=== PATIENT | male | born 1960 | race Caucasian/White ===

== ENCOUNTER 2022-05-22 14:21 | Emergency (ER) | payer MEDICAID, SELFPAY ==
[2022-05-22 14:43] VITALS: BP 164/91; PULSE 70; RESP 20; TEMP 36.6; O2SAT 94; BMI 26.7
[2022-05-22 15:00] VITALS: BP 125/80; PULSE 65; RESP 14; O2SAT 93
--- NOTE | 2022-05-22 15:25 | CRLHL7_ITS ---
For Patients: As a result of the Century Cures Act, medical imaging exams and procedure reports are released immediately into your electronic medical record. You may view this report before your referring provider. If you have questions, please contact your health care provider. INDICATION: Cough, shortness of breath. TECHNIQUE: CT chest without contrast. Coronal and sagittal reformats were generated. COMPARISON: Multiple prior imaging studies, most recently CT of the chest from 04/24/2022. FINDINGS: Thyroid: Unremarkable. Thoracic lymph nodes: Scattered enlarged mediastinal nodes appear similar to prior. A pretracheal node measures approximately 1.8 x 1.7 cm (34). Mediastinum and esophagus: Unremarkable. Heart and vasculature: Unremarkable. Lungs: Diffuse centrilobular emphysematous changes, mostly involving the upper lobes. Areas of irregular right upper lobe opacity, as well as consolidation in the posterior aspect of the right upper lobe and superior segment of the right lower lobe appear similar to prior. Streaky opacities in the left upper lobe have resolved. Decreased density of the left lower lobe consolidation. Pleura: Trace left pleural effusion. Chest wall: Unremarkable. Upper abdomen: No significant findings. Bones: Unremarkable for age. IMPRESSION: 1. Findings suggest improving multifocal infection. 2. Persistent enlarged mediastinal nodes are likely reactive. 3. Stable emphysematous changes. Please note that all CT scans at this facility use dose modulation, iterative reconstruction, and/or weight-based dosing when appropriate to reduce radiation dose to as low as reasonably achievable. Dictated by Hai Rosenberg MD @ 05/22/2022 4:39:47 PM (Electronically Signed)
--- NOTE | 2022-05-22 15:47 | ED.SOB ---
HPI - SOB/Dyspnea General Time Seen by Provider: 15:20 Date Seen: 05/22/22 Chief Complaint: Shortness of Breath/Dyspnea Stated Complaint: Short of breath, coughing Time Seen by Provider: 05/22/22 15:16 Source: patient Mode of arrival: ambulatory History of Present Illness MD elicited complaint: shortness of breath and cough Pertinent past history: asthma and pneumonia Onset (ago): week(s) (One) Context: recent illness Severity: moderate Known history of: asthma and recurrent pneumonia Associated symptoms: denies other symptoms Related Data Home Medications Medication Instructions Recorded Confirmed albuterol sulfate 90 mcg/actuation INHALATION 05/22/22 aerosol inhaler (ProAir HFA) budesonide-formoterol HFA 160 INHALATION 05/22/22 mcg-4.5 mcg/actuation aerosol inhaler (Symbicort) montelukast 10 mg tablet mg 05/22/22 omeprazole 20 mg capsule,delayed mg 05/22/22 release tiotropium bromide 18 mcg capsule INHALATION 05/22/22 with inhalation device (Spiriva with HandiHaler) Previous Rx's Medication Instructions Recorded acetaminophen 300 mg-codeine 30 mg 1 tab PO Q4-6H PRN #20 tab 05/22/22 tablet methylprednisolone 4 mg tablets in 4 mg PO DAILY #21 ea 05/22/22 a dose pack (Medrol (Gibran)) Allergies Allergy/AdvReac Type Severity Reaction Status Date / Time shellfish derived AdvReac Intermediate Vomiting Verified 05/22/22 14:43 Review of Systems Status of ROS: Reports: 10 or more systems reviewed and unremarkable except as noted in History and below Const: Denies: fever or chills Eyes: Denies: change in vision ENMT: Denies: throat pain Cardio: Reports: shortness of breath with exertion; Denies: chest pain Resp: Reports: shortness of breath and cough GI: Denies: abdominal pain : Denies: painful urination Musculo: Denies: back pain Integ/Breast: Denies: rash Neuro: Denies: headache, numbness in extremities or weakness in extremities Psych: Denies: anxiety Endo: Denies: excessive urination Santy/Lymph: Denies: easy bruising or easy bleeding Allergy/Immuno: Denies: hives PFSH PFS Medical History Anemia Pneumonia Surgical History (Updated 05/22/22 @ 15:14 by June Samuels RN) No significant past surgical history Social History Smoking Status: Former smoker What tobacco products do you use: cigarettes Smoking quit date/years: <= 15 years ago Do you use any of these nicotine containing products: None Second hand tobacco smoke exposure: Yes How often do you have a drink containing alcohol: 4 or more times a week How many standard drinks containing alcohol do you have on a typical day: 3 or 4 How often do you have six or more drinks on one occasion: Never AUDIT-C Alcohol total score: 5 Non-prescribed substance use: denies use service: No Exam Const: Vital Signs, click to edit/add: Vital Signs - 24 hr 05/22/22 14:43 05/22/22 15:00 Temperature 97.9 F Pulse Rate [Right Pulse Oximeter] 70 65 Respiratory Rate 20 14 Blood Pressure [Ri ght Upper Arm] 164/91 H 125/80 Pulse Oximetry 94 93 Common normals: no apparent distress, oriented x3 and alert General appearance: cooperative and comfortable Orientation/consciousness: Yes awake HENMT: Common normals: normocephalic Head and scalp: normocephalic Eye: Common normals: PERRL Pupil: PERRL Neck & C-Spine: Common normals: full ROM Chest: Common normals: inspection of chest normal Resp: Common normals: normal respiratory effort, no use of accessory muscles and clear to auscultation bilaterally Auscultation: clear to auscultation bilaterally Cardio: Common normals: regular rate and regular rhythm Rate: regular rate Rhythm: regular rhythm GI: Common normals: Normal to inspection, nondistended, normoactive bowel sounds present Auscultation: normoactive bowel sounds : Other: Deferred. Back & Pelvis: Thoracic spine/upper back: normal to inspection Lumbar spine/lower back: normal to inspection Extremity: Common normals: normal to inspection and no pedal edema Neuro: Common normals: oriented x3 Sensorium/orientation: awake and alert Gait (neuro): normal gait Psych: Common normals: mental status grossly normal Skin: Common normals: no rashes or lesions noted General skin exam: no rashes or lesions noted Course Vital Signs Vital signs: Initial Vital Signs Temperature 97.9 F 05/22/22 14:43 Temperature Source Temporal Artery Scan 05/22/22 14:43 Pulse Rate 70 05/22/22 14:43 Respiratory Rate 20 05/22/22 14:43 Blood Pressure 164/91 H 05/22/22 14:43 Blood Pressure Mean 115 05/22/22 14:43 Blood Pressure Position Sitting 05/22/22 14:43 Pulse Oximetry 94 05/22/22 14:43 Oxygen Delivery Method 05/22/22 14:43 Vital Signs Temperature 97.9 F 05/22/22 14:43 Pulse Rate 70 05/22/22 14:43 Respiratory Rate 20 05/22/22 14:43 Blood Pressure 164/91 H 05/22/22 14:43 Pulse Oximetry 94 05/22/22 14:43 Temperature 97.9 F 05/22/22 14:43 Pulse Rate 65 05/22/22 15:00 Respiratory Rate 14 05/22/22 15:00 Blood Pressure 125/80 05/22/22 15:00 Pulse Oximetry 93 05/22/22 15:00 MDM - SOB/Dyspnea MDM Narrative Medical decision making narrative: This patient comes in with worsening cough and some shortness of breath as described above. He is concerned that his pneumonia that was treated for a more lengthy amount a time with antibiotics a few months ago may be recurrent or worsening. He has seen a credit department manager and has had a bronchoscopy. He finished an antibiotic a month ago or so. Today his vital signs are reassuring. His temperature is normal. His white count is in normal range as is his hemoglobin. A CT scan of the chest was done without contrast which shows some improvement of previous pneumonia. There is a small effusion also. Meanwhile the patient has reassuring vital signs and is okay to return home. He did receive a prescription for Tylenol 3 to help with some coughing fits that he describes. He also received a Medrol Dosepak. Lab Data Labs: Lab Results 05/22/22 05/22/22 Range/Units 15:48 15:48 WBC 6.32 (4.50-11.00) K/uL RBC 4.33 (4.30-5.90) m/uL Hgb 12.0 L (13.5-17.5) gm/dL Hct 39.2 (37.0-53.0) % MCV 91 (80-100) fL MCH 28 (26-34) pg MCHC 31 L (32-36) gm/dL RDW Coeff of Mandeep 16.0 H (11.5-15.5) % Plt Count 479 H (140-440) K/uL Neut % (Auto) 48.4 (42.0-72.0) % Lymph % (Auto) 24.5 (20-44) % [place] % (Auto) 14.4 H (0.0-11.0) % Eos % (Auto) 11.7 H (0.0-7.0) % Baso % (Auto) 0.8 (0.0-3.0) % Neut # (Auto) 3.06 (1.7-7.0) K/uL Lymph # (Auto) 1.55 (0.90-2.90) K/uL [place] # (Auto) 0.90 (0.00-0.90) K/UL Eos # (Auto) 0.70 H (0.00-0.50) K/uL Baso # (Auto) 0.05 (0.00-0.30) K/uL Abs Immat Gran (auto) 0.01 (0.00-0.30) K/uL Sodium 139 (135-149) mmol/L Potassium 4.5 (3.6-5.1) mmol/L Chloride 102 (96-114) mmol/L Carbon Dioxide 30 (20-32) mmol/L BUN 10 (7-30) mg/dL Creatinine 1.0 (0.5-1.5) mg/dL Estimated Creat Clear 78.07 Glucose 95 (60-115) mg/dL Calcium 8.9 (8.4-10.6) mg/dL NT-Pro-B Natriuret Pep 334 H (0-125) PG/mL Imaging Data CT scan - chest: Radiologist's impression: 1. Findings suggest improving multifocal infection. 2. Persistent enlarged mediastinal nodes are likely reactive. 3. Stable emphysematous changes. Discharge Plan Discharge Clinical Impression: Asthma with acute exacerbation Patient Disposition: Home, Self-Care Condition: Unchanged Activity Level: Activity as Tolerated Prescriptions: New acetaminophen-codeine 300-30 mg tablet 1 tab PO Q4-6H PRN (Reason: cough) Qty: 20 0RF methylprednisolone [Medrol (Gibran)] 4 mg tablets,dose pack 4 mg PO DAILY Qty: 21 0RF Rx Instructions: Use as directed No Action omeprazole 20 mg capsule,delayed release(DR/EC) 0RF Label Comments: TAKE 1 CAPSULE BY MOUTH DAILY montelukast 10 mg tablet 0RF Label Comments: TAKE 1 TAB BY MOUTH AT BEDTIME albuterol sulfate [ProAir HFA] 90 mcg/actuation HFA aerosol inhaler INHALATION 0RF Label Comments: SHAKE WELL AND INHALE 1 TO 2 PUFFS EVERY 4 HOURS NEEDED Spiriva with HandiHaler 18 mcg capsule, w/inhalation device INHALATION 0RF Label Comments: INHALE 1 EACH DAILY budesonide-formoterol [Symbicort] 160-4.5 mcg/actuation HFA aerosol inhaler INHALATION 0RF Stand Alone Forms: MyHealth Info Instructions
[2022-05-22 16:07] LABS: Basophils Absolute Auto 0.05 K/uL (0.00-0.30); Basophils Percent Auto 0.8 % (0.0-3.0); Eosinophils Percent Auto 11.7 % (0.0-7.0); Hematocrit 39.2 % (37.0-53.0); Immature Granulocytes Abs Auto 0.01 K/uL (0.00-0.30); Lymphocytes Absolute Auto 1.55 K/uL (0.90-2.90); Lymphocytes Percent Auto 24.5 % (20-44); Mean Corpuscular HGB Conc 31 gm/dL (32-36); Mean Corpuscular Hemoglobin 28 pg (26-34); Mean Corpuscular Volume 91 fL (80-100); Monocytes Percent Auto 14.4 % (0.0-11.0); Neutrophils Absolute Auto 3.06 K/uL (1.7-7.0); Neutrophils Percent Auto 48.4 % (42.0-72.0); Platelet Count* 479 K/uL (140-440); Red Blood Count 4.33 m/uL (4.30-5.90); White Blood Count* 6.32 K/uL (4.50-11.00)
[2022-05-22 16:12] LABS: Chloride* 102 mmol/L (96-114); Potassium* 4.5 mmol/L (3.6-5.1); Sodium* 139 mmol/L (135-149)
[2022-05-22 16:15] LABS: Blood Urea Nitrogen* 10 mg/dL (7-30); Carbon Dioxide* 30 mmol/L (20-32); Est. Creatinine Clearance* 78.07; Estimated Glomerular Filt Rate 84.57; Slide Review Reflex No
[2022-05-22 16:16] LABS: Calcium* 8.9 mg/dL (8.4-10.6); Glucose* 95 mg/dL (60-115)
[2022-05-22 16:25] LABS: NT Pro B Type NatriureticPept* 334 PG/mL (0-125)
[2022-05-22 17:30] VITALS: BP 165/83; PULSE 72; RESP 18; O2SAT 92
--- NOTE | 2022-05-22 18:32 | ED.NURSE ---
[facility] did not receive patient's escribed medications. Prescriptions for tylenol 3 and medrol dosepak verbalized to pharmacy staff.
== END 2022-05-22 17:57 | disposition home or self-care (01) ==
LOC: ED 17:51
PROVIDERS: Emergency Provider Emergency Medicine Emergency Medical Services; PCP Family Medicine
DX: J45.901 Unspecified asthma with (acute) exacerbation (principal)
CPT/HCPCS: 36415; 71250; 80048; 83880; 85025; 99284; 99285

== ENCOUNTER 2022-06-03 19:24 | Emergency (ER) | payer MEDICAID, SELFPAY ==
[2022-06-03 19:44] VITALS: BP 174/96; PULSE 86; RESP 18; TEMP 36.4; O2SAT 93; BMI 26.7
--- NOTE | 2022-06-03 20:10 | CRLHL7_ITS ---
For Patients: As a result of the Century Cures Act, medical imaging exams and procedure reports are released immediately into your electronic medical record. You may view this report before your referring provider. If you have questions, please contact your health care provider. INDICATION: Dyspnea TECHNIQUE: CT chest without contrast. COMPARISON: 05/22/[address] chest FINDINGS: Lungs and pleura: Stable areas of consolidation in the right posterior apical area, posteriorly/pleural based right upper lobe, with stable areas of linear opacity in the lingula and left lower lobe to a lesser extent than the right lung. No new suspicious nodules or infiltrates. No pleural effusions, pleural thickening, or pneumothorax. Heart and vasculature: Heart size is normal. Thoracic aorta and pulmonary artery are normal in caliber. Three vessel coronary artery calcification. Lymph nodes/mediastinum: Stable mild mediastinal and right hilar adenopathy. No axillary adenopathy. Thyroid gland is normal. Chest wall: No masses. Upper abdomen: Stable hiatal hernia Bones: Unremarkable for age. IMPRESSION: 1. No significant change since 05/22/2022 CT exam, including areas of pleural-based consolidation right lung, and lesser scattered areas of opacity left lung. 2. Stable, mildly enlarged mediastinal and right hilar lymph nodes, likely reactive. 3. Stable emphysematous/chronic change. Please note that all CT scans at this facility use dose modulation, iterative reconstruction, and/or weight-based dosing when appropriate to reduce radiation dose to as low as reasonably achievable. Dictated by Mario Alberto Hernandez MD @ 06/03/2022 9:28:49 PM (Electronically Signed)
--- NOTE | 2022-06-03 20:11 | ED_ITS ---
HPI - General Adult General Time Seen by Provider: 20:05 Date Seen: 06/03/22 Chief complaint: Shortness of Breath/Dyspnea Stated complaint: chest tightness Time Seen by Provider: 06/03/22 20:10 Source: patient Mode of arrival: ambulatory Limitations: no limitations History of Present Illness HPI narrative: 61-year-old who comes in today with chest tightness. Patient has a history of COPD and recently was treated for a lung abscess. Was feeling quite well after finishing antibiotics about 6. Did develop some runny nose and congestion about that time which is not been overly bothersome. In the last couple of days he has noticed some chest tightness and difficulty with taking a big breath in. It is worse today. He denies fever, chills, body aches vomiting, diarrhea, leg swelling. He has been using his inhalers and nebulizer treatments with minimal improvement. He has had a cough which is productive of clear sputum. He also notes that his breathing is worse with activity and with laying down. Related Data Home Medications Medication Instructions Recorded Confirmed albuterol sulfate 90 mcg/actuation INHALATION 05/22/22 aerosol inhaler (ProAir HFA) budesonide-formoterol HFA 160 INHALATION 05/22/22 mcg-4.5 mcg/actuation aerosol inhaler (Symbicort) montelukast 10 mg tablet mg 05/22/22 tiotropium bromide 18 mcg capsule INHALATION 05/22/22 with inhalation device (Spiriva with HandiHaler) albuterol sulfate 2.5 mg/3 mL mg 06/03/22 (0.083 %) solution for nebulization Previous Rx's Medication Instructions Recorded acetaminophen 300 mg-codeine 30 mg 1 tab PO Q4-6H PRN #20 tab 05/22/22 tablet methylprednisolone 4 mg tablets in 4 mg PO DAILY #21 ea 05/22/22 a dose pack (Medrol (Gibran)) omeprazole 20 mg capsule,delayed 20 mg .ROUTE QDAY #90 cap 05/29/22 release budesonide 0.5 mg/2 mL suspension 0.5 mg (2 mL) INHALATION BID #10 ml 06/03/22 for nebulization (Pulmicort) Allergies Allergy/AdvReac Type Severity Reaction Status Date / Time shellfish derived AdvReac Intermediate Vomiting Verified 06/03/22 22:37 Review of Systems Status of ROS: Reports: 10 or more systems reviewed and unremarkable except as noted in History and below [facility] Medical History Anemia Pneumonia Surgical History (Updated 05/22/22 @ 15:14 by June Samuels RN) No significant past surgical history Social History (Updated 05/22/22 @ 17:36 by Kwasi Bales MD) Smoking Status: Former smoker What tobacco products do you use: cigarettes Smoking quit date/years: <= 15 years ago Do you use any of these nicotine containing products: None Second hand tobacco smoke exposure: Yes How often do you have a drink containing alcohol: 4 or more times a week How many standard drinks containing alcohol do you have on a typical day: 3 or 4 How often do you have six or more drinks on one occasion: Never AUDIT-C Alcohol total score: 5 Non-prescribed substance use: denies use service: No Exam Const: Vital Signs, click to edit/add: Vital Signs - 24 hr 06/03/22 19:44 06/03/22 22:04 06/03/22 22:54 Temperature 97.6 F Pulse Rate 73 Pulse Rate [Apical ] 86 70 Respiratory Rate 18 70 H 20 Blood Pressure 147/83 H Blood Pressure [Ri ght Upper Arm] 174/96 H 159/80 H Pulse Oximetry 93 93 Documenting provider has reviewed patient's vital signs: yes Common normals: no apparent distress, oriented x3, alert and well nourished HENMT: Common normals: normocephalic, head/scalp atraumatic, external ears normal and external nose normal Head and scalp: normocephalic and atraumatic Nose: external nose normal External ear: external ears normal Eye: Common normals: PERRL and conjunctivae normal Conjunctiva: conjunctiva(e) normal Pupil: PERRL Neck & C-Spine: Common normals: full ROM, no lymphadenopathy and supple Chest: Common normals: palpation of chest normal Resp: Common normals: normal respiratory effort Other: Poor air movement bilaterally with expiratory wheezes on the right, some crackles in the left Cardio: Common normals: regular rate, regular rhythm and no murmurs Rate: regular rate Rhythm: regular rhythm GI: Common normals: Normal to inspection, nondistended, normoactive bowel sounds present, soft to palpation and non-tender Palpation: soft : Common normals: no CVA tenderness Bladder/kidney exam: no CVA tenderness Back & Pelvis: Common normals: no CVA tenderness and thoracic and lumbar spine normal to inspection Extremity: Common normals: normal to inspection, full ROM and no pedal edema Neuro: Common normals: oriented x3, CN's II-XII intact bilaterally and no focal motor deficits Sensorium/orientation: alert Psych: Common normals: mental status grossly normal Skin: Common normals: no rashes or lesions noted General skin exam: no rashes or lesions noted Course Reevaluation(s) Reevaluation #1: Labs are reassuring including normal troponin, normal BNP. COVID negative. CT scan stable from 2 weeks ago. Likely COPD exacerbation although with stable continued consolidations in the lungs, cannot exclude infectious etiology. Patient will be restarted on Augmentin for 10 days along with prednisone burst and taper, follow-up with primary care and pulmonology. Time: 21:37 Vital Signs Vital signs: Initial Vital Signs Temperature 97.6 F 06/03/22 19:44 Temperature Source Temporal Artery Scan 06/03/22 19:44 Pulse Rate 86 06/03/22 19:44 Respiratory Rate 18 06/03/22 19:44 Blood Pressure 174/96 H 06/03/22 19:44 Blood Pressure Mean 122 06/03/22 19:44 Blood Pressure Position Supine 06/03/22 19:44 Pulse Oximetry 93 06/03/22 19:44 Oxygen Delivery Method 06/03/22 19:44 Vital Signs Temperature 97.6 F 06/03/22 19:44 Pulse Rate 86 06/03/22 19:44 Respiratory Rate 18 06/03/22 19:44 Blood Pressure 174/96 H 06/03/22 19:44 Pulse Oximetry 93 06/03/22 19:44 Temperature 97.6 F 06/03/22 19:44 Pulse Rate 73 06/03/22 22:54 Respiratory Rate 20 06/03/22 22:54 Blood Pressure 147/83 H 06/03/22 22:54 Pulse Oximetry 93 06/03/22 22:04 Medical Decision Making MDM Narrative Medical decision making narrative: Patient seen and examined, prior records are reviewed. Differential diagnosis includes but not limited to COPD exacerbation, congestive heart failure, acute coronary syndrome, pneumonia, bronchitis, influenza, COVID infection, pulmonary abscess. Patient with history of COPD, increased chest tightness and shortness of breath for the last couple of days. No tachypnea or increased work of breathing but oxygen saturation 93% on room air. Diminished breath sounds throughout both lung barrientos. Duoneb and CT scan ordered or lung abscess. Medical Records Medical records reviewed: Yes I reviewed the patient's medical records Lab Data Lab results reviewed: Yes I reviewed the patient's lab results Labs: Lab Results 06/03/22 06/03/22 06/03/22 Range/Units 20:23 20:23 20:23 WBC 8.72 (4.50-11.00) K/uL RBC 4.64 (4.30-5.90) m/uL Hgb 13.2 L (13.5-17.5) gm/dL Hct 41.0 (37.0-53.0) % MCV 88 (80-100) fL MCH 28 (26-34) pg MCHC 32 (32-36) gm/dL RDW Coeff of Mandeep 16.0 H (11.5-15.5) % Plt Count 398 (140-440) K/uL Neut % (Auto) 63.1 (42.0-72.0) % Lymph % (Auto) 13.9 L (20-44) % [facility] [place] [facility] % (Auto) 13.9 H (0.0-11.0) % Eos % (Auto) 8.3 H (0.0-7.0) % Baso % (Auto) 0.5 (0.0-3.0) % Neut # (Auto) 5.51 (1.7-7.0) K/uL Lymph # (Auto) 1.20 (0.90-2.90) K/uL [facility] [place] [facility] # (Auto) 1.20 H (0.00-0.90) K/UL Eos # (Auto) 0.70 H (0.00-0.50) K/uL Baso # (Auto) 0.04 (0.00-0.30) K/uL Abs Immat Gran (auto) 0.03 (0.00-0.30) K/uL Diff Slide Review Acceptable Review (Acceptable) Sodium 135 (135-149) mmol/L Potassium 3.8 (3.6-5.1) mmol/L Chloride 103 (96-114) mmol/L Carbon Dioxide 25 (20-32) mmol/L BUN 13 (7-30) mg/dL Creatinine 0.9 (0.5-1.5) mg/dL Estimated Creat Clear 78.07 Glucose 116 H (60-115) mg/dL Calcium 8.9 (8.4-10.6) mg/dL NT-Pro-B Natriuret Pep 121 (0-125) PG/mL SARS-CoV-2 (PCR) Negative SARS-CoV-2 (Negative) Influenza Type A (PCR) Negative PCR FLU A (Negative) Influenza Type B (PCR) Negative PCR FLU B (Negative) POC Troponin I (0.01-0.04) ng/ml 06/03/22 Range/Units 20:23 WBC (4.50-11.00) K/uL RBC (4.30-5.90) m/uL Hgb (13.5-17.5) gm/dL Hct (37.0-53.0) % MCV (80-100) fL MCH (26-34) pg MCHC (32-36) gm/dL RDW Coeff of Mandeep (11.5-15.5) % Plt Count (140-440) K/uL Neut % (Auto) (42.0-72.0) % Lymph % (Auto) (20-44) % [facility] [place] [facility] % (Auto) (0.0-11.0) % Eos % (Auto) (0.0-7.0) % Baso % (Auto) (0.0-3.0) % Neut # (Auto) (1.7-7.0) K/uL Lymph # (Auto) (0.90-2.90) K/uL [facility] # (Auto) (0.00-0.90) K/UL Eos # (Auto) (0.00-0.50) K/uL Baso # (Auto) (0.00-0.30) K/uL Abs Immat Gran (auto) (0.00-0.30) K/uL Diff Slide Review (Acceptable) Sodium (135-149) mmol/L Potassium (3.6-5.1) mmol/L Chloride (96-114) mmol/L Carbon Dioxide (20-32) mmol/L BUN (7-30) mg/dL Creatinine (0.5-1.5) mg/dL Estimated Creat Clear Glucose (60-115) mg/dL Calcium (8.4-10.6) mg/dL NT-Pro-B Natriuret Pep (0-125) PG/mL SARS-CoV-2 (PCR) (Negative) Influenza Type A (PCR) (Negative) Influenza Type B (PCR) (Negative) POC Troponin I 0.01 (0.01-0.04) ng/ml Imaging Data CT scan - chest: My impression: Consolidation in the right lung, no acute changes from prior of April 2022 Radiologist's impression: IMPRESSION: 1. No significant change since 05/22/2022 CT exam, including areas of pleural- based consolidation right lung, and lesser scattered areas of opacity left lung. 2. Stable, mildly enlarged mediastinal and right hilar lymph nodes, likely reactive. 3. Stable emphysematous/chronic change. ECG Data Attestation: I personally reviewed and interpreted this ECG as follows: Prior ECG tracings: available for review Interpretation: Performed at 7:44 p.m. demonstrates sinus rhythm rate 88, no acute ST elevations or depressions, normal intervals, normal axis, QTC 423, IN 152. Note from prior February 2021. Discharge Plan Discharge Clinical Impression: Acute infective exacerbation of chronic obstructive airway disease Patient Disposition: Home, Self-Care Condition: Stable Instructions: COPD (Chronic Obstructive Pulmonary Disease) (ED) Additional Instructions: Call your associate loan officer to discuss CT findings and further treatment Follow-up with your doctor in 2 days Activity Level: No Restrictions Discharge Diet: Regular Prescriptions: New budesonide [Pulmicort] 0.5 mg/2 mL suspension for nebulization 0.5 mg inhalation BID Qty: 10 0RF No Action montelukast 10 mg tablet 0RF Label Comments: TAKE 1 TAB BY MOUTH AT BEDTIME albuterol sulfate [ProAir HFA] 90 mcg/actuation HFA aerosol inhaler INHALATION 0RF Label Comments: SHAKE WELL AND INHALE 1 TO 2 PUFFS EVERY 4 HOURS NEEDED Spiriva with HandiHaler 18 mcg capsule, w/inhalation device INHALATION 0RF Label Comments: INHALE 1 EACH DAILY budesonide-formoterol [Symbicort] 160-4.5 mcg/actuation HFA aerosol inhaler INHALATION 0RF acetaminophen-codeine 300-30 mg tablet 1 tab PO Q4-6H PRN (Reason: cough) Qty: 20 0RF methylprednisolone [Medrol (Gibran)] 4 mg tablets,dose pack 4 mg PO DAILY Qty: 21 0RF Rx Instructions: Use as directed albuterol sulfate 2.5 mg /3 mL (0.083 %) solution for nebulization 0RF Label Comments: TAKE 1 VIAL BY NEBULIZATION EVERY 4 HOURS NEEDED. omeprazole 20 mg capsule,delayed release(DR/EC) 20 mg .ROUTE QDAY Qty: 90 0RF Rx Instructions: 20 mg every day; Follow Up/Referrals: Arabella Chiu MD [Primary Care Provider] - Stand Alone Forms: Protonetth Info Instructions
[2022-06-03 20:37] LABS: Basophils Absolute Auto 0.04 K/uL (0.00-0.30); Basophils Percent Auto 0.5 % (0.0-3.0); Eosinophils Percent Auto 8.3 % (0.0-7.0); Hemoglobin* 13.2 gm/dL (13.5-17.5); Immature Granulocytes Abs Auto 0.03 K/uL (0.00-0.30); Lymphocytes Percent Auto 13.9 % (20-44); Mean Corpuscular HGB Conc 32 gm/dL (32-36); Mean Corpuscular Hemoglobin 28 pg (26-34); Mean Corpuscular Volume 88 fL (80-100); Monocytes Percent Auto 13.9 % (0.0-11.0); Neutrophils Absolute Auto 5.51 K/uL (1.7-7.0); Neutrophils Percent Auto 63.1 % (42.0-72.0); Platelet Count* 398 K/uL (140-440); Red Blood Count 4.64 m/uL (4.30-5.90); White Blood Count* 8.72 K/uL (4.50-11.00)
[2022-06-03 20:43] LABS: Slide Review Reflex Yes
[2022-06-03 20:44] LABS: Slide Review Acceptable Review (Acceptable)
[2022-06-03 20:50] LABS: Chloride* 103 mmol/L (96-114); Potassium* 3.8 mmol/L (3.6-5.1); Sodium* 135 mmol/L (135-149)
[2022-06-03 20:53] LABS: Blood Urea Nitrogen* 13 mg/dL (7-30); Calcium* 8.9 mg/dL (8.4-10.6); Carbon Dioxide* 25 mmol/L (20-32); Creatinine* 0.9 mg/dL (0.5-1.5); Est. Creatinine Clearance* 78.07; Estimated Glomerular Filt Rate 95.97; Glucose* 116 mg/dL (60-115)
[2022-06-03 20:56] LABS: Troponin, Point-of-Care* 0.01 ng/ml (0.01-0.04)
[2022-06-03 21:02] LABS: NT Pro B Type NatriureticPept* 121 PG/mL (0-125)
[2022-06-03 21:20] LABS: PCR FLU A Negative PCR FLU A (Negative); PCR FLU B Negative PCR FLU B (Negative)
[2022-06-03 21:23] LABS: SARS PCR* Negative SARS-CoV-2 (Negative)
[2022-06-03 22:04] VITALS: BP 159/80; PULSE 70; RESP 70; O2SAT 93
[2022-06-03] MEDS: IPRAT-ALBUT 0.5-2.5 MG/3 ML NEB 1 NEB IH (22:04)
[2022-06-03] MEDS: predniSONE 20 MG TABLET 40 MG PO (22:13)
[2022-06-03] MEDS: AMOXICILLIN/CLAVULANATE 875 mg/125 mg TABLET PO (22:14)
[2022-06-03 22:54] VITALS: BP 147/83; PULSE 73; RESP 20
== END 2022-06-03 23:14 | disposition home or self-care (01) ==
LOC: ED 22:47
PROVIDERS: Emergency Provider Family Medicine; PCP Family Medicine
DX: J44.1 Chronic obstructive pulmonary disease with (acute) exacerbation (principal)
CPT/HCPCS: 36415; 71250; 80048; 83880; 84484; 85025; 87502; 87635; 93005; 94640; 99284; 99285; A9270; J7512

== ENCOUNTER 2022-07-21 12:23 | Emergency (ER) | payer MEDICAID, SELFPAY ==
[2022-07-21 12:56] VITALS: BP 166/80; PULSE 77; RESP 18; TEMP 36.8; O2SAT 94; BMI 26.3
--- NOTE | 2022-07-21 13:27 | ED_ITS ---
HPI - General Adult General Time Seen by Provider: 13:27 Date Seen: 07/21/22 Chief complaint: Ear/Nose/Throat Problem Stated complaint: Sore throat Time Seen by Provider: 07/21/22 13:26 Source: patient and RN notes reviewed Mode of arrival: ambulatory Limitations: no limitations History of Present Illness HPI narrative: Patient is a 61-year-old male coming in with sore throat for about a week now. There has been no fevers or chills. It is been variable in severity. He notes a few days before it started he had been to the dentist and had his teeth cleaned. Some around the time frame of it starting he remembers eating some chips and have ongoing down that went down hard, believes he did not maybe chew it up enough. He does have pain with swallowing. He has been using Mucinex and ibuprofen. I asked about the Mucinex and he denied any significant postnasal drainage contributing to this. However he notes when he leaned forward today he did get some nasal drippage. He had not noted significant postnasal drainage or sneezing or congestion with this. It has been variable as where he is feeling the pain but he feels it more posteriorly now. He has not noted any difficulty breathing, is on prednisone for COPD. Does not have any oral pharyngeal symptoms such as soreness of the tongue or soreness in the oral mucous membranes. He does note that he has a pulmonology appointment coming up at the end of the month and will have a CT at that time. He has a remote history of smoking. Related Data Home Medications Medication Instructions Recorded Confirmed budesonide-formoterol HFA 160 2 inhalation BID 06/11/22 06/11/22 mcg-4.5 mcg/actuation aerosol inhaler ferrous fumarate 325 mg (106 mg 325 mg PO QDAY 06/11/22 06/11/22 iron) tablet Previous Rx's Medication Instructions Recorded acetaminophen 300 mg-codeine 30 mg 1 tab PO Q4-6H PRN cough #20 tabs 05/22/22 tablet albuterol sulfate 2.5 mg/3 mL 2.5 mg (3 mL) continuous 06/11/22 (0.083 %) solution for nebulization nebulization Q4H PRN bronchospasm #180 mL albuterol sulfate 90 mcg/actuation 2 puff inhalation Q2H #8.5 grams 06/11/22 aerosol inhaler (ProAir HFA) budesonide-formoterol HFA 160 2 puff inhalation Q12H #30.6 grams 06/11/22 mcg-4.5 mcg/actuation aerosol inhaler (Symbicort) methylprednisolone 4 mg tablets in 4 mg PO DAILY #21 ea 06/11/22 a dose pack (Medrol (Gibran)) montelukast 10 mg tablet 10 mg PO QPM #90 tabs 06/11/22 omeprazole 20 mg capsule,delayed 20 mg .Route QDAY #90 caps 06/11/22 release tiotropium bromide 18 mcg capsule 1 cap inhalation QDAY COPD #90 07/08/22 with inhalation device (Spiriva inhalations with HandiHaler) amoxicillin 875 mg tablet 875 mg PO BID #20 tabs 07/21/22 Allergies Allergy/AdvReac Type Severity Reaction Status Date / Time shellfish derived AdvReac Intermediate Vomiting Verified 06/03/22 22:37 Review of Systems Status of ROS: Reports: 10 or more systems reviewed and unremarkable except as noted in History and below [facility] Medical History (Updated 07/21/22 @ 15:58 by Charlene He MD) Anemia Asthma (02/28/15) Pneumonia Surgical History (Updated 06/09/22 @ 08:32 by Adriana Real) No pertinent past surgical history No significant past surgical history Family History (Updated 06/09/22 @ 08:33 by Adriana Real) Father COPD (chronic obstructive pulmonary disease) Coronary artery disease Family/Other Stroke Social History (Updated 06/09/22 @ 08:34 by Adriana Real) Narrative: Alcohol use- 11/09 pt has been decreasing Former smoker- quit age 52; smoked 1.5 packs/day; approx 60 pack year history Smoking Status: Former smoker What tobacco products do you use: cigarettes Smoking quit date/years: <= 15 years ago Do you use any of these nicotine containing products: None Second hand tobacco smoke exposure: Yes How often do you have a drink containing alcohol: 4 or more times a week How many standard drinks containing alcohol do you have on a typical day: 3 or 4 How often do you have six or more drinks on one occasion: Never AUDIT-C Alcohol total score: 5 Non-prescribed substance use: denies use service: No Exam Const: Vital Signs, click to edit/add: Vital Signs - 24 hr 07/21/22 12:56 Temperature 98.3 F Pulse Rate [Right Pulse Oximeter] 77 Respiratory Rate 18 Blood Pressure [Ri ght Upper Arm] 166/80 H Pulse Oximetry 94 Oxygen Delivery Me thod Room Air Documenting provider has reviewed patient's vital signs: yes Common normals: no apparent distress, oriented x3, no limitations, healthy appearing, alert and well nourished General appearance: cooperative, comfortable and well clostert HENMT: Common normals: normocephalic, head/scalp atraumatic, hearing grossly normal bilaterally, external ears normal, EAC's normal, TM's normal bilaterally, external nose normal, nasal mucous membranes and turbinates normal, moist oral mucous membranes, oropharynx normal, dentition normal and gingiva normal Head and scalp: normocephalic and atraumatic Nose: external nose normal and nasal mucous membranes and turbinates normal External ear: external ears normal External auditory canal: EAC's normal Tympanic membrane: TM's normal bilaterally Eye: Common normals: PERRL, EOMs intact bilaterally, conjunctivae normal and no scleral icterus Conjunctiva: conjunctiva(e) normal Pupil: PERRL Neck & C-Spine: Common normals: full ROM, no lymphadenopathy, supple, no meningeal signs, no JVD and thyroid normal Thyroid: thyroid normal Lymph: Lymphatic: no lymphadenopathy noted Resp: Common normals: normal respiratory effort, no retractions, no use of accessory muscles and clear to auscultation bilaterally (Mildly distant breath sounds) Auscultation: clear to auscultation bilaterally (Mildly distant breath sounds) Cardio: Common normals: no JVD, regular rate, regular rhythm, S1 normal heart sound, S2 normal heart sound, no gallops, no clicks and no murmurs Rate: regular rate Rhythm: regular rhythm Heart sounds: S1 normal and S2 normal Neuro: Common normals: oriented x3 Sensorium/orientation: alert Meningeal signs: no meningeal signs Psych: Appearance: well ket Course Course Hospital Course: Will do CBC, C-reactive protein to help delineate any infectious etiology. On examination his throat looks normal but talking to him it may be a bit lower where he is feeling symptoms. I may not be able to see were he he is bothered. What I can offer today are some basic labs and do a soft tissue neck CT. If labs in the CT are normal, may need follow-up with the ENT. Reevaluation(s) Reevaluation #1: Reviewed with patient his normal soft tissue neck CT, normal CBC as well as negative strep and negative COVID testing. He reported that a friend gave him when penicillin and his sore throat improved after that. It did come back in he had 2 leftover Augmentin tablets at home and he felt better after taking the Augmentin, it has improved his symptoms. He is wondering if he could try an antibiotic. I reviewed with him that the antibiotic certainly may not be indicated but that since he has done it and has noted partial improvement that I will write for amoxicillin. He understands though that he still needs to follow up with ENT as I have requested. There certainly can be other things in this differential and he needs to continue on with further evaluation. He does understand. Time: 16:03 Vital Signs Vital signs: Initial Vital Signs Temperature 98.3 F 07/21/22 12:56 Temperature Source Temporal Artery Scan 07/21/22 12:56 Pulse Rate 77 07/21/22 12:56 Respiratory Rate 18 07/21/22 12:56 Blood Pressure 166/80 H 07/21/22 12:56 Blood Pressure Mean 108 07/21/22 12:56 Blood Pressure Position Sitting 07/21/22 12:56 Pulse Oximetry 94 07/21/22 12:56 Oxygen Delivery Method 07/21/22 12:56 Vital Signs Temperature 98.3 F 07/21/22 12:56 Pulse Rate 77 07/21/22 12:56 Respiratory Rate 18 07/21/22 12:56 Blood Pressure 166/80 H 07/21/22 12:56 Pulse Oximetry 94 07/21/22 12:56 Oxygen Delivery Method 07/21/22 12:56 Temperature 98.3 F 07/21/22 12:56 Pulse Rate 77 07/21/22 12:56 Respiratory Rate 18 07/21/22 12:56 Blood Pressure 166/80 H 07/21/22 12:56 Pulse Oximetry 94 07/21/22 12:56 Oxygen Delivery Method 07/21/22 12:56 Medical Decision Making Lab Data Lab results reviewed: Yes I reviewed the patient's lab results Labs: Lab Results 07/21/22 07/21/22 07/21/22 Range/Units 13:00 13:00 13:45 WBC 8.08 (4.50-11.00) K/uL RBC 4.58 (4.30-5.90) m/uL Hgb 13.0 L (13.5-17.5) gm/dL Hct 40.9 (37.0-53.0) % MCV 89 (80-100) fL MCH 28 (26-34) pg MCHC 32 (32-36) gm/dL RDW Coeff of Mandeep 16.2 H (11.5-15.5) % Plt Count 413 (140-440) K/uL Neut % (Auto) 89.5 H (42.0-72.0) % Lymph % (Auto) 5.1 L (20-44) % [place] % (Auto) 4.6 (0.0-11.0) % Eos % (Auto) 0.2 (0.0-7.0) % Baso % (Auto) 0.1 (0.0-3.0) % Neut # (Auto) 7.20 H (1.7-7.0) K/uL Lymph # (Auto) 0.40 L (0.90-2.90) K/uL [place] # (Auto) 0.40 (0.00-0.90) K/UL Eos # (Auto) 0.02 (0.00-0.50) K/uL Baso # (Auto) 0.01 (0.00-0.30) K/uL Abs Immat Gran (auto) 0.04 (0.00-0.30) K/uL C-Reactive Protein (0.5-1.0) mg/dL SARS-CoV-2 (PCR) Negative SARS-CoV-2 (Negative) Influenza Type A (PCR) Negative PCR FLU A (Negative) Influenza Type B (PCR) Negative PCR FLU B (Negative) RSV (PCR) Negative PCR RSV (Negative) Group A Strep DNA NOT DETECTED (No Detected) POC Creatinine (0.6-1.3) mg/dl 07/21/22 07/21/22 Range/Units 13:45 14:05 WBC (4.50-11.00) K/uL RBC (4.30-5.90) m/uL Hgb (13.5-17.5) gm/dL Hct (37.0-53.0) % MCV (80-100) fL MCH (26-34) pg MCHC (32-36) gm/dL RDW Coeff of Mandeep (11.5-15.5) % Plt Count (140-440) K/uL Neut % (Auto) (42.0-72.0) % Lymph % (Auto) (20-44) % [place] % (Auto) (0.0-11.0) % Eos % (Auto) (0.0-7.0) % Baso % (Auto) (0.0-3.0) % Neut # (Auto) (1.7-7.0) K/uL Lymph # (Auto) (0.90-2.90) K/uL [place] # (Auto) (0.00-0.90) K/UL Eos # (Auto) (0.00-0.50) K/uL Baso # (Auto) (0.00-0.30) K/uL Abs Immat Gran (auto) (0.00-0.30) K/uL C-Reactive Protein < 0.5 L (0.5-1.0) mg/dL SARS-CoV-2 (PCR) (Negative) Influenza Type A (PCR) (Negative) Influenza Type B (PCR) (Negative) RSV (PCR) (Negative) Group A Strep DNA (No Detected) POC Creatinine 1.0 (0.6-1.3) mg/dl Imaging Data CT- Other: Attestation: I have reviewed the pertinent imaging results. Radiologist's impression: Patient: ELENI KOTHARI Facility:?[facility] Patient ID:?[id number] Site Patient ID:?[id number]. Site :?[id number] Study:?CT ST Neck W/IV CONTRAST ONLY-07/21/2022 2:50:28 PM Ordering Physician:?Neri Chang Final Report: INDICATION: Throat pain and swelling. Sore throat. TECHNIQUE: CT soft tissue of the neck was acquired with 91 cc Isovue 370 IV contrast. COMPARISON: None. FINDINGS: Skull base: Unremarkable. Pharynx/Larynx/Trachea: Epiglottis is normal. Airway is patent. Adjacent soft tissues are normal. Salivary glands: Unremarkable. Thyroid gland: Unremarkable. No significant nodules. Lymph nodes: No lymphadenopathy. Vessels: Unremarkable for age. Bones: Unremarkable for age. Misc: No inflammation, mass or fluid collection. Lung apices: Pleural scarring is present in the upper right lung. IMPRESSION: Unremarkable soft tissue CT of the neck. No finding to explain throat pain or swelling. Please note that all CT scans at this facility use dose modulation, iterative reconstruction, and/or weight-based dosing when appropriate to reduce radiation dose to as low as reasonably achievable. Dictated by Rinku Gibbs MD @ 07/21/2022 3:46:13 PM (Electronic Signature) Critical Care Time Critical Care Time Critical Care Time: No Discharge Plan Discharge Clinical Impression: Acute sore throat Patient Disposition: Home, Self-Care Condition: Stable Instructions: Pharyngitis (ED) Additional Instructions: Try a the amoxicillin as prescribed. Do recommend that you see ENT, can contact your primary care provider for referral. Can continue with [id number] medicines as needed for symptom control. If your sore throat is worsening, have increased difficulty swallowing or any difficulty breathing, do recommend re- evaluation. Activity Level: Activity as Tolerated Prescriptions: New amoxicillin 875 mg tablet 875 mg PO BID Qty: 20 0RF No Action budesonide-formoterol 160-4.5 mcg/actuation HFA aerosol inhaler 2 inhalation BID ferrous fumarate 325 mg (106 mg iron) tablet 325 mg PO QDAY montelukast 10 mg tablet 10 mg PO QPM Qty: 90 4RF methylprednisolone [Medrol (Gibran)] 4 mg tablets,dose pack 4 mg PO DAILY Qty: 21 3RF Rx Instructions: for COPD flares albuterol sulfate [ProAir HFA] 90 mcg/actuation HFA aerosol inhaler 2 puff INHALATION Q2H Qty: 8.5 12RF budesonide-formoterol [Symbicort] 160-4.5 mcg/actuation HFA aerosol inhaler 2 puff inhalation Q12H Qty: 30.6 4RF albuterol sulfate 2.5 mg /3 mL (0.083 %) solution for nebulization 2.5 mg continuous nebulization Q4H PRN (Reason: bronchospasm) Qty: 180 12RF omeprazole 20 mg capsule,delayed release(DR/EC) 20 mg .ROUTE QDAY Qty: 90 4RF Rx Instructions: 20 mg every day; acetaminophen-codeine 300-30 mg tablet 1 tab PO Q4-6H PRN (Reason: cough) Qty: 20 0RF Spiriva with HandiHaler 18 mcg capsule, w/inhalation device 1 cap INHALATION QDAY Qty: 90 3RF Follow Up/Referrals: Arabella Chiu MD [Primary Care Provider] - Stand Alone Forms: [employer] Info Instructions
--- NOTE | 2022-07-21 13:35 | CRLHL7_ITS ---
For Patients: As a result of the Century Cures Act, medical imaging exams and procedure reports are released immediately into your electronic medical record. You may view this report before your referring provider. If you have questions, please contact your health care provider. INDICATION: Throat pain and swelling. Sore throat. TECHNIQUE: CT soft tissue of the neck was acquired with 91 cc Isovue 370 IV contrast. COMPARISON: None. FINDINGS: Skull base: Unremarkable. Pharynx/Larynx/Trachea: Epiglottis is normal. Airway is patent. Adjacent soft tissues are normal. Salivary glands: Unremarkable. Thyroid gland: Unremarkable. No significant nodules. Lymph nodes: No lymphadenopathy. Vessels: Unremarkable for age. Bones: Unremarkable for age. Misc: No inflammation, mass or fluid collection. Lung apices: Pleural scarring is present in the upper right lung. IMPRESSION: Unremarkable soft tissue CT of the neck. No finding to explain throat pain or swelling. Please note that all CT scans at this facility use dose modulation, iterative reconstruction, and/or weight-based dosing when appropriate to reduce radiation dose to as low as reasonably achievable. Dictated by Rinku Gibbs MD @ 07/21/2022 3:46:13 PM (Electronically Signed)
[2022-07-21 13:54] LABS: Strep A DNA Probe* NOT DETECTED (No Detected)
[2022-07-21 13:55] LABS: Basophils Absolute Auto 0.01 K/uL (0.00-0.30); Basophils Percent Auto 0.1 % (0.0-3.0); Eosinophils Absolute Auto 0.02 K/uL (0.00-0.50); Eosinophils Percent Auto 0.2 % (0.0-7.0); Hematocrit 40.9 % (37.0-53.0); Immature Granulocytes Abs Auto 0.04 K/uL (0.00-0.30); Lymphocytes Percent Auto 5.1 % (20-44); Mean Corpuscular HGB Conc 32 gm/dL (32-36); Mean Corpuscular Hemoglobin 28 pg (26-34); Mean Corpuscular Volume 89 fL (80-100); Monocytes Percent Auto 4.6 % (0.0-11.0); Neutrophils Percent Auto 89.5 % (42.0-72.0); Platelet Count* 413 K/uL (140-440); RDW Coefficient of Variation % 16.2 % (11.5-15.5); Red Blood Count 4.58 m/uL (4.30-5.90); White Blood Count* 8.08 K/uL (4.50-11.00)
[2022-07-21 14:07] LABS: PCR FLU A Negative PCR FLU A (Negative); PCR FLU B Negative PCR FLU B (Negative); PCR RSV Negative PCR RSV (Negative)
[2022-07-21 14:19] LABS: SARS PCR* Negative SARS-CoV-2 (Negative)
[2022-07-21 14:26] LABS: C Reactive Protein* < 0.5 mg/dL (0.5-1.0)
[2022-07-21 14:34] LABS: Slide Review Reflex No
== END 2022-07-21 16:15 | disposition home or self-care (01) ==
PROVIDERS: Emergency Provider Family Medicine; PCP Family Medicine
DX: J02.9 Acute pharyngitis, unspecified (principal); Z11.52 Encounter for screening for COVID-19
CPT/HCPCS: 36415; 70491; 82565; 85025; 86140; 87502; 87634; 87635; 87651; 99283; 99284; Q9967

== ENCOUNTER 2022-08-12 12:56 | Outpatient (CLI) | payer MEDICAID, SELFPAY ==
--- NOTE | 2022-08-12 13:00 | CRLHL7_ITS ---
For Patients: As a result of the Century Cures Act, medical imaging exams and procedure reports are released immediately into your electronic medical record. You may view this report before your referring provider. If you have questions, please contact your health care provider. 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 Comparison: 06/03/2022 Findings: New poorly defined density within the anterior segment right lower lobe measuring 1.6 cm, series 3, image 74. New ill-defined areas of hazy density throughout the right upper lobe, perhaps best visualized on the coronal reformatted images, particularly series 4, image 55. stable pleural-based density left lower lobe, series 4, image 59. Linear subsegmental scarring within the left upper lobe and left lower lobe. Scarring within the periphery of the right upper lobe anteriorly is similar. Chronic consolidative density extending from the right posterior hilum to the posterior segment of the right upper lobe and involving the superior segment of the right lower lobe is stable. Background centrilobular emphysema. Similar mildly prominent mediastinal lymph nodes measuring up to 1.9 cm. Stable hiatal hernia measuring 4.8 cm. Adrenal glands normal. No fracture. Impression: No significant interval change in the chronic consolidative densities within the posterior aspect of the right upper lobe extending to the superior segment of the right lower lobe. Also similar are areas of scarring within the right upper lobe, lingula and left lower lobe. New focal reticulonodular densities within the right lower lobe measuring up to 1.6 cm in total. Also new hazy diffuse parenchymal densities within the right upper lobe. Follow-up in 3-6 months recommended. Stable mild mediastinal adenopathy. No drainable lung abscess. Stable hiatal hernia. Please note that all CT scans at this facility use dose modulation, iterative reconstruction, and/or weight-based dosing when appropriate to reduce radiation dose to as low as reasonably achievable. Dictated by Carson Kerns MD @ 08/12/2022 2:46:50 PM (Electronically Signed)
== END 2022-08-12 12:57 | disposition home or self-care (01) ==
LOC: CT 12:57
PROVIDERS: PCP Family Medicine; Visit Provider Internal Medicine Pulmonary Disease
DX: J47.9 Bronchiectasis, uncomplicated (principal); J85.1 Abscess of lung with pneumonia; K44.9 Diaphragmatic hernia without obstruction or gangrene; R91.1 Solitary pulmonary nodule
CPT/HCPCS: 71250

== ENCOUNTER 2022-08-16 14:57 | Inpatient (IN) | payer MEDICAID, SELFPAY ==
[2022-08-16] VITALS (10 sets, daily range): BP systolic 109–136; BP diastolic 59–78; PULSE 75–97; RESP 12–24; TEMP 36.3–36.8; O2SAT 90–93; BMI 27.3; BMI 28.2
--- NOTE | 2022-08-16 15:25 | CRLHL7_ITS ---
For Patients: As a result of the Century Cures Act, medical imaging exams and procedure reports are released immediately into your electronic medical record. You may view this report before your referring provider. If you have questions, please contact your health care provider. INDICATION: Dyspnea on exertion TECHNIQUE: Two view chest. Chest CT 08/12/22 FINDINGS: Normal cardiac mediastinal silhouette. Bilateral perihilar reticular interstitial opacities not significantly changed from the prior chest CT. Apical pleural thickening. No effusion or pneumothorax. Dictated by Betina Mcclellan MD @ 08/16/2022 4:10:50 PM (Electronically Signed)
--- NOTE | 2022-08-16 15:34 | ED.SOB ---
HPI - SOB/Dyspnea General Chief Complaint: Shortness of Breath/Dyspnea Stated Complaint: Shortness of breath Time Seen by Provider: 08/16/22 14:58 Source: patient Mode of arrival: ambulatory Limitations: no limitations History of Present Illness HPI Narrative: Patient presents to the emergency department with a 1 week history of worsening dyspnea. He has a known history of COPD, has been worked up by pulmonology in the past for a lung nodule as well. He has standing orders for steroids with a Medrol Dosepak which he started taking about a week ago for increased dyspnea. Prior to last week, his most recent steroid burst was in May, about 2 months ago. Patient states that his cough is mildly productive of mucus. He has had no fevers. He is worried that he is getting pneumonia again. He notes a sensation of chest tightness associated with breathing but denies any cardiac symptoms, palpitations or specific chest pain. No recent antibiotic use. He is a former smoker, has known history of COPD. He has been using his albuterol nebulizers and his scheduled inhalers with no recent improvement in his symptoms. No known exposures to COVID, no recent pertinent travel. No swelling in his legs or hemoptysis. Outpatient note from May reviewed. Past medical history, surgical history, outpatient records, prior imaging reviewed and updated. 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 This does show some new increased density in the right lung, specifically the right upper lobe. Related Data Home Medications Medication Instructions Recorded Confirmed budesonide-formoterol HFA 160 2 inhalation BID 06/11/22 06/11/22 mcg-4.5 mcg/actuation aerosol inhaler ferrous fumarate 325 mg (106 mg 325 mg PO QDAY 06/11/22 06/11/22 iron) tablet Previous Rx's Medication Instructions Recorded acetaminophen 300 mg-codeine 30 mg 1 tab PO Q4-6H PRN cough #20 tabs 05/22/22 tablet albuterol sulfate 2.5 mg/3 mL 2.5 mg (3 mL) continuous 06/11/22 (0.083 %) solution for nebulization nebulization Q4H PRN bronchospasm #180 mL albuterol sulfate 90 mcg/actuation 2 puff inhalation Q2H #8.5 grams 06/11/22 aerosol inhaler (ProAir HFA) budesonide-formoterol HFA 160 2 puff inhalation Q12H #30.6 grams 06/11/22 mcg-4.5 mcg/actuation aerosol inhaler (Symbicort) methylprednisolone 4 mg tablets in 4 mg PO DAILY #21 ea 06/11/22 a dose pack (Medrol (Gibran)) montelukast 10 mg tablet 10 mg PO QPM #90 tabs 06/11/22 omeprazole 20 mg capsule,delayed 20 mg .Route QDAY #90 caps 06/11/22 release tiotropium bromide 18 mcg capsule 1 cap inhalation QDAY COPD #90 07/08/22 with inhalation device (Spiriva inhalations with HandiHaler) amoxicillin 875 mg tablet 875 mg PO BID #20 tabs 07/21/22 Allergies Allergy/AdvReac Type Severity Reaction Status Date / Time shellfish derived AdvReac Intermediate Vomiting Verified 06/03/22 22:37 Review of Systems Narrative: Notable for the respiratory and generalized symptoms as above. Otherwise denies other HEENT, other respiratory, cardiovascular, GI, urinary, skin, musculoskeletal or mental health changes. [facility] Medical History Anemia Asthma (02/28/15) Pneumonia Surgical History No pertinent past surgical history No significant past surgical history Family History Father COPD (chronic obstructive pulmonary disease) Coronary artery disease Family/Other Stroke Social History Narrative: Alcohol use- 11/09 pt has been decreasing Former smoker- quit age 52; smoked 1.5 packs/day; approx 60 pack year history Smoking Status: Former smoker What tobacco products do you use: cigarettes Smoking quit date/years: <= 15 years ago Do you use any of these nicotine containing products: None Second hand tobacco smoke exposure: Yes How often do you have a drink containing alcohol: 4 or more times a week How many standard drinks containing alcohol do you have on a typical day: 3 or 4 How often do you have six or more drinks on one occasion: Never AUDIT-C Alcohol total score: 5 Non-prescribed substance use: denies use service: No Exam Const: Vital Signs, click to edit/add: Vital Signs - 24 hr 08/16/22 15:09 08/16/22 16:30 08/16/22 17:00 Temperature 97.3 F L Pulse Rate [Pulse Oximeter] 94 75 79 Respiratory Rate 22 14 18 Blood Pressure [Ri ght Upper Arm] 109/66 119/60 132/59 L Pulse Oximetry 90 90 91 Oxygen Delivery Me thod Room Air Room Air Room Air Documenting provider has reviewed patient's vital signs: yes Common normals: no apparent distress and alert General appearance: cooperative Orientation/consciousness: Yes awake HENMT: Common normals: normocephalic Head and scalp: normocephalic Mouth: oral and palatal mucosa normal Throat: posterior oropharynx normal Eye: Common normals: conjunctivae normal and no scleral icterus Conjunctiva: conjunctiva(e) normal Neck & C-Spine: Common normals: full ROM and no lymphadenopathy Chest: Other: Barrel chest deformity with signs of chronic hyperinflation. Resp: Other: Moderately increased respiratory effort, use of accessory muscles noted. Very poor air movement throughout with prolongation of expiration. Good air movement is so poor, I am having a difficult time appreciating any crackles or wheeze. Cardio: Common normals: regular rate, regular rhythm, S1 normal heart sound, S2 normal heart sound, no murmurs and peripheral pulses 2+ throughout Rate: regular rate Rhythm: regular rhythm Heart sounds: S1 normal and S2 normal Peripheral pulses: pulses 2+ throughout GI: Other: Abdomen does seem a little distended today, cannot palpate the liver edge. No obvious tenderness. No masses Extremity: Other: No pitting edema. Mild venous stasis discoloration of the feet. 2+ dorsalis pedis pulses bilaterally. Neuro: Sensorium/orientation: awake and alert Speech: speech normal Motor exam: strength 5/5 throughout Psych: Common normals: speech normal Appearance: grossly normal Speech: normal speech Thought content: normal thought content Insight: insight good Judgement: judgment good Skin: Common normals: no rashes or lesions noted General skin exam: no rashes or lesions noted Course Vital Signs Vital signs: Initial Vital Signs Temperature 97.3 F L 08/16/22 15:09 Temperature Source Temporal Artery Scan 08/16/22 15:09 Pulse Rate 94 08/16/22 15:09 Pulse Rhythm 08/16/22 15:09 Respiratory Rate 22 08/16/22 15:09 Blood Pressure 109/66 08/16/22 15:09 Blood Pressure Mean 80 08/16/22 15:09 Blood Pressure Position Sitting 08/16/22 15:09 Pulse Oximetry 90 08/16/22 15:09 Oxygen Delivery Method 08/16/22 15:09 Vital Signs Temperature 97.3 F L 08/16/22 15:09 Pulse Rate 94 08/16/22 15:09 Respiratory Rate 22 08/16/22 15:09 Blood Pressure 109/66 08/16/22 15:09 Pulse Oximetry 90 08/16/22 15:09 Oxygen Delivery Method 08/16/22 15:09 Temperature 97.3 F L 08/16/22 15:09 Pulse Rate 79 08/16/22 17:00 Respiratory Rate 18 08/16/22 17:00 Blood Pressure 132/59 L 08/16/22 17:00 Pulse Oximetry 91 08/16/22 17:00 Oxygen Delivery Method 08/16/22 17:00 MDM - SOB/Dyspnea MDM Narrative Medical decision making narrative: Differential diagnosis includes acute pulmonary hypertension, heart failure, mi, pneumonia, COPD exacerbation, COVID-19, among others. EKG performed, IV will be placed. Solu-Medrol IV will be given, chest x-ray. Begin antibiotic therapy with Rocephin azithromycin, blood cultures and COVID swab. CT of the chest reviewed from 4 days ago, chest x-ray reviewed today. COVID swab reassuring. Electrolytes, troponins, additional blood work reassuring. Patient did have some mild improvement with the steroids and DuoNeb. O2 sats are still running 88-90%. Discussed plan of care with patient, he has failed outpatient management on oral steroids, even high dose. I recommended admission for IV antibiotics and IV steroids. Recent CT scan did show right upper lobe infiltrates. He was agreeable to this Medical Records Attestation: I reviewed the patient's medical records. Lab Data Attestation: I reviewed the patient's lab results. Labs: Lab Results 08/16/22 08/16/22 08/16/22 Range/Units 15:20 16:05 16:05 WBC 10.07 (4.50-11.00) K/uL RBC 4.34 (4.30-5.90) m/uL Hgb 12.7 L (13.5-17.5) gm/dL Hct 39.9 (37.0-53.0) % MCV 92 (80-100) fL MCH 29 (26-34) pg MCHC 32 (32-36) gm/dL RDW Coeff of Mandeep 15.7 H (11.5-15.5) % Plt Count 421 (140-440) K/uL Neut % (Auto) 60.1 (42.0-72.0) % Lymph % (Auto) 11.2 L (20-44) % [place] % (Auto) 15.8 H (0.0-11.0) % Eos % (Auto) 11.7 H (0.0-7.0) % Baso % (Auto) 0.5 (0.0-3.0) % Neut # (Auto) 6.05 (1.7-7.0) K/uL Lymph # (Auto) 1.10 (0.90-2.90) K/uL [place] # (Auto) 1.60 H (0.00-0.90) K/UL Eos # (Auto) 1.20 H (0.00-0.50) K/uL Baso # (Auto) 0.05 (0.00-0.30) K/uL Abs Immat Gran (auto) 0.07 (0.00-0.30) K/uL VBG pH (7.32-7.43) VBG pCO2 (40-50) mmHG VBG pO2 (25-47) mmHG VBG HCO3 (21-28) mmol/L Sodium 138 (135-149) mmol/L Potassium 3.7 (3.6-5.1) mmol/L Chloride 100 (96-114) mmol/L Carbon Dioxide 30 (20-32) mmol/L BUN 15 (7-30) mg/dL Creatinine 1.0 (0.5-1.5) mg/dL Estimated Creat Clear 78.07 Estimated GFR 85 ml/min Glucose 88 (60-115) mg/dL Lactate (0.5-1.9) mmol/L Calcium 9.1 (8.4-10.6) mg/dL Total Bilirubin 0.6 (0.1-1.5) mg/dL AST 22 (12-35) U/L ALT 17 (4-50) U/L Alkaline Phosphatase 76 (40-150) U/L Troponin I < 0.01 L (0.01-0.04) ng/mL NT-Pro-B Natriuret Pep 249 H (0-125) PG/mL Total Protein 8.3 (6.0-8.3) g/dL Albumin 4.3 (3.3-5.0) g/dL SARS-CoV-2 (PCR) Negative SARS-CoV-2 (Negative) POC Troponin I (0.01-0.04) ng/ml 08/16/22 08/16/22 Range/Units 16:05 16:05 WBC (4.50-11.00) K/uL RBC (4.30-5.90) m/uL Hgb (13.5-17.5) gm/dL Hct (37.0-53.0) % MCV (80-100) fL MCH (26-34) pg MCHC (32-36) gm/dL RDW Coeff of Mandeep (11.5-15.5) % Plt Count (140-440) K/uL Neut % (Auto) (42.0-72.0) % Lymph % (Auto) (20-44) % [place] % (Auto) (0.0-11.0) % Eos % (Auto) (0.0-7.0) % Baso % (Auto) (0.0-3.0) % Neut # (Auto) (1.7-7.0) K/uL Lymph # (Auto) (0.90-2.90) K/uL [place] # (Auto) (0.00-0.90) K/UL Eos # (Auto) (0.00-0.50) K/uL Baso # (Auto) (0.00-0.30) K/uL Abs Immat Gran (auto) (0.00-0.30) K/uL VBG pH 7.371 (7.32-7.43) VBG pCO2 56 H (40-50) mmHG VBG pO2 30.9 (25-47) mmHG VBG HCO3 32 H (21-28) mmol/L Sodium (135-149) mmol/L Potassium (3.6-5.1) mmol/L Chloride (96-114) mmol/L Carbon Dioxide (20-32) mmol/L BUN (7-30) mg/dL Creatinine (0.5-1.5) mg/dL Estimated Creat Clear Estimated GFR ml/min Glucose (60-115) mg/dL Lactate 1.1 (0.5-1.9) mmol/L Calcium (8.4-10.6) mg/dL Total Bilirubin (0.1-1.5) mg/dL AST (12-35) U/L ALT (4-50) U/L Alkaline Phosphatase (40-150) U/L Troponin I (0.01-0.04) ng/mL NT-Pro-B Natriuret Pep (0-125) PG/mL Total Protein (6.0-8.3) g/dL Albumin (3.3-5.0) g/dL SARS-CoV-2 (PCR) (Negative) POC Troponin I 0.00 L (0.01-0.04) ng/ml ECG Data Prior ECG tracings: available for review Interpretation: Normal sinus rhythm with no significant ST or T-wave abnormalities. Slight rightward axis. Discharge Plan Discharge Clinical Impression: Community acquired pneumonia, Chronic obstructive pulmonary disease Patient Disposition: Admitted As Inpatient
[2022-08-16] MEDS: IPRAT-ALBUT 0.5-2.5 MG/3 ML NEB 1 NEB IH (16:00)
--- NOTE | 2022-08-16 16:00 | ED.NURSE ---
Pulse oximetry in place. Per elias RAMOS to maintain at RA with Sats >86%. Sats 88-96%. #20G IV established in L AC, patent and flushing well. Bloodwork drawn and sent to lab. Meds per eMAR. Abx started after set of blood cx drawn.
[2022-08-16] MEDS: METHYLPREDNISOLONE SOD SUCC 62.5 MG/ML (125) 125 MG IVP ×2 (16:06→21:33)
[2022-08-16] MEDS: cefTRIAXone 1 GM in 0.9 % SODIUM CHLORIDE Mini-bag 100 ML IVPB (16:10)
[2022-08-16] MEDS: AZITHROMYCIN 500 MG in 0.9 % SODIUM CHLORIDE 250 ml 250 ML 255 MG IVPB (16:10)
[2022-08-16 16:13] LABS: SARS PCR* Negative SARS-CoV-2 (Negative)
[2022-08-16 16:21] LABS: HCO3 VBG 32 mmol/L (21-28); Lactate* 1.1 mmol/L (0.5-1.9); PCO2 VBG 56 mmHG (40-50); PO2 VBG 30.9 mmHG (25-47); pH VBG 7.371 (7.32-7.43)
[2022-08-16 16:26] LABS: Basophils Absolute Auto 0.05 K/uL (0.00-0.30); Basophils Percent Auto 0.5 % (0.0-3.0); Eosinophils Percent Auto 11.7 % (0.0-7.0); Hematocrit 39.9 % (37.0-53.0); Hemoglobin* 12.7 gm/dL (13.5-17.5); Immature Granulocytes Abs Auto 0.07 K/uL (0.00-0.30); Lymphocytes Percent Auto 11.2 % (20-44); Mean Corpuscular HGB Conc 32 gm/dL (32-36); Mean Corpuscular Hemoglobin 29 pg (26-34); Mean Corpuscular Volume 92 fL (80-100); Monocytes Percent Auto 15.8 % (0.0-11.0); Neutrophils Absolute Auto 6.05 K/uL (1.7-7.0); Neutrophils Percent Auto 60.1 % (42.0-72.0); Platelet Count* 421 K/uL (140-440); RDW Coefficient of Variation % 15.7 % (11.5-15.5); Red Blood Count 4.34 m/uL (4.30-5.90); White Blood Count* 10.07 K/uL (4.50-11.00)
[2022-08-16 16:29] LABS: Slide Review Reflex No
[2022-08-16 16:36] LABS: Albumin* 4.3 g/dL (3.3-5.0); Chloride* 100 mmol/L (96-114); Potassium* 3.7 mmol/L (3.6-5.1); Sodium* 138 mmol/L (135-149)
[2022-08-16 16:38] LABS: Bilirubin Total* 0.6 mg/dL (0.1-1.5); Est. Creatinine Clearance* 78.07; Estimated Glomerular Filt Rate 85 ml/min
[2022-08-16 16:39] LABS: Alanine Aminotransferase* 17 U/L (4-50); Alkaline Phosphatase* 76 U/L (40-150); Aspartate Amino Transferase* 22 U/L (12-35); Blood Urea Nitrogen* 15 mg/dL (7-30); Calcium* 9.1 mg/dL (8.4-10.6); Carbon Dioxide* 30 mmol/L (20-32); Glucose* 88 mg/dL (60-115); Total Protein* 8.3 g/dL (6.0-8.3)
--- NOTE | 2022-08-16 16:42 | ED.NURSE ---
1615-Pt c/o of dizziness/lightheadedness after IV start/blood draw. Noted to be more pale, diaphoretic. BP 77/41. HOB adjusted, sips of water provided with cool washcloth to forehead. MD informed, no further orders received. Pt reports improvement in symptoms. BP back to 108/59.
[2022-08-16 16:48] LABS: NT Pro B Type NatriureticPept* 249 PG/mL (0-125)
[2022-08-16 16:51] LABS: Troponin I* < 0.01 ng/mL (0.01-0.04)
--- NOTE | 2022-08-16 17:10 | P.IMHP_ITS ---
Hospitalist- H&P: HPI History of Present Illness Date Seen: 08/16/22 Chief complaint: Shortness of breath Narrative: Marco Cormier is a 61 year old male who presented to the ED for worsening dyspnea. Symptoms have been present for 2-3 weeks. He hasn't had any fevers or chest pain. He's been coughing intermittently with green sputum production, no hemoptysis. He took a course of Methylprednisolone 2 weeks ago without symptom relief. Today, he noted symptoms were significantly worsened (unable to perform ADLs without panicking 2/2 dyspnea), so drove himself to the ED. He was unable to ambulate into the ED from the parking lot. He has oxygen at home, uses intermittently for dyspnea. Tried it intermittently over the past couple of weeks (used between 0.5-2L), not noting significant improvement with symptoms. Doesn't have a home oximeter. No recent sick contacts or COVID exposures. Had a CT scan earlier this week for Pulmonology followup, exhibiting new focal reticulonodular densities in the right lower lobe in addition to diffuse parenchymal densities in right upper lobe; no drainable lung abscess noted. ER Course and Findings: - Reassuring labs, including troponin. No acute changes on EKG - Given Methylprednisolone, Rocephin, and Azithromycin - chest x-ray exhibited no acute changes from CT scan 4 days ago - oxygen saturation between 88-91% on room air When I see Marco, he is feeling less panicky and overall improved. Marco doesn't have many other significant medical problems besides his COPD. Estrella Sandoval is [employer] - next appt with her is Thursday, 08/19. He was hospitalized in February 2022 at [facility] for a L lung abscess, diagnosed by bronchoscopy. No concerning cardiac history. Stress echo in May 2021 (ordered by Cardiology; he was seeing them for dyspnea workup), negative for ischemia or other concerning findings. Had endoscopy and colonoscopy in January of 2021 for acute blood loss anemia secondary to upper GI bleed. Was diagnosed with H pylori gastritis at that time. Father after CVA, mother still alive (86) and fairly healthy. Former smoker, quit in 2011. Approximate 45-50 pack year history of smoking. History of ETOH use, 2-3 beers most nights of the week. Last beer approximately 3 weeks ago (not drinking since he's been sick). No history of alcohol withdrawal. Not currently working. Previously worked in [employer]. Not COVID vaccinated. Lives with daughter Qi in [place] - she works at [employer]. Qi and daughter Maryann would share medical decision making regarding Marco's care if needed. Marco requests Full Code status, would not want to be on a ventilator residential. Review of Systems Narrative: No headache, GI concerns. No chest pain. No acute skin concerns; has easy bruising and dry skin, both are chronic and stable. PFSH PFSH Medical History Anemia Asthma (02/28/15) Chronic obstructive pulmonary disease Pneumonia Surgical History No pertinent past surgical history No significant past surgical history Family History Father COPD (chronic obstructive pulmonary disease) Coronary artery disease Family/Other Stroke Social History Narrative: Alcohol use- 11/09 pt has been decreasing Former smoker- quit age 52; smoked 1.5 packs/day; approx 60 pack year history Smoking Status: Former smoker What tobacco products do you use: cigarettes Smoking quit date/years: <= 15 years ago Do you use any of these nicotine containing products: None Second hand tobacco smoke exposure: Yes How often do you have a drink containing alcohol: 4 or more times a week How many standard drinks containing alcohol do you have on a typical day: 3 or 4 How often do you have six or more drinks on one occasion: Never AUDIT-C Alcohol total score: 5 Non-prescribed substance use: denies use service: No Meds Home Medications and Allergies Home Medications Medication Instructions Recorded Confirmed Type budesonide-formoterol HFA 160 2 inhalation BID 06/11/22 06/11/22 History mcg-4.5 mcg/actuation aerosol inhaler ferrous fumarate 325 mg (106 mg 325 mg PO QDAY 06/11/22 06/11/22 History iron) tablet Home Medication Comments: Symbicort, Spiriva, Singulair daily. Uses nebs prn. Course of Methylprednisolone last week. Amoxicilllin a few weeks ago (5 day course) per dentist. Allergies Allergy/AdvReac Type Severity Reaction Status Date / Time shellfish derived AdvReac Intermediate Vomiting Verified 06/03/22 22:37 Exam Narrative: Exam Narrative: GEN: Alert and oriented, answering questions appropriately. Able to speak 4-5 words without dyspnea HEENT: Normal external ears, EOMIs bilaterally, no scleral icterus CV: RRR, No concerning murmurs, rubs, or gallops, heart sounds are distant R: Wheezing in bilateral apices, decreased air movement in bilateral bases Ext: wwp, no concerning edema Skin: Scattered bruising on extremities without other concerning features Neuro: Nonfocal, no resting tremor, gait not observed Psych: Appropriate Const: Vital Signs, click to edit/add: Vital Signs - 24 hr 08/16/22 15:09 08/16/22 16:30 08/16/22 17:00 Temperature 97.3 F L Pulse Rate [Pulse Oximeter] 94 75 79 Respiratory Rate 22 14 18 Blood Pressure [Ri ght Upper Arm] 109/66 119/60 132/59 L Pulse Oximetry 90 90 91 Oxygen Delivery Me thod Room Air Room Air Room Air Hospitalist - H&P: Result Labs Labs: Short CBC 08/16/22 Range/Units 16:05 WBC 10.07 (4.50-11.00) K/uL Hgb 12.7 L (13.5-17.5) gm/dL Hct 39.9 (37.0-53.0) % Plt Count 421 (140-440) K/uL BMP 08/16/22 16:05 Sodium 138 Potassium 3.7 Chloride 100 Carbon Dioxide 30 BUN 15 Creatinine 1.0 Glucose 88 Calcium 9.1 Cardiac Enzymes 08/16/22 Range/Units 16:05 Troponin I < 0.01 L (0.01-0.04) ng/mL Liver Function 08/16/22 Range/Units 16:05 Total Bilirubin 0.6 (0.1-1.5) mg/dL AST 22 (12-35) U/L ALT 17 (4-50) U/L Alkaline Phosphatase 76 (40-150) U/L Albumin 4.3 (3.3-5.0) g/dL Assessment and Plan Assessment and plan (1) Community acquired pneumonia: Problem comment: Azithromycin and Ceftriaxone initiated 08/16 Status: Acute Assessment and Plan: Continue antibiotics for right-sided community-acquired pneumonia. (2) Chronic obstructive pulmonary disease: Status: Acute Assessment and Plan: Continue IV steroids, transition to oral steroids as appropriate. Not requiring supplemental oxygen at this time, will monitor closely given patient's risk of hypercarbia. (3) Shortness of breath: Status: Acute Assessment and Plan: Likely secondary to COPD exacerbation and pneumonia. RT consult has been requested. (4) Anemia: Problem comment: Negative colonoscopy 01/2021, + H pylori gastritis 01/2021 Status: Acute Assessment and Plan: Hemoglobin is stable, known history of gastritis; hospitalized for GI bleed in early 2020. No concern for acute bleeding at this time. Continue PPI and follow hemoglobin. Plan Will admit to the hospital and continue medications as noted above. RT referral. Continue PPI. Lovenox for DVT prophylaxis.
[2022-08-16] MEDS: guaiFENesin 100 MG/ML CUP PO (19:50)
[2022-08-16] MEDS: ALBUTEROL SULFATE 2.5 MG/3 ML VIAL.NEB NEB (21:33)
[2022-08-17] VITALS (7 sets, daily range): BP systolic 130–156; BP diastolic 57–86; PULSE 74–94; RESP 18–24; TEMP 36.3–37; O2SAT 90–94
[2022-08-17] MEDS: guaiFENesin 100 MG/ML CUP PO ×3 (01:13→19:51)
[2022-08-17] MEDS: ALBUTEROL SULFATE 2.5 MG/3 ML VIAL.NEB NEB ×2 (01:24→09:47)
[2022-08-17] MEDS: METHYLPREDNISOLONE SOD SUCC 62.5 MG/ML (125) 125 MG IVP ×2 (04:36→09:48)
--- NOTE | 2022-08-17 05:39 | PC.NURSE ---
Pt pleasant and cooperative. SOB at rest and with activity. He remains on RA. Sats run 89-93 on RA. VSS LSCTA slightly diminished. Up independantly in RM. When up and about does run into some dry coughing spells . Given Robitussinn 3x during the night. Refused SCD's.
[2022-08-17 06:59] LABS: Hematocrit 38.3 % (37.0-53.0); Hemoglobin* 12.5 gm/dL (13.5-17.5); Immature Granulocytes Abs Auto 0.03 K/uL (0.00-0.30); Lymphocytes Percent Auto 9.9 % (20-44); Mean Corpuscular HGB Conc 33 gm/dL (32-36); Mean Corpuscular Hemoglobin 29 pg (26-34); Mean Corpuscular Volume 90 fL (80-100); Monocytes Percent Auto 1.6 % (0.0-11.0); Platelet Count* 432 K/uL (140-440); RDW Coefficient of Variation % 15.6 % (11.5-15.5); Red Blood Count 4.25 m/uL (4.30-5.90); White Blood Count* 6.24 K/uL (4.50-11.00)
[2022-08-17 07:10] LABS: Slide Review Reflex No
[2022-08-17 07:13] LABS: Chloride* 102 mmol/L (96-114); Sodium* 138 mmol/L (135-149)
[2022-08-17 07:14] LABS: Potassium* 4.1 mmol/L (3.6-5.1)
[2022-08-17 07:16] LABS: Carbon Dioxide* 26 mmol/L (20-32); Creatinine* 0.8 mg/dL (0.5-1.5); Est. Creatinine Clearance* 78.07; Estimated Glomerular Filt Rate 99 ml/min
[2022-08-17 07:17] LABS: Blood Urea Nitrogen* 18 mg/dL (7-30); Calcium* 9.2 mg/dL (8.4-10.6); Glucose* 146 mg/dL (60-115)
[2022-08-17] MEDS: ACETAMINOPHEN 325 MG TABLET 650 MG PO (10:14)
[2022-08-17] MEDS: OMEPRAZOLE 20 MG CAPSULE DR 40 MG PO (10:15)
--- NOTE | 2022-08-17 10:43 | PM.IMPN1 ---
Progress Note: A&P Assessment and plan (1) Community acquired pneumonia: Problem details: Azithromycin and Ceftriaxone initiated 08/16 Status: Acute (2) Acute exacerbation of chronic obstructive pulmonary disease: Status: Acute Plan 1. CAP 2. Acute COPD exacerbation secondary to #1 3. Hx of Normocytic anemia; hgb stable Plan -continue ceftriaxone/azithromycin -continue solumedrol/nebs -check influenza pcr -decrease solumedrol to 60 mg BID -continue PPI -start tessalon -check procal DVT ppx-lovenox Dispo-Hopefully home 1-2 days, has pulmonary appointment on 08/19 in [place] Subjective Date Seen: 08/17/22 Interval history: endorses cough SOB improving denies chest pain endorses weakness Has pulmonary appointment on Thursday Exam Narrative: Exam Narrative: Gen: no acute distress HEENT: NCAT EOMI MMM CV: RRR normal s1s2 Lungs: diminished; end expiratory wheezing Abd: soft, nt, nd Neuro: Alert,oriented nonfocal screening exam Const: Vital Signs, click to edit/add: Vital Signs - 24 hr 08/16/22 15:09 08/16/22 16:30 08/16/22 17:00 Temperature 97.3 F L Pulse Rate Pulse Rate [Pulse Oximeter] 94 75 79 Pulse Rate [Right Radial] Respiratory Rate 22 14 18 Blood Pressure [Ri ght Arm] Blood Pressure [Ri ght Upper Arm] 109/66 119/60 132/59 L Pulse Oximetry 90 90 91 Oxygen Delivery Me thod Room Air Room Air Room Air 08/16/22 18:01 08/16/22 18:38 08/16/22 18:54 Temperature 97.3 F L Pulse Rate Pulse Rate [Pulse Oximeter] 91 Pulse Rate [Right Radial] Respiratory Rate 12 Blood Pressure [Ri ght Arm] Blood Pressure [Ri ght Upper Arm] 133/64 Pulse Oximetry 91 90 Oxygen Delivery Me thod Room Air 08/16/22 18:38 08/16/22 18:47 08/16/22 20:32 Temperature 98.0 F Pulse Rate 97 Pulse Rate [Pulse Oximeter] Pulse Rate [Right Radial] 86 Respiratory Rate 20 24 Blood Pressure [Ri ght Arm] 136/78 Blood Pressure [Ri ght Upper Arm] Pulse Oximetry 91 92 Oxygen Delivery Me thod Room Air Room Air 08/16/22 20:19 08/16/22 21:46 08/17/22 03:00 Temperature 98.3 F 98.1 F Pulse Rate Pulse Rate [Pulse Oximeter] Pulse Rate [Right Radial] 78 85 Respiratory Rate 24 22 Blood Pressure [Ri ght Arm] 134/61 156/86 H Blood Pressure [Ri ght Upper Arm] Pulse Oximetry 93 93 93 Oxygen Delivery Me thod Room Air Room Air Labs Labs: Laboratory Results - last 24 hr 08/16/22 08/16/22 08/16/22 15:20 16:05 16:05 WBC 10.07 RBC 4.34 Hgb 12.7 L Hct 39.9 MCV 92 MCH 29 MCHC 32 RDW Coeff of Mandeep 15.7 H Plt Count 421 Neut % (Auto) 60.1 Lymph % (Auto) 11.2 L [place] % (Auto) 15.8 H Eos % (Auto) 11.7 H Baso % (Auto) 0.5 Neut # (Auto) 6.05 Lymph # (Auto) 1.10 [place] # (Auto) 1.60 H Eos # (Auto) 1.20 H Baso # (Auto) 0.05 Abs Immat Gran (auto) 0.07 VBG pH VBG pCO2 VBG pO2 VBG HCO3 Sodium 138 Potassium 3.7 Chloride 100 Carbon Dioxide 30 BUN 15 Creatinine 1.0 Estimated Creat Clear 78.07 Estimated GFR 85 Glucose 88 Lactate Calcium 9.1 Total Bilirubin 0.6 AST 22 ALT 17 Alkaline Phosphatase 76 Troponin I < 0.01 L NT-Pro-B Natriuret Pep 249 H Total Protein 8.3 Albumin 4.3 SARS-CoV-2 (PCR) Negative SARS-CoV-2 POC Troponin I 08/16/22 08/16/22 08/17/22 16:05 16:05 06:14 WBC 6.24 RBC 4.25 L Hgb 12.5 L Hct 38.3 MCV 90 MCH 29 MCHC 33 RDW Coeff of Mandeep 15.6 H Plt Count 432 Neut % (Auto) 88.0 H Lymph % (Auto) 9.9 L [place] % (Auto) 1.6 Eos % (Auto) 0.0 Baso % (Auto) 0.0 Neut # (Auto) 5.50 Lymph # (Auto) 0.60 L [place] # (Auto) 0.10 Eos # (Auto) 0.00 Baso # (Auto) 0.00 Abs Immat Gran (auto) 0.03 VBG pH 7.371 VBG pCO2 56 H VBG pO2 30.9 VBG HCO3 32 H Sodium Potassium Chloride Carbon Dioxide BUN Creatinine Estimated Creat Clear Estimated GFR Glucose Lactate 1.1 Calcium Total Bilirubin AST ALT Alkaline Phosphatase Troponin I NT-Pro-B Natriuret Pep Total Protein Albumin SARS-CoV-2 (PCR) POC Troponin I 0.00 L 08/17/22 06:14 WBC RBC Hgb Hct MCV MCH MCHC RDW Coeff of Mandeep Plt Count Neut % (Auto) Lymph % (Auto) [place] % (Auto) Eos % (Auto) Baso % (Auto) Neut # (Auto) Lymph # (Auto) [place] # (Auto) Eos # (Auto) Baso # (Auto) Abs Immat Gran (auto) VBG pH VBG pCO2 VBG pO2 VBG HCO3 Sodium 138 Potassium 4.1 Chloride 102 Carbon Dioxide 26 BUN 18 Creatinine 0.8 Estimated Creat Clear 78.07 Estimated GFR 99 Glucose 146 H Lactate Calcium 9.2 Total Bilirubin AST ALT Alkaline Phosphatase Troponin I NT-Pro-B Natriuret Pep Total Protein Albumin SARS-CoV-2 (PCR) POC Troponin I
[2022-08-17] MEDS: IPRAT-ALBUT 0.5-2.5 MG/3 ML NEB 1 NEB IH ×3 (13:11→20:46)
[2022-08-17] MEDS: CARBOXYMETHYLCELLULOSE (REFRESH PLUS) TEARS 1 DROP EYE-BOTH (14:58)
[2022-08-17] MEDS: cefTRIAXone 1 GM in 0.9 % SODIUM CHLORIDE Mini-bag 100 ML IVPB (14:59)
[2022-08-17] MEDS: AZITHROMYCIN 250 MG TABLET PO (15:00)
[2022-08-17 15:16] LABS: Influenza Type A Negative (Negative)
[2022-08-17 15:17] LABS: Influenza Type B Negative (Negative)
[2022-08-17] MEDS: METHYLPREDNISOLONE SOD SUCC 62.5 MG/ML (125) 60 MG IVP (16:46)
[2022-08-17] MEDS: MONTELUKAST 10 MG TABLET PO (19:47)
--- NOTE | 2022-08-17 20:07 | PC.NURSE ---
shift [phone] pt this shift calm and cooperative with cares. independent in his room. Ate 100% of all meals and drinking fluid sufficiently. Wheezing noted upper and middle L lobes. Pt c/o dryi and irritated eyes, treated with PRN refresh eye drops.
[2022-08-17] MEDS: ENOXAPARIN 40 MG/0.4 ML INJ SUBCUT (20:46)
[2022-08-18] VITALS (8 sets, daily range): BP systolic 126–150; BP diastolic 55–72; PULSE 67–97; RESP 16–20; TEMP 36.4–36.7; O2SAT 94–98
--- NOTE | 2022-08-18 06:39 | PC.NURSE ---
END OF SHIFT NOTE: PT PLEASANT AND COOPERATIVE. PT AMBULATES INDEPENDENTLY IN ROOM. PT REFUSED SCD PLACEMENT. VSS ON RA (O2 SATS 93-94%); AFEBRILE. DENIES PAIN. UNEVENTFUL NIGHT. TELE- NSR.?
[2022-08-18 06:42] LABS: Basophils Percent Auto 0.1 % (0.0-3.0); Hematocrit 38.7 % (37.0-53.0); Hemoglobin* 12.6 gm/dL (13.5-17.5); Immature Granulocytes Abs Auto 0.08 K/uL (0.00-0.30); Lymphocytes Percent Auto 6.2 % (20-44); Mean Corpuscular HGB Conc 33 gm/dL (32-36); Mean Corpuscular Hemoglobin 30 pg (26-34); Mean Corpuscular Volume 91 fL (80-100); Monocytes Percent Auto 8.6 % (0.0-11.0); Neutrophils Percent Auto 84.7 % (42.0-72.0); Platelet Count* 455 K/uL (140-440); RDW Coefficient of Variation % 15.8 % (11.5-15.5); Red Blood Count 4.27 m/uL (4.30-5.90); White Blood Count* 18.87 K/uL (4.50-11.00)
[2022-08-18 06:45] LABS: Slide Review Reflex No
[2022-08-18 06:53] LABS: Chloride* 102 mmol/L (96-114); Sodium* 137 mmol/L (135-149)
[2022-08-18 06:55] LABS: Potassium* 4.2 mmol/L (3.6-5.1)
[2022-08-18 06:56] LABS: Blood Urea Nitrogen* 24 mg/dL (7-30); Calcium* 9.6 mg/dL (8.4-10.6); Carbon Dioxide* 26 mmol/L (20-32); Creatinine* 0.9 mg/dL (0.5-1.5); Est. Creatinine Clearance* 78.07; Estimated Glomerular Filt Rate 96 ml/min; Glucose* 129 mg/dL (60-115)
[2022-08-18] MEDS: BENZOCAINE/MENTHOL 1 EACH LOZENGE MUCOUS MEM ×4 (07:00→20:54)
[2022-08-18 07:11] LABS: Procalcitonin* 0.08 ng/mL (<0.50)
[2022-08-18] MEDS: METHYLPREDNISOLONE SOD SUCC 62.5 MG/ML (125) 60 MG IVP ×2 (08:58→20:57)
[2022-08-18] MEDS: IPRAT-ALBUT 0.5-2.5 MG/3 ML NEB 1 NEB IH ×4 (08:58→20:53)
[2022-08-18] MEDS: Budesonide-Formoterol 160-4.5 mcg/actuation HFA aerosol inhaler IH ×2 (08:59→20:53)
--- NOTE | 2022-08-18 10:38 | NUTR.NU ---
RDN with MD nutrition consult for hx anemia and gastritis. RDN visited with patient whom agreed to diet education related to anemia. Recommended general, healthy diet and iron intake of at least 8 mg daily. Discussed general, healthy diet recommendations using my plate senior production planner; ? plate non-starchy vegetables, ? plate protein, and 3-4 servings of carbohydrates per meal (fruit, whole grains, legumes, milk, yogurt) and 1-2 snacks per day. Reviewed foods high in iron per serving. Verbal and written information as well as sample 1 day menu provided from [facility] on Iron Nutrition Therapy and High-Iron Foods List also my plate senior production planner. Patient had no questions or concerns at this time. RDN's contact information was provided and patient was encouraged to contact with questions.
[2022-08-18] MEDS: OMEPRAZOLE 20 MG CAPSULE DR 40 MG PO (11:56)
[2022-08-18] MEDS: BENZONATATE 100 MG CAPSULE PO (14:22)
[2022-08-18] MEDS: guaiFENesin 100 MG/ML CUP PO ×2 (14:22→19:30)
--- NOTE | 2022-08-18 15:23 | PC.NURSE ---
Pt UAL in room and hallway. Pt reports mild sore throat. Compliant with POC and no dysphagia with meds. Scheduled nebs per protocol. Pt had a good appetite at [email or web address]], he did not want to order lunch. Prn tessalon perle and prn robitussin given just prior to afternoon shift change. Report to Jhoana PICHARDO for evening shift.
[2022-08-18] MEDS: AZITHROMYCIN 250 MG TABLET PO (15:50)
[2022-08-18] MEDS: cefTRIAXone 1 GM in 0.9 % SODIUM CHLORIDE Mini-bag 100 ML IVPB (15:50)
--- NOTE | 2022-08-18 16:30 | P.IMPN_ITS ---
Progress Note: A&P Assessment and plan (1) Community acquired pneumonia: Problem details: Azithromycin and Ceftriaxone initiated 08/16 Status: Acute (2) Shortness of breath: Problem details: Acute on chronic Status: Acute (3) Acute exacerbation of chronic obstructive pulmonary disease: Status: Acute (4) Chronic obstructive pulmonary disease: Status: Acute (5) Acute respiratory failure with hypoxia: Status: Acute Plan 1. Reviewed impression with patient. 2. Answered his questions to satisfaction. 3. Continue with current intervention efforts. 4. Anticipate he may be able to be discharged from the hospital possibly as soon as tomorrow if his condition continues to be stable. 5. Patient agreeable to above stated plans and recommendations. 6. Patient to follow up with his die maker electronic as already planned. Will need a copy of his CT scan to bring with him to his die maker electronic appointment. Time Spent With Patient Total time spent: 40 minutes Subjective Date Seen: 08/18/22 Interval history: Marco Cormier is a 61 year old male who presented to the ED for worsening dyspnea. Symptoms were present for 2-3 weeks. Did not any fevers or chest pain. Was coughing intermittently with green sputum production, no hemoptysis. He took a course of Methylprednisolone 2 weeks prior to presentation without symptom relief. He has oxygen at home, uses intermittently for dyspnea. Tried it intermittently over the past couple of weeks (used between 0.5-2L), not noting significant improvement with symptoms. Doesn't have a home oximeter. No recent sick contacts or COVID exposures. Had a CT scan prior to presentation to the hospital for Pulmonology followup, exhibiting new focal reticulonodular densities in the right lower lobe in addition to diffuse parenchymal densities in right upper lobe; no drainable lung abscess noted. On presentation to the hospital, he noted symptoms were significantly worsened (unable to perform ADLs without panicking 2/2 dyspnea), so drove himself to the ED. He was unable to ambulate into the ED from the parking lot due to anxiety and sense of dyspnea. Room air oxygen saturations at rest on presentation were 88-91% and lower with any exertion. Chest x-ray on p resentation to the emergency department demonstrated no acute changes compared to the CT scan 4 days prior. Was started on steroids in the hospital. Also treated with ceftriaxone IV and azithromycin p.o. Generally feels improved. Still has dyspnea with exertion out of proportion to what he ordinarily has. He is pleased with the improvement that he has already made. With use of the Aerobika device and nebulizer therapies he is able to cough up more sputum. Appetite is slowly improving. Exam Narrative: Exam Narrative: Appears tired but in no acute distress. Alert and oriented to self, place, time, situation. Anxious, cooperative, talkative. Mood and affect are congruent. Lungs with scattered rhonchi and wheezing but generally improved from previously. Fair aeration throughout. No rales. Heart tones with regular rhythm, normal S1-S2. Abdomen with active bowel sounds, soft, nontender. Independent transfer, station, and gait. I walk with him while he is breathing room air [address] then [address], for a total of 50 ft. He becomes quite dyspneic after the 1st half of his walk and needs to rest for a minute or 2. Subsequently, we walked the 2nd half of his walk and he needs to rest about 5 minutes before he catches his breath. Saturations drop into the 89% range with this effort. No focal motor neurologic deficits. Skin is warm, dry, intact. Const: Vital Signs, click to edit/add: Vital Signs - 24 hr 08/17/22 21:00 08/17/22 21:00 08/17/22 22:40 Temperature 97.9 F Pulse Rate 88 Pulse Rate [Pulse Oximeter] 74 Pulse Rate [Right Radial] 92 Respiratory Rate 18 Blood Pressure [Ri ght Arm] 140/67 H Pulse Oximetry 94 94 Oxygen Delivery Ri thod Room Air 08/17/22 23:00 08/17/22 23:00 08/18/22 03:00 Temperature 97.4 F L 97.7 F Pulse Rate Pulse Rate [Pulse Oximeter] 74 93 68 Pulse Rate [Right Radial] Respiratory Rate 18 20 20 Blood Pressure [Ri ght Arm] 152/73 H 126/55 L Pulse Oximetry 93 94 Oxygen Delivery Ri thod Room Air Room Air 08/18/22 07:29 08/18/22 07:30 08/18/22 10:00 Temperature 97.8 F Pulse Rate 67 Pulse Rate [Pulse Oximeter] 72 Pulse Rate [Right Radial] Respiratory Rate 20 Blood Pressure [Ri ght Arm] 139/72 Pulse Oximetry 95 95 Oxygen Delivery Me thod Room Air 08/18/22 11:29 08/18/22 15:00 Temperature 97.7 F 97.5 F L Pulse Rate Pulse Rate [Pulse Oximeter] 81 97 Pulse Rate [Right Radial] Respiratory Rate 16 20 Blood Pressure [Ri ght Arm] 130/70 147/57 H Pulse Oximetry 95 94 Oxygen Delivery Ri thod Room Air Room Air Documenting provider has reviewed patient's vital signs: yes Labs Labs: Laboratory Results - last 24 hr 08/18/22 08/18/22 06:22 06:22 WBC 18.87 H RBC 4.27 L Hgb 12.6 L Hct 38.7 MCV 91 MCH 30 MCHC 33 RDW Coeff of Mandeep 15.8 H Plt Count 455 H Neut % (Auto) 84.7 H Lymph % (Auto) 6.2 L Louisa % (Auto) 8.6 Eos % (Auto) 0.0 Baso % (Auto) 0.1 Neut # (Auto) 16.00 H Lymph # (Auto) 1.20 Louisa # (Auto) 1.60 H Eos # (Auto) 0.00 Baso # (Auto) 0.00 Abs Immat Gran (auto) 0.08 Sodium 137 Potassium 4.2 Chloride 102 Carbon Dioxide 26 BUN 24 Creatinine 0.9 Estimated Creat Clear 78.07 Estimated GFR 96 Glucose 129 H Calcium 9.6 Procalcitonin 0.08
[2022-08-18] MEDS: MONTELUKAST 10 MG TABLET PO (17:29)
[2022-08-18] MEDS: ENOXAPARIN 40 MG/0.4 ML INJ SUBCUT (20:53)
--- NOTE | 2022-08-18 22:40 | PC.NURSE ---
End of Shift: Patient pleasant and cooperative. Afebrile. O2 sats 94% on room air. C/o sore throat pain up to 5-6/10 and PRN guaifenesin x1 and throat lozenge x2. Tolerating regular diet with no nausea. Up independently in room.
[2022-08-19 00:58] VITALS: PULSE 85
[2022-08-19] MEDS: ALBUTEROL SULFATE 2.5 MG/3 ML VIAL.NEB NEB (03:18)
[2022-08-19 03:47] VITALS: BP 139/73; PULSE 84; RESP 18; TEMP 36.4; O2SAT 94
[2022-08-19 06:48] LABS: HCO3 VBG 28 mmol/L (21-28); PCO2 VBG 39 mmHG (40-50); PO2 VBG 99.7 mmHG (25-47); pH VBG 7.473 (7.32-7.43)
[2022-08-19 06:51] LABS: Hematocrit 38.2 % (37.0-53.0); Hemoglobin* 12.4 gm/dL (13.5-17.5); Mean Corpuscular HGB Conc 33 gm/dL (32-36); Mean Corpuscular Hemoglobin 29 pg (26-34); Mean Corpuscular Volume 90 fL (80-100); Platelet Count* 437 K/uL (140-440); Red Blood Count 4.23 m/uL (4.30-5.90); White Blood Count* 14.12 K/uL (4.50-11.00)
[2022-08-19 07:00] VITALS: BP 174/84; PULSE 84; RESP 20; TEMP 36.8; O2SAT 95
[2022-08-19 07:08] VITALS: PULSE 61
[2022-08-19 07:30] LABS: Slide Review Reflex No
--- NOTE | 2022-08-19 07:32 | PC.NURSE ---
PT DENIES PAIN. VSS ON RA; AFEBRILE. PRN NEB TX GIVEN PER PT REQUEST. PT UP AT 3AM REQUESTING A POT OF COFFEE BE MADE. PT BECAME UPSET WHEN OFFERED A CUP OF COFFEE STATING ?WHAT IS THIS NAZI BEATRICE?.?AFTER EDUCATING PT THAT COFFEE WOULD HINDER HIS SLEEP, PT STATED ?I SLEPT FROM 10-2. I?M UP FOR THE DAY?. PT WAS GIVEN HALF A POT OF COFFEE. PT REQUESTED MORE COFFEE 1.5HR LATER. PT REPORTS FEELING A LOT BETTER EXPRESSING THE WANT TO GO HOME TODAY.
[2022-08-19] MEDS: METHYLPREDNISOLONE SOD SUCC 62.5 MG/ML (125) 60 MG IVP (09:18)
[2022-08-19] MEDS: IPRAT-ALBUT 0.5-2.5 MG/3 ML NEB 1 NEB IH (09:20)
[2022-08-19] MEDS: Budesonide-Formoterol 160-4.5 mcg/actuation HFA aerosol inhaler IH (09:20)
--- NOTE | 2022-08-19 10:35 | PC.NURSE ---
Pt UAL in room and hallway. BP slightly elevated. Pt continues to have mild dyspnea with exertion. No dysphagia w/meds. Eval by Dr. Irving. Pt verbalized understanding of d/c diagnosis, new prescriptions, home meds, f/up appt and sx to report urgently to physician. Pt discharged via w/c to his own vehicle at 1030 am. He has an appt with doula at 3:15 PM today.
--- NOTE | 2022-08-19 15:13 | P.DS_ITS ---
DS: Providers Provider Time Seen by Provider: 08:00 Date Seen: 08/19/22 Date of admission: 08/16/22 17:50 Primary care physician: Arabella Chiu MD Admitting Clinician: Hawa Cobb MD Consults: 08/16/22 18:24 Consult to Nutrition [CONS] Routine Comment: Reason for consult:: Nutritional Consult Comment: anemia, gastritis Consult to Respiratory Therapy [CONS] Routine Comment: Reason(s) for RT Consult:: Consult Attending Physician on discharge: Weston Irving MD Date of Discharge: 08/19/22 DS: Diagnosis Discharge Diagnosis (1) Shortness of breath: Status: Acute Problem details: Acute on chronic (2) Acute respiratory failure with hypoxia: Status: Acute (3) Community acquired pneumonia: Status: Acute Problem details: Azithromycin and Ceftriaxone initiated 08/16 (4) Acute exacerbation of chronic obstructive pulmonary disease: Status: Acute (5) Chronic obstructive pulmonary disease: Status: Acute (6) Scoliosis: Status: Acute DS: Summary Hospital Course Hospital Course: Marco Cormier is a 61 year old male who presented to the ED for worsening dyspnea.? Symptoms were present for 2-3 weeks. Did not any fevers or chest pain. Was coughing intermittently with green sputum production, no hemoptysis.? He took a course of Methylprednisolone 2 weeks prior to presentation without symptom relief.? He has oxygen at home, uses intermittently for dyspnea. Tried it intermittently over the past couple of weeks (used between 0.5-2L), not noting significant improvement with symptoms.? Doesn't have a home oximeter.? No recent sick contacts or COVID exposures. Had a CT scan prior to presentation to the hospital for Pulmonology followup, exhibiting new focal reticulonodular densities in the right lower lobe in addition to diffuse parenchymal densities in right upper lobe; no drainable lung abscess noted. On presentation to the hospital, he noted symptoms were significantly worsened (unable to perform ADLs without panicking 2/2 dyspnea), so drove himself to the ED. He was unable to ambulate into the ED from the parking lot due to anxiety and sense of dyspnea.? Room air oxygen saturations at rest on presentation were 88-91% and lower with any exertion.? Chest x-ray on presentation to the emergency department demonstrated no acute changes compared to the CT scan 4 days prior.? Was started on steroids in the hospital.? Also treated with ceftriaxone IV and azithromycin p.o. Generally feels improved on date of discharge.? Still has dyspnea with exertion, but is now closer to his baseline.? He is pleased with the improvement that he has already made.? With use of the Aerobika device and nebulizer therapies he is able to cough up more sputum.? Appetite is slowly improving. Status at Discharge Functional status at discharge: independent ambulation Overall status at discharge: patient is progressing back to baseline Time Spent with Patient Time attestation: Total time spent providing and/or coordinating discharge services: Time spent: Greater than 30 minutes Exam Narrative: Exam Narrative: No longer appears tired and in no acute distress. Alert and oriented to self, place, time, situation.? Anxious, cooperative, talkative.? Mood and affect are congruent.? Lungs with scattered rhonchi and wheezing but generally improved from previously.? Fair aeration throughout.? No rales. Heart tones with regular rhythm, normal S1-S2.? Abdomen with active bowel sounds, soft, nontender.? Independent transfer, station, and gait.? No focal motor neurologic deficits. Skin is warm, dry, intact. Const: Vital Signs, click to edit/add: Vital Signs - 24 hr 08/18/22 19:00 08/18/22 23:00 08/18/22 23:00 Temperature 98.0 F Pulse Rate Pulse Rate [Pulse Oximeter] 82 88 Respiratory Rate 18 18 Blood Pressure [Ri ght Arm] 150/60 H Pulse Oximetry 94 98 Oxygen Delivery Me thod Room Air 08/18/22 23:00 08/19/22 00:58 08/19/22 03:47 Temperature 98.0 F 97.5 F L Pulse Rate 85 Pulse Rate [Pulse Oximeter] 88 84 Respiratory Rate 18 18 Blood Pressure [Ri ght Arm] 140/66 H 139/73 Pulse Oximetry 94 94 Oxygen Delivery Me thod Room Air Room Air 08/19/22 07:08 08/19/22 07:00 08/19/22 07:00 Temperature 98.3 F Pulse Rate 61 Pulse Rate [Pulse Oximeter] 84 Respiratory Rate 20 Blood Pressure [Ri ght Arm] 174/84 H Pulse Oximetry 95 95 Oxygen Delivery Me thod Room Air Documenting provider has reviewed patient's vital signs: yes DS: Data Data Completed and Pending Labs on day of discharge: Labs from last 24 hours 08/19/22 08/19/22 08/19/22 06:22 06:22 06:22 WBC 14.12 H RBC 4.23 L Hgb 12.4 L Hct 38.2 MCV 90 MCH 29 MCHC 33 Plt Count 437 VBG pH 7.473 H VBG pCO2 39 L VBG pO2 99.7 H VBG HCO3 28 C-Reactive Protein 1.0 Preliminary micro results at discharge 08/16/22 16:05 Blood Culture - Preliminary Blood NO GROWTH AFTER 48 HOURS Imaging Chest x-ray: Attestation: I have reviewed the pertinent imaging results. Radiologist's impression: Normal cardiac mediastinal silhouette. Bilateral perihilar reticular interstitial opacities not significantly changed from the prior chest CT. Apical pleural thickening. No effusion or pneumothorax. Discharge Plan Discharge Disposition: Home, Self-Care Date of Admission: 08/16/22 17:50 Attending Provider on Discharge: Weston Irving Primary Care Provider: Arabella Chiu Condition: Improved Anticipated Discharge Date/Time: 08/19/22 11:00 Discharge Medications: New ipratropium-albuterol 0.5 mg-3 mg(2.5 mg base)/3 mL solution for nebulization 3 ml inhalation QID Qty: 90 2RF prednisone 10 mg tablet 30 mg PO DAILY 3 Days Qty: 9 0RF azithromycin 250 mg Tablet 250 mg PO Q24H 2 Days Qty: 2 0RF Taper: Z-GIBRAN 250 mg Q24H for 2 Days and 0 Hour cefdinir 300 mg capsule 300 mg PO BID Qty: 10 0RF Continued budesonide-formoterol 160-4.5 mcg/actuation HFA aerosol inhaler 2 puff inhalation BID ferrous fumarate 325 mg (106 mg iron) tablet 325 mg PO QDAY montelukast 10 mg tablet 10 mg PO QPM Qty: 90 4RF albuterol sulfate 2.5 mg /3 mL (0.083 %) solution for nebulization 2.5 mg continuous nebulization Q4H PRN (Reason: bronchospasm) Qty: 180 12RF omeprazole 20 mg capsule,delayed release(DR/EC) 20 mg .ROUTE QDAY Qty: 90 4RF Rx Instructions: 20 mg every day; Spiriva with HandiHaler 18 mcg capsule, w/inhalation device 1 cap INHALATION QDAY Qty: 90 3RF Discontinued methylprednisolone [Medrol (Gibran)] 4 mg tablets,dose pack 4 mg PO DAILY Qty: 21 3RF Rx Instructions: for COPD flares Discharge Orders: Discharge Order (Routine); Ordered 08/19/22 Ordered By: Weston Irving Patient Education: Prednisone (By mouth), Azithromycin (By mouth), Ipratropium/Albuterol (By breathing), Cefdinir (By mouth), COPD (Chronic Obstructive Pulmonary Disease) (GEN), Community Acquired Pneumonia (GEN) Activity Restrictions/Additional Instructions: 1. Keep appointment with pump tender today; 2. Follow-up with primary care physician 1-2 weeks. Activity Level: No Restrictions and Activity as Tolerated Discharge Diet: Regular Follow Up Appointments: Catherine Gonzalez CNP [Nurse Practitioner] - 08/26/22 1:00 pm (At the [facility]) Arabella Chiu MD [Primary Care Provider] - Forms: [facility] Info Instructions
== END 2022-08-19 10:30 | disposition home or self-care (01) | DRG 190 ==
LOC: ED 17:12 → MEDSURG 17:51
PROVIDERS: Hospitalist; Internal Medicine; Admitting Provider Family Medicine; Emergency Provider Family Medicine; PCP Family Medicine; Visit Provider Family Medicine
DX: J44.0 Chronic obstructive pulmonary disease with (acute) lower respiratory infection (principal); J18.9 Pneumonia, unspecified organism; J96.01 Acute respiratory failure with hypoxia; J44.1 Chronic obstructive pulmonary disease with (acute) exacerbation; D64.9 Anemia, unspecified; Z87.891 Personal history of nicotine dependence; M41.9 Scoliosis, unspecified
CPT/HCPCS: 36415; 71046; 80048; 80053; 82803; 83605; 83880; 84145; 84484; 85025; 85027; 86140; 87040; 87635; 87804; 93005; 94640; 94664; 94761; 99283; 99285; G0378; A9270; J0456; J0696; J1650; J2930; J7050

== ENCOUNTER 2022-09-02 13:31 | Outpatient (CLI) | payer MEDICAID, SELFPAY ==
[2022-09-02 21:39] LABS: Chloride* 99 mmol/L (96-114)
[2022-09-02 21:40] LABS: Albumin* 4.1 g/dL (3.3-5.0)
[2022-09-02 21:41] LABS: Potassium* 4.7 mmol/L (3.6-5.1); Sodium* 136 mmol/L (135-149)
[2022-09-02 21:45] LABS: Alanine Aminotransferase* 20 U/L (4-50); Alkaline Phosphatase* 70 U/L (40-150); Aspartate Amino Transferase* 24 U/L (12-35); Bilirubin Total* 0.9 mg/dL (0.1-1.5); Calcium* 9.4 mg/dL (8.4-10.6); Carbon Dioxide* 28 mmol/L (20-32); Cholesterol* 240 mg/dL (90-199); Creatinine* 1.1 mg/dL (0.5-1.5); Estimated Glomerular Filt Rate 75 ml/min; Glucose* 89 mg/dL (60-115); HDL Cholesterol* 43 mg/dL (>=40); LDL Cholesterol Calculated 161 mg/dL (<100); Total Protein* 7.3 g/dL (6.0-8.3); Triglycerides* 182 mg/dL (40-149)
[2022-09-02 22:35] LABS: Blood Urea Nitrogen* 8 mg/dL (7-30); NT Pro B Type NatriureticPept* 202 PG/mL (0-125)
[2022-09-02 22:37] LABS: Vitamin B12* > 1000 pg/mL (243-894)
== END 2022-09-02 13:32 | disposition home or self-care (01) ==
PROVIDERS: PCP Family Medicine; Visit Provider Family Medicine
DX: Z00.00 Encounter for general adult medical examination without abnormal findings (principal); D64.9 Anemia, unspecified; I51.9 Heart disease, unspecified; J44.9 Chronic obstructive pulmonary disease, unspecified; R53.83 Other fatigue; Z13.1 Encounter for screening for diabetes mellitus; Z13.6 Encounter for screening for cardiovascular disorders
CPT/HCPCS: 80053; 80061; 82607; 83880; 84443

== ENCOUNTER 2022-09-09 13:18 | Emergency (ER) | payer MEDICAID, SELFPAY ==
[2022-09-09 13:25] VITALS: BP 153/75; PULSE 83; RESP 28; TEMP 36.5; O2SAT 92; BMI 28.4
--- NOTE | 2022-09-09 14:04 | ED.GENADULT ---
HPI - General Adult General Time Seen by Provider: 14:05 Date Seen: 09/09/22 Chief complaint: Shortness of Breath/Dyspnea Stated complaint: Trouble breathing Time Seen by Provider: 09/09/22 13:36 Source: patient, RN notes reviewed and old records reviewed Mode of arrival: ambulatory Limitations: no limitations History of Present Illness HPI narrative: Marco is a 62-year-old gentleman coming in with shortness of breath with underlying COPD. He states he had a CT scan earlier today that had been ordered by Dr. Sandoval his wildland fire operations specialist. He did take a Claritin today, wonders if some of the symptoms might be from allergies. He will have watery itchy eyes. He does take Pataday. He also wears contacts. He will get nasal congestion/runny nose. He still continues to cough. He was hospitalized here I believe August 16 through the with a COPD exacerbation. He has completed his antibiotics and steroids. He notes that he will feel fine for while while he is on the antibiotics at and then for short while after. Then he states symptoms start to resume. He is coughing up phlegm. He has not had a fever. He is not known to have seasonal allergies, is noted to be on Singulair however. No chest pain, no concerned that there is cardiac issues. No lower extremity edema. He did see Dr. Rocha recently for routine follow-up. Related Data Home Medications Medication Instructions Recorded Confirmed ferrous fumarate 325 mg (106 mg 325 mg PO QDAY 06/11/22 09/09/22 iron) tablet Previous Rx's Medication Instructions Recorded montelukast 10 mg tablet 10 mg PO QPM #90 tabs 06/11/22 benzonatate 200 mg capsule 200 mg PO BID-TID PRN cough #30 08/26/22 caps omeprazole 20 mg capsule,delayed 40 mg .Route QDAY #180 caps 08/26/22 release albuterol sulfate 2.5 mg/3 mL 2.5 mg (3 mL) continuous 09/02/22 (0.083 %) solution for nebulization nebulization Q4H PRN bronchospasm #180 mL budesonide-formoterol HFA 160 2 puff inhalation BID #10.2 grams 09/02/22 mcg-4.5 mcg/actuation aerosol inhaler guaifenesin 600 mg tablet, 600 mg PO BID PRN congestion #180 09/02/22 extended release 12 hr (Mucinex) tabs ipratropium 0.5 mg-albuterol 3 mg 3 ml inhalation QID #180 mL 09/02/22 (2.5 mg base)/3 mL nebulization soln tiotropium bromide 18 mcg capsule 1 cap inhalation QDAY COPD #90 09/02/22 with inhalation device (Spiriva inhalations with HandiHaler) metformin 500 mg tablet 1,000 mg PO BID #120 tabs 09/03/22 Allergies Allergy/AdvReac Type Severity Reaction Status Date / Time shellfish derived AdvReac Intermediate Vomiting Verified 09/02/22 12:53 Review of Systems Status of ROS: Reports: 10 or more systems reviewed and unremarkable except as noted in History and below [facility] Medical History (Updated 09/09/22 @ 17:34 by Charlene He MD) Abscess of lung Acute respiratory failure with hypoxia Alcohol use disorder Anemia Asthma (02/28/15) Chronic obstructive pulmonary disease Community acquired pneumonia Iron deficiency anemia Pneumonia Surgical History No pertinent past surgical history No significant past surgical history Family History Father COPD (chronic obstructive pulmonary disease) Coronary artery disease Family/Other Stroke Social History Narrative: Alcohol use- 11/09 pt has been decreasing Former smoker- quit age 52; smoked 1.5 packs/day; approx 60 pack year history Smoking Status: Former smoker What tobacco products do you use: cigarettes Smoking quit date/years: <= 15 years ago Do you use any of these nicotine containing products: None Second hand tobacco smoke exposure: No How often do you have a drink containing alcohol: 4 or more times a week How many standard drinks containing alcohol do you have on a typical day: 3 or 4 How often do you have six or more drinks on one occasion: Never AUDIT-C Alcohol total score: 5 Non-prescribed substance use: denies use Little interest or pleasure in doing things: several days Feeling down, depressed, or hopeless: several days service: No Exam Const: Vital Signs, click to edit/add: Vital Signs - 24 hr 09/09/22 13:25 09/09/22 14:30 09/09/22 14:40 Temperature 97.7 F Pulse Rate [Right Pulse Oximeter] 83 68 Respiratory Rate 28 H 22 Blood Pressure [Ri ght Upper Arm] 153/75 H Pulse Oximetry 92 93 94 Oxygen Delivery Me thod Room Air Room Air 09/09/22 16:52 Temperature 97.1 F L Pulse Rate [Right Pulse Oximeter] 71 Respiratory Rate 22 Blood Pressure [Ri ght Upper Arm] 145/81 H Pulse Oximetry 95 Oxygen Delivery Me thod Room Air Documenting provider has reviewed patient's vital signs: yes Common normals: no apparent distress, average body habitus, oriented x3, no limitations, healthy appearing, alert and well nourished General appearance: cooperative, comfortable and well kempt Other: He is very pleasant, able speak in complete sentences. No dyspnea respiratory difficulties noted while I am with him. HENMT: Common normals: normocephalic, head/scalp atraumatic, hearing grossly normal bilaterally, external ears normal, EAC's normal, TM's normal bilaterally, external nose normal, nasal mucous membranes and turbinates normal, moist oral mucous membranes, oropharynx normal, dentition normal and gingiva normal Head and scalp: normocephalic and atraumatic Nose: external nose normal and nasal mucous membranes and turbinates normal External ear: external ears normal External auditory canal: EAC's normal Tympanic membrane: TM's normal bilaterally Eye: Common normals: PERRL, EOMs intact bilaterally, conjunctivae normal and no scleral icterus Conjunctiva: conjunctiva(e) normal Pupil: PERRL Neck & C-Spine: Common normals: full ROM, no lymphadenopathy, supple, no meningeal signs, no JVD and thyroid normal Thyroid: thyroid normal Resp: Common normals: normal respiratory effort, no retractions, no use of accessory muscles, clear to auscultation bilaterally (Does have diminished breath sounds at the bases.) and percussion normal Auscultation: clear to auscultation bilaterally (Does have diminished breath sounds at the bases.) Percussion: percussion normal Cardio: Common normals: no JVD, regular rate, regular rhythm, S1 normal heart sound, S2 normal heart sound, no gallops, no clicks, no murmurs and peripheral pulses 2+ throughout Rate: regular rate Rhythm: regular rhythm Heart sounds: S1 normal and S2 normal Peripheral pulses: pulses 2+ throughout Extremity: Other: No lower extremity edema Neuro: Common normals: oriented x3 Sensorium/orientation: alert Meningeal signs: no meningeal signs Psych: Appearance: well kempt Course Course Hospital Course: I will attempt to get his imaging read. Will contact Radiology. We will get some baseline labs on him. Right now is hemodynamically stable. This could be a component of allergies, could be COPD. Based on his history and doubtful that this is cardiac but will have a troponin done. He has absolutely no swelling, thus, very unlikely to be anything like congestive heart failure. Reevaluation(s) Reevaluation #1: Reviewed the CT findings and the cryptogenic organizing pneumonia/boop. Did review with him that I had reviewed up-to-date. Treatment really is dependent on where his current PFTs are, what the wildland fire operations specialist feels his burden of lung diseases. Sounds if steroids, course of long-term macrolide antibiotics could be tried. This is really out of my expertise and I do not feel that he needs anything emergently. He is going to need to follow up with pulmonology. He did wonder about trying some prednisone. I do think a course of prednisone 20 mg daily x7 days can be considered. Pulmonology can direct him further. Time: 17:20 Consultations Consultation #1: Paged on-call physician through [facility] at 15:57, 16:25 and 16:55. As of 17:29, no return call. Reviewed with patient that pulmonology is likely very busy. Vital Signs Vital signs: Initial Vital Signs Temperature 97.7 F 09/09/22 13:25 Temperature Source Temporal Artery Scan 09/09/22 13:25 Pulse Rate 83 09/09/22 13:25 Pulse Rhythm 09/09/22 13:25 Respiratory Rate 28 H 09/09/22 13:25 Blood Pressure 153/75 H 09/09/22 13:25 Blood Pressure Mean 101 09/09/22 13:25 Blood Pressure Position Sitting 09/09/22 13:25 Pulse Oximetry 92 09/09/22 13:25 Oxygen Delivery Method 09/09/22 13:25 Vital Signs Temperature 97.7 F 09/09/22 13:25 Pulse Rate 83 09/09/22 13:25 Respiratory Rate 28 H 09/09/22 13:25 Blood Pressure 153/75 H 09/09/22 13:25 Pulse Oximetry 92 09/09/22 13:25 Oxygen Delivery Method 09/09/22 13:25 Temperature 97.1 F L 09/09/22 16:52 Pulse Rate 71 09/09/22 16:52 Respiratory Rate 22 09/09/22 16:52 Blood Pressure 145/81 H 09/09/22 16:52 Pulse Oximetry 95 09/09/22 16:52 Oxygen Delivery Method 09/09/22 16:52 Medical Decision Making Lab Data Lab results reviewed: Yes I reviewed the patient's lab results Labs: Lab Results 09/09/22 09/09/22 09/09/22 Range/Units 14:30 14:30 14:30 WBC 6.05 (4.50-11.00) K/uL RBC 4.19 L (4.30-5.90) m/uL Hgb 12.6 L (13.5-17.5) gm/dL Hct 38.0 (37.0-53.0) % MCV 91 (80-100) fL MCH 30 (26-34) pg MCHC 33 (32-36) gm/dL RDW Coeff of Mandeep 15.0 (11.5-15.5) % Plt Count 352 (140-440) K/uL Neut % (Auto) 42.8 (42.0-72.0) % Lymph % (Auto) 17.7 L (20-44) % [place] % (Auto) 15.7 H (0.0-11.0) % Eos % (Auto) 23.1 H (0.0-7.0) % Baso % (Auto) 0.5 (0.0-3.0) % Neut # (Auto) 2.59 (1.7-7.0) K/uL Lymph # (Auto) 1.10 (0.90-2.90) K/uL [place] # (Auto) 0.90 (0.00-0.90) K/UL Eos # (Auto) 1.40 H (0.00-0.50) K/uL Baso # (Auto) 0.03 (0.00-0.30) K/uL Abs Immat Gran (auto) 0.01 (0.00-0.30) K/uL Sodium 137 (135-149) mmol/L Potassium 4.5 (3.6-5.1) mmol/L Chloride 101 (96-114) mmol/L Carbon Dioxide 27 (20-32) mmol/L BUN 11 (7-30) mg/dL Creatinine 1.1 (0.5-1.5) mg/dL Estimated Creat Clear 67.84 Estimated GFR 75 ml/min Glucose 81 (60-115) mg/dL Calcium 9.5 (8.4-10.6) mg/dL C-Reactive Protein < 0.5 L (0.5-1.0) mg/dL NT-Pro-B Natriuret Pep 201 H (0-125) PG/mL POC Troponin I (0.01-0.04) ng/ml 09/09/22 Range/Units 14:30 WBC (4.50-11.00) K/uL RBC (4.30-5.90) m/uL Hgb (13.5-17.5) gm/dL Hct (37.0-53.0) % MCV (80-100) fL MCH (26-34) pg MCHC (32-36) gm/dL RDW Coeff of Mandeep (11.5-15.5) % Plt Count (140-440) K/uL Neut % (Auto) (42.0-72.0) % Lymph % (Auto) (20-44) % [place] % (Auto) (0.0-11.0) % Eos % (Auto) (0.0-7.0) % Baso % (Auto) (0.0-3.0) % Neut # (Auto) (1.7-7.0) K/uL Lymph # (Auto) (0.90-2.90) K/uL [place] # (Auto) (0.00-0.90) K/UL Eos # (Auto) (0.00-0.50) K/uL Baso # (Auto) (0.00-0.30) K/uL Abs Immat Gran (auto) (0.00-0.30) K/uL Sodium (135-149) mmol/L Potassium (3.6-5.1) mmol/L Chloride (96-114) mmol/L Carbon Dioxide (20-32) mmol/L BUN (7-30) mg/dL Creatinine (0.5-1.5) mg/dL Estimated Creat Clear Estimated GFR ml/min Glucose (60-115) mg/dL Calcium (8.4-10.6) mg/dL C-Reactive Protein (0.5-1.0) mg/dL NT-Pro-B Natriuret Pep (0-125) PG/mL POC Troponin I 0.00 L (0.01-0.04) ng/ml Imaging Data CT scan - chest: Attestation: I have reviewed the pertinent imaging results. Radiologist's impression: Patient: MARCO KOTHARI Facility:?[facility] Patient ID:?[id number] Site Patient ID:?[id number]. Site :?[id number] Study:?CT Chest W/O-09/09/2022 1:08:25 PM Ordering Physician:Ernesto De La Rosa Final Report: INDICATION: Pneumonia. Cough. Dyspnea. COMPARISON: The most recent study of August 12, 2022 TECHNIQUE: : CT examination of the chest was performed without contrast. Thin axial sections were obtained from above the apices of the lungs to the lung bases. Please note that all CT scans at this facility use dose modulation, iterative reconstruction, and/or weight-based dosing when appropriate to reduce radiation dose to as low as reasonably achievable. FINDINGS: : HEART and MEDIASTINUM: The heart size is normal. There are prominent mediastinal lymph nodes which are similar to the prior study and are likely reactive. Moderate sized hiatal hernia and findings likely related to reflux. No pericardial effusion. Atherosclerotic vascular calcifications LUNGS AND PLEURAL SPACES: Background pattern of moderate upper lobe predominant centrilobular emphysema. Multiple linear and reticular opacities bilaterally which are probably largely related to scarring, fibrosis and chronic atelectasis. These are fairly similar to the most recent study. No park consolidation or more obvious mass on the left. On the right, there is dense opacification of the apical posterior aspect of the right upper lobe and the superior segment of the right lower lobe. This is similar to the prior study. No pleural effusion or pneumothorax. The general appearance is unchanged. This could be a persistent infectious process. This can also be seen in atypical organisms. There are inflammatory noninfectious causes of this potential appearance including cryptogenic organizing pneumonia/bronchiolitis obliterans with organizing pneumonia. There is no cavitation to suggest abscess and there is no findings strongly suggestive of malignancy. Continued imaging and clinical follow-up is advised in this patient VISUALIZED UPPER ABDOMEN: The limited visualized upper abdominal structures appear normal. OSSEOUS STRUCTURES: Age-appropriate appearance. No acute fracture or destructive process. TUBES and LINES: None. IMPRESSION: 1. Background pattern of centrilobular emphysema. 2. Multifocal lung abnormality most of which likely represents atelectasis and scarring/fibrosis. There is also fairly dense subpleural lung consolidation of the apical posterior right upper lobe and superior segment of the right lower lobe. No cavitation. 3. Stable mediastinal lymphadenopathy likely reactive 4. The findings are overall similar to the most recent examination. Differential considerations include persistent pneumonia especially of an atypical organism or an inflammatory noninfectious causes such as NEMATOLOGY TEACHER/BOOP. Clinical and imaging follow-up advised Please note that all CT scans at this facility use dose modulation, iterative reconstruction, and/or weight-based dosing when appropriate to reduce radiation dose to as low as reasonably achievable. Dictated by Cullen Azar MD @ 09/09/2022 2:29:46 PM (Electronic Signature) Critical Care Time Critical Care Time Critical Care Time: No Discharge Plan Discharge Clinical Impression: Cryptogenic organizing pneumonia, COPD (chronic obstructive pulmonary disease) Condition: Stable Instructions: COPD (Chronic Obstructive Pulmonary Disease) (ED) Additional Instructions: Can try prednisone 20 mg daily x7 days until you hear from your wildland fire operations specialist. Please contact Dr. Sandoval's office tomorrow morning. She will have to direct you on what to do about the CT findings. In the interim, if you develop significant shortness of breath/difficulty breathing, fever with increasing cough, please seek re-evaluation. Activity Level: Activity as Tolerated Prescriptions: No Action ferrous fumarate 325 mg (106 mg iron) tablet 325 mg PO QDAY montelukast 10 mg tablet 10 mg PO QPM Qty: 90 4RF omeprazole 20 mg capsule,delayed release(DR/EC) 40 mg .ROUTE QDAY Qty: 180 3RF Rx Instructions: 40 mg every day; benzonatate 200 mg capsule 200 mg PO BID-TID PRN (Reason: cough) Qty: 30 3RF albuterol sulfate 2.5 mg /3 mL (0.083 %) solution for nebulization 2.5 mg continuous nebulization Q4H PRN (Reason: bronchospasm) Qty: 180 12RF budesonide-formoterol 160-4.5 mcg/actuation HFA aerosol inhaler 2 puff inhalation BID Qty: 10.2 12RF guaifenesin [Mucinex] 600 mg tablet extended release 12hr 600 mg PO BID PRN (Reason: congestion) Qty: 180 3RF ipratropium-albuterol 0.5 mg-3 mg(2.5 mg base)/3 mL solution for nebulization 3 ml inhalation QID Qty: 180 3RF Rx Instructions: Use at first sign of shortness of breath; may use from 1-4 times daily. If using 4 times daily, make appointment with doctor. Spiriva with HandiHaler 18 mcg capsule, w/inhalation device 1 cap INHALATION QDAY Qty: 90 3RF metformin 500 mg tablet 1,000 mg PO BID Qty: 120 0RF Rx Instructions: Start 1 tab/day, increase to 1 tab twice daily after 3 days if no symptoms. Increase by 1 tab every 3 days (if no adverse symptoms) to a total dose of 2 tabs twice daily. Follow Up/Referrals: Arabella Chiu MD [Staff Physician] - Stand Alone Forms: VideoBurst Info Instructions
--- OUTSIDE RECORDS SUMMARY | 2022-09-09 14:20 | XMS_ITS | Clinical Summary ---
:1960 Author Organization [facility] [place] [address] Care Team Providers Name Role Phone [facility] Primary Care Provider Allergies Active Allergy Reactions Severity Noted Date Comments Shellfish Derived *Unknown 02/21/2022 Medications Medication Sig Dispensed Refills Start Date End Date Status Symbicort 160-4.5 2 Puffs 2 times 0 11/12/2021 Active mcg/actuation daily. (160-4.5 mcg each actuation) inhaler tiotropium (SPIRIVA Inhale 18 mcg by 0 Active HANDIHALER) 18 mcg mouth once daily. inhalation capsule Using a SPRIVA HANDIHALER bush the capsule, then by mouth breathe in the powder. Inhale twice from the same capsule for full dose. omeprazole (PRILOSEC) Take 20 mg by mouth 0 Active 20 mg Delayed-Release once daily. capsule montelukast Take 10 mg by mouth 0 Active (SINGULAIR) 10 mg at bedtime. tablet albuterol HFA Inhale 2 Puffs by 0 Active (PRO-AIR; VENTOLIN; mouth 4 times daily PROVENTIL) 90 if needed. mcg/actuation inhaler albuterol (PROVENTIL) Inhale 2.5 mg via a 0 Active 0.083 % neb solution nebulizer every 4 hours if needed. iron,carbonyl-vitamin Take 1 Tablet by 0 Active C (Vitron-C) 65 mg mouth once every iron- 125 mg other day. Delayed-Release tablet cyanocobalamin, Place 5,000 units 0 Active vitamin B-12, 5,000 under the tongue mcg/mL drop once daily. Active Problems Problem Noted Date Lung abscess 02/22/2022 COPD (chronic obstructive pulmonary disease) 2 Scoliosis 02/21/2022 Anemia 02/21/2022 Hiatal hernia 02/21/2022 History of alcohol use disorder 02/21/2022 Lung nodule 02/21/2022 Resolved Problems Problem Noted Date Resolved Date Empyema 02/21/2022 02/22/2022 Family History Medical History Relation Name Comments COPD Father Relation Name Status Comments Father Social History Tobacco Use Types Packs/Day Years Used Date Former Smoker Cigarettes 1.5 Quit: 2014 Smokeless Tobacco: Never Used Alcohol Use Standard Drinks/Week Comments Yes 0 (1 standard drink = 0.6 oz pure alcoho l) ocasional beer Alcohol Habits Answer Date Recorded How often do you have a drink containing alcohol? Not asked How many drinks containing alcohol do you have on a Not aske d typical day when you are drinking? How often do you have six or more drinks on one Not asked occasion? Comment: ocasional beer 02/25/2022 Sex Assigned at Date Recorded Not on file Obstetrics History Last Filed Vital Signs Vital Sign Reading Time Taken Comments Blood Pressure 125/59 02/27/2022 8:00 AM CDT Pulse 77 02/27/2022 8:00 AM CDT Temperature 36.8 ??C (98.3 ??F) 02/27/2022 8:00 AM CDT Respiratory Rate 20 02/27/2022 8:00 AM CDT Oxygen Saturation 93% 02/27/2022 8:00 AM CDT Inhaled Oxygen Concentration - - Weight 84.8 kg (187 lb) 02/27/2022 7:12 AM CDT Height 177.8 cm (5' 10) 02/24/2022 2:03 PM CDT Body Mass Index 26.83 02/24/2022 2:03 PM CDT Plan of Treatment Health Maintenance Due Date Last Done Comments COVID-19 vaccine series (#1) 02/24/1959 Tdap 1969 Depression screening for age 12+ 1970 BMI (ht and wt on same day) for age 18+ 1976 Hepatitis C screening for age 18-79 1976 Tetanus booster 1978 Colonoscopy through age 75 2003 Lipids for age 45-75 2003 Zoster (shingles) series for age 50+ (1 of 2) 2008 Influenza for age 50-64 07/24/2022 Results Not on filefrom Last 3 Months Insurance Payer Benefit Plan / Subscriber ID Effective Dates Phone Addre ss Type Group [employer] [place] [id number] 2021-Present [address] [place] [address] Advance Directives Latest Code Status on File Code Status Date Activated Date Inactivated Comments Full Code 02/22/2022 12:32 AM 02/27/2022 7:05 PM Code Status Discussion: Reviewed Preferences Care Teams Business Analytics Specialist Relationship Specialty Start Date End Date Power Batista PCP - General 02/21/22 [address] [facility] [address]
[2022-09-09 14:30] VITALS: O2SAT 93
[2022-09-09 14:38] LABS: Basophils Absolute Auto 0.03 K/uL (0.00-0.30); Basophils Percent Auto 0.5 % (0.0-3.0); Eosinophils Percent Auto 23.1 % (0.0-7.0); Hemoglobin* 12.6 gm/dL (13.5-17.5); Immature Granulocytes Abs Auto 0.01 K/uL (0.00-0.30); Lymphocytes Percent Auto 17.7 % (20-44); Mean Corpuscular HGB Conc 33 gm/dL (32-36); Mean Corpuscular Hemoglobin 30 pg (26-34); Mean Corpuscular Volume 91 fL (80-100); Monocytes Percent Auto 15.7 % (0.0-11.0); Neutrophils Absolute Auto 2.59 K/uL (1.7-7.0); Neutrophils Percent Auto 42.8 % (42.0-72.0); Platelet Count* 352 K/uL (140-440); Red Blood Count 4.19 m/uL (4.30-5.90); White Blood Count* 6.05 K/uL (4.50-11.00)
[2022-09-09 14:40] VITALS: PULSE 68; RESP 22; O2SAT 94
[2022-09-09 14:42] LABS: Slide Review Reflex No
[2022-09-09 14:52] LABS: Chloride* 101 mmol/L (96-114); Potassium* 4.5 mmol/L (3.6-5.1); Sodium* 137 mmol/L (135-149)
[2022-09-09 14:55] LABS: Carbon Dioxide* 27 mmol/L (20-32); Creatinine* 1.1 mg/dL (0.5-1.5); Est. Creatinine Clearance* 67.84; Estimated Glomerular Filt Rate 75 ml/min
[2022-09-09 14:56] LABS: Blood Urea Nitrogen* 11 mg/dL (7-30); Calcium* 9.5 mg/dL (8.4-10.6); Glucose* 81 mg/dL (60-115)
[2022-09-09 15:05] LABS: NT Pro B Type NatriureticPept* 201 PG/mL (0-125)
[2022-09-09 15:07] LABS: C Reactive Protein* < 0.5 mg/dL (0.5-1.0)
[2022-09-09 16:52] VITALS: BP 145/81; PULSE 71; RESP 22; TEMP 36.2; O2SAT 95
== END 2022-09-09 17:45 | disposition home or self-care (01) ==
PROVIDERS: Emergency Provider Family Medicine; PCP Family Medicine
DX: J84.116 Cryptogenic organizing pneumonia (principal); J44.9 Chronic obstructive pulmonary disease, unspecified; Z82.49 Family history of ischemic heart disease and other diseases of the circulatory system; Z87.891 Personal history of nicotine dependence
CPT/HCPCS: 36415; 71250; 80048; 83880; 85025; 86140; 94761; 99284

== ENCOUNTER 2022-12-08 14:34 | Outpatient (CLI) | payer MEDICAID, SELFPAY ==
--- NOTE | 2022-12-08 14:55 | CRLHL7_ITS ---
For Patients: As a result of the Century Cures Act, medical imaging exams and procedure reports are released immediately into your electronic medical record. You may view this report before your referring provider. If you have questions, please contact your health care provider. Indication: Cryptogenic organizing pneumonia follow-up Technique: Noncontrast CT chest. High-resolution inspiratory supine images of the chest also performed. Please note that all CT scans at this facility use dose modulation, iterative reconstruction, and/or weight-based dosing when appropriate to reduce radiation dose to as low as reasonably achievable. Comparison: 09/09/2022 Findings: COPD/emphysema. Chronic parenchymal densities within the right lung apex at the anterior and posterior aspects. Also persistent parenchymal opacification within the posterior aspect of the superior segment right lower lobe. There is a new spiculated nodule within the right lower lobe measuring 1.1 cm, series 3, image 71. Chronic peripheral densities at the left upper lobe. Persistent nodular type scarring at the left lower lobe. Incidental calcified granuloma within the left lower lobe. Interval development of a nodular like density within the left upper lobe measuring 9 millimeters, series 3, image 37. There is no pleural effusion. No pneumothorax. Enlarged right paratracheal lymph node measuring 1.5 cm is similar. Dense vascular calcifications including the coronary arteries. 5.5 cm hiatal hernia. No fracture is present. Impression: Similar bilateral patchy areas of chronic reticular scarring and chronic airspace densities. Interval development of a spiculated nodule within the right lower lobe measuring 1.1 cm. A one-month short-term follow-up CT scan is recommended regarding this finding. Also interval development of patchy ill-defined nodular type densities within the left upper lobe measuring up to 9 millimeters. Similar enlarged right paratracheal lymph node. 5.5 cm hiatal hernia. Chronic underlying COPD/emphysema. Please note that all CT scans at this facility use dose modulation, iterative reconstruction, and/or weight-based dosing when appropriate to reduce radiation dose to as low as reasonably achievable. Dictated by Carson Kerns MD @ 12/09/2022 12:42:25 PM (Electronically Signed)
== END 2022-12-08 14:35 | disposition home or self-care (01) ==
LOC: CT 14:35
PROVIDERS: PCP Family Medicine; Visit Provider Internal Medicine Pulmonary Disease
DX: J18.9 Pneumonia, unspecified organism (principal); J47.9 Bronchiectasis, uncomplicated; J84.10 Pulmonary fibrosis, unspecified; J84.116 Cryptogenic organizing pneumonia; F17.203 Nicotine dependence unspecified, with withdrawal
CPT/HCPCS: 71250

== ENCOUNTER 2023-01-26 13:58 | Outpatient (CLI) | payer MEDICAID, SELFPAY ==
--- NOTE | 2023-01-26 14:00 | CRLHL7_ITS ---
For Patients: As a result of the Century Cures Act, medical imaging exams and procedure reports are released immediately into your electronic medical record. You may view this report before your referring provider. If you have questions, please contact your health care provider. INDICATION: Nicotine dependence. History of cryptogenic organizing pneumonia. TECHNIQUE: CT chest without contrast. COMPARISON: 12/08/2022. FINDINGS: Lungs and pleura: Relatively small scattered bilateral reticulonodular infiltrates persist but have generally improved. However, a new small area of bronchiolitis is present in the posterior left lower lobe. A 1.1 cm right lower lobe nodule is unchanged on series 7, image 70. Airspace consolidation with air bronchograms in the posterior right lung also unchanged. No pleural effusion and no pneumothorax. Heart and vasculature: Heart size is normal. Thoracic aorta and pulmonary artery are normal in caliber. Coronary artery atherosclerosis is present. Lymph nodes/mediastinum: Few mildly enlarged mediastinal lymph nodes are stable. Stable small hiatal hernia. Chest wall: No masses. Upper abdomen: No significant findings. Bones: Unremarkable for age. IMPRESSION: 1. Persistent but generally improved reticulonodular infiltrates. New small area of bronchiolitis is present in the left lower lobe. 2. Stable 1.1 cm right lower lobe pulmonary nodule. 3. No other acute findings or significant changes from the prior exam. Please note that all CT scans at this facility use dose modulation, iterative reconstruction, and/or weight-based dosing when appropriate to reduce radiation dose to as low as reasonably achievable. Dictated by Rinku Gibbs MD @ 01/26/2023 4:49:18 PM (Electronically Signed)
== END 2023-01-26 13:59 | disposition home or self-care (01) ==
LOC: CT 13:59
PROVIDERS: PCP Family Medicine; Visit Provider Internal Medicine Pulmonary Disease
DX: F17.211 Nicotine dependence, cigarettes, in remission (principal); J84.10 Pulmonary fibrosis, unspecified; J84.116 Cryptogenic organizing pneumonia; R91.8 Other nonspecific abnormal finding of lung field
CPT/HCPCS: 71250

== ENCOUNTER 2023-01-26 14:20 | Emergency (ER) | payer MEDICAID, SELFPAY ==
[2023-01-26 14:32] VITALS: BP 150/89; PULSE 82; RESP 22; TEMP 37.3; O2SAT 94; BMI 30.3
--- NOTE | 2023-01-26 15:10 | CRLHL7_ITS ---
For Patients: As a result of the Century Cures Act, medical imaging exams and procedure reports are released immediately into your electronic medical record. You may view this report before your referring provider. If you have questions, please contact your health care provider. Indication: Abdominal fullness with bloating and constipation. Technique: Abdomen 4 view. Comparison: None. Findings: Bowel: Bowel pattern is normal. The amount of colonic stool is within normal limits. Other: No sign of free air. No sign of soft tissue mass. No suspicious calcifications. Osseous structures are unremarkable for age. Impression: Unremarkable abdomen. Dictated by Rinku Gibbs MD @ 01/26/2023 4:38:00 PM (Electronically Signed)
[2023-01-26 15:46] LABS: Basophils Absolute Auto 0.06 K/uL (0.00-0.30); Basophils Percent Auto 0.7 % (0.0-3.0); Eosinophils Percent Auto 14.7 % (0.0-7.0); Hematocrit 41.7 % (37.0-53.0); Hemoglobin* 13.5 gm/dL (13.5-17.5); Immature Granulocytes Abs Auto 0.02 K/uL (0.00-0.30); Immature Granulocytes Pct Auto 0.2 %; Lymphocytes Percent Auto 17.6 % (20-44); Mean Corpuscular HGB Conc 32 gm/dL (32-36); Mean Corpuscular Hemoglobin 30 pg (26-34); Mean Corpuscular Volume 92 fL (80-100); Monocytes Percent Auto 16.3 % (0.0-11.0); Neutrophils Absolute Auto 4.07 K/uL (1.7-7.0); Neutrophils Percent Auto 50.5 % (42.0-72.0); Platelet Count* 436 K/uL (140-440); RDW Coefficient of Variation % 13.2 % (11.5-15.5); Red Blood Count 4.52 m/uL (4.30-5.90)
[2023-01-26 15:54] LABS: Slide Review Reflex No
[2023-01-26 16:08] LABS: White Blood Count* 8.08 K/uL (4.50-11.00)
[2023-01-26 16:19] LABS: Albumin* 4.3 g/dL (3.3-5.0); Chloride* 104 mmol/L (96-114)
[2023-01-26 16:20] LABS: Potassium* 4.2 mmol/L (3.6-5.1); Sodium* 138 mmol/L (135-149)
[2023-01-26 16:22] LABS: Creatinine* 0.9 mg/dL (0.5-1.5); Est. Creatinine Clearance* 74.63; Estimated Glomerular Filt Rate 95 ml/min
[2023-01-26 16:23] LABS: Alanine Aminotransferase* 17 U/L (4-50); Alkaline Phosphatase* 74 U/L (40-150); Aspartate Amino Transferase* 27 U/L (12-35); Bilirubin Direct* 0.2 mg/dL (0.0-0.5); Bilirubin Total* 0.8 mg/dL (0.1-1.5); Blood Urea Nitrogen* 11 mg/dL (7-30); Calcium* 9.1 mg/dL (8.4-10.6); Carbon Dioxide* 28 mmol/L (20-32); Glucose* 88 mg/dL (60-115); Total Protein* 8.4 g/dL (6.0-8.3)
[2023-01-26 16:26] LABS: C Reactive Protein* 1.3 mg/dL (0.5-1.0)
--- NOTE | 2023-01-26 18:50 | ED.ABDPAIN ---
HPI - Abdominal Pain General Chief Complaint: Abdominal Pain Stated Complaint: Bloating Time Seen by Provider: 01/26/23 14:54 History of Present Illness HPI narrative: 62-year-old man presenting to the emergency department with complaint of abdominal distension fullness firmness. Denies constipation but he is worried that that might be going on somehow. He has had regular twice daily bowel movements for a long time. Was initiated on metformin and had subsequent abdominal discomfort bloating and sounds like diarrheal movements and discontinued that about a month ago. Bowels in abdomen having really felt the same since. He has not had a fever. No hematochezia. Has not been vomiting. Is passing gas and did have a bowel movement today which did not affect his symptoms. He acknowledges that it might be related to weight gain as well. He estimates himself a 205 lb fluctuating between that and 185. This would be about as heavy as he typically gets. Ultimately it sounds as though he is looking for a bowel cleanout. Does have a history of GERD. Continues to take omeprazole. Has tried Gas-X without relief. Says approximately last year had reassuring EGD and colonoscopy. Related Data Home Medications Medication Instructions Recorded Confirmed ferrous fumarate 325 mg (106 mg 325 mg PO QDAY 06/11/22 11/03/22 iron) tablet Previous Rx's Medication Instructions Recorded montelukast 10 mg tablet 10 mg PO QPM #90 tabs 06/11/22 benzonatate 200 mg capsule 200 mg PO BID-TID PRN cough #30 08/26/22 caps omeprazole 20 mg capsule,delayed 40 mg .Route QDAY #180 caps 08/26/22 release albuterol sulfate 2.5 mg/3 mL 2.5 mg (3 mL) continuous 09/02/22 (0.083 %) solution for nebulization nebulization Q4H PRN bronchospasm #180 mL budesonide-formoterol HFA 160 2 puff inhalation BID #10.2 grams 09/02/22 mcg-4.5 mcg/actuation aerosol inhaler guaifenesin 600 mg tablet, 600 mg PO BID PRN congestion #180 09/02/22 extended release 12 hr (Mucinex) tabs ipratropium 0.5 mg-albuterol 3 mg 3 ml inhalation QID #180 mL 09/02/22 (2.5 mg base)/3 mL nebulization soln tiotropium bromide 18 mcg capsule 1 cap inhalation QDAY COPD #90 09/02/22 with inhalation device (Spiriva inhalations with HandiHaler) prednisone 20 mg tablet 20 mg PO DAILY #7 tabs 09/09/22 Allergies Allergy/AdvReac Type Severity Reaction Status Date / Time shellfish derived AdvReac Intermediate Vomiting Verified 01/26/23 14:38 Review of Systems Status of ROS Reports: 10 or more systems reviewed and unremarkable except as noted in History and below [facility] Medical History Abscess of lung Acute respiratory failure with hypoxia Alcohol use disorder Anemia Asthma (02/28/15) Chronic obstructive pulmonary disease Community acquired pneumonia Iron deficiency anemia Pneumonia Surgical History No pertinent past surgical history No significant past surgical history Family History Father COPD (chronic obstructive pulmonary disease) Coronary artery disease Family/Other Stroke Social History Narrative: Alcohol use- 11/09 pt has been decreasing Former smoker- quit age 52; smoked 1.5 packs/day; approx 60 pack year history Smoking Status: Former smoker What tobacco products do you use: cigarettes Smoking quit date/years: <= 15 years ago Do you use any of these nicotine containing products: None Second hand tobacco smoke exposure: No How often do you have a drink containing alcohol: 4 or more times a week How many standard drinks containing alcohol do you have on a typical day: 3 or 4 How often do you have six or more drinks on one occasion: Never AUDIT-C Alcohol total score: 5 Non-prescribed substance use: denies use Little interest or pleasure in doing things: several days Feeling down, depressed, or hopeless: several days service: No Exam Narrative: Exam Narrative: Pleasant. NAD. Browsing his phone calmly. Skin is warm and dry. Trace pretibial edema bilaterally. Well-perfused extremities. Cranial nerves 2-12 look to be intact. Breathing is not labored he does not seem particularly tachypneic. Lungs with diminished breath sounds and trace crepitus bibasilar. Abdomen is not tympanitic. Is overweight. Generally soft. There is a noninflamed small tender infraumbilical hernia. This is not the area of pain and again more general and discomfort. Const: Vital Signs, click to edit/add: Vital Signs - 24 hr 01/26/23 14:32 Temperature 99.2 F Pulse Rate [Right Pulse Oximeter] 82 Respiratory Rate 22 Blood Pressure [Ri ght Upper Arm] 150/89 H Pulse Oximetry 94 Oxygen Delivery Me thod Room Air Documenting provider has reviewed patient's vital signs: yes Course Vital Signs Vital signs: Initial Vital Signs Temperature 99.2 F 01/26/23 14:32 Temperature Source Temporal Artery Scan 01/26/23 14:32 Pulse Rate 82 01/26/23 14:32 Respiratory Rate 22 01/26/23 14:32 Blood Pressure 150/89 H 01/26/23 14:32 Blood Pressure Mean 109 01/26/23 14:32 Blood Pressure Position Sitting 01/26/23 14:32 Pulse Oximetry 94 01/26/23 14:32 Oxygen Delivery Method 01/26/23 14:32 Vital Signs Temperature 99.2 F 01/26/23 14:32 Pulse Rate 82 01/26/23 14:32 Respiratory Rate 22 01/26/23 14:32 Blood Pressure 150/89 H 01/26/23 14:32 Pulse Oximetry 94 01/26/23 14:32 Oxygen Delivery Method 01/26/23 14:32 Temperature 99.2 F 01/26/23 14:32 Pulse Rate 82 01/26/23 14:32 Respiratory Rate 22 01/26/23 14:32 Blood Pressure 150/89 H 01/26/23 14:32 Pulse Oximetry 94 01/26/23 14:32 Oxygen Delivery Method 01/26/23 14:32 MDM - Abdominal Pain MDM Narrative Medical decision making narrative: We discussed given benign abdomen possibility of going home with bowel regimen and follow up p.r.n.. Ultimately settled on brief laboratory evaluation and abdominal x-rays to evaluate for stool/bowel gas pattern. I do not think there is a small bowel or even partial small-bowel obstruction. There may be some constipation. It seems to me that there has been weight gain. Reassuring abdominal screenings. Seems there has been med reaction and a lack of normalization of bowels as well; some form of irritable bowel. Labs are reassuring and abdominal x-ray without excessive stool burden and with nonspecific bowel gas pattern. Mr. Cormier has not demonstrated any particular discomfort during his time in the ER. See patient discharge plan Lab Data Attestation: I reviewed the patient's lab results. Labs: Lab Results 01/26/23 01/26/23 Range/Units 15:38 15:38 WBC 8.08 (4.50-11.00) K/uL RBC 4.52 (4.30-5.90) m/uL Hgb 13.5 (13.5-17.5) gm/dL Hct 41.7 (37.0-53.0) % MCV 92 (80-100) fL MCH 30 (26-34) pg MCHC 32 (32-36) gm/dL RDW Coeff of Mandeep 13.2 (11.5-15.5) % Plt Count 436 (140-440) K/uL Neut % (Auto) 50.5 (42.0-72.0) % Lymph % (Auto) 17.6 L (20-44) % [place] % (Auto) 16.3 H (0.0-11.0) % Eos % (Auto) 14.7 H (0.0-7.0) % Baso % (Auto) 0.7 (0.0-3.0) % Neut # (Auto) 4.07 (1.7-7.0) K/uL Lymph # (Auto) 1.40 (0.90-2.90) K/uL [place] # (Auto) 1.30 H (0.00-0.90) K/UL Eos # (Auto) 1.20 H (0.00-0.50) K/uL Baso # (Auto) 0.06 (0.00-0.30) K/uL Sodium 138 (135-149) mmol/L Potassium 4.2 (3.6-5.1) mmol/L Chloride 104 (96-114) mmol/L Carbon Dioxide 28 (20-32) mmol/L BUN 11 (7-30) mg/dL Creatinine 0.9 (0.5-1.5) mg/dL Estimated Creat Clear 74.63 Estimated GFR 95 ml/min Glucose 88 (60-115) mg/dL Calcium 9.1 (8.4-10.6) mg/dL Total Bilirubin 0.8 (0.1-1.5) mg/dL Direct Bilirubin 0.2 (0.0-0.5) mg/dL AST 27 (12-35) U/L ALT 17 (4-50) U/L Alkaline Phosphatase 74 (40-150) U/L C-Reactive Protein 1.3 H (0.5-1.0) mg/dL Total Protein 8.4 H (6.0-8.3) g/dL Albumin 4.3 (3.3-5.0) g/dL Discharge Plan Discharge Clinical Impression: Umbilical hernia, Abdominal discomfort Patient Disposition: Home, Self-Care Condition: Stable Additional Instructions: I do think staying well hydrated is important. Try to drink 2-3 L of water daily. I am reassured by your normal screenings that were done recently. I would begin keeping a diet diary of everything you eat or drink over a 2 week period. You can then present that to your primary care provider or vending machine collector and make a plan. It may be that you got have never come back to normal after you seemed to have some medication intolerance and recurrent bouts of antibiotics. You might benefit from daily probiotics for 1 -3 months. One way to get this can be in yogurt which you can make yourself. You can also get this in capsule forms or liquid. If you wanted bowel cleanout, might begin with MiraLax equivalent in liquid dosed 3 times over the course of the day. Then adjust to stool consistency. Oral mineral oil is another option. If your stool seems to be hard can place an enema and repeat in an hour. I do not believe magnesium citrate is available but a bottle of that is typically very effective. Gut mobility is also helped by regular exercise. Do try to get in some heart pumping exercise daily. Thankfully the weather is getting warmer. Discuss all of this with your primary care provider and see if you would want further workup. Prescriptions: No Action ferrous fumarate 325 mg (106 mg iron) tablet 325 mg PO QDAY montelukast 10 mg tablet 10 mg PO QPM Qty: 90 4RF omeprazole 20 mg capsule,delayed release(DR/EC) 40 mg .ROUTE QDAY Qty: 180 3RF Rx Instructions: 40 mg every day; benzonatate 200 mg capsule 200 mg PO BID-TID PRN (Reason: cough) Qty: 30 3RF albuterol sulfate 2.5 mg /3 mL (0.083 %) solution for nebulization 2.5 mg continuous nebulization Q4H PRN (Reason: bronchospasm) Qty: 180 12RF budesonide-formoterol 160-4.5 mcg/actuation HFA aerosol inhaler 2 puff inhalation BID Qty: 10.2 12RF guaifenesin [Mucinex] 600 mg tablet extended release 12hr 600 mg PO BID PRN (Reason: congestion) Qty: 180 3RF ipratropium-albuterol 0.5 mg-3 mg(2.5 mg base)/3 mL solution for nebulization 3 ml inhalation QID Qty: 180 3RF Rx Instructions: Use at first sign of shortness of breath; may use from 1-4 times daily. If using 4 times daily, make appointment with doctor. Spiriva with HandiHaler 18 mcg capsule, w/inhalation device 1 cap INHALATION QDAY Qty: 90 3RF prednisone 20 mg tablet 20 mg PO DAILY Qty: 7 0RF Follow Up/Referrals: Elle Rocha DO [Primary Care Provider] - Stand Alone [facility]: [facility] Info Inst[facility]
== END 2023-01-26 17:35 | disposition home or self-care (01) ==
PROVIDERS: Emergency Provider Family Medicine; PCP Family Medicine
DX: K42.9 Umbilical hernia without obstruction or gangrene (principal); R10.9 Unspecified abdominal pain
CPT/HCPCS: 36415; 74019; 80048; 80076; 85025; 86140; 99284

== ENCOUNTER 2023-06-11 14:47 | Outpatient (CLI) | payer MEDICAID, SELFPAY | END 2023-06-11 14:48 | disposition home or self-care (01) | LOC: FRMREF 14:49 | PROVIDERS: PCP Family Medicine; Visit Provider Family Medicine | DX: R35.1 Nocturia (principal); R73.03 Prediabetes | CPT/HCPCS: 84153; 84154 ==

== ENCOUNTER 2023-07-01 13:13 | Emergency (ER) | payer MEDICAID, SELFPAY ==
[2023-07-01 13:18] VITALS: BP 125/78; PULSE 81; RESP 18; TEMP 37; O2SAT 95; BMI 29.7
--- NOTE | 2023-07-01 13:22 | CRLHL7_ITS ---
For Patients: As a result of the Century Cures Act, medical imaging exams and procedure reports are released immediately into your electronic medical record. You may view this report before your referring provider. If you have questions, please contact your health care provider. INDICATION: HISTORY COMPARISON: None available. FINDINGS: The left hip was examined with AP and frogleg lateral views. An AP view of the pelvis is obtained for a total of three views. There is no sign of fracture or dislocation of the left hip. The left femoral head and acetabulum are in anatomic alignment. There is mild primary osteoarthritis of both hips with normal joint space height, and mild marginal osteophyte formation. The SI joints and pubic symphysis are normal in appearance. The rest of the bony pelvis and soft tissues are normal in appearance. IMPRESSION: No sign of acute osseous injury. Mild primary osteoarthritis of both hips. Dictated by Bronson Carolina MD @ 07/01/2023 2:17:52 PM (Electronically Signed)
--- NOTE | 2023-07-01 13:27 | ED.GENADULT ---
HPI - General Adult General Time Seen by Provider: 13:27 Date Seen: 07/01/23 Chief complaint: Hip Injury/Pain Stated complaint: L hip pain Time Seen by Provider: 07/01/23 13:15 Source: patient Mode of arrival: wheelchair Limitations: physical limitation History of Present Illness HPI narrative: Patient is a 62 year white male who has a history of COPD, he finished on Augmentin and prednisone course about 3 weeks ago, and since then has had increasing intermittent hip pain on the left. He denies trauma or injury, denies falls. Patient denies warmth erythema the hip area he has got no lower extremity pain. The anterior hip seems tender and uncomfortable. He has had no fever chills. He reports that since he finished the Augmentin and prednisone the hip is been intermittently worse. He sees Dr. Rocha in [place]. Related Data Home Medications Medication Instructions Recorded Confirmed ferrous fumarate 325 mg (106 mg 325 mg PO QDAY 06/11/22 07/02/23 iron) tablet cromolyn 4 % eye drops 1 drp ophthalmic (eye) QID 07/02/23 07/02/23 fluticasone propionate 50 1 spray intranasal BID 07/02/23 07/02/23 mcg/actuation nasal spray,suspension Previous Rx's Medication Instructions Recorded omeprazole 20 mg capsule,delayed 40 mg (2 x 20 mg) .Route QDAY #180 08/26/22 release caps albuterol sulfate 2.5 mg/3 mL 2.5 mg (3 mL) continuous 09/02/22 (0.083 %) solution for nebulization nebulization Q4H PRN bronchospasm #180 mL budesonide-formoterol HFA 160 2 puff inhalation BID #10.2 grams 09/02/22 mcg-4.5 mcg/actuation aerosol inhaler guaifenesin 600 mg tablet, 600 mg PO BID PRN congestion #180 09/02/22 extended release 12 hr (Mucinex) tabs tiotropium bromide 18 mcg capsule 1 cap inhalation QDAY COPD #90 09/02/22 with inhalation device (Spiriva inhalations with HandiHaler) prednisone 20 mg tablet 20 mg PO DAILY #7 tabs 09/09/22 benzonatate 200 mg capsule 200 mg PO BID-TID PRN cough #30 06/11/23 caps montelukast 10 mg tablet 10 mg PO QPM #90 tabs 06/11/23 ipratropium 0.5 mg-albuterol 3 mg 3 ml inhalation QID #180 mL 06/25/23 (2.5 mg base)/3 mL nebulization soln celecoxib 200 mg capsule (Celebrex) 200 mg PO DAILY #10 caps 07/01/23 tamsulosin 0.4 mg capsule 0.4 mg PO DAILY #90 caps 07/06/23 Allergies Allergy/AdvReac Type Severity Reaction Status Date / Time shellfish derived AdvReac Intermediate Vomiting Verified 07/06/23 12:48 Review of Systems Status of ROS: Reports: 6 or more systems reviewed and unremarkable except as noted in History and below [facility] Medical History Chronic obstructive pulmonary disease ?J44.9 - Chronic obstructive pulmonary disease, unspecified (ICD-10) Community acquired pneumonia ?J18.9 - Pneumonia, unspecified organism (ICD-10) Iron deficiency anemia ?D50.9 - Iron deficiency anemia, unspecified (ICD-10) Asthma (02/28/15) ?J45.909 - Unspecified asthma, uncomplicated (ICD-10) Alcohol use disorder Acute respiratory failure with hypoxia ?J96.01 - Acute respiratory failure with hypoxia (ICD-10) Abscess of lung ?J85.2 - Abscess of lung without pneumonia (ICD-10) Anemia ?D64.9 - Anemia, unspecified (ICD-10) Pneumonia ?J18.9 - Pneumonia, unspecified organism (ICD-10) Surgical History No pertinent past surgical history ?Z78.9 - Other specified health status (ICD-10) No significant past surgical history Family History Father COPD (chronic obstructive pulmonary disease) Coronary artery disease Family/Other Stroke Social History Narrative: Alcohol use- 11/09 pt has been decreasing Former smoker- quit age 52; smoked 1.5 packs/day; approx 60 pack year history Smoking Status: Former smoker What tobacco products do you use: cigarettes Smoking quit date/years: <= 15 years ago Do you use any of these nicotine containing products: None Second hand tobacco smoke exposure: No How often do you have a drink containing alcohol: 4 or more times a week How many standard drinks containing alcohol do you have on a typical day: 3 or 4 How often do you have six or more drinks on one occasion: Never AUDIT-C Alcohol total score: 5 Non-prescribed substance use: denies use Little interest or pleasure in doing things: several days Feeling down, depressed, or hopeless: several days service: No Exam Narrative: Exam Narrative: Objective: Vital signs unremarkable In general patient apparent distress O2 sat 95% Left hip exam shows no marked tenderness anteriorly he has got full range of motion mild internal external rotation causes discomfort in the hip. Distal CMS normal left lower extremity Const: Vital Signs, click to edit/add: Vital Signs - 24 hr 07/01/23 13:18 Temperature 98.6 F Pulse Rate [Pulse Oximeter] 81 Respiratory Rate 18 Blood Pressure [Ri ght Upper Arm] 125/78 Pulse Oximetry 95 Oxygen Delivery Me thod Room Air Course Vital Signs Vital signs: Initial Vital Signs Temperature 98.6 F 07/01/23 13:18 Temperature Source Temporal Artery Scan 07/01/23 13:18 Pulse Rate 81 07/01/23 13:18 Respiratory Rate 18 07/01/23 13:18 Blood Pressure 125/78 07/01/23 13:18 Blood Pressure Mean 93 07/01/23 13:18 Pulse Oximetry 95 07/01/23 13:18 Oxygen Delivery Method Room Air 07/01/23 13:18 Vital Signs Temperature 98.6 F 07/01/23 13:18 Pulse Rate 81 07/01/23 13:18 Respiratory Rate 18 07/01/23 13:18 Blood Pressure 125/78 07/01/23 13:18 Pulse Oximetry 95 07/01/23 13:18 Oxygen Delivery Method Room Air 07/01/23 13:18 Temperature 98.6 F 07/01/23 13:18 Pulse Rate 81 07/01/23 13:18 Respiratory Rate 18 07/01/23 13:18 Blood Pressure 125/78 07/01/23 13:18 Pulse Oximetry 95 07/01/23 13:18 Oxygen Delivery Method Room Air 07/01/23 13:18 Medical Decision Making MDM Narrative Medical decision making narrative: [age] year white male with COPD and worsening left hip pain after completing a prednisone course. I think it be acosta check some labs, will look for any infectious history although given his recent prednisone is some white count might be a little elevated will check a CRP, will also check an x-ray of his pelvis and left hip. He gives anterior hip pain description and depending on his x-ray may benefit from orthopedic consultation. Addendum 2:15 p.m.: The patient's x-ray of his left hip look to show good joint space preservation, there is some osteophytic spurring of the hip, no obvious fracture noted. I think a trial of Celebrex slight activity icing would be appropriate and follow up with orthopedics in 3-5 days. The patient's CBC and CRP are negative. Lab Data Labs: Lab Results 07/01/23 Range/Units 13:40 WBC 5.24 (4.50-11.00) K/uL RBC 4.37 (4.30-5.90) m/uL Hgb 12.7 L (13.5-17.5) gm/dL Hct 39.1 (37.0-53.0) % MCV 90 (80-100) fL MCH 29 (26-34) pg MCHC 33 (32-36) gm/dL RDW Coeff of Mandeep 14.1 (11.5-15.5) % Plt Count 455 H (140-440) K/uL Neut % (Auto) 57.7 (42.0-72.0) % Lymph % (Auto) 17.0 L (20-44) % [place] % (Auto) 15.3 H (0.0-11.0) % Eos % (Auto) 9.2 H (0.0-7.0) % Baso % (Auto) 0.8 (0.0-3.0) % Neut # (Auto) 3.03 (1.7-7.0) K/uL Lymph # (Auto) 0.90 (0.90-2.90) K/uL [place] # (Auto) 0.80 (0.00-0.90) K/UL Eos # (Auto) 0.50 (0.00-0.50) K/uL Baso # (Auto) 0.04 (0.00-0.30) K/uL Abs Immat Gran (auto) 0.00 (0.00-0.30) K/uL Imm/Tot Granulo (auto) 0.0 % C-Reactive Protein 1.0 (0.5-1.0) mg/dL Discharge Plan Discharge Clinical Impression: Chronic obstructive pulmonary disease, Hip pain, left Patient Disposition: Home, Self-Care Condition: Stable Additional Instructions: Limited weight-bearing, ice to the anterior hip as needed, Celebrex 200 mg daily for 7 days, orthopedic follow-up recommended. Please separate appointment is have him see the PA at the [facility] in [place] for 4-5 days. Activity Level: Light activity Discharge Diet: Regular Prescriptions: New celecoxib [Celebrex] 200 mg capsule 200 mg PO DAILY Qty: 10 2RF No Action ferrous fumarate 325 mg (106 mg iron) tablet 325 mg PO QDAY omeprazole 20 mg capsule,delayed release(DR/EC) 40 mg .ROUTE QDAY Qty: 180 3RF Rx Instructions: 40 mg every day; albuterol sulfate 2.5 mg /3 mL (0.083 %) solution for nebulization 2.5 mg continuous nebulization Q4H PRN (Reason: bronchospasm) Qty: 180 12RF budesonide-formoterol 160-4.5 mcg/actuation HFA aerosol inhaler 2 puff inhalation BID Qty: 10.2 12RF guaifenesin [Mucinex] 600 mg tablet extended release 12hr 600 mg PO BID PRN (Reason: congestion) Qty: 180 3RF Spiriva with HandiHaler 18 mcg capsule, w/inhalation device 1 cap INHALATION QDAY Qty: 90 3RF cromolyn 4 % drops 1 drp ophthalmic (eye) QID fluticasone propionate 50 mcg/actuation spray,suspension 1 spray intranasal BID benzonatate 200 mg capsule 200 mg PO BID-TID PRN (Reason: cough) Qty: 30 3RF montelukast 10 mg tablet 10 mg PO QPM Qty: 90 4RF prednisone 20 mg tablet 20 mg PO DAILY Qty: 7 0RF ipratropium-albuterol 0.5 mg-3 mg(2.5 mg base)/3 mL solution for nebulization 3 ml inhalation QID Qty: 180 2RF Rx Instructions: Use at first sign of shortness of breath; may use from 1-4 times daily. If using 4 times daily, make appointment with doctor. tamsulosin 0.4 mg capsule 0.4 mg PO DAILY Qty: 90 1RF Follow Up/Referrals: Elle Rocha DO [Primary Care Provider] - Stand Alone Forms: [employer] Info Instructions
[2023-07-01 13:58] LABS: Basophils Absolute Auto 0.04 K/uL (0.00-0.30); Basophils Percent Auto 0.8 % (0.0-3.0); Eosinophils Percent Auto 9.2 % (0.0-7.0); Hematocrit 39.1 % (37.0-53.0); Hemoglobin* 12.7 gm/dL (13.5-17.5); Mean Corpuscular HGB Conc 33 gm/dL (32-36); Mean Corpuscular Hemoglobin 29 pg (26-34); Mean Corpuscular Volume 90 fL (80-100); Monocytes Percent Auto 15.3 % (0.0-11.0); Neutrophils Absolute Auto 3.03 K/uL (1.7-7.0); Neutrophils Percent Auto 57.7 % (42.0-72.0); Platelet Count* 455 K/uL (140-440); RDW Coefficient of Variation % 14.1 % (11.5-15.5); Red Blood Count 4.37 m/uL (4.30-5.90); White Blood Count* 5.24 K/uL (4.50-11.00)
[2023-07-01 14:08] LABS: Slide Review Reflex No
== END 2023-07-01 14:29 | disposition home or self-care (01) ==
LOC: ED 14:14
PROVIDERS: Emergency Provider Family Medicine; PCP Family Medicine
DX: M25.552 Pain in left hip (principal); J44.1 Chronic obstructive pulmonary disease with (acute) exacerbation
CPT/HCPCS: 36415; 73502; 85025; 86140; 99284

== ENCOUNTER 2023-07-22 08:59 | Outpatient (CLI) | payer MEDICAID, SELFPAY ==
--- NOTE | 2023-07-22 09:15 | CRLHL7_ITS ---
For Patients: As a result of the Century Cures Act, medical imaging exams and procedure reports are released immediately into your electronic medical record. You may view this report before your referring provider. If you have questions, please contact your health care provider. Indication: Left hip pain Procedure : Informed consent was obtained. The site was marked. Time-out was performed. The skin of the left hip was cleansed with ChloraPrep. A sterile drape was placed. 8 cc of 1 percent lidocaine was administered for superficial anesthesia. Subsequently a 22 gauge spinal needle was introduced into the left hip joint under intermittent fluoroscopic guidance. 7 cc 1 percent lidocaine and 2 cc 40 milligram/cc Depo-Medrol then placed into the left hip joint. The needle was removed and hemostasis achieved with direct pressure. A dressing was placed. The patient tolerated the procedure well without immediate complication. Total fluoroscopy time 26 seconds. Impression: Successful fluoroscopically guided left hip injection with 80 milligrams of Depo-Medrol. Dictated by Carson Kerns MD @ 07/22/2023 2:23:58 PM (Electronically Signed)
== END 2023-07-22 09:00 | disposition home or self-care (01) ==
LOC: RAD 09:00
PROVIDERS: PCP Family Medicine; Visit Provider Physician Assistant Surgical
DX: M16.12 Unilateral primary osteoarthritis, left hip (principal); M25.552 Pain in left hip
CPT/HCPCS: 20610; 77002; J1030; Q9966

== ENCOUNTER 2023-07-28 13:36 | Outpatient (CLI) | payer MEDICAID, SELFPAY ==
--- NOTE | 2023-07-28 14:00 | CRLHL7_ITS ---
For Patients: As a result of the Century Cures Act, medical imaging exams and procedure reports are released immediately into your electronic medical record. You may view this report before your referring provider. If you have questions, please contact your health care provider. Indication: Nicotine dependence Technique: Noncontrast CT chest Please note that all CT scans at this facility use dose modulation, iterative reconstruction, and/or weight-based dosing when appropriate to reduce radiation dose to as low as reasonably achievable. Comparison: 04/15/2023 Findings: COPD/emphysema. No acute infiltrate. No pleural effusion or CHF. No pneumothorax. Patchy areas of scarring within the right posterior apex, superior segment right lower lobe, right upper lobe and left upper lobe are similar. Mild scarring in the left lower lobe. Small nodules are present within the left lower lobe measuring 3 millimeters or less. Decreased conspicuity of ground-glass density right lower lobe. Hiatal hernia is present measuring 5.2 cm. Similar subcentimeter precarinal lymph node. Vascular calcifications. Upper abdomen unremarkable. No fracture. Impression: Chronic COPD/emphysema with patchy bilateral areas of scarring. A few pulmonary nodules are present bilaterally measuring 3 millimeters or less. Stable precarinal lymph node. Please note that all CT scans at this facility use dose modulation, iterative reconstruction, and/or weight-based dosing when appropriate to reduce radiation dose to as low as reasonably achievable. Dictated by Carson Kerns MD @ 07/29/2023 12:27:09 PM (Electronically Signed)
== END 2023-07-28 13:37 | disposition home or self-care (01) ==
LOC: CT 13:36
PROVIDERS: PCP Family Medicine; Visit Provider Internal Medicine Pulmonary Disease
DX: F17.211 Nicotine dependence, cigarettes, in remission (principal); J44.9 Chronic obstructive pulmonary disease, unspecified; R91.1 Solitary pulmonary nodule; J47.9 Bronchiectasis, uncomplicated; J84.10 Pulmonary fibrosis, unspecified
CPT/HCPCS: 71250

== ENCOUNTER 2023-12-02 14:30 | Outpatient (RCR) | payer MEDICARE, SELFPAY ==
--- NOTE | 2023-11-11 14:56 | PT.OPEX ---
PT [facility] Outpatient Eval PT [facility] Outpatient Eval Start: 11/11/23 11:00 Freq: Status: Active Protocol: Document 11/11/23 11:00 HARINI (Rec: 11/11/23 13:52 KL [id number]) E-signed By Qi Han PT Physical Therapy Outpatient Evaluation Insurance Information Recert Due Date 02/05/24 Insurance Name Medicaid Medical Diagnosis Left hip osteoarthritis Treating Diagnosis Left hip pain, limited hip IR, gross LE weakness, antalgic gait Referring MD Rocha Subjective Subjective Marco reports to PT with primary complaint of left hip pain located within the groin primarily but can occasionally wrap around laterally. Gradual and insidious onset early July 2023. No history of injury or trauma. He does note history of mild scoliosis and being told that one leg was longer than the other. His pain is exacerbated with initial stance/walk after sitting for an extended period, getting in/out of a car, donning shoes/socks, rolling over in bed and sleeping directly on left side . Feels more limited with walking d/t COPD instead of hip pain being limiting factor . He had cortisone injection in July which did reduce his pain down to 5/10 at the worst. He is currently on prednisone for COPD and feels that is helping his hip pain as well-he has 3 more days on this. Goals are to improve function with walking, transfers and donning/doffing shoes/socks. PMH: COPD, asthma, anemia, lumbar scoliosis (mild). x-ray: AP pelvis, AP left hip and frog leg lateral images dated 07/01/23. These show: mild -moderate left hip joint space narrowing with osteophytic spurring. No acute fractures nor dislocations. 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 Therapy Limitations/Systems Review Not Limited Objective Other/Pertinent Objective LE ROM (R/L): -Hip Ext: 10/10 -Hip Flx: 110/110-no pinch or pain noted at end range -Hip ER: 45/45 -Hip IR: 15/10-end range pain -Hip Abd: 30/25 -Knee Flx: 115/115 -Knee Ext: 0/0 LE Strength (R/L): -Hip Abd: R: 4/5, L: 4-/5 + anterior hip pain -Hip Add: R: 4+/5, L: 4+/5 -Hip Ext: R: 4/5, L: 4/5 -Hip Flx: R: 4+/5, L: 3/5- anterior hip pain Gait: reverse trendelenburg L LE, limited stance time and terminal extension L LE SL balance: -R 30 sec -L 6 sec Squat: no pain however NBOS, quad dominant, minimal hip hinge Lumbar AROM: WFL all directions, did not reproduce pain Scour: + L FADIR: + L DAYANARA: - L TTP proximal rectus femoris L, No TTP L TFL/greater trochanter Leg length supine: L 1/4 shorter then R Functional Test Performed & Score LEFS: 42/80 Assessment Assessment/Impression Patient is a 63 year old male presenting to physical therapy for evaluation and treatment of left hip pain. Patient presents with Left hip pain, limited hip IR, gross LE weakness, antalgic gait consistent with referring diagnosis of left hip OA and secondarily appears to be developing a hip flexor strain d/t compensatory patterns noted with gait. These impairments are limiting the patients ability to stand following extended periods of sitting, walk without limping, don/doff shoes and socks, get in/out of car, roll over in bed/sleep on left side. Patient appears motivated to participate in PT and presents with good prognosis to improve mobility, strength, proprioception and return to functional activities with skilled physical therapy intervention. Primary Functional Limitations stand following extended periods of sitting, walk without limping, don/doff shoes and socks, get in/out of car, roll over in bed/sleep on left side Plan of Care Rehabilitation Potential Good Physical Therapy Goals In 6 weeks (12/23/23) Patient will demonstrate full PROM B hips without end range pain/pinch into IR. Patient will be able to demonstrate at least 10 SLR with <2/10 pain in order to progress to more functional exercises patient is able to sleep, including on left hip, with waking 0-1 times per night In 12 weeks (02/03/24) Pt will exhibit 9 pt improvement in LEFS Outcome measure to demonstrate functional improvement and progress towards goals. Patient will demonstrate WNL gait mechanics with minimal deviations in order to reduce strain to left hip Patient will demonstrate at least 4+/5 hip strength in order to demonstrate functional progress Patient will be able to perform all transfers including sit<>stand, supine<> Sit, rolling in bed with <2/10 hip pain Treatment Plan/Direct Interventions Gait Training,Ice/Cold/ Vasopneumatic,Joint Mobilization,Manual Therapy, Neuromuscular Re-ed,Self-Care/ Home Management,Therapeutic Activities,Therapeutic Exercises Frequency/Duration 1x/wk for 6 weeks with additional 4-6 sessions prn based on progress Patient Will Be Discharged From Therapy Completion of LTG(s), Independent w/HEP, Independently Progressing Evaluation Billing Untimed Code Treatment Minutes 28 Complexity Low Certification Information Initial Certification Date 11/11/23 Ending Certification Date 02/05/24 Provider Signature Shows Agreement With POC & Medical Necessity Physician Signature & Date Requested Please Sign/Date Here Physician Comment/Change : Physician NPI Number #
== END 2024-03-14 14:36 | disposition home or self-care (01) ==
PROVIDERS: PCP Family Medicine; Visit Provider Family Medicine
DX: M16.12 Unilateral primary osteoarthritis, left hip (principal); M25.552 Pain in left hip; Z74.09 Other reduced mobility; R29.898 Other symptoms and signs involving the musculoskeletal system; R26.9 Unspecified abnormalities of gait and mobility; Z51.89 Encounter for other specified aftercare
CPT/HCPCS: 97110; 97161

== ENCOUNTER 2024-04-07 12:19 | Outpatient (CLI) | payer MEDICARE, SELFPAY ==
--- OUTSIDE RECORDS SUMMARY | 2024-04-07 12:21 | XMS_ITS | Continuity of Care Document ---
Author Name Unknown Organization [facility] Address [address] [address] [place] [address] Phone Care Team Providers Care Sports Statistician Name Role Phone Henry Rios MD Unavailable Unavailable Advance Directives Directive Yes / No Effective Date File Name No Information Encounters Encounter Description Practice Location Reason(s) For Visit Diagnoses Date Provider Providers Copied on Encounter [facility], [address] [address], [place], [place], [id number], [place] tel:[phone] [facility] No Information [address] Figueroa. [address], [facility] [address], [place], [place], [id number] , [place]. tel:[phone] Family History Family Member Type Diagnosis Age At Onset No Information Immunizations Vaccine Date Status Comments Afluria Qd administered Note: M II bi-directional interface ; Source: Other Registry Afluria Qd administered Note: M IIC bi-directional interface ; Source: Other Registry Payers Payer name Insurance type Covered alliance party ID Authoriza tion(s) No Information Social [...]
--- OUTSIDE RECORDS SUMMARY | 2024-04-07 12:22 | XMS_ITS | Clinical Summary ---
Author Name Unknown Organization [facility] Address [place], [place] [address] Care Team Providers Care Parcel [employer] Truck Driver Name Role Phone [facility] Primary Care Provider [phone] Allergies Active Allergy Reactions Criticality Noted Date Comments Shellfish Derived *Unknown 02/21/2022 Medications Medication Sig Dispensed Refills Start Date End Date Status Symbicort 160-4.5 mcg/actuation (160-4.5 mcg each actuation) inhaler 2 Puffs 2 times daily. 11/12/2021 Active tiotropium (SPIRIVA HANDIHALER) 18 mcg inhalation capsule Inhale 18 mcg by mouth once daily. Using a SPRIVA HANDIHALER bush the capsule, then by mouth breathe in the powder. Inhale twice from the same capsule for full dose. Active omeprazole (PRILOSEC) 20 mg Delayed-Release capsule Take 20 mg by mouth once daily. Active montelukast (SINGULAIR) 10 mg tablet Take 10 mg by mouth at bedtime. Active albuterol HFA (PRO-AIR; VENTOLIN; PROVENTIL) 90 mcg/actuation inhaler Inhale 2 Puffs by mouth 4 times daily if needed. Active albuterol (PROVENTIL) 0.083 % neb solution Inhale 2.5 mg via a nebulizer every 4 hours if needed. Active iron,carbonyl-vitami n C (Vitron-C) 65 mg iron- 125 mg Delayed-Release tablet Take 1 Tablet by mouth once every other day. Active cyanocobalamin, vitamin B-12, 5,000 mcg/mL drop Place 5,000 units under the tongue once daily. Active Active Problems Problem Noted Date Diagnosed Date Lung abscess 02/22/2022 COPD (chronic obstructive pulmonary disease) 11/2021 Scoliosis 02/21/2022 Anemia 02/21/2022 Hiatal hernia 02/21/2022 History of alcohol use disorder 02/21/2022 Lung nodule 02/21/2022 Resolved Problems Problem Noted Date Diagnosed Date Resolved Date Empyema 02/21/2022 02/22/2022 Family History Medical History Relation Name Comments COPD Father Relation Name Status Comments Father Social History Tobacco Use Types Packs/Day Years Used Date Smoking Tobacco: Former Cigarettes Q uit: 2015 Smokeless Tobacco: Never Alcohol Use Standard Drinks/Week Comments Yes 0 (1 standard drink = 0.6 oz pur e alcohol) ocasional beer Social Connections Answer Date Recorded Frequency of Communication with Friends and Fami ly Not on file 11/23/2021 Financial Resource Strain Answer Date R ecorded Difficulty of Paying Living Expenses Not on file 11/23/2021 Difficulty of Paying Living Expenses Not on file 11/23/2021 Sex and Gender Information Value Date Recorded Sex Assigned at Not on file Gender Identity Not on file Sexual Orientation Not on file Obstetrics History Last Filed Vital Signs Vital Sign Reading Time Taken Comments Blood Pressure 125/59 02/27/2022 8:00 AM CDT Pulse 77 02/27/2022 8:00 AM CDT Temperature 36.8 ??C (98.3 ??F) 02/27/2022 8:00 AM CD T Respiratory Rate 20 02/27/2022 8:00 AM CDT Oxygen Saturation 93% 02/27/2022 8:00 AM CDT Inhaled Oxygen Concentration - - Weight 84.8 kg (187 lb) 02/27/2022 7:12 AM CDT Height 177.8 cm (5' 10) 02/24/2022 2:03 PM CDT Body Mass Index 26.83 02/24/2022 2:03 PM CDT Plan of Treatment Health Maintenance Due Date Last Done Comments Tdap 1969 Depression screening for age 12+ 1970 HIV for age 15-65 1973 BMI (ht and wt on same day) for age 18+ 1976 Hepatitis C screening for age 18-79 1976 Tetanus booster 1978 Colonoscopy through age 75 2003 Lipids for age 45-75 2003 Zoster (shingles) series for age 50+ (1 of 2) 08/26/20 08 COVID-19 vaccine series ( - 2022- season) 3 Pneumococcal series for age 65+ (1 of 1 - PCV) 023 Influenza for age 65+ 07/24/2024 Advance Directives * Full Code (Latest Code Status on File) Date Activated Date Inactivated Comments 02/22/2022 12:32 AM 02/27/2022 7:05 PM Question Answer Comments Code Status Discussion: Reviewed Preferences Care Teams Par[employer] Truck Driver Relationship Specialty Start Date End Date [facility] [address] [place] [address] PCP - General 02/21/22
== END 2024-04-07 12:20 | disposition home or self-care (01) ==
PROVIDERS: PCP Family Medicine; Visit Provider Family Medicine
DX: E78.5 Hyperlipidemia, unspecified (principal); I10 Essential (primary) hypertension; Z12.5 Encounter for screening for malignant neoplasm of prostate; Z11.59 Encounter for screening for other viral diseases
CPT/HCPCS: 80053; 80061; 86803; G0103

== ENCOUNTER 2024-04-11 15:37 | Observation (INO) | payer OTHER, SELFPAY ==
[2024-04-11 16:09] VITALS: BP 175/78; PULSE 98; RESP 38; TEMP 36.7; O2SAT 94; BMI 30.9
--- NOTE | 2024-04-11 17:25 | ED_ITS ---
HPI - SOB/Dyspnea General Time Seen by Provider: 17:25 Date Seen: 04/11/24 Chief Complaint: Shortness of Breath/Dyspnea Stated Complaint: Difficulty breathing Time Seen by Provider: 04/11/24 17:25 Source: patient Mode of arrival: ambulatory Limitations: no limitations History of Present Illness HPI Narrative: Marco is a very pleasant 63-year-old gentleman with a known history of COPD with tobacco abstinence over the last 10-12 years who comes to the emergency room with increased work of breathing. Patient notes that over the past week he has had a harder time breathing. He does blame this on allergies but does take an allergy medication. States when he initially took this medicine it did help but it really has not been any better recently. He states that as I enter the room he is just on his inhaler and he is feeling a little bit better. He has been under the care of a correctional casework specialist at [facility] in [place] Dr. Steiner. current medications include budesonide/formoterol, DuoNeb, and Spiriva. He notes that he he has found in the past improvement with the use of Augmentin and prednisone. He started Augmentin on March 23 in finished that and only felt better while he was on it. Yesterday he finished his last dose of prednisolone 10 mg. He notes that it really did not help this time. He denies a history of chest pain, congestive heart failure, lower extremity edema, recent travel. He has not had PE in the past. Patient does agree that he has had some ankle swelling lately. Related Data Home Medications Medication Instructions Recorded Confirmed ferrous fumarate 325 mg (106 mg 325 mg PO QDAY 06/11/22 04/11/24 iron) tablet cromolyn 4 % eye drops 1 drp ophthalmic (eye) QID 07/02/23 04/11/24 fluticasone propionate 50 1 spray intranasal BID 07/02/23 04/11/24 mcg/actuation nasal spray,suspension Previous Rx's Medication Instructions Recorded albuterol sulfate 2.5 mg/3 mL 2.5 mg (3 mL) continuous 11/09/23 (0.083 %) solution for nebulization nebulization Q4H PRN bronchospasm #180 mL budesonide-formoterol HFA 160 2 puff inhalation BID #10.2 grams 11/09/23 mcg-4.5 mcg/actuation aerosol inhaler guaifenesin 600 mg tablet, 600 mg PO BID PRN congestion #180 11/09/23 extended release 12 hr (Mucinex) tabs montelukast 10 mg tablet 10 mg PO QPM #90 tabs 11/09/23 omeprazole 20 mg capsule,delayed 40 mg (2 x 20 mg) .Route QDAY #180 11/09/23 release caps tiotropium bromide 18 mcg capsule 1 cap inhalation QDAY COPD #90 11/09/23 with inhalation device (Spiriva inhalations with HandiHaler) benzonatate 200 mg capsule 200 mg PO BID-TID PRN cough #90 04/07/24 caps ipratropium 0.5 mg-albuterol 3 mg 3 ml inhalation QID #180 mL 04/07/24 (2.5 mg base)/3 mL nebulization soln lisinopril 10 mg tablet 10 mg PO QDAY #90 tabs 04/07/24 tamsulosin 0.4 mg capsule 0.4 mg PO DAILY #90 caps 04/07/24 Allergies Allergy/AdvReac Type Severity Reaction Status Date / Time shellfish derived AdvReac Intermediate Vomiting Verified 04/11/24 16:18 Review of Systems Status of ROS: Reports: 10 or more systems reviewed and unremarkable except as noted in History and below [facility] Medical History Prediabetes ?R73.03 - Prediabetes (ICD-10) Myocardial strain ?I51.9 - Heart disease, unspecified (ICD-10) Abscess of lung ?J85.2 - Abscess of lung without pneumonia (ICD-10) Family History Father COPD (chronic obstructive pulmonary disease) Coronary artery disease Family/Other Stroke Social History Narrative: Alcohol use- 11/09 pt has been decreasing Former smoker- quit age 52; smoked 1.5 packs/day; approx 60 pack year history Smoking Status: Former smoker What tobacco products do you use: cigarettes Smoking quit date/years: <= 15 years ago Do you use any of these nicotine containing products: None Second hand tobacco smoke exposure: No How often do you have a drink containing alcohol: 4 or more times a week How many standard drinks containing alcohol do you have on a typical day: 3 or 4 How often do you have six or more drinks on one occasion: Never AUDIT-C Alcohol total score: 5 Non-prescribed substance use: denies use Little interest or pleasure in doing things: several days Feeling down, depressed, or hopeless: not at all service: No Exam Narrative: Exam Narrative: Marco is alert and oriented. He is somewhat tachypneic with increased work of breathing. However I look in his O2 saturations are 94-96%. EOM is full. Face is symmetrical. Mentating normally and speech is normal. Neck is supple without lymphadenopathy. Heart with regular rate and rhythm. Lungs are with decreased breath sounds in the bases. Audible wheezing is noted without the stethoscope but again no wheezing in the lung bases. Abdomen is protrude print firm but nontender. Lower extremities without edema. No calf tenderness. I do not note the ankle edema patient had been describing. Const: Vital Signs, click to edit/add: Vital Signs - 24 hr 04/11/24 16:09 04/11/24 21:34 04/11/24 21:34 Temperature 98.0 F 98.3 F Pulse Rate [Right Pulse Oximeter] 98 87 Respiratory Rate 38 H 24 Blood Pressure [Ri ght Upper Arm] 175/78 H 155/74 H Pulse Oximetry 94 93 93 Oxygen Delivery Me thod Room Air Room Air Room Air Documenting provider has reviewed patient's vital signs: yes Course Course ED Course: Differential diagnosis does include pneumonia, COPD exacerbation, PE, pulmonary effusion, congestive heart failure, [place]. will obtain chest x-rays he has not had 1 for many months. Will also check D-dimer, proBNP, CBC, comprehensive panel, CRP. Reevaluation(s) Reevaluation #1: Nursing staff states that post CT which was done because of increased markings on chest x-ray patient arrives short of breath with O2 sats now in the mid 80s. With rest he recovers back into the 90s. Vital Signs Vital signs: Initial Vital Signs Temperature 98.0 F 04/11/24 16:09 Temperature Source Temporal Artery Scan 04/11/24 16:09 Pulse Rate 98 04/11/24 16:09 Respiratory Rate 38 H 04/11/24 16:09 Blood Pressure 175/78 H 04/11/24 16:09 Blood Pressure Mean 110 H 04/11/24 16:09 Blood Pressure Position Sitting 04/11/24 16:09 Pulse Oximetry 94 04/11/24 16:09 Oxygen Delivery Method Room Air 04/11/24 16:09 Vital Signs Temperature 98.0 F 04/11/24 16:09 Pulse Rate 98 04/11/24 16:09 Respiratory Rate 38 H 04/11/24 16:09 Blood Pressure 175/78 H 04/11/24 16:09 Pulse Oximetry 94 04/11/24 16:09 Oxygen Delivery Method Room Air 04/11/24 16:09 Temperature 98.3 F 04/11/24 21:34 Pulse Rate 87 04/11/24 21:34 Respiratory Rate 24 04/11/24 21:34 Blood Pressure 155/74 H 04/11/24 21:34 Pulse Oximetry 93 04/11/24 21:34 Oxygen Delivery Method Room Air 04/11/24 21:34 Medications Administered Medications: Generic Name Dose Route Start Last Admin Trade Name Cata PRN Reason Stop Dose Admin Azithromycin 500 mg 04/11/24 21:17 04/11/24 21:34 Azithromycin 250 Mg Tablet PO 04/11/24 21:18 500 mg ONCE ONE Administration Ceftriaxone Sodium 1 gm/ 100 mls @ 200 mls/hr 04/11/24 21:17 04/11/24 21:34 Sodium Chloride IVPB 04/11/24 21:18 200 mls/hr ONCE ONE Administration MDM - SOB/Dyspnea MDM Narrative Medical decision making narrative: 1. COPD exacerbation-patient noted to have COPD with no improvement with recent steroids. Did complete Augmentin at the beginning of this month. At thi s time after discussion with hospitalist will given 1 g of IV Rocephin followed by Zithromax p.o.. Patient did do his inhalers while in the ED. 1 L oxygen applied. Dexamethasone had also been planned but the patient departed the ED prior to ordering. Hospitalist is informed. 2. Disposition-patient admitted under the care of Dr. Dionne Forrest. ProBNP, EKG and troponin all reassuring with no evidence of congestive heart failure. CT with no evidence of PE. Medical Records Attestation: I reviewed the patient's medical records. Lab Data Attestation: I reviewed the patient's lab results. Labs: Lab Results 04/11/24 04/11/24 04/11/24 Range/Units 17:40 18:14 20:57 WBC 11.35 H (4.50-11.00) K/uL RBC 4.40 (4.30-5.90) m/uL Hgb 13.3 L (13.5-17.5) gm/dL Hct 41.9 (37.0-53.0) % MCV 95 (80-100) fL MCH 30 (26-34) pg MCHC 32 (32-36) gm/dL RDW Coeff of Mandeep 13.9 (11.5-15.5) % Plt Count 340 (140-440) K/uL Neut % (Auto) 62.7 (42.0-72.0) % Lymph % (Auto) 14.3 L (20-44) % Levy % (Auto) 16.1 H (0.0-11.0) % Eos % (Auto) 5.7 (0.0-7.0) % Baso % (Auto) 0.5 (0.0-3.0) % Neut # (Auto) 7.10 H (1.7-7.0) K/uL Lymph # (Auto) 1.60 (0.90-2.90) K/uL Levy # (Auto) 1.80 H (0.00-0.90) K/UL Eos # (Auto) 0.60 H (0.00-0.50) K/uL Baso # (Auto) 0.10 (0.00-0.30) K/uL Abs Immat Gran (auto) 0.10 (0.00-0.30) K/uL Imm/Tot Granulo (auto) 0.7 % D-Dimer Quant (PE/DVT) 0.48 (0.00-0.50) ug/ml VBG pH 7.367 (7.32-7.43) VBG pCO2 54 H (40-50) mmHG VBG pO2 43.8 (25-47) mmHG VBG HCO3 31 H (21-28) mmol/L Sodium 136 (135-149) mmol/L Potassium 3.7 (3.6-5.1) mmol/L Chloride 101 (96-114) mmol/L Carbon Dioxide 29 (20-32) mmol/L Anion Gap 6 L (7-15) mEq/L BUN 12 (7-30) mg/dL Creatinine 0.9 (0.5-1.5) mg/dL Estimated Creat Clear 71.25 Estimated GFR 95 ml/min Glucose 92 (60-115) mg/dL Lactate 1.1 (0.5-1.9) mmol/L Calcium 8.8 (8.4-10.6) mg/dL Total Bilirubin 0.9 (0.1-1.5) mg/dL AST 23 (12-35) U/L ALT 19 (4-50) U/L Alkaline Phosphatase 64 (40-150) U/L NT-Pro-B Natriuret Pep 183 pg/mL Total Protein 8.0 (6.0-8.3) g/dL Albumin 4.3 (3.3-5.0) g/dL POC Troponin I 0.02 (0.01-0.04) ng/ml Imaging Data Chest x-ray: Attestation: I have reviewed the pertinent imaging results. My impression: Increased lung markings compared to previous. Radiologist's impression: Lungs and pleural spaces: Prominent pleural thickening at the right lung apex with hyperinflation. Hazy density at the mid right lung likely part of the chronic consolidation seen on the prior exam. Areas of linear scarring within the left mid lung. No convincing acute consolidation compared to the prior CT. Some bronchial wall thickening is noted which can be seen in bronchitis or reactive airways disease. Bones and soft tissues: Old right-sided rib fractures. CT scan - chest: Attestation: I have reviewed the pertinent imaging results. Radiologist's impression: Heart and vasculature: Contrast opacification of the pulmonary arterial tree is adequate. No sign of pulmonary embolism. Heart size is normal. Thoracic aorta and pulmonary artery are normal in caliber. Lungs and pleura: Airspace consolidation present in the posterior right lower lobe. Nodular scarring present in the periphery of both lungs. No pleural effusions, pleural thickening, or pneumothorax. Lymph nodes/mediastinum: Few mildly enlarged mediastinal lymph nodes. Small hiatal hernia. Chest wall: No masses. Upper abdomen: No acute or significant findings. Bones: Unremarkable for age. IMPRESSION: 1. No pulmonary embolism or other acute abnormality. 2. Stable chronic airspace consolidations with peripheral nodular scarring. No new or worsening infiltrates. No sign of acute pneumonia or acute CHF. 3. Overall, no significant change from the prior exam. ECG Data Attestation: I personally reviewed and interpreted this ECG as follows: ECG interpretation date: 04/11/24 Interpretation: EKG by my read shows sinus rhythm at a rate of 87. Normal QT and HI intervals. No evidence of ST or T-wave acute findings. Discharge Plan Discharge Clinical Impression: Asthma exacerbation in COPD Patient Disposition: Admitted As Observation Condition: Improved
--- NOTE | 2024-04-11 17:40 | XR_ITS ---
Patient: ELENI KOTHARI Facility:?[facility] Patient ID:?[id number] Site Patient ID:?[id number]. Site :?1960 Study:?XRay-Chest 2V-04/11/2024 6:38:19 PM Ordering Physician:NIKKI Final Report: Indication: Persistent cough Technique: Chest 2 views Comparison: Chest CT 07/28/2023 Findings/Impression: Cardiovascular and mediastinum: Normal heart size with small hiatal hernia. Slight shift of the mediastinum to the right. Lungs and pleural spaces: Prominent pleural thickening at the right lung apex with hyperinflation. Hazy density at the mid right lung likely part of the chronic consolidation seen on the prior exam. Areas of linear scarring within the left mid lung. No convincing acute consolidation compared to the prior CT. Some bronchial wall thickening is noted which can be seen in bronchitis or reactive airways disease. Bones and soft tissues: Old right-sided rib fractures. Dictated by Abdullahi Love MD @ 04/11/2024 7:21:19 PM Signed by:?Abdullahi Love MD @04/11/2024 7:21:19 PM (Electronic Signature)
--- OUTSIDE RECORDS SUMMARY | 2024-04-11 17:50 | XMS_ITS | Continuity of Care Document ---
Author Name Unknown Organization [facility] Address [address] [address] [place] [address] Phone Care Team Providers Care Services Manager Name Role Phone Henry Rios MD Unavailable Unavailable Advance Directives Directive Yes / No Effective Date File Name No Information Encounters Encounter Description Practice Location Reason(s) For Visit Diagnoses Date Provider Providers Copied on Encounter [facility], [address] [address], [place], [place], [id number], [place] tel:[phone] [facility] No Information 1 Gabriel Figueroa. [address] [facility], [facility] [address], [place], [place], [id number] , [place]. tel:[phone] Family History Family Member Type Diagnosis Age [...]
--- OUTSIDE RECORDS SUMMARY | 2024-04-11 17:50 | XMS_ITS | Clinical Summary ---
Author Name Unknown Organization [facility] Address [place], [place] [address] Care Team Providers Care Configuration Management Advisor Name Role Phone [facility] Primary Care Provider [phone] Allergies Active Allergy Reactions Criticality Noted Date [...] Code Status Discussion: Reviewed Preferences Care Teams Configuration Management Advisor Relationship Specialty Start Date End Date [facility] [address] [place] [address] PCP - General 02/21/22
[2024-04-11 18:22] LABS: Basophils Percent Auto 0.5 % (0.0-3.0); Eosinophils Percent Auto 5.7 % (0.0-7.0); Hematocrit 41.9 % (37.0-53.0); Hemoglobin* 13.3 gm/dL (13.5-17.5); Immature Granulocytes Pct Auto 0.7 %; Lymphocytes Percent Auto 14.3 % (20-44); Mean Corpuscular HGB Conc 32 gm/dL (32-36); Mean Corpuscular Hemoglobin 30 pg (26-34); Mean Corpuscular Volume 95 fL (80-100); Monocytes Percent Auto 16.1 % (0.0-11.0); Neutrophils Percent Auto 62.7 % (42.0-72.0); Platelet Count* 340 K/uL (140-440); RDW Coefficient of Variation % 13.9 % (11.5-15.5); White Blood Count* 11.35 K/uL (4.50-11.00)
[2024-04-11 18:25] LABS: Troponin, Point-of-Care* 0.02 ng/ml (0.01-0.04)
[2024-04-11 18:32] LABS: Slide Review Reflex No
[2024-04-11 18:45] LABS: D Dimer Quantitative* 0.48 ug/ml (0.00-0.50)
[2024-04-11 18:49] LABS: Albumin* 4.3 g/dL (3.3-5.0); Chloride* 101 mmol/L (96-114); Sodium* 136 mmol/L (135-149)
[2024-04-11 18:50] LABS: Potassium* 3.7 mmol/L (3.6-5.1)
[2024-04-11 18:52] LABS: Alkaline Phosphatase* 64 U/L (40-150); Anion Gap 6 mEq/L (7-15); Aspartate Amino Transferase* 23 U/L (12-35); Bilirubin Total* 0.9 mg/dL (0.1-1.5); Blood Urea Nitrogen* 12 mg/dL (7-30); Carbon Dioxide* 29 mmol/L (20-32); Creatinine* 0.9 mg/dL (0.5-1.5); Est. Creatinine Clearance* 71.25; Estimated Glomerular Filt Rate 95 ml/min
[2024-04-11 18:53] LABS: Alanine Aminotransferase* 19 U/L (4-50); Calcium* 8.8 mg/dL (8.4-10.6); Glucose* 92 mg/dL (60-115)
[2024-04-11 18:59] LABS: NT Pro B Type NatriureticPept* 183 pg/mL
--- NOTE | 2024-04-11 19:48 | CT_ITS ---
Patient: ELENI KOTHARI Facility:?[facility] Patient ID:?[id number] Site Patient ID:?[id number]. Site :?1960 Study:?CT-Chest W/ 95CC ISOVUE-370 PE PROTOCOL-04/11/2024 8:01:29 PM Ordering Physician:Nani Nichole Final Report: INDICATION: Dyspnea. TECHNIQUE: CT chest PE was acquired with 95 cc Isovue 370 IV contrast. COMPARISON: 07/28/2023. FINDINGS: Heart and vasculature: Contrast opacification of the pulmonary arterial tree is adequate. No sign of pulmonary embolism. Heart size is normal. Thoracic aorta and pulmonary artery are normal in caliber. Lungs and pleura: Airspace consolidation present in the posterior right lower lobe. Nodular scarring present in the periphery of both lungs. No pleural effusions, pleural thickening, or pneumothorax. Lymph nodes/mediastinum: Few mildly enlarged mediastinal lymph nodes. Small hiatal hernia. Chest wall: No masses. Upper abdomen: No acute or significant findings. Bones: Unremarkable for age. IMPRESSION: 1. No pulmonary embolism or other acute abnormality. 2. Stable chronic airspace consolidations with peripheral nodular scarring. No new or worsening infiltrates. No sign of acute pneumonia or acute CHF. 3. Overall, no significant change from the prior exam. Please note that all CT scans at this facility use dose modulation, iterative reconstruction, and/or weight-based dosing when appropriate to reduce radiation dose to as low as reasonably achievable. Dictated by Rinku Gibbs MD @ 04/11/2024 9:06:20 PM Signed by:?Rinku Gibbs MD @04/11/2024 9:06:20 PM (Electronic Signature)
--- NOTE | 2024-04-11 20:35 | PC.NURSE ---
Pt attempted to give urine twice, unable to urinate. Will try again in a few minutes. Pt states he would really like to avoid a catheter.
[2024-04-11 21:04] LABS: HCO3 VBG 31 mmol/L (21-28); Lactate Sepsis w/Reflex* 1.1 mmol/L (0.5-1.9); PCO2 VBG 54 mmHG (40-50); PO2 VBG 43.8 mmHG (25-47); pH VBG 7.367 (7.32-7.43)
[2024-04-11 21:34] VITALS: BP 155/74; PULSE 87; RESP 24; TEMP 36.8; O2SAT 93
[2024-04-11] MEDS: cefTRIAXone 1 GM in 0.9 % SODIUM CHLORIDE Mini-bag 100 ML IVPB (21:34)
[2024-04-11] MEDS: AZITHROMYCIN 250 MG TABLET 500 MG PO (21:34)
--- NOTE | 2024-04-11 21:35 | PC.NURSE ---
Report given to med/surgery assistant.
[2024-04-11 22:16] VITALS: RESP 20; O2SAT 92
--- NOTE | 2024-04-11 22:23 | PM.IMHP1 ---
Hospitalist- H&P: HPI History of Present Illness Date Seen: 04/12/24 Chief complaint: Difficulty breathing Narrative: ADMISSION HISTORY AND PHYSICAL - HOSPITALIST Chief Complaint: Shortness of breath, dyspnea on exertion HPI: 63-year-old with history of chronic obstructive pulmonary disease, followed by pulmonary medicine, presents with increasing shortness of breath. 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 This time he took Augmentin and prednisone, and just simply isn't feeling better. He still feels short of breath. He is coughing up some streaky white phlegm. No fever. No chest pain. He had a significant pneumonia with abscess in 2021 requiring bronchoscopy and BAL and extended antibiotics. This was at [facility]. ER COURSE: CTA reveals no PE and no obvious pneumonia. Labs were reassuring. Mild bump in his pCO2. With any minimal movement or exertion he becomes hypoxic. Needing 1-2 L to keep his sats above 90%. Low 90s at rest on room air. CODE STATUS: FULL CODE EMERGENCY CONTACT PLAN: Qi Cormier? Daughter?Rel to [facility]? [phone]?Cell Phone? Janie Cormier? Daughter?Rel to [facility]? [phone]?Cell Phone? I've updated the PFSH, medications and allergies in the Expanse tabs. INVESTIGATIONS: LABS/MICRO/ECG/IMAGING CBC reflects a mild leukocytosis of 11.4 Hemoglobin 13.3 Normal platelet Normal D-dimer Normal pH with a slight bump in his pCO2 54 Lactate normal, normal basic metabolic panel Troponin 0.02 CTA IMPRESSION: 1. No pulmonary embolism or other acute abnormality. 2. Stable chronic airspace consolidations with peripheral nodular scarring. No new or worsening infiltrates. No sign of acute pneumonia or acute CHF. 3. Overall, no significant change from the prior exam. REVIEW OF SYSTEMS: 12-point ROS completed with patient and negative unless otherwise stated in HPI or below. PHYSICAL EXAM: CONSTITUTIONAL: Mildly short of breath with conversation. Otherwise comfortable. VITAL SIGNS: see record. HEENT: Normocephalic, atraumatic. PERRL, EOMI, conjunctivae pink, no scleral icterus. Ears and nose externally normal. Pharynx normal. NECK: No JVD. No carotid bruit, no thyromegaly, no adenopathy. CHEST: Decreased breath sounds along the right pepper thorax. Scattered wheezes on the left. Not moving air well. No respiratory distress. HEART: S1 and S2 normal. No harsh murmurs. Edema MUSCULOSKELETAL: No gross joint deformity or swelling. NEURO: Cranial nerves intact. Grossly intact. No asymmetric findings. SKIN: No rashes, petechiae, concerning changes PSYCHIATRIC: Euthymic. ADMIT TO MEDSURG: FLOOR CARE DVT: Lovenox GI: PO intake Time spent: Today I spent 75 minutes seeing the patient, discussing the patient with ER staff, reviewing Expanse and EPIC notes/diagnostics, discussing the care plan with our care time that includes social work, PT/OT, pharmacy, RT, intermediate and documenting my impressions and plan in the medical record. [facility] Medical History (Updated 04/12/24 @ 00:39 by Dionne Forrest MD) Osteoarthritis of left hip ?M16.12 - Unilateral primary osteoarthritis, left hip (ICD-10) Nocturia more than twice per night ?R35.1 - Nocturia (ICD-10) Scoliosis ?M41.9 - Scoliosis, unspecified (ICD-10) Lung nodule ?R91.1 - Solitary pulmonary nodule (ICD-10) Iron deficiency anemia ?D50.9 - Iron deficiency anemia, unspecified (ICD-10) Hiatal hernia ?K44.9 - Diaphragmatic hernia without obstruction or gangrene (ICD-10) Prediabetes ?R73.03 - Prediabetes (ICD-10) Myocardial strain ?I51.9 - Heart disease, unspecified (ICD-10) Abscess of lung ?J85.2 - Abscess of lung without pneumonia (ICD-10) Family History Father COPD (chronic obstructive pulmonary disease) Coronary artery disease Family/Other Stroke Social History (Updated 04/11/24 @ 23:11 by Dionne Forrest MD) Narrative: Alcohol use- beer drinker, nightly Former smoker- quit age 52; smoked 1.5 packs/day; approx 60 pack year history 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 Is close with both adult daughters. What is your current living situation?: I presently have a place to live Problems where you live: no known problems Problems where you live details: too many stairs. In the past 12 months, utilities in danger of being shut off: no In past 12 months, lack of transportation kept you from medical appts, meetings, work, or getting things needed for daily living: no In the past 12 mos, have been you worried that your food would run out before you had money to buy more?: never true In the past 12 mos, the food you bought just didn't last and you didn't have money to buy more?: never true Highest level of school completed/degree received: high school graduate Smoking Status: Former smoker What tobacco products do you use: cigarettes Smoking quit date/years: <= 15 years ago Do you use any of these nicotine containing products: None Second hand tobacco smoke exposure: No How often do you have a drink containing alcohol: 4 or more times a week Alcohol type: beer How many standard drinks containing alcohol do you have on a typical day: 3 or 4 How often do you have six or more drinks on one occasion: Never AUDIT-C Alcohol total score: 5 Non-prescribed substance use: denies use Caffeine: Yes How often does anyone, including family, friends and others, physically hurt you: never How often does anyone, including family, friends and others, insult or talk down to you: never How often does anyone, including family, friends and others, threaten you with harm: never How often does anyone, including family, friends and others, scream or curse at you: never Little interest or pleasure in doing things: several days Feeling down, depressed, or hopeless: not at all service: No Meds Home Medications and Allergies Home Medications Medication Instructions Recorded Confirmed Type ferrous fumarate 325 mg (106 mg 325 mg PO QDAY 06/11/22 04/11/24 History iron) tablet cromolyn 4 % eye drops 1 drp ophthalmic (eye) QID 07/02/23 04/11/24 History fluticasone propionate 50 1 spray intranasal BID 07/02/23 04/11/24 History mcg/actuation nasal spray,suspension Allergies Allergy/AdvReac Type Severity Reaction Status Date / Time shellfish derived AdvReac Intermediate Vomiting Verified 04/11/24 16:18 Exam Const: Vital Signs, click to edit/add: Vital Signs - 24 hr 04/11/24 16:09 04/11/24 21:34 04/11/24 21:34 Temperature 98.0 F 98.3 F Pulse Rate [Right Pulse Oximeter] 98 87 Respiratory Rate 38 H 24 Blood Pressure [Ri ght Upper Arm] 175/78 H 155/74 H Pulse Oximetry 94 93 93 Oxygen Delivery Me thod Room Air Room Air Room Air Hospitalist - H&P: Result Labs Labs: Short CBC 04/11/24 Range/Units 18:14 WBC 11.35 H (4.50-11.00) K/uL Hgb 13.3 L (13.5-17.5) gm/dL Hct 41.9 (37.0-53.0) % Plt Count 340 (140-440) K/uL BMP 04/11/24 18:14 Sodium 136 Potassium 3.7 Chloride 101 Carbon Dioxide 29 BUN 12 Creatinine 0.9 Glucose 92 Calcium 8.8 Liver Function 04/11/24 Range/Units 18:14 Total Bilirubin 0.9 (0.1-1.5) mg/dL AST 23 (12-35) U/L ALT 19 (4-50) U/L Alkaline Phosphatase 64 (40-150) U/L Albumin 4.3 (3.3-5.0) g/dL Assessment and Plan Assessment and plan (1) COPD with acute exacerbation: Problem comment: -CTA reassuring. Will cover for community-acquired pneumonia despite lack of findings. -wean oxygen (measure ambulatory pulse ox in the fowler) as able -Solu-Medrol x1, oral prednisone to start in the a.m. -DuoNebs and albuterol nebs -continue home Spiriva and Symbicort and montelukast Status: Acute (2) Hypoxic respiratory failure: Problem comment: Secondary to COPD exacerbation. Mild bump in his pCO2. Status: Acute (3) Alcohol use disorder: Problem comment: Beer drinker Status: Acute (4) Chronic obstructive pulmonary disease: Problem comment: Followed by Dr Sandoval Former smoker, quit 12 years Status: Acute
[2024-04-11 22:30] VITALS: BP 154/86; PULSE 89; RESP 20; TEMP 36.8; O2SAT 92; BMI 30.8
[2024-04-11] MEDS: IPRAT-ALBUT 0.5-2.5 MG/3 ML NEB 1 NEB IH (22:52)
[2024-04-11] MEDS: METHYLPREDNISOLONE SOD SUCC 62.5 MG/ML (125) 125 MG IVP (22:52)
[2024-04-11 23:00] VITALS: PULSE 92; O2SAT 94
[2024-04-12] VITALS (10 sets, daily range): BP systolic 131–176; BP diastolic 60–89; PULSE 66–104; RESP 16–20; TEMP 36.4–36.9; O2SAT 91–98
--- NOTE | 2024-04-12 05:31 | PC.NURSE ---
PATIENT PLEASANT AND COOPERATIVE, ALERT AND ORIENTED, UP AD PRUDENCE IN ROOM, SOB NOTED WITH ACTIVITY, SATS 85% WHEN RETURNING FROM BATHROOM RECOVERS IS LESS THAN 30 SECONDS TO 90% OR GREATER, LUNG SOUNDS WITH EXP WHEEZING, DECLINING PAIN, PATIENT STATED THOSE MEDICATIONS MUST WORKED GREAT, I ALREADY FEEL BETTER.
[2024-04-12 06:48] LABS: Hemoglobin* 13.3 gm/dL (13.5-17.5); Mean Corpuscular HGB Conc 32 gm/dL (32-36); Mean Corpuscular Hemoglobin 31 pg (26-34); Mean Corpuscular Volume 94 fL (80-100); Platelet Count* 353 K/uL (140-440); Red Blood Count 4.35 m/uL (4.30-5.90); Slide Review Reflex No; White Blood Count* 7.39 K/uL (4.50-11.00)
[2024-04-12 06:49] LABS: HCO3 VBG 29 mmol/L (21-28); PCO2 VBG 46 mmHG (40-50); pH VBG 7.413 (7.32-7.43)
[2024-04-12 07:02] LABS: Albumin* 3.9 g/dL (3.3-5.0); Chloride* 103 mmol/L (96-114); Sodium* 137 mmol/L (135-149)
[2024-04-12 07:03] LABS: Potassium* 4.5 mmol/L (3.6-5.1)
[2024-04-12 07:05] LABS: Alkaline Phosphatase* 62 U/L (40-150); Anion Gap 3 mEq/L (7-15); Aspartate Amino Transferase* 22 U/L (12-35); Bilirubin Total* 0.8 mg/dL (0.1-1.5); Carbon Dioxide* 31 mmol/L (20-32); Creatinine* 0.8 mg/dL (0.5-1.5); Est. Creatinine Clearance* 71.25; Estimated Glomerular Filt Rate 98 ml/min; Total Protein* 7.5 g/dL (6.0-8.3)
[2024-04-12 07:06] LABS: Alanine Aminotransferase* 18 U/L (4-50); Blood Urea Nitrogen* 12 mg/dL (7-30); Glucose* 149 mg/dL (60-115)
[2024-04-12 07:08] LABS: C Reactive Protein* 3.5 mg/dL (0.5-1.0)
[2024-04-12 07:15] LABS: PO2 VBG 60.5 mmHG (25-47)
[2024-04-12 07:19] LABS: Troponin I* < 0.01 ng/mL (0.01-0.04)
[2024-04-12] MEDS: predniSONE 20 MG TABLET 60 MG PO (09:01)
[2024-04-12] MEDS: AZITHROMYCIN 250 MG TABLET PO (09:01)
[2024-04-12] MEDS: cefTRIAXone 1 GM in 0.9 % SODIUM CHLORIDE Mini-bag 100 ML IVPB (09:02)
[2024-04-12] MEDS: SODIUM CHLORIDE 0.9 % (FLUSH) 10 ML SYRINGE 5 ML IVF ×2 (09:03→20:43)
[2024-04-12] MEDS: IPRAT-ALBUT 0.5-2.5 MG/3 ML NEB 1 NEB IH ×3 (09:13→20:42)
[2024-04-12] MEDS: FERROUS SULFATE 325 MG TABLET PO (09:33)
[2024-04-12] MEDS: guaiFENesin 600 MG TAB.ER.12H PO (15:06)
--- NOTE | 2024-04-12 16:48 | P.IMPN_ITS ---
Progress Note: A&P Assessment and plan (1) COPD with acute exacerbation: Problem details: -CTA reassuring. Will continue to cover for community-acquired pneumonia despite lack of findings. -wean oxygen (measure ambulatory pulse ox in the fowler) as able -Solu-Medrol x1, oral prednisone to start in the a.m. -DuoNebs and albuterol nebs -continue home Spiriva and Symbicort and montelukast -possible discharge as early as 04/13/2024 or if condition continues to improve and stabilize Status: Acute (2) Hypoxic respiratory failure: Problem details: Secondary to COPD exacerbation. Mild bump in his pCO2. Status: Acute (3) Alcohol use disorder: Problem details: Beer drinker Status: Acute (4) Chronic obstructive pulmonary disease: Problem details: Followed by Dr Sandoval Former smoker, quit 12 years Status: Acute Plan 1. Reviewed impression with patient 2. Answered his questions 3. He is agreeable Time Spent With Patient Total time spent: 35 minutes Subjective Date Seen: 04/12/24 Interval history: Admission history of present illness: ?63-year-old with history of chronic obstructive pulmonary disease, followed by pulmonary medicine, presents with increasing shortness of breath. 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 This time he took Augmentin and prednisone, and just simply isn't feeling better. He still feels short of breath. He is coughing up some streaky white phlegm. No fever. No chest pain. ?He had a significant pneumonia with abscess in 2021 requiring bronchoscopy and BAL and extended antibiotics. This was at [facility]. ?ER COURSE: CTA reveals no PE and no obvious pneumonia. Labs were reassuring. Mild bump in his pCO2. With any minimal movement or exertion he becomes hypoxic. Needing 1- 2 L to keep his sats above 90%. Low 90s at rest on room air.? Hospital day 2. Admission date 04/11/2024. He feels improved by about 25%. Still notes dyspnea with minimal exertion and some residual wheezing. Cough improved. Exam Narrative: Exam Narrative: I examine him in his hospital room. Appears comfortable no acute distress when at rest. Alert and oriented to self, place, time, situation. Friendly, articulate, cooperative. Lungs with scattered rhonchi and expiratory wheezing and prolonged expiratory phase. No rales. Heart tones with regular rhythm. Distant tones. Abdomen benign. Independent in transfer, station and gait. Const: Vital Signs, click to edit/add: Vital Signs - 24 hr 04/11/24 21:34 04/11/24 21:34 04/11/24 22:16 Temperature 98.3 F Pulse Rate Pulse Rate [Pulse Oximeter] Pulse Rate [Right Pulse Oximeter] 87 Respiratory Rate 24 20 Blood Pressure [Le ft Arm] Blood Pressure [Ri ght Arm] Blood Pressure [Ri ght Upper Arm] 155/74 H Pulse Oximetry 93 93 92 Oxygen Delivery Me thod Room Air Room Air Room Air 04/11/24 22:30 04/11/24 23:00 04/11/24 23:00 Temperature 98.3 F Pulse Rate 92 Pulse Rate [Pulse Oximeter] 89 Pulse Rate [Right Pulse Oximeter] Respiratory Rate 20 Blood Pressure [Le ft Arm] Blood Pressure [Ri ght Arm] 154/86 H Blood Pressure [Ri ght Upper Arm] Pulse Oximetry 92 94 Oxygen Delivery Me thod Room Air 04/11/24 23:00 04/12/24 03:27 04/12/24 10:16 Temperature 98.3 F Pulse Rate Pulse Rate [Pulse Oximeter] 66 Pulse Rate [Right Pulse Oximeter] Respiratory Rate 18 Blood Pressure [Le ft Arm] Blood Pressure [Ri ght Arm] 131/60 Blood Pressure [Ri ght Upper Arm] Pulse Oximetry 94 91 95 Oxygen Delivery Ky thod Room Air Room Air 04/12/24 10:17 04/12/24 10:18 04/12/24 10:20 Temperature 97.6 F Pulse Rate 90 Pulse Rate [Pulse Oximeter] 79 Pulse Rate [Right Pulse Oximeter] Respiratory Rate 20 20 Blood Pressure [Le ft Arm] Blood Pressure [Ri ght Arm] 176/89 H Blood Pressure [Ri ght Upper Arm] Pulse Oximetry 95 95 Oxygen Delivery Ky thod Room Air Room Air 04/12/24 14:36 Temperature 98.1 F Pulse Rate Pulse Rate [Pulse Oximeter] 95 Pulse Rate [Right Pulse Oximeter] Respiratory Rate 16 Blood Pressure [Le ft Arm] 153/76 H Blood Pressure [Ri ght Arm] Blood Pressure [Ri ght Upper Arm] Pulse Oximetry 98 Oxygen Delivery Ky thod Room Air Labs Labs: Laboratory Results - last 24 hr 04/11/24 04/11/24 04/11/24 17:40 18:14 20:57 WBC 11.35 H RBC 4.40 Hgb 13.3 L Hct 41.9 MCV 95 MCH 30 MCHC 32 RDW Coeff of Mandeep 13.9 Plt Count 340 Neut % (Auto) 62.7 Lymph % (Auto) 14.3 L [place] % (Auto) 16.1 H Eos % (Auto) 5.7 Baso % (Auto) 0.5 Neut # (Auto) 7.10 H Lymph # (Auto) 1.60 [place] # (Auto) 1.80 H Eos # (Auto) 0.60 H Baso # (Auto) 0.10 Abs Immat Gran (auto) 0.10 Imm/Tot Granulo (auto) 0.7 D-Dimer Quant (PE/DVT) 0.48 VBG pH 7.367 VBG pCO2 54 H VBG pO2 43.8 VBG HCO3 31 H Sodium 136 Potassium 3.7 Chloride 101 Carbon Dioxide 29 Anion Gap 6 L BUN 12 Creatinine 0.9 Estimated Creat Clear 71.25 Estimated GFR 95 Glucose 92 Lactate 1.1 Calcium 8.8 Total Bilirubin 0.9 AST 23 ALT 19 Alkaline Phosphatase 64 Troponin I C-Reactive Protein NT-Pro-B Natriuret Pep 183 Total Protein 8.0 Albumin 4.3 POC Troponin I 0.02 04/12/24 06:08 WBC 7.39 RBC 4.35 Hgb 13.3 L Hct 41.0 MCV 94 MCH 31 MCHC 32 RDW Coeff of Mandeep Plt Count 353 Neut % (Auto) Lymph % (Auto) [place] % (Auto) Eos % (Auto) Baso % (Auto) Neut # (Auto) Lymph # (Auto) [place] # (Auto) Eos # (Auto) Baso # (Auto) Abs Immat Gran (auto) Imm/Tot Granulo (auto) D-Dimer Quant (PE/DVT) VBG pH 7.413 VBG pCO2 46 VBG pO2 60.5 H VBG HCO3 29 H Sodium 137 Potassium 4.5 Chloride 103 Carbon Dioxide 31 Anion Gap 3 L BUN 12 Creatinine 0.8 Estimated Creat Clear 71.25 Estimated GFR 98 Glucose 149 H Lactate Calcium 9.0 Total Bilirubin 0.8 AST 22 ALT 18 Alkaline Phosphatase 62 Troponin I < 0.01 L C-Reactive Protein 3.5 H NT-Pro-B Natriuret Pep Total Protein 7.5 Albumin 3.9 POC Troponin I
--- NOTE | 2024-04-12 20:35 | PC.NURSE ---
End of shift [id number] - Pt alert, oriented, cooperative, and talkative. Up independently in room. Tolerating RA, regular diet/fluids. Pt able to maintain O2 saturation above 90% on RA, but was observed to become SOB during and after coughing episode. Pt able to recover appropriately without intervention. Pt denied pain, nausea, vomiting. Appears to be resting comfortably in bed at end of shift.
[2024-04-12] MEDS: MONTELUKAST 10 MG TABLET PO (20:42)
[2024-04-12] MEDS: LORATADINE 10 MG TABLET PO (20:43)
[2024-04-13] VITALS (7 sets, daily range): BP systolic 123–156; BP diastolic 63–78; PULSE 61–96; RESP 18–20; TEMP 36.4; O2SAT 92–95
--- NOTE | 2024-04-13 07:03 | PC.NURSE ---
Pt is alert and oriented x3. Afebrile. On room air but continues to have SOB with exertion.?Pt denies pain, chest pain, SOB, N/V. Pt is up ad tamara in room, voiding and tolerating a regular diet. Pt uses IS independently. Pt slept intermittently throughout night. ?
[2024-04-13] MEDS: cefTRIAXone 1 GM in 0.9 % SODIUM CHLORIDE Mini-bag 100 ML IVPB (09:39)
[2024-04-13] MEDS: OMEPRAZOLE 20 MG CAPSULE DR 40 MG PO (09:39)
[2024-04-13] MEDS: predniSONE 20 MG TABLET 60 MG PO (09:39)
[2024-04-13] MEDS: IPRAT-ALBUT 0.5-2.5 MG/3 ML NEB 1 NEB IH (09:39)
[2024-04-13] MEDS: LORATADINE 10 MG TABLET PO (09:40)
[2024-04-13] MEDS: AZITHROMYCIN 250 MG TABLET PO (09:40)
[2024-04-13] MEDS: lisinopriL 10 MG TABLET PO (09:40)
[2024-04-13] MEDS: FERROUS SULFATE 325 MG TABLET PO (09:41)
[2024-04-13] MEDS: TAMSULOSIN HCL 0.4 MG CAPSULE PO (09:41)
[2024-04-13] MEDS: SODIUM CHLORIDE 0.9 % (FLUSH) 10 ML SYRINGE 5 ML IVF (09:42)
--- NOTE | 2024-04-13 09:50 | RESP.RT ---
Patient sitting on edge of bed on room air, SaO2 82%, breathing regular/easy. Use of IS with good effort, keeping float in middle, promoting non-productive cough. Patient has Aerobika at home and states he uses it. Patient knowledgeable about his home respiratory medications, how to use, clean, and maintain them.
--- NOTE | 2024-04-13 12:14 | PC.NURSE ---
discharge went over discharge packet with pt. went over medications, appointments, education and instructions. SL was d/c intact. tele was d/c no belonging sheet was found. he left with all belongings and paperwork . w/c ride was offered and pt declined.
--- NOTE | 2024-04-13 12:22 | PM.DS1 ---
DS: Providers Provider Date Seen: 04/13/24 Date of admission: 04/11/24 21:35 Primary care physician: Lillie Farley MD Admitting Clinician: Dionne Forrest MD Consults: 04/11/24 22:31 Consult to Respiratory Therapy [CONS] Routine Comment: Reason(s) for RT Consult:: Consult Attending Physician on discharge: Weston Irving MD Date of Discharge: 04/13/24 DS: Diagnosis Discharge Diagnosis (1) COPD with acute exacerbation: Status: Acute Problem details: -CTA reassuring. Will continue to cover for community-acquired pneumonia despite lack of findings. -wean oxygen (measure ambulatory pulse ox in the fowler) as able -Solu-Medrol x1, then initiated oral prednisone with gradual taper to 10 mg daily and his PCP to consider long-term use of steroids vs. slow taper thereafter. -DuoNebs and albuterol nebs -continue home Spiriva and Symbicort and montelukast (2) Hypoxic respiratory failure: Status: Acute Problem details: Secondary to COPD exacerbation. Mild bump in his pCO2. (3) Chronic obstructive pulmonary disease: Status: Acute Problem details: Followed by Dr Sandoval, pulmonology, and his PCP. Former smoker, quit 12 years (4) Alcohol use disorder: Status: Acute Problem details: Beer drinker DS: Summary Hospital Course Hospital Course: Admission history of present illness: ?63-year-old with history of chronic obstructive pulmonary disease, followed by pulmonary medicine, presents with increasing shortness of breath. Dr. Sandoval, his follow up manager, has him on a self start regimen of alternating Augmentin and azithromycin with prednisone. This time he took Augmentin and prednisone, and just simply isn't feeling better. He still feels short of breath. He is coughing up some streaky white phlegm. No fever. No chest pain. ?He had a significant pneumonia with abscess in 2021 requiring bronchoscopy and BAL and extended antibiotics. This was at [facility]. ?ER COURSE: CTA reveals no PE and no obvious pneumonia. Labs were reassuring. Mild bump in his pCO2. With any minimal movement or exertion he becomes hypoxic. Needing 1-2 L to keep his sats above 90%. Low 90s at rest on room air.? Progressively improved through our interventions while in the hospital such that is ready for discharge on 04/13/2024. For details see diagnosis section above. Status at Discharge Functional status at discharge: independent ambulation Overall status at discharge: patient is progressing back to baseline Time Spent with Patient Time attestation: Total time spent providing and/or coordinating discharge services: Time spent: Greater than 30 minutes Exam Narrative: Exam Narrative: I examine him in his hospital room. Appears comfortable no acute distress when at rest. Alert and oriented to self, place, time, situation. Friendly, articulate, cooperative. Lungs with virtually resolved rhonchi and expiratory wheezing. No rales. Has dyspnea and tachypnea with exertion, which he states is at baseline for him. Heart tones with regular rhythm. Distant tones. Abdomen benign. Independent in transfer, station and gait. Const: Vital Signs, click to edit/add: Vital Signs - 24 hr 04/12/24 14:36 04/12/24 18:00 04/12/24 19:00 Temperature 98.1 F 98.4 F Pulse Rate Pulse Rate [Pulse Oximeter] 95 95 Respiratory Rate 16 20 20 Blood Pressure [Le ft Arm] 153/76 H Blood Pressure [Ri ght Arm] 163/86 H Pulse Oximetry 98 93 95 Oxygen Delivery Me thod Room Air Room Air Room Air 04/12/24 20:23 04/12/24 20:33 04/13/24 00:03 Temperature 97.6 F Pulse Rate 104 H Pulse Rate [Pulse Oximeter] 79 Respiratory Rate 18 Blood Pressure [Le ft Arm] Blood Pressure [Ri ght Arm] 156/78 H Pulse Oximetry 93 95 Oxygen Delivery Me thod Room Air 04/13/24 00:03 04/13/24 00:03 04/13/24 02:00 Temperature Pulse Rate 96 Pulse Rate [Pulse Oximeter] Respiratory Rate 18 18 Blood Pressure [Le ft Arm] Blood Pressure [Ri ght Arm] Pulse Oximetry 94 Oxygen Delivery Me thod Room Air 04/13/24 02:00 04/13/24 04:00 04/13/24 07:13 Temperature 97.5 F L Pulse Rate 61 Pulse Rate [Pulse Oximeter] 85 Respiratory Rate 18 Blood Pressure [Le ft Arm] Blood Pressure [Ri ght Arm] 123/63 Pulse Oximetry 92 93 Oxygen Delivery Me thod Room Air 04/13/24 08:15 04/13/24 08:15 04/13/24 09:15 Temperature 97.5 F L Pulse Rate Pulse Rate [Pulse Oximeter] 85 85 Respiratory Rate 20 20 20 Blood Pressure [Le ft Arm] Blood Pressure [Ri ght Arm] 123/63 Pulse Oximetry 92 92 Oxygen Delivery Me thod Room Air Room Air 04/13/24 10:10 Temperature Pulse Rate Pulse Rate [Pulse Oximeter] Respiratory Rate Blood Pressure [Le ft Arm] Blood Pressure [Ri ght Arm] Pulse Oximetry 95 Oxygen Delivery Me thod Room Air DS: Data Imaging CT scan - chest: Radiologist's impression: IMPRESSION: 1. No pulmonary embolism or other acute abnormality. 2. Stable chronic airspace consolidations with peripheral nodular scarring. No new or worsening infiltrates. No sign of acute pneumonia or acute CHF. 3. Overall, no significant change from the prior exam. Discharge Plan Discharge Disposition: Home, Self-Care Date of Admission: 04/11/24 21:35 Attending Provider on Discharge: Weston Irving Primary Care Provider: Lillie Farley Condition: Improved Anticipated Discharge Date/Time: 04/13/24 11:30 Discharge Medications: New azithromycin 250 mg tablet 250 mg PO DAILY 3 Days Qty: 3 0RF prednisone 10 mg tablet See Rx Instructions .ROUTE .COMPLEX Qty: 30 0RF Rx Instructions: 3 tabs orally once daily for 2 days, then 2 tabs orally once daily for 4 days, then 1 tab orally once daily thereafter Continued ferrous fumarate 325 mg (106 mg iron) tablet 325 mg PO QDAY cromolyn 4 % drops 1 drp ophthalmic (eye) QID fluticasone propionate 50 mcg/actuation spray,suspension 1 spray intranasal BID albuterol sulfate 2.5 mg /3 mL (0.083 %) solution for nebulization 2.5 mg continuous nebulization Q4H PRN (Reason: bronchospasm) Qty: 180 3RF budesonide-formoterol 160-4.5 mcg/actuation HFA aerosol inhaler 2 puff inhalation BID Qty: 10.2 3RF guaifenesin [Mucinex] 600 mg tablet extended release 12hr 600 mg PO BID PRN (Reason: congestion) Qty: 180 3RF montelukast 10 mg tablet 10 mg PO QPM Qty: 90 4RF omeprazole 20 mg capsule,delayed release(DR/EC) 40 mg .ROUTE QDAY Qty: 180 3RF Rx Instructions: 40 mg every day; Spiriva with HandiHaler 18 mcg capsule, w/inhalation device 1 cap INHALATION QDAY Qty: 90 3RF ipratropium-albuterol 0.5 mg-3 mg(2.5 mg base)/3 mL solution for nebulization 3 ml inhalation QID Qty: 180 1RF Rx Instructions: Use at first sign of shortness of breath; may use from 1-4 times daily. If using 4 times daily, make appointment with doctor. benzonatate 200 mg capsule 200 mg PO BID-TID PRN (Reason: cough) Qty: 90 3RF tamsulosin 0.4 mg capsule 0.4 mg PO DAILY Qty: 90 3RF lisinopril 10 mg tablet 10 mg PO QDAY Qty: 90 3RF Patient Comments: took Thursday and only one dose taken and made patient feel like going to pass out. Discontinued prednisone 10 mg tablet PO Discharge Orders: Discharge Order (Routine); Ordered 04/13/24 Ordered By: Weston Irving Patient Education: Prednisone (By mouth), Azithromycin (By mouth), COPD (Chronic Obstructive Pulmonary Disease) (DC), How Your Lungs Work (DC), Chronic Lung Disease and Infection Prevention (DC), Pulmonary Rehabilitation (DC), Energy Conservation Techniques (DC) Additional Instructions: 1. Hospital follow-up appointment with your primary health care marketing specialist in 5-10 days, consider prednisone use and referral for outpatient pulmonary rehabilitation; 2. Keep f/u plans and appointments with your pulmonary physician. Activity Level: No Restrictions and Activity as Tolerated Discharge Diet: Regular Follow Up Appointments: Lianna Etienne MD [Staff Physician] - 04/20/24 8:30 am ([facility] for follow-up.) Ibrahima Etienne PA-C [Physician [employer] Observer] - Lillie Farley MD [Primary Care Provider] - Elle Rocha DO [Referring] - Forms: [email or web address] Info Instructions
--- NOTE | 2024-04-13 12:30 | P.DS_ITS ---
DS: Providers Provider Date Seen: 04/13/24 Date of admission: 04/11/24 21:35 Primary care physician: Lillie Farley MD Admitting Clinician: Dionne Forrest MD Consults: 04/11/24 22:31 Consult to Respiratory Therapy [CONS] Routine Comment: Reason(s) for RT Consult:: Consult Attending Physician on discharge: Weston Irving MD Date of Discharge: 04/13/24 DS: Summary Hospital Course Hospital Course: Admission history of present illness: ?63-year-old with history of chronic obstructive pulmonary disease, followed by pulmonary medicine, presents with increasing shortness of breath. Dr. Sandoval, his pouncer machine, has him on a self start regimen of alternating Augmentin and azithromycin with prednisone. This time he took Augmentin and prednisone, and just simply isn't feeling better. He still feels short of breath. He is coughing up some streaky white phlegm. No fever. No chest pain. ?He had a significant pneumonia with abscess in 2021 requiring bronchoscopy and BAL and extended antibiotics. This was at [facility]. ?ER COURSE: CTA reveals no PE and no obvious pneumonia. Labs were reassuring. Mild bump in his pCO2. With any minimal movement or exertion he becomes hypoxic. Needing 1-2 L to keep his sats above 90%. Low 90s at rest on room air.? Progressively improved through our interventions while in the hospital such that is ready for discharge on 04/13/2024. For details see diagnosis section above. Time Spent with Patient Time attestation: Total time spent providing and/or coordinating discharge services: Exam Const: Vital Signs, click to edit/add: Vital Signs - 24 hr 04/12/24 14:36 04/12/24 18:00 04/12/24 19:00 Temperature 98.1 F 98.4 F Pulse Rate Pulse Rate [Pulse Oximeter] 95 95 Respiratory Rate 16 20 20 Blood Pressure [Le ft Arm] 153/76 H Blood Pressure [Ri ght Arm] 163/86 H Pulse Oximetry 98 93 95 Oxygen Delivery Me thod Room Air Room Air Room Air 04/12/24 20:23 04/12/24 20:33 04/13/24 00:03 Temperature 97.6 F Pulse Rate 104 H Pulse Rate [Pulse Oximeter] 79 Respiratory Rate 18 Blood Pressure [Le ft Arm] Blood Pressure [Ri ght Arm] 156/78 H Pulse Oximetry 93 95 Oxygen Delivery Me thod Room Air 04/13/24 00:03 04/13/24 00:03 04/13/24 02:00 Temperature Pulse Rate 96 Pulse Rate [Pulse Oximeter] Respiratory Rate 18 18 Blood Pressure [Le ft Arm] Blood Pressure [Ri ght Arm] Pulse Oximetry 94 Oxygen Delivery Me thod Room Air 04/13/24 02:00 04/13/24 04:00 04/13/24 07:13 Temperature 97.5 F L Pulse Rate 61 Pulse Rate [Pulse Oximeter] 85 Respiratory Rate 18 Blood Pressure [Le ft Arm] Blood Pressure [Ri ght Arm] 123/63 Pulse Oximetry 92 93 Oxygen Delivery Me thod Room Air 04/13/24 08:15 04/13/24 08:15 04/13/24 09:15 Temperature 97.5 F L Pulse Rate Pulse Rate [Pulse Oximeter] 85 85 Respiratory Rate 20 20 20 Blood Pressure [Le ft Arm] Blood Pressure [Ri ght Arm] 123/63 Pulse Oximetry 92 92 Oxygen Delivery Me thod Room Air Room Air 04/13/24 10:10 Temperature Pulse Rate Pulse Rate [Pulse Oximeter] Respiratory Rate Blood Pressure [Le ft Arm] Blood Pressure [Ri ght Arm] Pulse Oximetry 95 Oxygen Delivery Me thod Room Air Discharge Plan Discharge Disposition: Home, Self-Care Date of Admission: 04/11/24 21:35 Attending Provider on Discharge: Weston Irving Primary Care Provider: Lillie Farley Condition: Improved Anticipated Discharge Date/Time: 04/13/24 11:30 Discharge Medications: New azithromycin 250 mg tablet 250 mg PO DAILY 3 Days Qty: 3 0RF prednisone 10 mg tablet See Rx Instructions .ROUTE .COMPLEX Qty: 30 0RF Rx Instructions: 3 tabs orally once daily for 2 days, then 2 tabs orally once daily for 4 days, then 1 tab orally once daily thereafter Continued ferrous fumarate 325 mg (106 mg iron) tablet 325 mg PO QDAY cromolyn 4 % drops 1 drp ophthalmic (eye) QID fluticasone propionate 50 mcg/actuation spray,suspension 1 spray intranasal BID albuterol sulfate 2.5 mg /3 mL (0.083 %) solution for nebulization 2.5 mg continuous nebulization Q4H PRN (Reason: bronchospasm) Qty: 180 3RF budesonide-formoterol 160-4.5 mcg/actuation HFA aerosol inhaler 2 puff inhalation BID Qty: 10.2 3RF guaifenesin [Mucinex] 600 mg tablet extended release 12hr 600 mg PO BID PRN (Reason: congestion) Qty: 180 3RF montelukast 10 mg tablet 10 mg PO QPM Qty: 90 4RF omeprazole 20 mg capsule,delayed release(DR/EC) 40 mg .ROUTE QDAY Qty: 180 3RF Rx Instructions: 40 mg every day; Spiriva with HandiHaler 18 mcg capsule, w/inhalation device 1 cap INHALATION QDAY Qty: 90 3RF ipratropium-albuterol 0.5 mg-3 mg(2.5 mg base)/3 mL solution for nebulization 3 ml inhalation QID Qty: 180 1RF Rx Instructions: Use at first sign of shortness of breath; may use from 1-4 times daily. If using 4 times daily, make appointment with doctor. benzonatate 200 mg capsule 200 mg PO BID-TID PRN (Reason: cough) Qty: 90 3RF tamsulosin 0.4 mg capsule 0.4 mg PO DAILY Qty: 90 3RF lisinopril 10 mg tablet 10 mg PO QDAY Qty: 90 3RF Patient Comments: took Thursday and only one dose taken and made patient feel like going to pass out. Discontinued prednisone 10 mg tablet PO Discharge Orders: Discharge Order (Routine); Ordered 04/13/24 Ordered By: Weston Irving Patient Education: Prednisone (By mouth), Azithromycin (By mouth), COPD (Chronic Obstructive Pulmonary Disease) (DC), How Your Lungs Work (DC), Chronic Lung Disease and Infection Prevention (DC), Pulmonary Rehabilitation (DC), Energy Conservation Techniques (DC) Additional Instructions: 1. Hospital follow-up appointment with your primary client care manager in 5-10 days, consider prednisone use and referral for outpatient pulmonary rehabilitation; 2. Keep f/u plans and appointments with your pulmonary physician. Activity Level: No Restrictions and Activity as Tolerated Discharge Diet: Regular Follow Up Appointments: Lianna Etienne MD [Staff Physician] - 04/20/24 8:30 am ([facility] for follow-up.) Ibrahima Etienne PA-C [Physician Label Machine Operator] - Lillie Farley MD [Primary Care Provider] - Elle Rocha DO [Referring] - Forms: [employer] Info Instructions
== END 2024-04-13 12:00 | disposition home or self-care (01) ==
LOC: ED 21:20 → MEDSURG 21:37
PROVIDERS: Admitting Provider Family Medicine; Emergency Provider Family Medicine; PCP Family Medicine; Visit Provider Family Medicine
DX: J96.91 Respiratory failure, unspecified with hypoxia (principal); J44.1 Chronic obstructive pulmonary disease with (acute) exacerbation; R05.9 Cough, unspecified; F10.90 Alcohol use, unspecified, uncomplicated; I10 Essential (primary) hypertension; K21.9 Gastro-esophageal reflux disease without esophagitis; Z87.891 Personal history of nicotine dependence; Z87.01 Personal history of pneumonia (recurrent); Z87.09 Personal history of other diseases of the respiratory system; Z83.6 Family history of other diseases of the respiratory system
CPT/HCPCS: 36415; 71046; 71275; 80053; 82803; 83605; 83880; 84484; 85025; 85027; 85379; 86140; 93005; 94640; 96365; 96375; 99284; 99285; G0378; A9270; J0696; J1650; J2919; J7512; Q9967

== ENCOUNTER 2024-06-24 17:28 | Emergency (ER) | payer OTHER, SELFPAY ==
[2024-06-24] VITALS (16 sets, daily range): BP systolic 118–152; BP diastolic 66–98; PULSE 77–94; RESP 24; TEMP 36.3; O2SAT 91–94; BMI 30.9
--- NOTE | 2024-06-24 18:03 | CRLHL7_ITS ---
For Patients: As a result of the Century Cures Act, medical imaging exams and procedure reports are released immediately into your electronic medical record. You may view this report before your referring provider. If you have questions, please contact your health care provider. INDICATION: Shortness of breath TECHNIQUE: Chest radiograph 2 views COMPARISON: CT 07/28/2023 FINDINGS: Mediastinum: The mediastinum is normal in appearance. The heart silhouette is normal in size and morphology. Lung: Linear scarring is seen in the left midlung zone. Ill-defined airspace opacities are present in the right midlung zone and may correspond to consolidation and scarring seen on prior CT. Moderate right apical pleural thickening is noted and due to a combination of pleural scarring and subpleural fat seen on prior CT. No pneumothorax is identified. Bone and Soft tissue: Unremarkable for age. IMPRESSION: 1. Ill-defined airspace opacities are present in the right midlung zone and may correspond to consolidation and scarring seen on prior CT. Dictated by Jorden Barrera MD @ 06/24/2024 7:57:06 PM Dictated by: Jorden Barrera MD @ 06/24/2024 19:57:12 (Electronically Signed)
--- OUTSIDE RECORDS SUMMARY | 2024-06-24 18:12 | XMS_ITS | Clinical Summary ---
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 Active albuterol HFA (Proair HFA, Ventolin HFA) 108 (90 Base) MCG/ACT inhalation aerosol Inhale 2 Puffs into the lungs four times a day as needed. Active budesonide-formoterol (Symbicort) 160-4.5 MCG/ACT aerosol inhaler 2 Puffs two times a day. 11/12/2021 Active montelukast (Singulair) 10 MG tablet Take 10 mg by mouth at bedtime. Active omeprazole (PriLOSEC) 20 MG delayed-release capsule Take 20 mg by mouth one time a day. Active tiotropium (Spiriva) 18 MCG inhalation capsule Inhale 18 mcg into the lungs one time a day. Active Active Problems Problem Noted Date Diagnosed Date COPD exacerbation 05/02/2024 Acute on chronic hypoxic respiratory failure 08/2024 Encounters Date Type Department Care Team Description 05/02/2024 6:21 AM CDT - 05/03/2024 11:54 AM CDT Emergency [facility] 15 [address] [place] [address] [id number] Carson Kelsey MD Aas, MD Lucille Lira, Brock Lara MD COPD with acute exacerbation (HCC) (Primary Dx) Discharge Disposition: Home and/or Self Care 05/02/2024 Travel from Last 3 Months Social History Tobacco Use Types Packs/Day Years Used Date Smoking Tobacco: Former Cigarettes Q uit: 2011 Tobacco Cessation:Counseling Given: Not Answered Alcohol Use Standard Drinks/Week Comments Defer 0 (1 standard drink = 0.6 oz pur e alcohol) [facility] Utilities Answer Date Recorded In the past 12 months has th e [employer], gas, oil, or water [employer] threatened to shut off services in your home? No 05/02/2024 Hunger Vital Sign Answer Date Recorded Within the past 12 months, y ou worried that your food would run out before you got the money to buy more. Never true 05/02/20 24 Within the past 12 months, t he food you bought just didn't last and you didn't have money to get more. Never true 05/02/2024 PRAPARE - Transportation Answer Date Re corded In the past 12 months, has l ack of transportation kept you from medical appointments or from getting medications? No 04/23 In the past 12 months, has l ack of transportation kept you from meetings, work, or from getting things needed for daily living? No 05/02/2024 Housing Stability Vital Sign Answer Fercho e Recorded In the last 12 months, was t here a time when you were not able to pay the mortgage or rent on time? No 05/02/2024 In the past 12 months, how m any times have you moved where you were living? 0 05/02/2024 At any time in the past 12 m [facility], were you homeless or living in a snf (including now)? No 05/02/2024 EH IP Custom IPV Answer Date Recorded Do you feel UNSAFE in any of your personal relationships with your family members or any other acquaintances? No 2023 Sex and Gender Information Value Date Recorded Sex Assigned at Not on file Gender Identity Not on file Sexual Orientation Not on file Job Start Date Occupation Industry Not on file Not on file Not on file Obstetrics History Last Filed Vital Signs Vital Sign Reading Time Taken Comments Blood Pressure 160/80 05/03/2024 7:51 AM CDT Pulse 74 05/03/2024 7:51 AM CDT Temperature 36.6 ??C (97.9 ??F) 05/03/2024 7:51 AM CD T Respiratory Rate 18 05/03/2024 7:51 AM CDT Oxygen Saturation 94% 05/03/2024 7:51 AM CDT Inhaled Oxygen Concentration - - Weight 91.2 kg (201 lb) 05/02/2024 1:58 PM CDT Height 172.7 cm (5' 8) 05/02/2024 1:58 PM CDT Body Mass Index 30.56 05/02/2024 1:58 PM CDT Plan of Treatment Health Maintenance Due Date Last Done Comments CT Colonography 1958 Cologuard 1958 Colonoscopy 1958 Colorectal Cancer Screening 1958 FIT/FOBT 1958 Sigmoidoscopy 1958 Pneumococcal Vaccine: 65+ yr s (Standing Order) (1 of 2 - PCV) 1964 PERTUSSIS (Standing Order) 1977 TETANUS (Standing Order) 1977 Shingrix (Zoster recombinant ) vaccine (Standing Order) (1 of 2) 2008 RSV Vaccination (60+ yrs) (Abrysvo/Arexvy) (1 - 1-dose 60+ series) 2018 Abdominal Aortic Aneurysm (A AA) Screening 2023 WELCOME TO MEDICARE 2023 Influenza Vaccine Seasonal (Standing Order) (#1) 2024 HPV Vaccine (Standing Order) Aged Out No longer eligible based on patient's age to complete this topic Hepatitis B Vaccine (Standin g Order) Aged Out No longer eligible b ased on patient's age to complete this topic Procedures Procedure Name Priority Date/Time Associated Diagnosis Comments CT CHEST W IV CONTRAST STAT 05/02/2024 10:18 AM CDT XR CHEST 1 VIEW STAT 05/02/2024 7:29 AM CDT PROCALCITONIN, BLOOD STAT 05/02/2024 7:21 AM CDT LACTIC ACID, VENOUS STAT 05/02/2024 7 :21 AM CDT HEMOGRAM/DIFF STAT 05/02/2024 7:21 AM CDT BASIC METABOLIC PANEL STAT 05/02/2024 7:21 AM CDT HOLD SERUM TUBE STAT 05/02/2024 7:21 AM CDT HOLD NA CITRATE STAT 05/02/2024 7:21 AM CDT HOLD EDTA STAT 05/02/2024 7:21 AM CDT HOLD LI HEPARIN STAT 05/02/2024 7:21 AM CDT from Last 3 Months Results * CT CHEST W IV CONTRAST (05/02/2024 10:18 AM CDT) Anatomical Region Laterality Modality Chest, Lung Computed Tomogra phy 05/02/2024 10:1 8 AM CDT Narrative 05/02/2024 10:39 AM CDT This document is currently in Final Status Exam CT CHEST W IV CONTRAST HISTORY: Dyspnea, chronic, unclear etiology; right sided consolidation vs mass; COMPARISON: 05/02/2024 FINDINGS: Right upper lobe base consolidation along the major fissure, this is primarily wedge-shaped with some irregular margin. Right upper lung consolidation with irregular margins. There is some associated scarring/atelectasis. There is some peripleural tree-in-bud opacities involving the bilateral lungs. Atelectasis/scarring throughout. Moderate centrilobular and mild paraseptal emphysema is present, particularly within the apices. No pleural effusion or pneumothorax. Lymphadenopathy within the right hilar, prevascular, paratracheal, and subcarinal locations. Normal cardiac size and position. No pericardial effusion. Densely calcified LAD. Moderate hiatal hernia. No acute osseous finding. No suspicious subdiaphragmatic finding. IMPRESSION: 1. Right upper lobe base consolidation along the major fissure, primarily concerning for pneumonia in the appropriate clinical setting. 2. There is a right upper lung consolidation with irregular margins on the background of emphysema. 3. Right hilar, mediastinal adenopathy. Given constellation of #1 and #2, if clinical history consistent with pneumonia consider treatment and reimaging in 6-8 weeks. If not consistent, consider pulmonology referral for recommendations regarding possible short-term follow-up CT/PET-CT/biopsy. 4. Moderate hiatal hernia. Scattered right predominant peripleural tree-in-bud opacities. This may be seen in atypical pneumonia and aspiration/chronic aspiration, but there is no significant fibrosis. 5. Given emphysema, consider eligibility for low dose lung CT screening program following acuity. Electronically Signed: Brock Capps 05/02/2024 10:39 AM Procedure Note Brock Capps MD - 05/02/2024 This document is currently in Final Status Exam CT CHEST W IV CONTRAST HISTORY: Dyspnea, chronic, unclear etiology; right sided consolidation vsmass; COMPARISON: 05/02/2024 FINDINGS: Right upper lobe base consolidation along the major fissure, this isprimarily wedge-shaped with some irregular margin. Right upper lung consolidation with irregular margins. There is someassociated scarring/atelectasis. There is some peripleural tree-in-bud opacities involving the bilaterallungs. Atelectasis/scarring throughout. Moderate centrilobular and mild paraseptal emphysema is present,particularly within the apices. No pleural effusion or pneumothorax. Lymphadenopathy within the right hilar, prevascular, paratracheal, andsubcarinal locations. Normal cardiac size and position. No pericardial effusion. Denselycalcified LAD. Moderate hiatal hernia. No acute osseous finding. No suspicioussubdiaphragmatic finding. IMPRESSION: 1. Right upper lobe base consolidation along the major fissure, primarilyconcerning for pneumonia in the appropriate clinical setting. 2. There is a right upper lung consolidation with irregular margins on thebackground of emphysema. 3. Right hilar, mediastinal adenopathy. Given constellation of #1 and #2,if clinical history consistent with pneumonia consider treatment andreimaging in 6-8 weeks. If not consistent, consider pulmonology referralfor recommendations regarding possible short-term follow-upCT/PET-CT/biopsy. 4. Moderate hiatal hernia. Scattered right predominant [id number] opacities. This may be seen in atypical pneumonia andaspiration/chronic aspiration, but there is no significant fibrosis. 5. Given emphysema, consider eligibility for low dose lung CT screeningprogram following acuity. Electronically Signed: Brock Capps 05/02/2024 10:39 AM Carson Kelsey MD EC CT ORDERABLES * XR CHEST 1 VIEW (05/02/2024 7:29 AM CDT) Anatomical Region Laterality Modality Chest Radiographic Adriana ging 05/02/2024 7:29 AM CDT Narrative 05/02/2024 7:42 AM CDT This document is currently in Final Status Exam XR CHEST 1 VIEW HISTORY: COPD, hypoxia; IMPRESSION: No available comparison. Right mid-upper lung suprahilar spiculated appearing consolidation. No priors available for comparison. Atelectasis of the right apex. Suggestion of volume loss. Pneumonia is a possibility in the appropriate clinical setting, however, constellation of findings is concerning for a mass. Hyperinflated lungs with flattened diaphragms, consistent with COPD/emphysema. This raises the suspicion for mass. Otherwise, following acute episode/treatment, consider LDCT lung screening program. Left midlung scar/linear atelectasis. Small right pleural effusion versus pleural thickening. No pneumothorax. Nonenlarged, nondisplaced cardiac size and position. Electronically Signed: Brock Capps 05/02/2024 7:42 AM Procedure Note Brock Capps MD - 05/02/2024 This document is currently in Final Status Exam XR CHEST 1 VIEW HISTORY: COPD, hypoxia; IMPRESSION: No available comparison. Right mid-upper lung suprahilar spiculated appearing consolidation. Nopriors available for comparison. Atelectasis of the right apex. Suggestionof volume loss. Pneumonia is a possibility in the appropriate clinicalsetting, however, constellation of findings is concerning for a mass. Hyperinflated lungs with flattened diaphragms, consistent withCOPD/emphysema. This raises the suspicion for mass. Otherwise, followingacute episode/treatment, consider LDCT lung screening program. Left midlung scar/linear atelectasis. Small right pleural effusion versuspleural thickening. No pneumothorax. Nonenlarged, nondisplaced cardiac size and position. Electronically Signed: Brock Capps 05/02/2024 7:42 AM Carson Kelsey MD EC DIAGNOSTIC IMAGIN G ORDERABLES * PROCALCITONIN, BLOOD (05/02/2024 7:21 AM CDT) Procalcitonin 0.25 <0.50 ng/mL 05/02/2024 8:43 AM CDT [facility] Blood BLOOD SPECIMEN / Unknown Venous Device, Nurse Blood Collect / Unknown 05/02/2024 7:21 AM CDT 05/02/2024 7:24 AM CDT Narrative [facility] - 05/02/2024 8:43 AM CDT Procalcitonin Interpretation Guidelines: Diagnosis of systemic bacterial infection/sepsis and/or septic shock: < 0.50 ng/mL ? Low risk for sepsis; localized bacterial infection possible 0.50 - 2.00 ng/mL ?Sepsis is possible; Interpret in context of specific clinical background and condition of ? the patient - recommend retesting Procalcitonin within 6 - 24 hours > 2.00 ng/mL ? High risk for sepsis and/or septic shock Diagnosis of lower respiratory tract infection: < 0.10 ng/mL ? Bacterial infection very unlikely 0.10 - 0.25 ng/mL ?Bacterial infection unlikely 0.26 - 0.50 ng/mL ?Bacterial infection likely > 0.50 ng/mL ? Bacterial infection very likely Procalcitonin levels must be interpreted in the context of all laboratory findings and the total clinical status of the patient. Carson Kelsey MD EC LAB SEND OUT TANIA MONTANEZ [facility] Organization Address City/State/ZIP Co de Phone Number [facility] [address] [place] [id number] * HOLD LI HEPARIN (05/02/2024 7:21 AM CDT) Blood BLOOD SPECIMEN / Unknown Venous Device, Nurse Blood Collect / Unknown 05/02/2024 7:21 AM CDT 05/02/2024 7:24 AM CDT Carson Kelsey MD EC CHEMISTRY ORDERAB LES Performing Organization Address [facility] de Phone Number [facility] [address] [place] [address] * HOLD NA CITRATE (05/02/2024 7:21 AM CDT) Blood BLOOD SPECIMEN / Unknown Venous Device, Nurse Blood Collect / Unknown 05/02/2024 7:21 AM CDT 05/02/2024 7:24 AM CDT Carson Kelsey MD EC HEMATOLOGY ORDERA BLES Performing Organization Address [facility] de Phone Number [facility] [address] [place] [address] * HOLD PURPLE TUBE (05/02/2024 7:21 AM CDT) Blood BLOOD SPECIMEN / Unknown Venous Device, Nurse Blood Collect / Unknown 05/02/2024 7:21 AM CDT 05/02/2024 7:24 AM CDT Carson Kelsey MD EC HEMATOLOGY ORDERA BLES Performing Organization Address [facility] de Phone Number [facility] [address] [place] [address] * HOLD SERUM TUBE (05/02/2024 7:21 AM CDT) Blood BLOOD SPECIMEN / Unknown Venous Device, Nurse Blood Collect / Unknown 05/02/2024 7:21 AM CDT 05/02/2024 7:24 AM CDT Carson Kelsey MD EC CHEMISTRY ORDERAB LES Performing Organization Address [facility] Co de Phone Number [facility] [address] [place] [address] * (ABNORMAL) BASIC METABOLIC PANEL (05/02/2024 7:21 AM CDT) Sodium 133(L) 134 - 143 mEq/L 05/02/2024 8:21 AM CDT [facility] Potassium 3.8 3.4 - 5.1 mEq/L 05/02/2024 8:21 AM CDT [facility] Chloride 100 99 - 110 mEq/L 05/02/2024 8:21 AM CDT [facility] Carbon Dioxide 23 19 - 29 mEq/L 05/02/2024 8:21 AM CDT [facility] Anion Gap 10.0 3.0 - 15.0 mEq/L 05/02/2024 8:21 AM CDT [facility] Blood Urea Nitrogen 18 5 - 24 mg/dL 05/02/2024 8:21 AM CDT [facility] Creatinine 0.91 0.70 - 1.20 mg/dL 05/02/2024 8:21 AM CDT [facility] Glomerular Filtration Rate 94 >60 mL/min/1. 73 m*2 05/02/2024 8:21 AM CDT [facility] Comment:Risk of cardiovascul ar disease increases when GFR is abnormal; persistently reduced GFR values are a specific indication of CKD. This calculation uses CKD- EPI 2020 equation without adjustment for race; it has not been validated in women. Calcium 9.2 8.4 - 10.5 mg/dL 05/02/2024 8:21 AM CDT [facility] Glucose 113(H) 70 - 99 mg/dL 05/02/2024 8:21 AM CDT [facility] Blood BLOOD SPECIMEN / Unknown Venous Device, Nurse Blood Collect / Unknown 05/02/2024 7:21 AM CDT 05/02/2024 7:24 AM CDT Narrative [facility] - 05/02/2024 8:21 AM CDT Current ADA criteria for Glucose: ?Normal: 70-99 mg/dL ?Impaired Fasting Glucose: 100-125 mg/dL ?Diabetes Mellitus: at or above 126 mg/dL The diagnosis of diabetes must be confirmed on a subsequent day by measuring Fasting Plasma Glucose, 2-hr PG or random plasma glucose (if symptoms are present). Carson Kelsey MD EC CHEMISTRY ORDERAB LES [facility] [address] [place] [id number], [facility] * (ABNORMAL) HEMOGRAM/DIFFERENTIAL (05/02/2024 7:21 AM CDT) [facility] WBC 13.5(H) 3.2 - 11.0 10*9/L 05/02/2024 7:30 AM [facility] RBC 4.39 4.14 - 5.76 10*12/L 05/02/2024 7:30 AM [facility] HGB 13.2 12.9 - 16.9 g/dL 05/02/2024 7:30 AM CDT [facility] HCT 41.2 38.4 - 49.7 % 05/02/2024 7:30 AM [facility] MCV 93.8 81.4 - 99.0 fL 05/02/2024 7:30 AM [facility] MCH 30.1 26.7 - 33.1 pg 05/02/2024 7:30 AM [facility] MCHC 32.0 31.6 - 35.5 g/dL 05/02/2024 7:30 AM [facility] RDW 13.9 11.3 - 14.6 % 05/02/2024 7:30 AM [facility] PLT 292 130 - 375 10*9/L 05/02/2024 7:30 AM [facility] Neutrophils % 87.9 % 05/02/2024 7:30 AM [facility] Lymphocytes % 2.2 % 05/02/2024 7:30 AM [facility] Monocytes % 7.3 % 05/02/2024 7:30 AM [facility] Eosinophils % 1.8 % 05/02/2024 7:30 AM [facility] Basophils % 0.1 % 05/02/2024 7:30 AM [facility] Immature Granulocytes % 0.7 % 05/02/2024 7:30 AM [facility] Neutrophils Absolute 11.9(H) 1.5 - 7.6 10*9/L 05/02/2024 7:30 AM [facility] Lymphocytes Absolute 0.3(L) 0.8 - 3.3 10*9/L 05/02/2024 7:30 AM [facility] Monocytes Absolute 1.0(H) 0.2 - 0.9 10*9/L 05/02/2024 7:30 AM CDT [facility] Eosinophils Absolute 0.2 0.0 - 0.4 10*9/L 05/02/2024 7:30 AM CDT [facility] Basophils Absolute 0.0 0.0 - 0.1 10*9/L 05/02/2024 7:30 AM CDT [facility] Immature Granulocytes Absolute 0.09(H) 0.00 - 0.06 10*9/L 05/02/2024 7:30 AM CDT [facility] Blood BLOOD SPECIMEN / Unknown Venous Device, Nurse Blood Collect / Unknown 05/02/2024 7:21 AM CDT 05/02/2024 7:24 AM CDT Carson Kelsey MD EC HEMATOLOGY ORDERA BLES Performing Organization Address [facility] Co de Phone Number [facility] [address] [place] [address] * LACTIC ACID, VENOUS (05/02/2024 7:21 AM CDT) [facility] Signature Lactic Acid, Venous 0.7 0.5 - 2.0 mmol/L 05/02/2024 7:41 AM CDT [facility] Blood BLOOD SPECIMEN / Unknown Venous Device, Nurse Blood Collect / Unknown 05/02/2024 7:21 AM CDT 05/02/2024 7:24 AM CDT Carson Kelsey MD EC CHEMISTRY ORDERAB LES Performing Organization Address [facility] Co de Phone Number [facility] [address] [place] [address] from Last 3 Months Advance Directives For more information, please contact: [phone] * DNAR/RAG INSPECTOR (Latest Code Status on File) Date Activated Date Inactivated Comments 05/02/2024 1:57 PM 05/03/2024 3:59 PM No CPR or sh ocks but ok with elective intubation Question Answer Comments See below for Life Sustainin g Treatment Orders IF pulse and breathing are present: See below Intubation for respiratory deterioration? Yes BiPAP for respiratory deterioration? Yes Vasopressors for hypotension? Yes Electrocardioversion for unstable rhythm? Yes Pharmacologic cardioversion for unstable rhythm? Yes
--- OUTSIDE RECORDS SUMMARY | 2024-06-24 18:13 | XMS_ITS | Continuity of Care Document ---
Author Organization [facility] Address [address] [address] [place] [address] Phone Care Team Providers Care Vehicle Check In Clerk Name Role Phone Gabriel RAMOS, Henry Unavailable Unavailable Advance Directives Directive Yes / No Effective Date File Name No Information Encounters Encounter Description Practice Location Reason(s) For Visit Diagnoses Date Provider Providers Copied on Encounter [facility], [address] [address], [place], [place], [id number], [place] tel:[phone] [facility] No Information 1 Gabriel Figueroa. [address] [facility], [facility] [address], [place], [place], [id number] , [place]. tel:[phone] Family History Family Member Type Diagnosis Age At Onset No Information Immunizations Vaccine Date Status Comments Afluria Qd administered Note: M II bi-directional interface ; Source: Other Registry Afluria Qd administered Note: M IIC bi-directional interface ; Source: Other Registry Payers Payer name Insurance type Covered constitution party ID Authoriza tion(s) No Information Social [...]
--- OUTSIDE RECORDS SUMMARY | 2024-06-24 18:13 | XMS_ITS | Encounter Summary ---
Author Organization [facility] Address [address] [place] [address] Phone Care Team Providers Care Supervisor [employer] Name Role Phone Unavailable Primary Care Provider Unavailabl e Encounter Details Date Type Department Care Team (Latest Contact Info) Description 05/02/2024 Travel Social History Tobacco Use Types Packs/Day Years Used Date Smoking Tobacco: Former Cigarettes Q uit: 2011 Alcohol Use Standard Drinks/Week Comments Defer 0 (1 standard drink = 0.6 oz pur e alcohol) [facility] Utilities Answer Date Recorded In the past 12 months has th e electric, gas, oil, or water company threatened to shut off services in your [...] any time in the past 12 m [facility], were you homeless or living in a fdc (including now)? No 05/02/2024 IP Custom IPV Answer Date Recorded Do you feel UNSAFE in any of your personal relationships with your family members or any other acquaintances? No 2023 Sex and Gender Information Value Date Recorded Sex Assigned at Not on file Gender Identity Not on file Sexual Orientation Not on file Job Start Date Occupation Industry Not on file Not on file Not on file documented as of this encounter Functional Status Functional Status Response Date of Assess ment Patient's Vision Adequate to Safely Complete Daily Activities Yes 05/02/2024 Patient's Memory Adequate to Safely Complete Daily Activities Yes 05/02/2024 Cognitive Status Response Date of Assessm ent Patient's Judgment Adequate to Safely Complete Daily Activities Yes 05/02/2024 documented as of this encounter Plan of Treatment Not on file documented as of this encounter Visit Diagnoses Not on filedocumented in this encounter
--- OUTSIDE RECORDS SUMMARY | 2024-06-24 18:13 | XMS_ITS | Encounter Summary ---
Author Organization [facility] and [facility] Address [address] [address] Phone Care Team Providers Care Animal Pathology Teacher Name Role Phone Unavailable Primary Care Provider Unavailabl e Reason for Referral * Medication Prior Authorization - Closed Specialty Diagnoses / Procedures Referred By Contac t Referred To Contact Diagnoses COPD with acute exacerbation (HCC) Brock Adkins MD [address] [place] [address] Referral ID Status Reason Start Date Expiration Date Visits Re quested Visits Authorized [id number] Closed 1 1 Reason for Visit * Reason Comments Shortness of Breath * Auth/Cert (Routine) Specialty Diagnoses / Procedures Referred By Contac t Referred To Contact Diagnoses COPD with acute exacerbation (HCC) Pankaj Arguelles MD [address] [place] [id number] Referral ID Status Reason Start Date Expiration Date Visits Re quested Visits Authorized [id number] 1 1 Encounter Details Date Type Department Care Team (Late st Contact Info) Description 05/02/2024 6:21 AM CDT - 05/03/2024 11:54 AM CDT Emergency [facility] 15 MED SURG [address] [place] [address] [id number] Carson Kelsey MD [address] [place] [id number] Pankaj Arguelles MD [address] [place] [address] Brock Adkins MD [address] [place] [address] COPD with acute exacerbation (HCC) (Primary Dx) Discharge Disposition: Home and/or Self Care Social History Tobacco Use Types Packs/Day Years Used Date Smoking Tobacco: Former Cigarettes Q uit: 2012 Tobacco Cessation:Counseling Given: Not Answered Alcohol Use Standard Drinks/Week Comments Defer 0 (1 standard drink = 0.6 oz pur e alcohol) [facility] Utilities Answer Date Recorded In the past 12 months has th e electric, gas, oil, or water slinkset threatened to shut off services in your [...] any time in the past 12 m [facility], were you homeless or living in a halfway (including now)? No 05/02/2024 IP Custom IPV [...] on file documented as of this encounter Last Filed Vital Signs Vital Sign Reading [...] Mass Index 30.56 05/02/2024 1:58 PM CDT documented in this encounter Functional Status Functional Status Response Date of Assess ment Patient's Vision Adequate to Safely Complete Daily Activities Yes 05/02/2024 Patient's Memory Adequate to Safely Complete Daily Activities Yes 05/02/2024 Cognitive Status Response Date of Assessm ent Patient's Judgment Adequate to Safely Complete Daily Activities Yes 05/02/2024 documented as of this encounter Discharge Summaries * Brock Adkins MD - 05/03/2024 9:30 AM CDT Images from the original note were not included. Discharge Summary Hospital Medicine Service Patient Name: Marco Cormier Date of : 1960 Age: [age] year old Primary Physician: No primary care provider on file. Phone: None Admitting Physician: Pankaj Arguelles MD Admission Date:05/02/2024 Discharging Physician: Brock Adkins MD Discharge Date: 05/03/24 Discharge Diagnoses Principal Problem: COPD exacerbation (HCC) Active Problems: Acute on chronic hypoxic respiratory failure (HCC) Resolved Problems: * No resolved hospital problems. * Follow-Up Recommendations for the Outpatient Clinician -Complete treatment for pneumonia with cefdinir and azithromycin -Complete 5 day course of steroids with prednisone for COPD exacerbation -Follow up with PCP as scheduled on 05/10/24 -Repeat CT chest in 8 weeks to follow up on right hilar mediastinal lymphadenopathy Hospital Course Marco is a 63 year old gentleman with history of COPD on home oxygen as needed, lung abscess, hiatal hernia, prior tobacco use disorder who presented with dyspnea on exertion without improvement after taking home inhalers. He was recently evaluated in [place], [place] ED for COPD exacerbation two weeks prior to admission. Per EMS, SpO2 80% on room air. SpO2 >90% on 2L in the ED. Workup was notable for leukocytosis to13.5K, procalcitonin 0.25, lactate 0.7. CT chest demonstrated RUL consolidation concerning for pneumonia, background emphysema, mediastinal lymphadenopathy. Admitted for COPD exacerbation. Treated with IV solumedrol, IV ceftriaxone, azithromycin, and duonebs. Symptomatically improved and stable on room air on 05/03/24. Mr. Cormier was aware of lymphadenopathy and has been following with his Regulatory Affairs Associate for these concerns. Disposition and Discharge Plan Medications: Current Discharge Medication List New Prescriptions Details azithromycin 500 MG tablet Commonly known as: Zithromax Dose: 500 mg Start taking on: May 04, 2024 500 mg, Oral, ONCE DAILY, Do not take simultaneously with aluminum- or magnesium-containing antacids. For: Infection cefdinir 300 MG capsule Commonly known as: Omnicef Dose: 300 mg 300 mg, Oral, 2 TIMES DAILY For: Infection predniSONE 20 MG tablet Commonly known as: Deltasone Dose: 40 mg Start taking on: May 04, 2024 40 mg, Oral, ONCE DAILY, Take with food. Continued Details * albuterol (2.5 MG/3ML) 0.083% nebulizer solution Commonly known as: Proventil, Ventolin Dose: 2.5 mg 2.5 mg, Inhalation, EVERY 4 HOURS NEEDED * albuterol HFA 108 (90 Base) MCG/ACT inhalation aerosol Commonly known as: Proair HFA, Ventolin HFA Dose: 2 Puff 2 Puffs, Inhalation, 4 TIMES DAILY NEEDED montelukast 10 MG tablet Commonly known as: Singulair Dose: 10 mg 10 mg, Oral, AT BEDTIME omeprazole 20 MG delayed-release capsule Commonly known as: PriLOSEC Dose: 20 mg 20 mg, Oral, ONCE DAILY Symbicort 160-4.5 MCG/ACT aerosol inhaler Generic drug: budesonide-formoterol Dose: 2 Puff 2 Puffs, 2 TIMES DAILY tiotropium 18 MCG inhalation capsule Commonly known as: Spiriva Dose: 18 mcg 18 mcg, Inhalation, ONCE DAILY * This list has 2 medication(s) that are the same as other medications prescribed for you. Read thedirections carefully, and ask your doctor or other care provider to review them with you. You might also be taking other medications not listed above. If you have questions about any of your other medications, talk to the person who prescribed them or your Primary Care Provider. Disposition: Marco was discharged from [facility] Nursing 15 Med Surg to home. aMrco was seen and examined on the date of discharge. Patient Instructions / Education: Please see After Visit Summary No future appointments. Referrals & Outpatient Orders: No discharge procedures on file. Condition on Discharge Vital Signs: Blood pressure (!) 160/80, pulse 74, temperature 36.6 ??C (97.9 ??F), temperature source Oral, resp. rate 18, height 1.727 m (5' 8), weight 91.2 kg (201 lb), SpO2 94%. Physical Exam General Appearance: Pleasant gentleman, lying in bed, appears comfortable CV: Regular rate, regular rhythm, no murmur Resp: Normal respiratory effort, lungs clear to auscultation bilaterally GI/ABD: Nontender, nondistended Skin: No rashes appreciated MSK: Moves all 4 extremities Neuro: Alert, answers all questions appropriately Psych: Normal mood and affect Code Status:DNAR/TOUR DRIVER Hospitalization Data and Events Recent Labs: In Process Labs (336h ago, onward) None No results found for this or any previous visit (from the past 24 hour(s)).No results found for: BC Consultants: IP CONSULT TO HOSPITALIST Procedures: None Imaging: Results for orders placed or performed during the hospital encounter of 05/02/24 1. XR CHEST 1 VIEW Narrative This document is currently in Final Status [...] Electronically Signed: Brock Capps 05/02/2024 7:[address] CHEST W IV CONTRAST Narrative This document is currently in Final Status [...] peripleural tree-in-bud opacities involving the bilateral lungs. Atelectasis/scarringthroughout. Moderate centrilobular and mild paraseptal emphysema is [...] Electronically Signed: Brock Capps 05/02/2024 10:39 AM Brock Adkins MD Total time spent for discharge on date of discharge: Greater than 30 minutes. documented in this encounter Discharge Instructions * Discharge Instructions* Carson Kelsey MD - 05/02/2024 11:14 AM CDT Take prednisone taper as previously recommended by your preanalytics team lead. Take the azithromycin prescribed today in addition to your Augmentin. Follow-up as planned with your preanalytics team lead and have the CT scan done as scheduled. documented in this encounter Medications at Time of Discharge Medication Sig Dispensed Refills Start Date End Date albuterol (Proventil, Ventolin) (2.5 MG/3ML) 0.083% nebulizer solution Inhale 2.5 mg into the lungs every four hours as needed. albuterol HFA (Proair HFA, Ventolin HFA) 108 (90 Base) MCG/ACT inhalation aerosol Inhale 2 Puffs into the lungs four times a day as needed. budesonide-formoterol (Symbicort) 160-4.5 MCG/ACT aerosol inhaler 2 Puffs two times a day. 11/12/2021 montelukast (Singulair) 10 MG tablet Take 10 mg by mouth at bedtime. omeprazole (PriLOSEC) 20 MG delayed-release capsule Take 20 mg by mouth one time a day. tiotropium (Spiriva) 18 MCG inhalation capsule Inhale 18 mcg into the lungs one time a day. predniSONE (Deltasone) 20 MG tabletIndications:PRINCIPAL CLOUD ARCHITECT D with acute exacerbation (HCC) Take 2 Tablets by mouth one time a day for 5 days. Take with food. 10 Tablet 05/04/2024 05/09/2024 cefdinir (Omnicef) 300 MG capsuleIndications:In fection Take 1 Capsule by mouth two times a day for 4 days. Indications: Infection 8 Capsule 05/03/2024 05/07/2024 azithromycin (Zithromax) 500 MG tabletIndications:Inf ection Take 1 Tablet by mouth one time a day for 3 days. Do not take simultaneously with aluminum- or magnesium-containing antacids. Indications: Infection 3 Tablet 05/04/2024 05/07/2024 documented as of this encounter Ordered Prescriptions Prescription Sig Dispensed Refills Start Date End Da te azithromycin (Zithromax) 500 MG tabletIndications:In fection Take 1 Tablet by mouth one time a day for 3 days. Do not take simultaneously with aluminum- or magnesium-containing antacids. Indications: Infection 3 Tablet 05/04/2024 05/07/2024 cefdinir (Omnicef) 300 MG capsuleIndications:I nfection Take 1 Capsule by mouth two times a day for 4 days. Indications: Infection 8 Capsule 05/03/2024 05/07/2024 predniSONE (Deltasone) 20 MG tabletIndications:CO PD with acute exacerbation (HCC) Take 2 Tablets by mouth one time a day for 5 days. Take with food. 10 Tablet 05/04/2024 05/09/2024 predniSONE (Deltasone) 10 MG tablet Take 1 Tablet by mouth one time a day. Take with food. 100 Tablet 05/02/2024 05/03/2024 azithromycin (Zithromax) 250 MG tabletIndications:In fection Take 2 tablets on an empty stomach the first day and one tablet each day of the next 4 days Indications: Infection 6 Tablet 05/02/2024 05/03/2024 documented in this encounter Discharge Disposition Disposition Code Departure Means Destination Comment s Home and/or Self Mcfp documented in this encounter Progress Notes * Krystyna Bailon RN - 05/03/2024 11:54 AM CDT Nurse Discharge Note Situation Marco will be discharged today. Background Marco is discharged from [address] [place] [address] at 1154 . Assessment Discharge instructions were reviewed with patient. Medication(s) reviewed with patient. Education on antibiotics and steroids provided. IV removed. Education regarding post discharge/follow up reviewed and patient verbalizes understanding of information. Patient stable at time of discharge. Recommendation Patient is discharged to home via personal vehicle with family. Krystyna Bailon RN 05/03/2024 1154 * Nereyda Higuera OTR - 05/03/2024 11:12 AM CDT Occupational Therapy Note 05/03/24 Orders for Occupational Therapy received and appreciated. Patient's chart reviewed, and evaluation plans discussed with Physical Therapy, nursing, and case management. Advised that patient is pendingdischarge to home and has declined additional needs/concerns at this time. Will discontinue order per patient's request. No acute Occupational Therapy needs identified. Thank you for including Occupational Therapy in the care of this patient. PALMA Whitney/Freddie Courtesy Visit * Henry Husain, Rosalinda - 05/03/2024 10:59 AM CDT Images from the original note were not included. 05/03/24 PHARMACY Henry Husain PharmD Meds to Beds Discharge Note Discharge counseling was provided virtually to the patient. Counseled on the following for all new,changed, or stopped medications: therapeutic rationale, doses and administration, duration of therapy, possible adverse effects and management, pharmacy contact information, safety precautions, and adherence and missed doses. Were potential concerns identified with the patient's ability to administer the drug(s) appropriately? No; Medication instructions were understood. The remainder of patient's prior to admission medications were not reviewed for accuracy in this consult. Updates made to home medication list: None. Current Discharge Medication List New Prescriptions Details azithromycin 500 MG tablet Commonly known as: Zithromax Dose: 500 mg Start taking on: May 04, 2024 500 mg, Oral, ONCE DAILY, Do not take simultaneously with aluminum- or magnesium-containing antacids. For: Infection cefdinir 300 MG capsule Commonly known as: Omnicef Dose: 300 mg 300 mg, Oral, 2 TIMES DAILY For: Infection predniSONE 20 MG tablet Commonly known as: Deltasone Dose: 40 mg Start taking on: May 04, 2024 40 mg, Oral, ONCE DAILY, Take with food. Continued Details * albuterol (2.5 MG/3ML) 0.083% nebulizer solution Commonly known as: Proventil, Ventolin Dose: 2.5 mg 2.5 mg, Inhalation, EVERY 4 HOURS NEEDED * albuterol HFA 108 (90 Base) MCG/ACT inhalation aerosol Commonly known as: Proair HFA, Ventolin HFA Dose: 2 Puff 2 Puffs, Inhalation, 4 TIMES DAILY NEEDED montelukast 10 MG tablet Commonly known as: Singulair Dose: 10 mg 10 mg, Oral, AT BEDTIME omeprazole 20 MG delayed-release capsule Commonly known as: PriLOSEC Dose: 20 mg 20 mg, Oral, ONCE DAILY Symbicort 160-4.5 MCG/ACT aerosol inhaler Generic drug: budesonide-formoterol Dose: 2 Puff 2 Puffs, 2 TIMES DAILY tiotropium 18 MCG inhalation capsule Commonly known as: Spiriva Dose: 18 mcg 18 mcg, Inhalation, ONCE DAILY * This list has 2 medication(s) that are the same as other medications prescribed for you. Read thedirections carefully, and ask your doctor or other care provider to review them with you. You might also be taking other medications not listed above. If you have questions about any of your other medications, talk to the person who prescribed them or your Primary Care Provider. Henry Husain, Rosalinda Ambulatory Pharmacy Services * Inocente Cifuentes DPT - 05/03/2024 10:22 AM CDT Physical Therapy Note 05/03/2024 Orders received, chart reviewed. At time of chart review, discharge orders have been signed. Per chart, patient is ambulating independently in the halls. Reached out to RN and CM, who communicated there are no DME needs for discharge and confirmed patient's current documented mobility level. No acute therapy needs identified. PT will sign off at this time; will re-assess as appropriate. Inocente Cifuentes DPT * Arabella Rooney LSW - 05/03/2024 10:22 AM CDT Discharge Disposition Note Marco Cormier is a 63 year old male admitted on 05/02/2024 with a diagnosis of COPD with acute exacerbation (HCC) [J44.1] Discharge Disposition: Patient will be discharging to Home Discharge Date 05/03/2024 Discharge Time will call for a ride - they are 30 minutes away Support System/Help at home includes family Equipment needs include na Is 02 tank needed for transport? No - reports he doesn't use oxygen regularly Discussed Discharge Plans with (Patient/Family/Guardian): Patient Transportation: Transportation will be provided by Marco has arranged his own ride - family will pick him up, they are 30 minutes outside of [place] Comments: Marco will discharge home today. He will call his family to pick him up. He has oxygen at home supplied by [facility]; however, he rarely uses it. MARIAN offered to call [facility] to deliver a portable oxygen tank prior to discharge to have on hand in case he needs it; Marco declined. He shares if he has similar episode, he will go to the hospital sooner rather than later. Marco will discharge to [facility] and from there will return to his home in [place]. Marco provided SW with his insurance cards; copies made. Insurance verified with patient. No discharge needs identified. * Katelynn Delacruz RN - 05/02/2024 6:07 PM CDT Assumed Care: [id number] A&O. Denies pain besides burning to his eyes, reports is better after flushed with saline. BSactive, passing gas. Reports BM x1. BRV. On RA, satting above 90%. Declines SOB. Tolerating diet, ate 100% of dinner. PIV SL. IND. BP: (!) 144/72, Temp: 36.8 ??C (98.3 ??F) Oral, Pulse: 94, Resp: 20,SpO2: 92 % * Cindy Pineda RN - 05/02/2024 3:36 PM CDT Pt A&Ox4, c/o SOB, on 2 L O2 via NC, denies pain. BP: (!) 171/78, Temp: 36.8 ??C (98.2 ??F) Oral, Pulse: 95, Resp: 20, SpO2: 95 % Oriented to Room, up independent in room, BRV. Cindy Pineda RN documented in this encounter H&P Notes * Pankaj Arguelles MD - 05/02/2024 1:04 PM CDT ADMISSION HISTORY AND PHYSICAL [facility] Hospitalist Department Marco Cormier [address] [facility] [id number] 63 year old male 05/02/2024 6:21 AM Code Status: No Order Primary Care Provider No primary care provider on file. Chief Complaint: shortness of breath HPI: Marco Cormier is a 63 year old male with COPD, has oxygen prescribed but does not use it much, prior lung abscess 2021, hiatal hernia, former smoker, quit in 2014. [facility] [place] [facility]. He reports he was admitted at his local hospital 2 weeks ago for a COPD exacerbation, was hospitalized for 2 nights. Yesterday he was really short of breath with any activity, used at least 5 neb treatments. Today nobetter so called ambulance. Sats reported to be 80% in the field. Got steroids, nebs in ED but not feeling well enough to go, gets very short of breath with minimal activity. Of note CT did not show PE or infiltrates. Does comment on some upper lobe scarring and adenopathy which appears to have been present in 2021 at [facility] (unable to see scan but by report looks similar) Review of Systems General: No recent weight loss or weight gain. Denies weakness. EENT: Denies problems. No sore throat. No hearing problems. Denies vision problems. Respiratory: see HPI Cardiac: Denies chest pain, palpitations, GI: occasional feels like food is getting stuck : Denies kidney problems, dysuria, urgency, frequency, or hematuria. No history of kidney stones. MS: Denies muscle/bone/joint aches or pains. Neurology: Denies headache, seizure, strokes. No focal weakness or incoordination Psychiatry: Denies depression or anxiety. Endo: Denies diabetes, thyroid disease. Dermatology: No rashes. Hematology/Onc: Denies history of anemia or cancer. PMH- COPD, hiatal hernia, history of lung abscess SHx- non contributory FHx- his mother is still alive Social History Socioeconomic History Marital status: Single Social Determinants of Health Received from [employer] Strain Received from [employer] Intimate Partner Violence: Not At Risk (05/02/2024) EH IP Custom IPV Intimate Partner Violence: No (Not in a hospital admission) No current facility-administered medications for this encounter. Current Outpatient Medications Medication Sig Dispense Refill azithromycin (Zithromax) 250 MG tablet Take 2 tablets on an empty stomach the first day and one tablet each day of the next 4 days Indications: Infection 6 Tablet 0 predniSONE (Deltasone) 10 MG tablet Take 1 Tablet by mouth one time a day. Take with food. 100 Tablet 0 Allergies/Sensitivities: Allergies Allergen Reactions Shellfish-Derived Products Anaphylaxis Vital Signs: Vitals: 05/02/24 1200 BP: Pulse: 96 Temp: TempSrc: Resp: Weight: SpO2: 95% There is no height or weight on file to calculate BMI. Physical Exam General Appearance: alert, speaking without obvious difficulty EYES: Pupils equal, round. Reactive to light. EOMI HEAD: Normocephalic, atraumatic NOSE: Patent without discharge. MOUTH, AND THROAT: Pharynx clear without erythema or exudate. NECK: Soft and supple without lymphadenopathy or thyromegaly CHEST: Non-tender to palpation LUNGS: no wheezes, but not really moving much air at all CARDIOVASCULAR: Normal S1 S2, no murmurs, clicks, or gallops. Pulses symmetric. No JVD noted. ABDOMEN: Soft, non-tender, non-distended, no palpable hepatosplenomegaly or masses, bowel sounds present. MUSCULOSKELETAL: Appears to have normal range of motion x 4 extremities, no observable joint swelling. No pedal edema. LYMPHATIC: No lymphadenopathy NEURO: Alert, orientedx3. Cranial nerves 2-12 intact. Upper and lower extremity strength and sensation within normal limits. DERM: No rashes, sacrum/buttocks/heels are free of redness, tenderness and skin breakdown. Diagnostics: Recent Results (from the past 12 hour(s)) BASIC METABOLIC PANEL Result Value Ref Range Sodium 133 (L) 134 - 143 mEq/L Potassium 3.8 3.4 - 5.1 mEq/L Chloride 100 99 - 110 mEq/L Carbon Dioxide 23 19 - 29 mEq/L Anion Gap 10.0 3.0 - 15.0 mEq/L Blood Urea Nitrogen 18 5 - 24 mg/dL Creatinine 0.91 0.70 - 1.20 mg/dL Glomerular Filtration Rate 94 >60 mL/min/1.73 m*2 Calcium 9.2 8.4 - 10.5 mg/dL Glucose 113 (H) 70 - 99 mg/dL Narrative Current ADA criteria for Glucose: Normal: 70-99 mg/dL Impaired Fasting Glucose: 100-125 mg/dL Diabetes Mellitus: at or above 126 mg/dL The diagnosis of diabetes must be confirmed on a subsequent day by measuring Fasting Plasma Glucose, 2-hr PG or random plasma glucose (if symptoms are present). HEMOGRAM/DIFFERENTIAL Result Value Ref Range WBC 13.5 (H) 3.2 - 11.0 10*9/L RBC 4.39 4.14 - 5.76 10*12/L HGB 13.2 12.9 - 16.9 g/dL HCT 41.2 38.4 - 49.7 % MCV 93.8 81.4 - 99.0 fL MCH 30.1 26.7 - 33.1 pg MCHC 32.0 31.6 - 35.5 g/dL RDW 13.9 11.3 - 14.6 % PLT 292 130 - 375 10*9/L Neutrophils % 87.9 % Lymphocytes % 2.2 % Monocytes % 7.3 % Eosinophils % 1.8 % Basophils % 0.1 % Immature Granulocytes % 0.7 % Neutrophils Absolute 11.9 (H) 1.5 - 7.6 10*9/L Lymphocytes Absolute 0.3 (L) 0.8 - 3.3 10*9/L Monocytes Absolute 1.0 (H) 0.2 - 0.9 10*9/L Eosinophils Absolute 0.2 0.0 - 0.4 10*9/L Basophils Absolute 0.0 0.0 - 0.1 10*9/L Immature Granulocytes Absolute 0.09 (H) 0.00 - 0.06 10*9/L LACTIC ACID, VENOUS Result Value Ref Range Lactic Acid, Venous 0.7 0.5 - 2.0 mmol/L PROCALCITONIN, BLOOD Result Value Ref Range Procalcitonin 0.25 <0.50 ng/mL Narrative Procalcitonin Interpretation Guidelines: Diagnosis of systemic bacterial infection/sepsis and/or septic shock: < 0.50 ng/mL Low risk for sepsis; localized bacterial infection possible 0.50 - 2.00 ng/mL Sepsis is possible; Interpret in context of specific clinical background and condition of the patient - recommend retesting Procalcitonin within 6 - 24 hours > 2.00 ng/mL High risk for sepsis and/or septic shock Diagnosis of lower respiratory tract infection: < 0.10 ng/mL Bacterial infection very unlikely 0.10 - 0.25 ng/mL Bacterial infection unlikely 0.26 - 0.50 ng/mL Bacterial infection likely > 0.50 ng/mL Bacterial infection very likely Procalcitonin levels must be interpreted in the context of all laboratory findings and the total clinical status of the patient. Imaging: (personally reviewed) Recent Results (from the past 24 hour(s)) XR CHEST 1 VIEW Narrative This document is currently in Final Status [...] Electronically Signed: Brock Capps 05/02/2024 7:[address] CHEST W IV CONTRAST Narrative This document is currently in Final Status [...] peripleural tree-in-bud opacities involving the bilateral lungs. Atelectasis/scarringthroughout. Moderate centrilobular and mild paraseptal emphysema is [...] Electronically Signed: Brock Capps 05/02/2024 10:39 AM Assessment & Plan: Principal Problem: COPD exacerbation (HCC) Possible RUL pneumonia Acute on chronic hypoxic respiratory failure (HCC) -start on ceftriaxone and azithromycin -solumedrol Q8 hours -continue nebs, spiriva, montelukast, Symbicort -flutter valve Code: DNR (no shocks or compressions) but would be open to discussion about elective intubation if indicated. DVT Prophylaxis: score less than 4 Inpatient status Pankaj Arguelles MD documented in this encounter ED Notes * Keisha Castillo RN - 05/02/2024 12:48 PM CDT Pt report called to cindy chakraborty to floor on stretcher with transport * Keisha Castillo RN - 05/02/2024 11:54 AM CDT Ambulated pt in [place]owler 25 ft on 2l nc pt had to stop and rest x 2 sats 93-97 % on 2l nc , pt staes very sob with ambulation pt grunting * Keisha Castillo RN - 05/02/2024 11:49 AM CDT Pt states he is on 2l nc prn at home pt ra sat 90-92% on 2 last 95-96 % * Carson Kelsey MD - 05/02/2024 7:06 AM CDT Patient: Marco Cormier Means of Arrival: Ambulance Chief Complaint: Shortness of Breath History of Present Illness: Patient is a 63-year-old male with history of COPD presenting to the emergency department via ambulance with shortness of breath. He completed a prednisone taper and took 10 mg of prednisone last evening. He states that he was wheezing quite a bit overnight once again and ended up taking 40 mg of prednisone and a dose of Augmentin as recommended by his preanalytics team lead. Visiting he denies any history of significant heart disease noting that he had a Cardiolite stress test recently. Allergies Allergen Reactions Shellfish-Derived Products Anaphylaxis Prior to Admission Medication List Med List Status: Update Pending Set By: Mary Keen RN at 05/02/2024 6:31 AM No Medications Reported Past Medical History: COPD Social History: Non-smoker, from [facility]. Exam: Initial Vitals Most Recent Vitals Temp: 36.7 ??C (98.1 ??F) (05/02/24626) Temp: 36.7 ??C (98.1 ??F) (05/02/24626) Pulse: 110 (05/02/24626) Pulse: 96 (05/02/24 1200) Resp: 24 (05/02/24626) Resp: 23 (05/02/241099) BP: (!) 177/82 (05/02/24626) BP: (!) 148/91 (05/02/24 1100) SpO2: 92 % (05/02/24626) SpO2: 95 % (05/02/24 1200) Weight: 91.4 kg (201 lb 8 oz) (05/02/24626) O2 Flow Rate (L/min): 2 L/min (05/02/24626) O2 Flow Rate (L/min): 2 L/min (06/10/24 0627) Physical Exam Vitals reviewed. HENT: Mouth/Throat: Pharynx: Oropharynx is clear. Eyes: Pupils: Pupils are equal, round, and reactive to light. Cardiovascular: Rate and Rhythm: Tachycardia present. Pulmonary: Effort: Tachypnea present. Breath sounds: Wheezing present. Chest: Chest wall: No tenderness. Abdominal: Palpations: Abdomen is soft. Musculoskeletal: Cervical back: Normal range of motion. Right lower leg: No edema. Left lower leg: No edema. Skin: General: Skin is warm. Neurological: General: No focal deficit present. Mental Status: He is alert. Psychiatric: Mood and Affect: Mood normal. Lab Results: Results for orders placed or performed during the hospital encounter of 05/02/24 PROCALCITONIN, BLOOD Collection Time: 05/02/24 7:21 AM Result Value Ref Range Procalcitonin 0.25 <0.50 ng/mL BASIC METABOLIC PANEL Collection Time: 05/02/24 7:21 AM Result Value Ref Range Sodium 133 (L) 134 - 143 mEq/L Potassium 3.8 3.4 - 5.1 mEq/L Chloride 100 99 - 110 mEq/L Carbon Dioxide 23 19 - 29 mEq/L Anion Gap 10.0 3.0 - 15.0 mEq/L Blood Urea Nitrogen 18 5 - 24 mg/dL Creatinine 0.91 0.70 - 1.20 mg/dL Glomerular Filtration Rate 94 >60 mL/min/1.73 m*2 Calcium 9.2 8.4 - 10.5 mg/dL Glucose 113 (H) 70 - 99 mg/dL HEMOGRAM/DIFFERENTIAL Collection Time: 05/02/24 7:21 AM Result Value Ref Range WBC 13.5 (H) 3.2 - 11.0 10*9/L RBC 4.39 4.14 - 5.76 10*12/L HGB 13.2 12.9 - 16.9 g/dL HCT 41.2 38.4 - 49.7 % MCV 93.8 81.4 - 99.0 fL MCH 30.1 26.7 - 33.1 pg MCHC 32.0 31.6 - 35.5 g/dL RDW 13.9 11.3 - 14.6 % PLT 292 130 - 375 10*9/L Neutrophils % 87.9 % Lymphocytes % 2.2 % Monocytes % 7.3 % Eosinophils % 1.8 % Basophils % 0.1 % Immature Granulocytes % 0.7 % Neutrophils Absolute 11.9 (H) 1.5 - 7.6 10*9/L Lymphocytes Absolute 0.3 (L) 0.8 - 3.3 10*9/L Monocytes Absolute 1.0 (H) 0.2 - 0.9 10*9/L Eosinophils Absolute 0.2 0.0 - 0.4 10*9/L Basophils Absolute 0.0 0.0 - 0.1 10*9/L Immature Granulocytes Absolute 0.09 (H) 0.00 - 0.06 10*9/L LACTIC ACID, VENOUS Collection Time: 05/02/24 7:21 AM Result Value Ref Range Lactic Acid, Venous 0.7 0.5 - 2.0 mmol/L Imaging Results: Imaging Results CT CHEST W IV CONTRAST (Final result) Result time 05/02/24 10:39:44 Final result by Brock Capps MD (05/02/24 10:39:44) Narrative: This document is currently in Final Status [...] peripleural tree-in-bud opacities involving the bilateral lungs. Atelectasis/scarringthroughout. Moderate centrilobular and mild paraseptal emphysema is [...] Electronically Signed: Brock Capps 05/02/2024 10:39 AM XR CHEST 1 VIEW (Final result) Result time 05/02/24 07:42:32 Final result by Brock Capps MD (05/02/24 07:42:32) Narrative: This document is currently in Final Status [...] Electronically Signed: Brock Capps 05/02/2024 7:42 AM Emergency Department Course: Patient seen and assessed. Were able to titrate him back to 2 L of oxygen which is a normal amount having received an additional nebulizer treatment IV steroids and magnesium in the emergency department. Patient does not have a elevated procalcitonin. Mildly elevated white count in the setting of his recent steroid use not clearly infectious. Chest x-ray has a right-sided area of consolidation that is concerning therefore we discussed additionally obtaining a CT scan here today for further delineation given his recent respiratory issues. Kidney function adequate for CT scan with IV contrast. CT shows some areas of concern as noted above on report. I discussed these with the patient. He states that he does have a CT scan scheduled in early June. I did try to discharge patient however he did poorly with ambulation and became very dyspneic and felt very unsafe and unsteady. Thus at this point we will plan to admit for further treatment given that he did present with hypoxia from baseline. Patient happy with this plan. Assessment: COPD with acute exacerbation (HCC) (Primary) Plan: Admission for further management of COPD exacerbation on hospital service. Dr. Arguelles accepting. Disposition: ED Disposition ED Disposition Admit Condition -- Comment Is this patient a candidate for the observation unit?: No - Not a Candidate for Observation Unit Bed Placement Comment: COPD Exacerbation Carson Kelsey MD 05/02/24 1236 * Mary Keen RN - 05/02/2024 6:22 AM CDT Presents with [facility] for shortness of breath. Pt here visiting from [place], [place]. Was recently hospitalized for COPD exacerbation. Has been using albuterol and duo-nebs without improvement. Finished steroids yesterday. Has standing orders from his preanalytics team lead for prednisone and augmentin if symptoms worsen. Took 40mg of prednisone and Augmentin 875 this AM. Upon EMS arrival pt's O2 sats 80's, after albuterol nebulizer en route O2 sats 97% on 4lpm. Pt uses 2lpm at baseline. * Naomie Escobedo RN - 05/02/2024 6:21 AM CDT Bed: 308 Expected date: Expected time: Means of arrival: Comments: [facility] documented in this encounter Miscellaneous Notes * Care Plan - Krystyna Bailon RN - 05/03/2024 11:54 AM CDT A&OX4. Up ad tamara. VSS RA. Dyspnea with activity, improved since yesterday. Denies pain. Makes needs known. Hopeful to discharge today. Any goals not addressed individually are progressing as expected without changes in interventions. BP: (!) 160/80, Temp: 36.6 ??C (97.9 ??F) Oral, Pulse: 74, Resp: 18, SpO2: 94 % Patient Goals: The patient centered goal for this shift:: see , go home (05/03/24 0800). Evaluation of patient goal progress met . * Care Plan - Margot Benton RN - 05/03/2024 12:01 AM CDT Patient Goals: The patient centered goal for this shift:: sleep (05/02/24 2306). BP: (!) 166/74, Temp: 36.5 ??C (97.7 ??F) Oral, Pulse: 91, Resp: 18, SpO2: 94 % Pt is A&Ox4, able to make needs known. VSS on RA. Up ad tamara. 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 Labored breathing, dyspnea at rest & with exertion. PRN albuterol given for shortness of breath. Denies any pain. BRvoids. New PIV placed, saline locked. General diet. Call light within reach, hourly rounding in place. Any goals not addressed individually are progressing as expected without changes in interventions. documented in this encounter Plan of Treatment Not on file documented as of this encounter Procedures Procedure Name Priority Date/Time Associated Diagnosis Comments CT CHEST W IV CONTRAST STAT 05/02/2024 10:18 AM CDT XR CHEST 1 VIEW STAT 05/02/2024 7:29 AM CDT PROCALCITONIN, BLOOD STAT 05/02/2024 7:21 AM CDT HOLD LI HEPARIN STAT 05/02/2024 7:21 AM CDT HOLD NA CITRATE STAT 05/02/2024 7:21 AM CDT HOLD EDTA STAT 05/02/2024 7:21 AM CDT HOLD SERUM TUBE STAT 05/02/2024 7:21 AM CDT BASIC METABOLIC PANEL STAT 05/02/2024 7:21 AM CDT HEMOGRAM/DIFF STAT 05/02/2024 7:21 AM CDT LACTIC ACID, VENOUS STAT 05/02/2024 7 :21 AM CDT documented in this encounter Results * CT CHEST W IV CONTRAST [...] 4. Moderate hiatal hernia. Scattered right predominant [id number] opacities. This may be seen in atypical [...] Capps 05/02/2024 7:42 AM Carson Kelsey MD DIAGNOSTIC IMAGIN G ORDERABLES * PROCALCITONIN, BLOOD (05/02/2024 7:21 AM CDT) Procalcitonin 0.25 <0.50 ng/mL 05/02/2024 8:43 AM CDT [facility] Blood BLOOD SPECIMEN / Unknown Venous Device, Nurse Blood Collect / Unknown 05/02/2024 7:21 AM CDT 05/02/2024 7:24 AM CDT Narrative [facility] - 05/02/2024 8:43 AM [...] total clinical status of the patient. Carson MORENO LAB SEND OUT ORDE TARIK Performing Organization Address [facility] de Phone Number [facility] [address] * LACTIC ACID, VENOUS (05/02/2024 7:21 AM CDT) Lactic Acid, Venous 0.7 0.5 - 2.0 mmol/L 05/02/2024 7:41 AM CDT [facility] Blood BLOOD SPECIMEN / Unknown Venous Device, Nurse Blood Collect / Unknown 05/02/2024 7:21 AM CDT 05/02/2024 7:24 AM CDT Carson Kelsey MD EC CHEMISTRY ORDERAB LES Performing Organization Address [facility] Co de Phone Number [facility] [address] [place], [place] [address] * (ABNORMAL) HEMOGRAM/DIFFERENTIAL (05/02/2024 7:21 AM CDT) WBC 13.5(H) 3.2 - 11.0 10*9/L 05/02/2024 7:30 AM CDT [facility] RBC 4.39 4.14 - 5.76 10*12/L 05/02/2024 7:30 AM CDT [facility] HGB 13.2 12.9 - 16.9 g/dL 05/02/2024 7:30 AM CDT [facility] HCT 41.2 38.4 - 49.7 % 05/02/2024 7:30 AM CDT [facility] MCV 93.8 81.4 - 99.0 fL 05/02/2024 7:30 AM CDT [facility] MCH 30.1 26.7 - 33.1 pg 05/02/2024 7:30 AM CDT [facility] MCHC 32.0 31.6 - 35.5 g/dL 05/02/2024 7:30 AM CDT [facility] RDW 13.9 11.3 - 14.6 % 05/02/2024 7:30 AM CDT [facility] PLT 292 130 - 375 10*9/L 05/02/2024 7:30 AM CDT [facility] Neutrophils % 87.9 % 05/02/2024 7:30 AM CDT [facility] Lymphocytes % 2.2 % 05/02/2024 7:30 AM CDT [facility] Monocytes % 7.3 % 05/02/2024 7:30 AM CDT [facility] Eosinophils % 1.8 % 05/02/2024 7:30 AM CDT [facility] Basophils % 0.1 % 05/02/2024 7:30 AM CDT [facility] Immature Granulocytes % 0.7 % 05/02/2024 7:30 AM CDT [facility] Neutrophils Absolute 11.9(H) 1.5 - 7.6 10*9/L 05/02/2024 7:30 AM CDT [facility] Lymphocytes Absolute 0.3(L) 0.8 - 3.3 10*9/L 05/02/2024 7:30 AM CDT [facility] Monocytes Absolute 1.0(H) 0.2 - 0.9 10*9/L 05/02/2024 7:30 AM CDT [facility] Eosinophils Absolute 0.2 0.0 - 0.4 10*9/L 05/02/2024 7:30 AM CDT [facility] Basophils Absolute 0.0 0.0 - 0.1 10*9/L 05/02/2024 7:30 AM CDT [facility] Immature Granulocytes Absolute 0.09(H) 0.00 - 0.06 10*9/L 05/02/2024 7:30 AM CDT [facility] Blood BLOOD SPECIMEN / Unknown Venous Device, Nurse Blood Collect / Unknown 05/02/2024 7:21 AM CDT 05/02/2024 7:24 AM CDT Carson Klesey MD EC HEMATOLOGY ORDERA BLES [facility] [address] [place] [address] * (ABNORMAL) BASIC METABOLIC PANEL (05/02/2024 7:21 AM CDT) Sodium 133(L) 134 - 143 mEq/L 05/02/2024 8:21 AM CDT [facility] Potassium 3.8 3.4 - 5.1 mEq/L 05/02/2024 8:21 AM CDT [facility] Chloride 100 99 - 110 mEq/L 05/02/2024 8:21 AM CDT [facility] Carbon Dioxide 23 19 - 29 mEq/L 05/02/2024 8:21 AM CDT [facility] Anion Gap 10.0 3.0 - 15.0 mEq/L 05/02/2024 8:21 AM CDT [facility] Blood Urea Nitrogen 18 5 - 24 mg/dL 05/02/2024 8:21 AM CDT [facility] Creatinine 0.91 0.70 - 1.20 mg/dL 05/02/2024 8:21 AM CDT [facility] Glomerular Filtration Rate 94 >60 mL/min/1. 73 m*2 05/02/2024 8:21 AM CDT [facility] Comment:Risk of cardiovascul ar disease increases when GFR is abnormal; persistently reduced GFR values are a specific indication of CKD. This calculation uses CKD- EPI 2020 equation without adjustment for race; it has not been validated in women. Calcium 9.2 8.4 - 10.5 mg/dL 05/02/2024 8:21 AM CDT [facility] Glucose 113(H) 70 - 99 mg/dL 05/02/2024 8:21 AM CDT [facility] Blood BLOOD SPECIMEN / Unknown Venous Device, Nurse Blood Collect / Unknown 05/02/2024 7:21 AM CDT 05/02/2024 7:24 AM CDT Narrative [facility] - 05/02/2024 8:21 AM [...] EC CHEMISTRY ORDERAB LES Performing Organization Address [facility] Co de Phone Number [facility] [address] [place] [address] * HOLD SERUM TUBE (05/02/2024 7:21 AM CDT) Blood BLOOD SPECIMEN / Unknown Venous Device, Nurse Blood Collect / Unknown 05/02/2024 7:21 AM CDT 05/02/2024 7:24 AM CDT Carson Kelsey MD EC CHEMISTRY ORDERAB LES Performing Organization Address City/[facility] Co de Phone Number [facility] [address] [place], [place] [address] * HOLD NA CITRATE (05/02/2024 7:21 AM CDT) Blood BLOOD SPECIMEN / Unknown Venous Device, Nurse Blood Collect / Unknown 05/02/2024 7:21 AM CDT 05/02/2024 7:24 AM CDT Carson MORENO HEMATOLOGY ORDERA BLES Performing Organization Address [facility] de Phone Number [facility] [address] [place] [address] * HOLD PURPLE TUBE (05/02/2024 7:21 AM CDT) Blood BLOOD SPECIMEN / Unknown Venous Device, Nurse Blood Collect / Unknown 05/02/2024 7:21 AM CDT 05/02/2024 7:24 AM CDT Carson MORENO HEMATOLOGY ORDERA BLES Performing Organization Address [facility] de Phone Number [facility] [address] [place] [address] * HOLD LI HEPARIN (05/02/2024 7:21 AM CDT) Blood BLOOD SPECIMEN / Unknown Venous Device, Nurse Blood Collect / Unknown 05/02/2024 7:21 AM CDT 05/02/2024 7:24 AM CDT Carson MORENO CHEMISTRY ORDERAB LES Performing Organization Address [facility] Phone Number [facility] [address] [place] [address] documented in this encounter Visit Diagnoses Diagnosis COPD exacerbation (HCC)- Primary Obstructive chronic bronchitis with exacerbation COPD with acute exacerbation (HCC) Obstructive chronic bronchitis with exacerbation Acute on chronic hypoxic respiratory failure (HCC) documented in this encounter Administered Medications Inactive Administered Medications Medication Order MAR Action Action Date Dose Rate Site acetaminophen (Tylenol) 325 MG/10.15ML suspension 975 mg 975 mg, Oral, 3 TIMES DAILY, First dose on Thu05/02/24 at 1400, Until Discontinued acetaminophen (Tylenol) tablet 1,000 mg 1,000 mg, Oral, 3 TIMES DAILY, First dose on Thu05/02/24 at 1400, Until Discontinued Given 05/03/2024 7:54 AM CDT 1,000 mg Given 05/02/2024 8:03 PM CDT 1,000 mg Given 05/02/2024 3:04 PM CDT 1,000 mg albuterol HFA (Proair HFA, Ventolin HFA) inhaler 1-2 Puff 1-2 Puff, Inhalation, EVERY 4 HOURS NEEDED, Starting on Thu05/02/24 at 1357, Until Thu05/03/24 at 1554, Shortness of Breath Given 05/03/2024 12:15 AM CDT 2 Puffs azithromycin (Zithromax) tablet 500 mg 500 mg, Oral, ONCE DAILY, First dose on Thu05/02/24 at 1400, Until Discontinued, Indication? suspected infection, Antibiotic Indication for Use: Other (Add Comment), Other Indication(s): for COPD Given 05/03/2024 7:54 AM CDT 500 mg Given 05/02/2024 3:04 PM CDT 500 mg budesonide-formoterol (Symbicort) 160-4.5 MCG/ACT 2 Puff 2 Puff, Inhalation, 2 TIMES DAILY, First dose on Thu05/02/24 at 2000, Until Discontinued Given 05/03/2024 7:58 AM CDT 2 Puffs Given 05/02/2024 8:03 PM CDT 2 Puffs cefTRIAXone (ROCEPHIN) IVPB 1 gram in sodium chloride 0.9% 50 mL 1 g, Intravenous, at 100 mL/hr, EVERY 24 HOURS, First dose on Thu05/02/24 at 1400, Until Discontinued, Indication? suspected infection, Antibiotic Indication for Use: Community Acquired Pneumonia New Bag 05/02/2024 3:09 PM CDT 1 g 100 mL/hr dexAMETHasone PF (Decadron) injection 10 mg 10 mg, IV Push, ONCE, 1 dose, On Thu05/02/24 at 0730 Given 05/02/2024 7:28 AM CDT 10 mg iohexol (Omnipaque) 350 MG/ML 50 mL 50 mL, IV Push, ONCE, 1 dose, On Thu05/02/24 at 1000 Given 05/02/2024 10:22 AM CDT 50 mL Left Forearm ipratropium-albuterol (Duo-Neb) 0.5-2.5 (3) MG/3ML nebulizer solution 3 mL 3 mL, Inhalation, ONCE, 1 dose, On Thu05/02/24 at 0730 Given 05/02/2024 7:26 AM CDT 3 mL ipratropium-albuterol (Duo-Neb) 0.5-2.5 (3) MG/3ML nebulizer solution 3 mL 3 mL, Inhalation, EVERY 4 HOURS NEEDED, Starting on Thu05/02/24 at 1357, Until Thu05/03/24 at 1554, Shortness of Breath Given 05/02/2024 3:02 PM CDT 3 mL magnesium sulfate 2 g in 50 mL water for infusion (pre-mix) 2 g, Intravenous, at 25 mL/hr, ONCE, 1 dose, On Thu05/02/24 at 0730 New Bag 05/02/2024 7:31 AM CDT 2 g 25 mL/hr methylPREDNISolone sod succ (PF) (SOLU-Medrol) injection 80 mg 80 mg, IV Push, EVERY 8 HOURS, First dose on Thu05/02/24 at 1400, Until Discontinued Given 05/03/2024 5:27 AM CDT 80 mg Given 05/02/2024 9:19 PM CDT 80 mg Given 05/02/2024 3:04 PM CDT 80 mg montelukast (Singulair) tablet 10 mg 10 mg, Oral, EVERY EVENING, First dose on Thu05/02/24 at 2000, Until Discontinued Given 05/02/2024 8:03 PM CDT 10 mg omeprazole (PriLOSEC) capsule 20 mg 20 mg, Oral, DAILY AT 1700, First dose on Thu05/02/24 at 1700, Until Discontinued Given 05/02/2024 5:45 PM CDT 20 mg ondansetron (Zofran ODT) disintegrating tablet 4 mg 4 mg, Oral, EVERY 6 HOURS NEEDED, Starting on Thu05/02/24 at 1357, Until Thu05/03/24 at 1554, Nausea, Vomiting ondansetron (Zofran) injection 4 mg 4 mg, IV Push, EVERY 6 HOURS NEEDED, Starting on Thu05/02/24 at 1357, Until Thu05/03/24 at 1554, Nausea, Vomiting predniSONE (Deltasone) tablet 40 mg 40 mg, Oral, ONCE DAILY, First dose on Thu05/03/24 at 0800, Until Discontinued Given 05/03/2024 7:54 AM CDT 40 mg sodium chloride 0.9% (NS) IV Solution for CT injector 50 mL 50 mL, IV Push, ONCE, 1 dose, On Thu05/02/24 at 1000 Given 05/02/2024 10:21 AM CDT 50 mL L eft Hand sodium chloride 0.9% IV FLUSH (NS) SYRINGE 3 mL 3 mL, IV Flush, EVERY 8 HOURS, First dose on Thu05/02/24 at 1400, Until Discontinued Given 05/03/2024 5:03 AM CDT 3 mL Given 05/02/2024 9:05 PM CDT 3 mL Given 05/02/2024 3:10 PM CDT 3 mL tiotropium (Spiriva) inhalation capsule 1 Capsule 1 Capsule, Inhalation, ONCE DAILY, First dose on Thu05/02/24 at 1400, Until Discontinued Given 05/03/2024 7:57 AM CDT 1 Capsule Given 05/02/2024 4:35 PM CDT 1 Capsule documented in this encounter Discontinued Medications Medication Sig Discontinue Reason Start Date End Da te azithromycin (Zithromax) 250 MG tabletIndications:Infec tion Take 2 tablets on an empty stomach the first day and one tablet each day of the next 4 days Indications: Infection Other 05/02/2024 05/03/2024 predniSONE (Deltasone) 10 MG tablet Take 1 Tablet by mouth one time a day. Take with food. Other 05/02/2024 05/03/2024 documented as of this encounter Historical Medications * This list may reflect changes made after this encounter. Medication Sig Dispensed Refills Start Date End Date tiotropium (Spiriva) 18 MCG inhalation capsule Inhale 18 mcg into the lungs one time a day. omeprazole (PriLOSEC) 20 MG delayed-release capsule Take 20 mg by mouth one time a day. montelukast (Singulair) 10 MG tablet Take 10 mg by mouth at bedtime. budesonide-formoterol (Symbicort) 160-4.5 MCG/ACT aerosol inhaler 2 Puffs two times a day. 11/12/2021 albuterol HFA (Proair HFA, Ventolin HFA) 108 (90 Base) MCG/ACT inhalation aerosol Inhale 2 Puffs into the lungs four times a day as needed. albuterol (Proventil, Ventolin) (2.5 MG/3ML) 0.083% nebulizer solution Inhale 2.5 mg into the lungs every four hours as needed. added in this encounter Active and Recently Administered Medications Times are shown in CDT. Scheduled Medication Order 05/01/2024 05/02/2024 05/03/2024 acetaminophen (Tylenol) 325 MG/10.15ML suspension 975 mg(Linked Group 1) 975 mg, Oral, 3 TIMES DAILY, First dose on Thu05/02/24 at 1400, Until Discontinued 150 (See Alternative - Provider: Cindy Pineda RN)2002 (See Alternative - Provider: Margot Benton, MARINO) 075 (See Alternative - Provider: Krystyna Bailon, RN) acetaminophen (Tylenol) tablet 1,000 mg(Linked Group 1) 1,000 mg, Oral, 3 TIMES DAILY, First dose on Thu05/02/24 at 1400, Until Discontinued 150 (Given - Provider: Cindy Pineda RN)2002 (Given - Provider: Margot Benton, MARINO) 0754 (Given - Provider: Krystyna Bailon, RN) azithromycin (Zithromax) tablet 500 mg 500 mg, Oral, ONCE DAILY, First dose on Thu05/02/24 at 1400, Until Discontinued, Indication? suspected infection, Antibiotic Indication for Use: Other (Add Comment), Other Indication(s): for COPD 150 (Given - Provider: Cindy Pineda RN) 075 (Given - Provider: Krystyna Bailon, RN) budesonide-formoterol (Symbicort) 160-4.5 MCG/ACT 2 Puff 2 Puff, Inhalation, 2 TIMES DAILY, First dose on Thu05/02/24 at 2000, Until Discontinued 2002 (Given - Provider: Margot Benton, MARINO) 0758 (Given - Provider: Krystyna Bailon, MARINO) cefTRIAXone (ROCEPHIN) IVPB 1 gram in sodium chloride 0.9% 50 mL 1 g, Intravenous, at 100 mL/hr, EVERY 24 HOURS, First dose on Thu05/02/24 at 1400, Until Discontinued, Indication? suspected infection, Antibiotic Indication for Use: Community Acquired Pneumonia 1509 (New Bag - Provider: Cindy Pineda, RN)1635 (Stopped - Provider: Katelynn Delacruz RN) dexAMETHasone PF (Decadron) injection 10 mg (COMPLETED) 10 mg, IV Push, ONCE, 1 dose, On Thu05/02/24 at 0730 0728 (Given - Provider: Compa Angelo, MARINO) iohexol (Omnipaque) 350 MG/ML 50 mL (COMPLETED) 50 mL, IV Push, ONCE, 1 dose, On Thu05/02/24 at 1000 1022 (Given - Provider: Sheree Thurman, RT(R)(CT)) ipratropium-albuterol (Duo-Neb) 0.5-2.5 (3) MG/3ML nebulizer solution 3 mL (COMPLETED) 3 mL, Inhalation, ONCE, 1 dose, On Thu05/02/24 at 0730 0726 (Given - Provider: Compa Angelo, MARINO) magnesium sulfate 2 g in 50 mL water for infusion (pre-mix) (COMPLETED) 2 g, Intravenous, at 25 mL/hr, ONCE, 1 dose, On Thu05/02/24 at 0730 0731 (New Bag - Provider: oCmpa Angelo, MARINO)0948 (Stopped - Provider: Lisa Onofre RN) methylPREDNISolone sod succ (PF) (SOLU-Medrol) injection 80 mg (CANCELED) 80 mg, IV Push, EVERY 8 HOURS, First dose on Thu05/02/24 at 1400, Until Discontinued 1504 (Given - Provider: Cindy Pineda RN)2119 (Given - Provider: Margot Benton, MARINO) 0527 (Given - Provider: Margot Benton, MARINO) montelukast (Singulair) tablet 10 mg 10 mg, Oral, EVERY EVENING, First dose on Thu05/02/24 at 2000, Until Discontinued 2002 (Given - Provider: Margot Benton, MARINO) omeprazole (PriLOSEC) capsule 20 mg 20 mg, Oral, DAILY AT 1700, First dose on Thu05/02/24 at 1700, Until Discontinued 174 (Given - Provider: Katelynn Delacruz, MARINO) predniSONE (Deltasone) tablet 40 mg 40 mg, Oral, ONCE DAILY, First dose on Thu05/03/24 at 0800, Until Discontinued 0754 (Given - Provid er: Krystyna Bailon RN) sodium chloride 0.9% (NS) IV Solution for CT injector 50 mL (COMPLETED) 50 mL, IV Push, ONCE, 1 dose, On Thu05/02/24 at 1000 1021 (Given - Provider: Sheree Thurman, RT(R)(CT)) sodium chloride 0.9% IV FLUSH (NS) SYRINGE 3 mL 3 mL, IV Flush, EVERY 8 HOURS, First dose on Thu05/02/24 at 1400, Until Discontinued 1510 (Given - Provider: Cindy Pineda RN)2105 (Given - Provider: Margot Benton RN) 0503 (Given - Provider: Margot Benton RN) tiotropium (Spiriva) inhalation capsule 1 Capsule 1 Capsule, Inhalation, ONCE DAILY, First dose on Thu05/02/24 at 1400, Until Discontinued 1635 (Given - Provider: Katelynn Delacruz, MARINO) 0757 (Given - Provider: Krystyna Bailon RN) PRN Medication Order 05/01/2024 05/02/2024 05/03/2024 albuterol HFA (Proair HFA, Ventolin HFA) inhaler 1-2 Puff 1-2 Puff, Inhalation, EVERY 4 HOURS NEEDED, Starting on Thu05/02/24 at 1357, Until Thu05/03/24 at 1554, Shortness of Breath 0015 (Given - Provid er: Margot Benton RN) calcium carbonate (Tums) chewable tablet 500 mg 500 mg, Chew, EVERY 4 HOURS NEEDED, Starting on Thu05/02/24 at 1357, Until Thu05/03/24 at 1554, Heartburn ipratropium-albuterol (Duo-Neb) 0.5-2.5 (3) MG/3ML nebulizer solution 3 mL 3 mL, Inhalation, EVERY 4 HOURS NEEDED, Starting on Thu05/02/24 at 1357, Until Thu05/03/24 at 1554, Shortness of Breath 1502 (Given - Provider: Cindy Pineda RN) ondansetron (Zofran ODT) disintegrating tablet 4 mg(Linked Group 2) 4 mg, Oral, EVERY 6 HOURS NEEDED, Starting on Thu05/02/24 at 1357, Until Thu05/03/24 at 1554, Nausea, Vomiting ondansetron (Zofran) injection 4 mg(Linked Group 2) 4 mg, IV Push, EVERY 6 HOURS NEEDED, Starting on Thu05/02/24 at 1357, Until Thu05/03/24 at 1554, Nausea, Vomiting sodium chloride 0.9% IV FLUSH (NS) SYRINGE 3 mL 3 mL, IV Flush, NEEDED, Starting on Thu05/02/24 at 1357, Until Thu05/03/24 at 1554, Other, flushes sodium chloride 0.9% IV LINE FLUSH (NS) BAG 30 mL 30 mL, IV Flush, SEE ADMINISTRATION INSTRUCTIONS, Starting on Thu05/02/24 at 1357, Until Thu05/03/24 at 1554, Other, priming/flush fluid Linked Groups Order Group 1: acetaminophen (Tylenol) tablet 1,000 mgJump to med 1,000 mg, Oral, 3 TIMES DAILY, First dose on Thu05/02/24 at 1400, Until Discontinued Or acetaminophen (Tylenol) 325 MG/10.15ML suspension 975 mgJump to med 975 mg, Oral, 3 TIMES DAILY, First dose on Thu05/02/24 at 1400, Until Discontinued Group 2: ondansetron (Zofran) injection 4 mgJump to med 4 mg, IV Push, EVERY 6 HOURS NEEDED, Starting on Thu05/02/24 at 1357, Until Thu05/03/24 at 1554, Nausea, Vomiting Or ondansetron (Zofran ODT) disintegrating tablet 4 mgJump to med 4 mg, Oral, EVERY 6 HOURS NEEDED, Starting on Thu05/02/24 at 1357, Until Thu05/03/24 at 1554, Nausea, Vomiting documented in this encounter Orders Medications Ordered That Uziel ht Not Have Been Administered Count Last Ordered Date First Ordered Date acetaminophen (Tylenol) 325 MG/10.15ML suspension 975 mg 1 05/02/2024 calcium carbonate (Tums) kailey wable tablet 500 mg 1 05/02/2024 ondansetron (Zofran ODT) dis integrating tablet 4 mg 1 05/02/2024 ondansetron (Zofran) injection 4 mg 1 05/02 sodium chloride 0.9% IV FLUS H (NS) SYRINGE 3 mL 1 05/02/2024 sodium chloride 0.9% IV LINE FLUSH (NS) BAG 30 mL 05/02/2024 Admission Count Last Ordered Date First Orde red Date ASSIGN TO OBSERVATION 1 05/03/2024 ADMIT TO INPATIENT 1 05/02/2024 Transfer Count Last Ordered Date First Orde red Date ED BED REQUEST LG 1 05/02/2024 Discharge Count Last Ordered Date First Orde red Date DISCHARGE PATIENT 1 05/03/2024 Nursing Count Last Ordered Date First Orde red Date EVALUATE LINE 1 05/03/2024 documented in this encounter
--- OUTSIDE RECORDS SUMMARY | 2024-06-24 18:13 | XMS_ITS | Clinical Summary ---
Author Organization [facility] Address [place], [place] [address] Care Team Providers Care Funding Specialist Name Role Phone [facility] Primary Care Provider [phone] Allergies Active Allergy Reactions Criticality Noted Date Comments Shellfish Derived *Unknown 02/21/2022 Medications Medication Sig Dispensed Refills Start Date End Date Status Symbicort 160-4.5 mcg/actuation (160-4.5 mcg each actuation) inhaler 2 Puffs 2 times daily. 11/12/2021 Active montelukast (SINGULAIR) 10 mg tablet Take 10 mg by mouth at bedtime. Active albuterol HFA (PRO-AIR; VENTOLIN; PROVENTIL) 90 mcg/actuation inhaler Inhale 2 Puffs by mouth 4 times daily if needed. Active albuterol (PROVENTIL) 0.083 % neb solution Inhale 2.5 mg via a nebulizer every 4 hours if needed. Active loratadine (CLARITIN) 10 mg tablet Take 10 mg by mouth once daily. 02/16/2024 Active Spiriva Respimat 2.5 mcg/actuation mist for inhalation Inhale 2 Puffs by mouth once daily. 04/15/2024 Active guaiFENesin (Mucinex) 600 mg Extended-Release tablet Take 600 mg by mouth two times daily. Active albuterol-ipratropi um (DUONEB) (2.5-0.5 mg) in 3 mL NEBULIZATION solution Inhale 1 Neb via a nebulizer every 6 hours if needed. Active cholecalciferol, vitamin D3, (VITAMIN D3 ORAL) Take 1 Tablet by mouth once every other day. Unknown dose Active iron,carbonyl/ascor bic acid (VITRON-C ORAL) Take 1 Tablet by mouth once every other day. Active omeprazole 20 mg tablet Take 20 mg by mouth 2 times daily if needed for GI Upset. Active fluticasone (50 mcg per actuation) nasal solution (FLONASE) Inhale 1 Veguita into affected nostril(s) once daily if needed for Rhinitis. Active cyanocobalamin (VITAMIN B12) as half tablet Take 5,000 mcg by mouth once every other day. Active sodium chloride 3% nebulization 3 % nebulizer solutionIndications :COPD exacerbation (HC) Inhale 4 mL via a nebulizer 3 times daily if needed for Wheezing. 15 mL 05/26/2024 Active doxycycline 100 mg tabletIndications:l ower respiratory infection Take 1 Tablet (100 mg) by mouth two times daily for 8 days. 16 Tablet 05/26/2024 06/03/2024 predniSONE (DELTASONE) 10 mg tabletIndications:C OPD exacerbation (HC) Take 6 Tablets (60 mg) by mouth once daily with a meal for 2 days, THEN 5 Tablets (50 mg) once daily with a meal for 3 days, THEN 4 Tablets (40 mg) once daily with a meal for 3 days, THEN 2 Tablets (20 mg) once daily with a meal for 3 days, THEN 1 Tablet (10 mg) once daily with a meal for 3 days. 48 Tablet 05/26/2024 06/09/2024 Active Problems Problem Noted Date Diagnosed Date Acute exacerbation of chroni c obstructive pulmonary disease (COPD) 05/25/2024 Hypertension 05/25/2024 COPD (chronic obstructive pulmonary disease) 11/2021 Scoliosis 02/21/2022 Anemia 02/21/2022 Hiatal hernia 02/21/2022 History of alcohol use disorder 02/21/2022 Lung nodule 02/21/2022 Resolved Problems Problem Noted Date Diagnosed Date Resolved Date Acute on chronic hypoxic respiratory failure 4 05/25/2024 Lung abscess 02/22/2022 05/25/2024 Empyema 02/21/2022 02/22/2022 Encounters Date Type Department Care Team Description 05/27/2024 Patient Outreach [facility] [address] [place] [address] Allie Diaz, RN Primary RN Care Management (Mady Hernández); Hospital F/U 05/25/2024 1:23 AM CDT - 05/26/2024 2:47 PM CDT Hospital Encounter [facility] [address] [place] [address] Grey Joseph MD [facility], [facility], MD Wili Castillo, MD Robert Walker, Lynette Solorzano MD COPD exacerbation (HC) (Primary Dx); Dyspnea, unspecified type; Hypoxemia Discharge Disposition: Home Self Care 05/25/2024 Travel from Last 3 Months Family History Medical History Relation Name Comments COPD Father Relation Name Status Comments Father Social History Tobacco Use Types Packs/Day Years Used Date Smoking Tobacco: Former Cigarettes Q uit: 2014 Smokeless Tobacco: Never Alcohol Use Standard Drinks/Week Comments Yes 0 (1 standard drink = 0.6 oz pur e alcohol) ocasional beer Social Connections Answer Date Recorded Frequency of Communication with Friends and Fami ly Not on file 05/25/2024 Financial Resource Strain Answer Date R ecorded Difficulty of Paying Living Expenses Not on file 11/23/2021 Difficulty of Paying Living Expenses Not on file 11/23/2021 Sex and Gender Information Value Date Recorded Sex Assigned at Not on file Gender Identity Not on file Sexual Orientation Not on file Obstetrics History Last Filed Vital Signs Vital Sign Reading Time Taken Comments Blood Pressure 135/70 05/26/2024 8:07 AM CDT Pulse 82 05/26/2024 8:07 AM CDT Temperature 36.4 ??C (97.5 ??F) 05/26/2024 8:07 AM CD T Respiratory Rate 16 05/26/2024 8:07 AM CDT Oxygen Saturation 92% 05/26/2024 11:12 AM CDT Inhaled Oxygen Concentration - - Weight 91.6 kg (202 lb) 05/26/2024 4:47 AM CDT Height 172.7 cm (5' 7.99) 05/25/2024 1:30 AM CD T Body Mass Index 30.72 05/25/2024 1:30 AM CDT Plan of Treatment Upcoming Encounters Date Type Department Care Team (Late st Contact Info) Description 08/01/2024 4:20 PM CDT Office Visit [facility] [place] [address] [phone] Estrella Sandoval MD [address] [address] Health Maintenance Due Date Last Done Comments Pneumococcal series for age 65+ (1 of 2 - PCV) 964 Tdap 1969 Depression screening for age 12+ 1970 HIV for age 15-65 1973 BMI (ht and wt on same day) for age 18+ 1976 Hepatitis C screening for age 18-79 1976 Tetanus booster 1978 Colonoscopy through age 75 2003 Lipids for age 45-75 2003 Zoster (shingles) series for age 50+ (1 of 2) 08/26/20 08 COVID-19 vaccine series ( season) 3 Influenza for age 65+ 07/24/2024 Procedures Procedure Name Priority Date/Time Associated Diagnosis Comments ELECTROLYTE PANEL Early AM 05/26/2024 5:4 5 AM CDT HEMOGLOBIN Early AM 05/26/2024 5:45 AM CDT WHITE BLOOD COUNT Early AM 05/26/2024 5:4 5 AM CDT SPUTUM CULTURE, STAIN Today 05/25/2024 2:15 PM CDT FERRITIN MIKI 05/25/2024 6:35 AM CDT TROPONIN T (HS) ONE TIME Timed 05/25/2024 6:35 AM CDT TROPONIN T (HS) ONE TIME Timed 05/25/2024 4:[address] CHEST PE STUDY STAT 05/25/2024 2:5 8 AM CDT XR CHEST 1 VIEW PORTABLE STAT 05/25/2024 2:11 AM CDT ISTAT EC8 STAT 05/25/2024 1:57 AM CDT CREATININE,ISTAT STAT 05/25/2024 1:52 AM CDT RED CELL MORPHOLOGY STAT 05/25/2024 1 :47 AM CDT PLATELET ESTIMATE STAT 05/25/2024 1:4 7 AM CDT MANUAL DIFFERENTIAL STAT 05/25/2024 1 :47 AM CDT CBC WITH AUTO DIFFERENTIAL STAT 05/25/2024 1:47 AM CDT CBC WITH AUTO DIFFERENTIAL STAT 05/25/2024 1:47 AM CDT BASIC METABOLIC PANEL MIKI 05/25/2024 1:46 AM CDT D-DIMER,QUANTITATIVE STAT 05/25/2024 1:46 AM CDT PRO-BNP STAT 05/25/2024 1:46 AM CDT TROPONIN T (HS) ACUTE W/2HR REFLEX STAT 05/25/2024 1:46 AM CDT EKG 12 LEAD STAT 05/25/2024 1:29 AM CDT SCAN-CARDIAC STRIP 05/25/2024 12 :00 AM CDT from Last 3 Months Results * (ABNORMAL) WBC AM (05/26/2024 5:45 AM CDT) [facility] WHITE BLOOD COUNT 12.3(H) 4.5 - 11.0 thou/cu mm 05/26/2024 6:20 AM CDT [facility] NRBC 0.0 % 05/26/2024 6:20 AM CDT [facility] ABS NRBC 0.0 thou /cu mm 05/26/2024 6:20 AM CDT [facility] Blood BLOOD SPECIMEN / Unknown Venipuncture / Unknown 05/26/2024 5:45 AM CDT 05/26/2024 6:13 AM CDT Malik Murry MD HEMATOLOGY Performing Organization Address [facility] Co de Phone Number [facility] [address] [place] [address], * (ABNORMAL) Hemoglobin AM (05/26/2024 5:45 AM CDT) HEMOGLOBIN 11.3(L) 13.5 - 17.5 g/dL 05/26/2024 6:20 AM CDT [facility] MCV 93 80 - 100 fL 05/26/2024 6:20 AM CDT [facility] Blood BLOOD SPECIMEN / Unknown Venipuncture / Unknown 05/26/2024 5:45 AM CDT 05/26/2024 6:13 AM CDT Malik Murry MD HEMATOLOGY Performing Organization Address [facility] de Phone Number [facility] [address] [place] [address], * Electrolyte panel AM (05/26/2024 5:45 AM CDT) SODIUM 139 136 - 145 mmol/L 05/26/2024 6:42 AM CDT [facility] POTASSIUM 3.9 3.5 - 5.1 mmol/L 05/26/2024 6:42 AM CDT [facility] CHLORIDE 102 98 - 107 mmol/L 05/26/2024 6:42 AM CDT [facility] CO2,TOTAL 24 22 - 29 mmol/L 05/26/2024 6:42 AM CDT [facility] ANION GAP 13 5 - 18 05/26/2024 6:42 AM CDT [facility] Blood BLOOD SPECIMEN / Unknown Venipuncture / Unknown 05/26/2024 5:45 AM CDT 05/26/2024 6:13 AM CDT Malik Murry MD CHEMISTRY [facility] [address] * Sputum culture (05/25/2024 2:15 PM CDT) CULTURE Usual gia 05/27/2024 9:04 AM CDT [facility] GRAM STAIN No PMNs 05/27/2024 9:04 AM CDT [facility] GRAM STAIN No RBCs 05/27/2024 9:04 AM CDT [facility] GRAM STAIN 1+ Epithelial cells 05/27/2024 9:04 AM CDT [facility] GRAM STAIN 3+ Gram Positive Cocci 05/27/2024 9:04 AM CDT [facility] GRAM STAIN 2+ Gram Negative Bacilli 05/27/2024 9:04 AM CDT [facility] Sputum SPUTUM SPECIMEN / Unknown Non-Blood / Unknown 05/25/2024 2:15 PM CDT 05/25/2024 2:30 PM CDT Malik Murry MD MICROBIOLOGY Performing Organization Address City/[facility]/ZIP Co de Phone Number [facility] [address] * (ABNORMAL) TROPONIN T (HS) ONE TIME (05/25/2024 6:35 AM CDT) Only the most recent of2 resultswithin the time period is included. TROPONIN T HS 16(H) 6-15 ng/L ng/L 05/25/2024 7:39 AM CDT [facility] Blood BLOOD SPECIMEN / Unknown Venipuncture / Unknown 05/25/2024 6:35 AM CDT 05/25/2024 7:15 AM CDT Grey Joseph MD CHEMISTRY Performing Organization Address City/[facility]/ZIP Co de Phone Number [facility] [address] [place] [address], * FERRITIN (05/25/2024 6:35 AM CDT) FERRITIN 123.0 30.0 - 400.0 ng/mL 05/25/2024 3:14 PM CDT [facility] Blood BLOOD SPECIMEN / Unknown Venipuncture / Unknown 05/25/2024 6:35 AM CDT 05/25/2024 7:15 AM CDT Malik Murry MD CHEMISTRY Performing Organization Address [facility] Co de Phone Number [facility] [address] [place] [address], [place] * CT CHEST PE STUDY (05/25/2024 2:58 AM CDT) Anatomical Region Laterality Modality CHEST, THORAX, HEART Computed To mography 05/25/2024 3:04 AM CDT Narrative 05/25/2024 3:04 AM CDT For Patients: ??As a result of the Century Cures Act, medical imaging exams and procedure reports are released immediately into your electronic medical record. ??You may view this report before your referring provider. ??If you have questions, please contact your health care provider. INDICATION: Shortness of breath, elevated D-dimer, history of chronic obstructive pulmonary disease TECHNIQUE: CT chest with i.v. contrast using pulmonary angiographic technique. Coronal and sagittal reformats were obtained. CONTRAST: 99 mL Omnipaque 350 COMPARISON: 02/23/2022 FINDINGS: Cardiovascular: The pulmonary arteries are unremarkable in enhancement with no evidence of acute pulmonary embolism. The heart has an unremarkable appearance and size. No sign of aneurysm in the thoracic aorta. Moderate atherosclerotic calcifications are noted in the coronary arteries. Mediastinum: Right paratracheal lymph nodes are present measuring up to 11 mm. There is a precarinal lymph node present measuring 14 mm. Lung: Mild centrilobular emphysema is present. Pleural-parenchymal scarring in the right apex and segmental consolidation with air bronchograms in the superior segment of the right lower lobe are noted. Mild pleural-parenchymal scarring is seen in the lingula. The overall appearance is not Pleura and pericardium: No sign of pleural effusion seen. No significant pericardial effusion is present. Chest wall and axilla: No mass or adenopathy seen. Bone: Unremarkable for age. Upper abdomen: Small sliding type gastric hiatal hernia (type IV) is present. IMPRESSIONS: 1. No CT evidence of acute pulmonary emboli seen. 2. Moderate atherosclerotic calcifications are noted in the coronary arteries. 3. Mediastinal adenopathy is noted. Dictated by Jorden Barrera MD @ 05/25/2024 3:04:40 AM Please note that all CT scans at this facility use dose modulation, iterative reconstruction, and/or weight-based dosing when appropriate to reduce radiation dose to as low as reasonably achievable. Dictated by: Jorden Barrera MD @ 05/25/2024 03:04:44 (Electronically Signed) Procedure Note Jorden Barrera MD - 05/25/2024 For Patients: As a result of the Cures Act, medical imagingexams and procedure reports are released immediately into your electronicmedical record. You may view this report before your referring provider.If you have questions, please contact your health care provider. INDICATION: Shortness of breath, elevated D-dimer, history of chronicobstructive pulmonary disease TECHNIQUE: CT chest with i.v. contrast using pulmonary angiographictechnique. Coronal and sagittal reformats were obtained. CONTRAST: 99 mL Omnipaque 350 COMPARISON: 02/23/2022 FINDINGS: Cardiovascular: The pulmonary arteries are unremarkable in enhancementwith no evidence of acute pulmonary embolism. The heart has anunremarkable appearance and size. No sign of aneurysm in the thoracicaorta. Moderate atherosclerotic calcifications are noted in the coronaryarteries. Mediastinum: Right paratracheal lymph nodes are present measuring up to 11mm. There is a precarinal lymph node present measuring 14 mm. Lung: Mild centrilobular emphysema is present. Pleural-parenchymalscarring in the right apex and segmental consolidation with airbronchograms in the superior segment of the right lower lobe are noted.Mild pleural-parenchymal scarring is seen in the lingula. The overallappearance is not Pleura and pericardium: No sign of pleural effusion seen. No significantpericardial effusion is present. Chest wall and axilla: No mass or adenopathy seen. Bone: Unremarkable for age. Upper abdomen: Small sliding type gastric hiatal hernia (type IV) ispresent. IMPRESSIONS: 1. No CT evidence of acute pulmonary emboli seen. 2. Moderate atherosclerotic calcifications are noted in the coronaryarteries. 3. Mediastinal adenopathy is noted. Dictated by Jorden Barrera MD @ 05/25/2024 3:04:40 AM Please note that all CT scans at this facility use dose modulation,iterative reconstruction, and/or weight-based dosing when appropriate toreduce radiation dose to as low as reasonably achievable. Dictated by: Jorden Barrera MD @ 05/25/2024 03:04:44 (Electronically Signed) Grey Joseph MD CT * XR CHEST 1 VIEW PORTABLE (05/25/2024 2:11 AM CDT) Anatomical Region Laterality Modality HEART, THORAX, CHEST Digital Rad iography 05/25/2024 2:42 AM CDT Impressions 05/25/2024 2:42 AM CDT No acute cardiopulmonary process. Dictated by Willian Camacho, @ May ??2023 ??2:42AM (Electronically Signed) [email or web address] Narrative 05/25/2024 2:42 AM CDT For Patients: ??As a result of the Cures Act, medical imaging exams and procedure reports are released immediately into your electronic medical record. ??You may view this report before your referring provider. ??If you have questions, please contact your health care provider. INDICATION: Dyspnea. TECHNIQUE: Chest radiograph, 1 view. COMPARISON: Chest radiograph 02/24/2022 FINDINGS: Cardiovascular/Mediastinum: Normal heart size. Unremarkable. Lungs: No focal consolidation. Linear band like opacification of the lungs bilaterally, likely subsegmental atelectasis and/or scarring. There are diffuse interstitial reticulations and suggestion of architectural distortion, suggestive of underlying fibrotic changes. Airways: Trachea remains midline. Pleura: Persistent blunting of the right costophrenic angle likely scarring. No large pleural effusions or pneumothorax. Bones: No acute osseous abnormalities. Upper abdomen: Unremarkable. Procedure Note Willian Camacho DO - 05/25/2024 For Patients: As a result of the Century Cures Act, medical imagingexams and procedure reports are released immediately into your electronicmedical record. You may view this report before your referring provider.If you have questions, please contact your health care provider. INDICATION: Dyspnea. TECHNIQUE: Chest radiograph, 1 view. COMPARISON: Chest radiograph 02/24/2022 FINDINGS: Cardiovascular/Mediastinum: Normal heart size. Unremarkable. Lungs: No focal consolidation. Linear band like opacification of the lungsbilaterally, likely subsegmental atelectasis and/or scarring. There arediffuse interstitial reticulations and suggestion of architecturaldistortion, suggestive of underlying fibrotic changes. Airways: Trachea remains midline. Pleura: Persistent blunting of the right costophrenic angle likelyscarring. No large pleural effusions or pneumothorax. Bones: No acute osseous abnormalities. Upper abdomen: Unremarkable. IMPRESSION: No acute cardiopulmonary process. Dictated by Willian Camacho DO @ May 25 2024 2:42AM (Electronically Signed) [email or web address] Grey Joseph MD GENERAL IMAGIN G * (ABNORMAL) ISTAT EC8 (05/25/2024 1:57 AM CDT) GLUCOSE, POCT 97 70 - 99 mg/dL 05/25/2024 1:59 AM CDT [facility] BUN, POCT 6(L) 8 - 25 mg/dL 05/25/2024 1:59 AM CDT [facility] SODIUM, POCT 138 135 - 145 mmol/L 05/25/2024 1:59 AM CDT [facility] POTASSIUM, POCT 3.4(L) 3.5 - 5.0 mmol/L 05/25/2024 1:59 AM CDT [facility] CHLORIDE, POCT 102 98 - 107 mmol/L 05/25/2024 1:59 AM CDT [facility] CO2,TOTAL, POCT 28 21 - 31 mmol/L 05/25/2024 1:59 AM CDT [facility] ANION GAP, POCT 14 5 - 18 05/25/2024 1:59 AM CDT [facility] PH, VENOUS, POCT 7.34 7.32 - 7.42 05/25/2024 1:59 AM CDT [facility] PCO2, VENOUS, POCT 50 41 - 51 mmHg 05/25/2024 1:59 AM CDT [facility] HCO3, VENOUS, POCT 27 22 - 30 mmol/L 05/25/2024 1:59 AM CDT [facility] BASE EXCESS, VENOUS, POCT 1.0 -2.0 - 3.0 05/25/2024 1:59 AM CDT [facility] HEMATOCRIT, POCT 36.0(L) 37.0 - 53.0 % 05/25/2024 1:59 AM CDT [facility] HEMOGLOBIN, POCT 12.2(L) 13.5 - 17.5 g/dL 05/25/2024 1:59 AM CDT [facility] Blood BLOOD SPECIMEN / Unknown 05/25/2024 1:57 AM CDT 05/25/2024 1:59 AM CDT Grey Joseph MD CHEMISTRY [facility] [address] [place] [address], * (ABNORMAL) CREATININE,ISTAT (05/25/2024 1:52 AM CDT) CREATININE, POCT 1.10 0.57 - 1.11 mg/dL 05/25/2024 1:54 AM CDT [facility] Comment:Caution: Patients ta cleve Hydroxyurea have falsely increased iStat Creatinine results. Verify creatinine results ordering a Creatinine (06812.2) eGFR 74(L) >90 mL/min/1.7 3m2 05/25/2024 1:54 AM CDT [facility] Comment:As of 2022, eG FR is calculated by the CKD-EPI creatinine equation without race adjustment. eGFR can be influenced by muscle mass, exercise, and diet. The reported eGFR is an estimation only and is only applicable if the renal function is stable. Blood BLOOD SPECIMEN / Unknown 05/25/2024 1:52 AM CDT 05/25/2024 1:54 AM CDT Grey Joseph MD CHEMISTRY [facility] [address] [place] [address], [place] * (ABNORMAL) CBC WITH AUTO DIFFERENTIAL (05/25/2024 1:47 AM CDT) WHITE BLOOD COUNT 7.5 4.5 - 11.0 thou/cu mm 05/25/2024 2:35 AM CDT [facility] RED BLOOD COUNT 3.82(L) 4.30 - 5.90 mil/cu mm 05/25/2024 2:35 AM CDT [facility] HEMOGLOBIN 11.7(L) 13.5 - 17.5 g/dL 05/25/2024 2:35 AM T [facility] HEMATOCRIT 36.1(L) 37.0 - 53.0 % 05/25/2024 2:35 AM CDT [facility] MCV 95 80 - 100 fL 05/25/2024 2:35 AM CDT [facility] MCH 30.6 26.0 - 34.0 pg 05/25/2024 2:35 AM CDT [facility] MCHC 32.4 32.0 - 36.0 g/dL 05/25/2024 2:35 AM CDT [facility] RDW 13.7 11.5 - 15.5 % 05/25/2024 2:35 AM CDT [facility] PLATELET COUNT 298 140 - 440 thou/cu mm 05/25/2024 2:35 AM CDT [facility] MPV 8.7 6.5 - 11.0 fL 05/25/2024 2:35 AM CDT [facility] NRBC 0.0 % 05/25/2024 2:35 AM CDT [facility] ABS NRBC 0.0 thou /cu mm 05/25/2024 2:35 AM CDT [facility] Blood BLOOD SPECIMEN / Unknown Venipuncture / Unknown 05/25/2024 1:47 AM CDT 05/25/2024 1:56 AM CDT Grey Joseph MD HEMATOLOGY Performing Organization Address City/[facility] Co de Phone Number [facility] [address] [place] [address], * (ABNORMAL) RED CELL MORPHOLOGY (05/25/2024 1:47 AM CDT) POLYCHROMASIA Slight 05/25/2024 2:35 AM CDT [facility] RBC COMMENT Present(A) RBC morphology appears normal, RBC morphology within normal limits for newborns. 05/25/2024 2:35 AM CDT [facility] Blood BLOOD SPECIMEN / Unknown Venipuncture / Unknown 05/25/2024 1:47 AM CDT 05/25/2024 1:56 AM CDT Grey Joseph MD HEMATOLOGY Performing Organization Address City/[facility]/ZIP Co de Phone Number [facility] [address] [place] [address], [place] * PLATELET ESTIMATE (05/25/2024 1:47 AM CDT) PLATELET ESTIMATE Adequate Adequate, No estimate 05/25/2024 2:35 AM CDT [facility] Blood BLOOD SPECIMEN / Unknown Venipuncture / Unknown 05/25/2024 1:47 AM CDT 05/25/2024 1:56 AM CDT Grey Joseph MD HEMATOLOGY [facility] [address] [place] [address], [place] * (ABNORMAL) MANUAL DIFFERENTIAL (05/25/2024 1:47 AM CDT) % NEUTROPHILS 61.0 % 05/25/2024 2:35 AM CDT [facility] % LYMPHOCYTES 17.0 % 05/25/2024 2:35 AM CDT [facility] % MONOCYTES 12.0 % 05/25/2024 2:35 AM CDT [facility] % EOSINOPHILS 8.0 % 05/25/2024 2:35 AM CDT [facility] % BASOPHILS 2.0 % 05/25/2024 2:35 AM CDT [facility] NEUTROPHILS ABSOLUTE 4.6 1.7 - 7.0 thou/cu mm 05/25/2024 2:35 AM CDT [facility] LYMPHOCYTES ABSOLUTE 1.3 0.9 - 2.9 thou/cu mm 05/25/2024 2:35 AM CDT [facility] MONOCYTES ABSOLUTE 0.9(H) <0.9 thou/cu mm 05/25/2024 2:35 AM CDT [facility] EOSINOPHILS ABSOLUTE 0.6(H) <0.5 thou/cu mm 05/25/2024 2:35 AM CDT [facility] BASOPHILS ABSOLUTE 0.2 <0.3 thou/cu mm 05/25/2024 2:35 AM CDT [facility] Blood BLOOD SPECIMEN / Unknown Venipuncture / Unknown 05/25/2024 1:47 AM CDT 05/25/2024 1:56 AM CDT Grey Joseph MD HEMATOLOGY [facility] [address] [place] [address], [place] * (ABNORMAL) TROPONIN T (HS) ACUTE W/2HR REFLEX (05/25/2024 1:46 AM CDT) [facility] TROPONIN T HS 22(H) 6-15 ng/L ng/L 05/25/2024 2:28 AM CDT [facility] Blood BLOOD SPECIMEN / Unknown Venipuncture / Unknown 05/25/2024 1:46 AM CDT 05/25/2024 1:[address] [facility] - 05/25/2024 2:28 AM CDT hs-cTnT (Elecsys Troponin T Gen 5) concentration (s) above the sex-specific 99th percentile (16 ng/L or greater for males or 11 ng/L or greater for females) are indicative of myocardial injury. If initial hs-cTnT <=100 ng/L at presentation, a 0h/2h ABSOLUTE (ng/L) delta change (rising or falling) of >=10 ng/L suggests a significant change, whereas a 0h/2h delta change <=3 ng/L suggests no significant change. If initial hs-cTnT >100 ng/L at presentation, a 0h/2h/ RELATIVE (percent, %) delta change of 20% is suggested to distinguish patients with acute vs. chronic myocardial injury. There are multiple etiologies that can cause hs-cTnT increases above the 99th percentile (myocardial injury) other than acute myocardial infarction. Clinical context and careful clinical evaluation are critical for diagnosis and risk-stratification. The diagnosis of acute myocardial infarction requires a rising and/or falling pattern in hs-cTnT concentrations with at least one value above the sex-specific 99th percentile PLUS at least one of the following clinical criteria: ischemic symptoms, new or presumed new significant ST-T wave changes or new LBBB, development of pathological Q waves, imaging evidence of new loss of viable myocardium or new regional wall motion abnormality, or identification of intracoronary atherothrombosis or an acute angiographic culprit on coronary angiography. In appropriate low-risk patients with a non-ischemic electrocardiogram without active chest pain with a symptom onset >3-hours without recurrence, a single initial hs-cTnT<6 ng/L identifies patient with a very low risk in emergency department patient population. Grey Joseph MD CHEMISTRY Performing Organization Address [facility]/ZIP Co de Phone Number [facility] [address] [place] [address], * (ABNORMAL) D-DIMER,QUANTITATIVE (05/25/2024 1:46 AM CDT) D-DIMER,QUANTI TATIVE 1.10 See comment FEU mcg/mL 05/25/2024 2:11 AM CDT [facility] D-DIMER INTERP Abnormal( A) 05/25/2024 2:11 AM CDT [facility] Blood BLOOD SPECIMEN / Unknown Venipuncture / Unknown 05/25/2024 1:46 AM CDT 05/25/2024 1:[address] [facility] - 05/25/2024 2:11 AM CDT The cut off value for exclusion of Deep Vein Thrombosis and / or Pulmonary Embolism is 0.50 FEU mcg/mL For patients greater than 50 years of age the upper limit is age dependent and was calculated with the formula: ?? (PATIENT AGE x 0.01) FEU mcg/mL = Upper limit of normal range Grey Joseph MD HEMATOLOGY Performing Organization Address [facility] Co de Phone Number [facility] [employer] [facility] [address] [place] [address], * (ABNORMAL) PRO-BNP (05/25/2024 1:46 AM CDT) PRO-BNP 279(H) <125 pg/mL 05/25/2024 2:32 AM CDT [facility] Blood BLOOD SPECIMEN / Unknown Venipuncture / Unknown 05/25/2024 1:46 AM CDT 05/25/2024 1:56 AM CDT [facility] - 05/25/2024 2:32 AM CDT The following cut-points have been suggested for the use of proBNP for the diagnostic evaluation of heart failure (HF) in patient with acute dyspnea. Patients with eGFR >= 60 Diagnosis (rule in CHF) ? <50 Years Old ?450 pg/mL 50 - 75 Years Old ?900 pg/mL >75 Years Old ? 1800 pg/mL Exclusion (rule out CHF) Age Independent ?300 pg/mL A cutoff of 1200 pg/mL for patients with an eGFR <60 yields a diagnostic sensitivity of 89% and specificity of 72% for acute congestive heart failure. ? Grey Joseph MD SEND OUTS [facility] [address] [place] [address], * (ABNORMAL) BASIC METABOLIC PANEL (05/25/2024 1:46 AM CDT) SODIUM 142 136 - 145 mmol/L 05/25/2024 5:06 AM CDT [facility] POTASSIUM 3.5 3.5 - 5.1 mmol/L 05/25/2024 5:06 AM CDT [facility] CHLORIDE 103 98 - 107 mmol/L 05/25/2024 5:06 AM CDT [facility] CO2,TOTAL 23 22 - 29 mmol/L 05/25/2024 5:06 AM CDT [facility] ANION GAP 16 5 - 18 05/25/2024 5:06 AM CDT [facility] GLUCOSE 93 70 - 99 mg/dL 05/25/2024 5:06 AM CDT [facility] CALCIUM 9.2 8.8 - 10.2 mg/dL 05/25/2024 5:06 AM CDT [facility] BUN 7(L) 8 - 23 mg/dL 05/25/2024 5:06 AM CDT [facility] CREATININE 0.97 0.70 - 1.20 mg/dL 05/25/2024 5:06 AM CDT [facility] BUN/CREAT RATIO 7(L) 10 - 20 5:06 AM CDT [facility] eGFR 87(L) >90 mL/min/1.7 3m2 05/25/2024 5:06 AM CDT [facility] Comment:As of 2022, eG FR is calculated by the CKD-EPI creatinine equation without race adjustment. ??eGFR can be influenced by muscle mass, exercise, and diet. ??The reported eGFR is an estimation only and is only applicable if the renal function is stable. Blood BLOOD SPECIMEN / Unknown Venipuncture / Unknown 05/25/2024 1:46 AM CDT 05/25/2024 1:56 AM CDT Kwasi Cade MD CHEMISTRY Performing Organization Address [facility] Co de Phone Number [facility] [address] [place] [address], * EKG 12 LEAD (05/25/2024 1:29 AM CDT) Interpretation Normal sinus rhythm Normal ECG No significant change [facility] NOW Ventricular Rate 99 BPM BEYOND NOW Atrial Rate 99 BPM BEYOND NOW P-R Interval 140 ms BEYOND NOW QRS Duration 76 ms BEYOND NOW QT 356 ms BEYOND NOW QTc 456 ms BEYOND NOW P [place] 87 degrees BEYOND NOW R [place] 52 degrees BEYOND NOW T [place] 39 degrees BEYOND NOW 05/25/2024 1:29 AM CDT 05/25/2024 12:22 PM CDT Grey Joseph MD EKG ORD Performing Organization Address [facility] Co de Phone Number [facility] [place], [place] * SCAN-CARDIAC STRIP (05/25/2024 12:00 AM CDT) Narrative 05/25/2024 12:00 AM CDT Ordered by an unspecified provider. Other Clinical Staff OTHER from Last 3 Months Advance Directives * Full Code (Latest Code Status on File) Date Activated Date Inactivated Comments 05/25/2024 6:26 AM 05/26/2024 4:53 PM Question Answer Comments Code Status Discussion: Reviewed Preferences * Full Code Date Activated Date Inactivated Comments 02/22/2022 12:32 AM 02/27/2022 7:05 PM Question Answer Comments Code Status Discussion: Reviewed Preferences Care Teams Funding Specialist Relationship Specialty Start Date End Date [facility] [address] [place] [address] PCP - General 02/21/22
--- NOTE | 2024-06-24 18:20 | ED.SOB ---
HPI - SOB/Dyspnea General Date Seen: 06/24/24 Chief Complaint: Shortness of Breath/Dyspnea Stated Complaint: Trouble breathing, COPD Time Seen by Provider: 06/24/24 17:51 Source: patient Mode of arrival: ambulatory Limitations: no limitations History of Present Illness HPI Narrative: Patient is a 63-year-old male with history of COPD quit smoking 12 years ago presenting to the emergency department for shortness of breath. States the symptoms have been going on for the past week. He is also states he has been dealing with seasonal allergies and believes he caught a viral infection from a family member. Of note he was admitted in May for similar symptoms and and another time in April. States he took his breathing treatments today as directed any notice some improvement but was still feeling short of breath so came in for evaluation. He does have an oxygen concentrating oxygen tanks at home but typically does not need them. Has not used them today. States that it feels like there is a pressure sensation in his chest but denies any chest pain. No history of heart disease. Denies fevers, chills, headache, lightheadedness, dizziness, abdominal pain, diarrhea, constipation, weakness, numbness. States this feels like his previous COPD exacerbations. Related Data Home Medications ?Medication ?Instructions ?Recorded ?Confirmed ferrous fumarate 325 mg (106 mg 325 mg PO QDAY 06/11/22 05/31/24 iron) tablet cromolyn 4 % eye drops 1 drp ophthalmic (eye) QID 07/02/23 05/31/24 fluticasone propionate 50 1 spray intranasal BID 07/02/23 06/24/24 mcg/actuation nasal spray,suspension Previous Rx's ?Medication ?Instructions ?Recorded albuterol sulfate 2.5 mg/3 mL 2.5 mg (3 mL) continuous 11/09/23 (0.083 %) solution for nebulization nebulization Q4H PRN bronchospasm #180 mL budesonide-formoterol HFA 160 2 puff inhalation BID #10.2 grams 11/09/23 mcg-4.5 mcg/actuation aerosol inhaler guaifenesin 600 mg tablet, 600 mg PO BID PRN congestion #180 11/09/23 extended release 12 hr (Mucinex) tabs montelukast 10 mg tablet 10 mg PO QPM #90 tabs 11/09/23 omeprazole 20 mg capsule,delayed 40 mg (2 x 20 mg) .Route QDAY #180 11/09/23 release caps tiotropium bromide 18 mcg capsule 1 cap inhalation QDAY COPD #90 11/09/23 with inhalation device (Spiriva inhalations with HandiHaler) benzonatate 200 mg capsule 200 mg PO BID-TID PRN cough #90 04/07/24 caps lisinopril 10 mg tablet 10 mg PO QDAY #90 tabs 04/07/24 tamsulosin 0.4 mg capsule 0.4 mg PO DAILY #90 caps 04/07/24 sodium chloride 3 % for 4 ml inhalation Q4H PRN secretions 05/31/24 nebulization #120 mL ipratropium 0.5 mg-albuterol 3 mg 3 ml inhalation QID PRN shortness 06/23/24 (2.5 mg base)/3 mL nebulization of breath or wheezing #180 mL soln doxycycline hyclate 100 mg capsule 100 mg PO BID #10 caps 06/24/24 prednisone 20 mg tablet See Rx Instructions .Route 06/24/24 .COMPLEX #18 tabs Allergies Allergy/AdvReac Type Severity Reaction Status Date / Time shellfish derived Allergy Severe Vomiting Verified 06/24/24 17:44 Review of Systems Status of ROS: Reports: 10 or more systems reviewed and unremarkable except as noted in History and below [facility] Medical History Nocturia more than twice per night ?R35.1 - Nocturia (ICD-10) Lung nodule ?R91.1 - Solitary pulmonary nodule (ICD-10) Iron deficiency anemia ?D50.9 - Iron deficiency anemia, unspecified (ICD-10) Myocardial strain ?I51.9 - Heart disease, unspecified (ICD-10) Abscess of lung ?J85.2 - Abscess of lung without pneumonia (ICD-10) Family History Father COPD (chronic obstructive pulmonary disease) Coronary artery disease Family/Other Stroke Social History Narrative: Alcohol use- beer drinker, nightly Former smoker- quit age 52; smoked 1.5 packs/day; approx 60 pack year history 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 Is close with both adult daughters. What is your current living situation?: I presently have a place to live Problems where you live: no known problems Problems where you live details: too many stairs. In the past 12 months, utilities in danger of being shut off: no In past 12 months, lack of transportation kept you from medical appts, meetings, work, or getting things needed for daily living: no In the past 12 mos, have been you worried that your food would run out before you had money to buy more?: never true In the past 12 mos, the food you bought just didn't last and you didn't have money to buy more?: never true Highest level of school completed/degree received: high school graduate Smoking Status: Former smoker What tobacco products do you use: cigarettes Smoking quit date/years: <= 15 years ago Do you use any of these nicotine containing products: None Second hand tobacco smoke exposure: No How often do you have a drink containing alcohol: monthly or less Alcohol type: beer How many standard drinks containing alcohol do you have on a typical day: 3 or 4 How often do you have six or more drinks on one occasion: Never AUDIT-C Alcohol total score: 2 Non-prescribed substance use: denies use Caffeine: Yes How often does anyone, including family, friends and others, physically hurt you: never How often does anyone, including family, friends and others, insult or talk down to you: never How often does anyone, including family, friends and others, threaten you with harm: never How often does anyone, including family, friends and others, scream or curse at you: never Little interest or pleasure in doing things: several days Feeling down, depressed, or hopeless: not at all service: No Exam Narrative: Exam Narrative: Const: Well-nourished, Well-developed, in mild distress Eyes: PERRL, no conjunctival injection, and symmetrical lids HENT: Atraumatic external nose and ears. Moist mucous membranes. Neck: Symmetric, trachea midline, No thyromegaly. CVS: RRR, No murmurs or gallops. Peripheral pulses 2+ and equal in all extremities RESP: Unlabored respiratory effort. Clear to auscultation bilaterally. GI: Nontender/Nondistended, No rebound or guarding. MSK:Extremities w/o deformity, Normal Active ROM Skin: Warm, Dry. No rashes or lesions. Neuro: Normal Muscle tone, No focal neurological deficits. Psych: Awake, Alert, & Oriented x3. Appropriate mood and affect. Const: Vital Signs, click to edit/add: Vital Signs - 24 hr 06/24/24 17:44 06/24/24 18:00 06/24/24 18:02 Temperature 97.4 F L Pulse Rate 87 89 Pulse Rate [Pulse Oximeter] 91 Respiratory Rate 24 Blood Pressure 132/98 H Blood Pressure [Ri ght Upper Arm] 152/85 H Pulse Oximetry 92 91 92 Oxygen Delivery Me thod Room Air 06/24/24 18:03 06/24/24 18:31 06/24/24 18:32 Temperature Pulse Rate 90 93 94 Pulse Rate [Pulse Oximeter] Respiratory Rate Blood Pressure 147/79 H Blood Pressure [Ri ght Upper Arm] Pulse Oximetry 92 92 92 Oxygen Delivery Me thod 06/24/24 18:45 06/24/24 19:00 06/24/24 19:02 Temperature Pulse Rate 90 89 93 Pulse Rate [Pulse Oximeter] Respiratory Rate Blood Pressure 143/89 H Blood Pressure [Ri ght Upper Arm] Pulse Oximetry 92 93 93 Oxygen Delivery Me thod 06/24/24 19:15 06/24/24 19:30 06/24/24 19:32 Temperature Pulse Rate 85 86 Pulse Rate [Pulse Oximeter] Respiratory Rate Blood Pressure 118/72 Blood Pressure [Ri ght Upper Arm] Pulse Oximetry 92 91 93 Oxygen Delivery Me thod 06/24/24 19:45 Temperature Pulse Rate 80 Pulse Rate [Pulse Oximeter] Respiratory Rate Blood Pressure Blood Pressure [Ri ght Upper Arm] Pulse Oximetry 94 Oxygen Delivery Me thod Course Vital Signs Vital signs: Initial Vital Signs Temperature 97.4 F L 06/24/24 17:44 Temperature Source Temporal Artery Scan 06/24/24 17:44 Pulse Rate 91 06/24/24 17:44 Respiratory Rate 24 06/24/24 17:44 Blood Pressure 152/85 H 06/24/24 17:44 Blood Pressure Mean 107 H 06/24/24 17:44 Blood Pressure Position Semi-Fowlers 06/24/24 17:44 Pulse Oximetry 92 06/24/24 17:44 Oxygen Delivery Method Room Air 06/24/24 17:44 Vital Signs Temperature 97.4 F L 06/24/24 17:44 Pulse Rate 91 06/24/24 17:44 Respiratory Rate 24 06/24/24 17:44 Blood Pressure 152/85 H 06/24/24 17:44 Pulse Oximetry 92 06/24/24 17:44 Oxygen Delivery Method Room Air 06/24/24 17:44 Temperature 97.4 F L 06/24/24 17:44 Pulse Rate 80 06/24/24 19:45 Respiratory Rate 24 06/24/24 17:44 Blood Pressure 118/72 06/24/24 19:32 Pulse Oximetry 94 06/24/24 19:45 Oxygen Delivery Method Room Air 06/24/24 17:44 Medications Administered Medications: Discontinued Medications Generic Name Dose Route Start Last Admin Trade Name Freq PRN Reason Stop Dose Admin Methylprednisolone Sodium Succinate 125 mg 06/24/24 18:03 06/24/24 18:52 Methylprednisolone Sod Succ 62.5 Mg/Ml (125) IVP 06/24/24 18:04 125 mg ONCE ONE Administration MDM - SOB/Dyspnea MDM Narrative Medical decision making narrative: Patient is a 63-year-old male presenting to the emergency department for shortness of breath. He is otherwise stable vital signs of this time. Lung sounds sound clear. Will do chest x-ray look for signs of pneumonia or pneumothorax. Also ordered EKG and troponin for signs of ACS. Lung sounds are clear at this time and he is oxygenating well so I do not believe another round of DuoNebs are necessary. Will give him a dose of Solu-Medrol. Will also order a COVID/flu/RSV, CBC, BMP. Patient's lab work returned showing no concerning abnormalities. EKG and troponin showed no concerning findings. COVID/flu/RSV is within normal limits. X-ray shows an ill-defined area in the right midlung zone but this was seen on previous CTs also. Unsure if new pneumonia or not. Either way I will treat him with doxycycline. He states azithromycin not seem to help him. Also start him on a steroids. He states steroid burst are not helpful for me there any always needs a taper dose. This will be ordered. He is doing well at this time with stable vital signs. Is agreeable to discharge. Lab Data Labs: Lab Results 08/02/24 Range/Units 18:32 WBC 6.80 (4.50-11.00) K/uL RBC 4.02 L (4.30-5.90) m/uL Hgb 12.3 L (13.5-17.5) gm/dL Hct 37.6 (37.0-53.0) % MCV 94 (80-100) fL MCH 31 (26-34) pg MCHC 33 (32-36) gm/dL RDW Coeff of Mandeep 13.8 (11.5-15.5) % Plt Count 297 (140-440) K/uL Neut % (Auto) 44.8 (42.0-72.0) % Lymph % (Auto) 17.8 L (20-44) % [place] % (Auto) 15.1 H (0.0-11.0) % Eos % (Auto) 21.3 H (0.0-7.0) % Baso % (Auto) 0.6 (0.0-3.0) % Neut # (Auto) 3.04 (1.7-7.0) K/uL Lymph # (Auto) 1.20 (0.90-2.90) K/uL [place] # (Auto) 1.00 H (0.00-0.90) K/UL Eos # (Auto) 1.40 H (0.00-0.50) K/uL Baso # (Auto) 0.04 (0.00-0.30) K/uL Abs Immat Gran (auto) 0.03 (0.00-0.30) K/uL Imm/Tot Granulo (auto) 0.4 % Sodium 136 (135-149) mmol/L Potassium 4.0 (3.6-5.1) mmol/L Chloride 102 (96-114) mmol/L Carbon Dioxide 27 (20-32) mmol/L Anion Gap 7 (7-15) mEq/L BUN 6 L (7-30) mg/dL Creatinine 1.0 (0.5-1.5) mg/dL Estimated Creat Clear 71.25 Estimated GFR 84 ml/min Glucose 100 (60-115) mg/dL Calcium 9.2 (8.4-10.6) mg/dL SARS-CoV-2 (PCR) Negative SARS-CoV-2 (Negative) Influenza Type A (PCR) Negative PCR FLU A (Negative) Influenza Type B (PCR) Negative PCR FLU B (Negative) RSV (PCR) Negative PCR RSV (Negative) POC Troponin I 0.00 L (0.01-0.04) ng/ml Imaging Data Chest x-ray: Radiologist's impression: 1. Ill-defined airspace opacities are present in the right midlung zone and may correspond to consolidation and scarring seen on prior CT. Dictated by Jorden Barrera MD @ 06/24/2024 7:57:06 PM ECG Data Attestation: I personally reviewed and interpreted this ECG as follows: Prior ECG tracings: available for review Interpretation: Normal sinus rhythm, with a rate of 79 beats per minute, normal intervals, normal axis, no ST or T-wave abnormalities. 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 Take the antibiotics and steroids as directed. Return to emergency department for new worsening symptoms. Prescriptions: New doxycycline hyclate 100 mg capsule 100 mg PO BID Qty: 10 0RF prednisone 20 mg tablet See Rx Instructions .Route .COMPLEX Qty: 18 0RF Rx Instructions: 60 mg (3 pills) 8/3-8/4 50 mg (2.5 pills) 8/5-8/6 40 mg (2 pills) 87-8/8 30 mg (1.5 pills) 8/ 20 mg (1 pill) 8/10 10 mg (0.5 pill) 07/03 No Action ferrous fumarate 325 mg (106 mg iron) tablet 325 mg PO QDAY cromolyn 4 % drops 1 drp ophthalmic (eye) QID fluticasone propionate 50 mcg/actuation spray,suspension 1 spray intranasal BID albuterol sulfate 2.5 mg /3 mL (0.083 %) solution for nebulization 2.5 mg continuous nebulization Q4H PRN (Reason: bronchospasm) Qty: 180 3RF budesonide-formoterol 160-4.5 mcg/actuation HFA aerosol inhaler 2 puff inhalation BID Qty: 10.2 3RF guaifenesin [Mucinex] 600 mg tablet extended release 12hr 600 mg PO BID PRN (Reason: congestion) Qty: 180 3RF montelukast 10 mg tablet 10 mg PO QPM Qty: 90 4RF omeprazole 20 mg capsule,delayed release(DR/EC) 40 mg .ROUTE QDAY Qty: 180 3RF Rx Instructions: 40 mg every day; Spiriva with HandiHaler 18 mcg capsule, w/inhalation device 1 cap INHALATION QDAY Qty: 90 3RF benzonatate 200 mg capsule 200 mg PO BID-TID PRN (Reason: cough) Qty: 90 3RF tamsulosin 0.4 mg capsule 0.4 mg PO DAILY Qty: 90 3RF lisinopril 10 mg tablet 10 mg PO QDAY Qty: 90 3RF Patient Comments: took Thursday and only one dose taken and made patient feel like going to pass out. sodium chloride 3 % solution for nebulization 4 ml inhalation Q4H PRN (Reason: secretions) Qty: 120 1RF ipratropium-albuterol 0.5 mg-3 mg(2.5 mg base)/3 mL solution for nebulization 3 ml inhalation QID PRN (Reason: shortness of breath or wheezing) Qty: 180 1RF Rx Instructions: Use at first sign of shortness of breath; Follow Up/Referrals: Lillie Farley MD [Primary Care Provider] - Stand Alone Forms: [employer] Info Instructions
[2024-06-24 18:48] LABS: Basophils Absolute Auto 0.04 K/uL (0.00-0.30); Basophils Percent Auto 0.6 % (0.0-3.0); Eosinophils Percent Auto 21.3 % (0.0-7.0); Hematocrit 37.6 % (37.0-53.0); Hemoglobin* 12.3 gm/dL (13.5-17.5); Immature Granulocytes Abs Auto 0.03 K/uL (0.00-0.30); Immature Granulocytes Pct Auto 0.4 %; Lymphocytes Percent Auto 17.8 % (20-44); Mean Corpuscular HGB Conc 33 gm/dL (32-36); Mean Corpuscular Hemoglobin 31 pg (26-34); Mean Corpuscular Volume 94 fL (80-100); Monocytes Percent Auto 15.1 % (0.0-11.0); Neutrophils Absolute Auto 3.04 K/uL (1.7-7.0); Neutrophils Percent Auto 44.8 % (42.0-72.0); Platelet Count* 297 K/uL (140-440); RDW Coefficient of Variation % 13.8 % (11.5-15.5); Red Blood Count 4.02 m/uL (4.30-5.90)
[2024-06-24 18:50] LABS: Slide Review Reflex No
[2024-06-24] MEDS: METHYLPREDNISOLONE SOD SUCC 62.5 MG/ML (125) 125 MG IVP (18:52)
[2024-06-24 19:02] LABS: Chloride* 102 mmol/L (96-114); Sodium* 136 mmol/L (135-149)
[2024-06-24 19:05] LABS: Anion Gap 7 mEq/L (7-15); Carbon Dioxide* 27 mmol/L (20-32); Est. Creatinine Clearance* 71.25; Estimated Glomerular Filt Rate 84 ml/min
[2024-06-24 19:06] LABS: Blood Urea Nitrogen* 6 mg/dL (7-30); Calcium* 9.2 mg/dL (8.4-10.6); Glucose* 100 mg/dL (60-115)
[2024-06-24 19:31] LABS: PCR FLU A Negative PCR FLU A (Negative); PCR FLU B Negative PCR FLU B (Negative); PCR RSV Negative PCR RSV (Negative); SARS PCR* Negative SARS-CoV-2 (Negative)
[2024-06-24] MEDS: DOXYCYCLINE HYCLATE 100 MG PO (20:23)
== END 2024-06-24 20:35 | disposition home or self-care (01) ==
PROVIDERS: Emergency Provider Student in an Organized Health Care Education/Training Program; PCP Family Medicine
DX: J44.9 Chronic obstructive pulmonary disease, unspecified (principal)
CPT/HCPCS: 36415; 71046; 80048; 84484; 85025; 87631; 93005; 96374; 99283; 99284; 99285; A9270; J2919

== ENCOUNTER 2024-07-22 19:37 | Observation (INO) | payer OTHER, SELFPAY ==
[2024-07-22 19:47] VITALS: BP 123/62; PULSE 95; RESP 16; TEMP 36.9; O2SAT 92
--- NOTE | 2024-07-22 20:02 | ED_ITS ---
HPI - General Adult General Date Seen: 07/22/24 Chief complaint: Shortness of Breath/Dyspnea Stated complaint: Short of breath, cough Time Seen by Provider: 07/22/24 20:01 History of Present Illness HPI narrative: 63-year-old male with a history of COPD, hypertension, history of tobacco use (quit 10+ yrs ago), alcohol use disorder, prediabetes, presenting to the ER today with shortness of breath and cough. He reports that he has been having trouble with COPD and has been on multiple rounds of antibiotics and prednisone over the past few months. He is feeling more increasing shortness of breath and coughing up sputum. He has pulmonary care through [facility], Dr. Jovani patino, in [place]. He was in the ER in March for cough and shortness of breath. During that visit he had a CT scan of his chest that showed no evidence for PE. It did show stable chronic airspace consolidations and peripheral nodular scarring but No new infiltrates and No CHF. EKG was nonischemic Troponin was normal. Venous lactic was normal. LFTs normal. BUN 12, creatinine 0.9, electrolytes normal. WBC 11.3, hemoglobin 13.3, platelet count 340 VBG showed pH of 7.36, pCO2 of 54 He was here again in the ER in the beginning of June for another episode of shortness of breath. Diagnosed with COPD and sent home on antibiotics and a burst of prednisone. He actually talked to his licensed mortgage loan officer and took a 2 week tapering dose of prednisone for his breathing trouble. He has also been doing all of his home nebs and inhalers. He felt quite a bit better while on the antibiotics and prednisone but last week after he finished the prednisone he began to flare up again. He has had a cough that is nonproductive of sputum. No fever or chills. No other cold symptoms or body aches. No chest pain. He has had progressively worsening shortness of breath and wheezing this week. He has been using his DuoNeb every 4 hours but it just does not helping very much at home. Tonight he was feeling even worse so finally knew he had to come back in. He has no known exposure to COVID. He did have a ?cold? that he caught from his son-in-law about 2 or 3 weeks ago, just after he was here in the ER last time Related Data Home Medications ?Medication ?Instructions ?Recorded ?Confirmed ferrous fumarate 325 mg (106 mg 325 mg PO QDAY 06/11/22 05/31/24 iron) tablet cromolyn 4 % eye drops 1 drp ophthalmic (eye) QID 07/02/23 05/31/24 fluticasone propionate 50 1 spray intranasal BID 07/02/23 06/24/24 mcg/actuation nasal spray,suspension loratadine 10 mg tablet 10 mg PO DAILY 07/22/24 07/22/24 tiotropium bromide 2.5 2 puff inhalation DAILY 07/22/24 07/22/24 mcg/actuation mist for inhalation (Spiriva Respimat) Previous Rx's ?Medication ?Instructions ?Recorded albuterol sulfate 2.5 mg/3 mL 2.5 mg (3 mL) continuous 11/09/23 (0.083 %) solution for nebulization nebulization Q4H PRN bronchospasm #180 mL budesonide-formoterol HFA 160 2 puff inhalation BID #10.2 grams 11/09/23 mcg-4.5 mcg/actuation aerosol inhaler guaifenesin 600 mg tablet, 600 mg PO BID PRN congestion #180 11/09/23 extended release 12 hr (Mucinex) tabs montelukast 10 mg tablet 10 mg PO QPM #90 tabs 11/09/23 omeprazole 20 mg capsule,delayed 40 mg (2 x 20 mg) .Route QDAY #180 11/09/23 release caps tiotropium bromide 18 mcg capsule 1 cap inhalation QDAY COPD #90 11/09/23 with inhalation device (Spiriva inhalations with HandiHaler) benzonatate 200 mg capsule 200 mg PO BID-TID PRN cough #90 04/07/24 caps tamsulosin 0.4 mg capsule 0.4 mg PO DAILY #90 caps 04/07/24 sodium chloride 3 % for 4 ml inhalation Q4H PRN secretions 05/31/24 nebulization #120 mL ipratropium 0.5 mg-albuterol 3 mg 3 ml inhalation QID PRN shortness 06/23/24 (2.5 mg base)/3 mL nebulization of breath or wheezing #180 mL soln prednisone 10 mg tablet 10 mg PO DIRECTED #36 tabs 06/24/24 Allergies Allergy/AdvReac Type Severity Reaction Status Date / Time shellfish derived Allergy Severe Vomiting Verified 06/24/24 17:44 [facility] Medical History Nocturia more than twice per night ?R35.1 - Nocturia (ICD-10) Lung nodule ?R91.1 - Solitary pulmonary nodule (ICD-10) Iron deficiency anemia ?D50.9 - Iron deficiency anemia, unspecified (ICD-10) Myocardial strain ?I51.9 - Heart disease, unspecified (ICD-10) Abscess of lung ?J85.2 - Abscess of lung without pneumonia (ICD-10) Family History Father COPD (chronic obstructive pulmonary disease) Coronary artery disease Family/Other Stroke Social History Narrative: Alcohol use- beer drinker, nightly Former smoker- quit age 52; smoked 1.5 packs/day; approx 60 pack year history 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 Is close with both adult daughters. What is your current living situation?: I presently have a place to live Problems where you live: no known problems Problems where you live details: too many stairs. In the past 12 months, utilities in danger of being shut off: no In past 12 months, lack of transportation kept you from medical appts, meetings, work, or getting things needed for daily living: no In the past 12 mos, have been you worried that your food would run out before you had money to buy more?: never true In the past 12 mos, the food you bought just didn't last and you didn't have money to buy more?: never true Highest level of school completed/degree received: high school graduate Smoking Status: Former smoker What tobacco products do you use: cigarettes Smoking quit date/years: <= 15 years ago Do you use any of these nicotine containing products: None Second hand tobacco smoke exposure: No How often do you have a drink containing alcohol: monthly or less Alcohol type: beer How many standard drinks containing alcohol do you have on a typical day: 3 or 4 How often do you have six or more drinks on one occasion: Never AUDIT-C Alcohol total score: 2 Non-prescribed substance use: denies use Caffeine: Yes How often does anyone, including family, friends and others, physically hurt you : never How often does anyone, including family, friends and others, insult or talk down to you: never How often does anyone, including family, friends and others, threaten you with harm: never How often does anyone, including family, friends and others, scream or curse at you: never Little interest or pleasure in doing things: several days Feeling down, depressed, or hopeless: not at all service: No Exam Narrative: Exam Narrative: Constitutional: Appears well-developed and well-nourished. Alert. Conversant. Non toxic. HENT: Head: Atraumatic. Nose: Nose normal. Mouth/Throat: Oral mucosa is clear and moist. no trismus. Pharynx normal. Tonsils symmetric. No tonsillar enlargement, erythema, or exudate. Eyes: Conjunctivae normal. EOM normal. Pupils equal, round, and reactive to light. No scleral icterus. Neck: Normal range of motion. Neck supple. No tracheal deviation present. Cardiovascular: Normal rate, regular rhythm. No gallop. No friction rub. No murmur heard. Symmetric radial artery pulses Pulmonary/Chest: Effort normal. No stridor. No respiratory distress. He is able to speak about 6 or 8 words but typically will breathe once in the middle of a long sentence. He has a fairly long winded historian Very tight lung sounds and poor aeration in the bases. He has a few scares wheezes in the apices but really isn't moving much air. O2 sat about 90-91% on room air. . No tenderness. Abdominal: Soft. No distension. No mass. No tenderness. No rebound. No guarding. Musculoskeletal: RUE: Normal range of motion. No tenderness. No deformity LUE: Normal range of motion. No tenderness. No deformity RLE: Normal range of motion. No edema. No tenderness. No deformity LLE: Normal range of motion. No edema. No tenderness. No deformity Lymph: No cervical adenopathy. Neurological: Alert and oriented to person, place, and time. Normal strength. CN II-VII intact. No sensory deficit. GCS eye subscore is 4. GCS verbal subscore is 5. GCS motor subscore is 6. Normal coordination Skin: Skin is warm and dry. No rash noted. No pallor. Normal capillary refill. Psychiatric: Normal mood. Normal affect. Const: Vital Signs, click to edit/add: Vital Signs - 24 hr 07/22/24 19:47 07/22/24 21:43 07/22/24 22:05 Temperature 98.4 F Pulse Rate [Pulse Oximeter] 95 76 96 Respiratory Rate 16 20 Blood Pressure [Ri ght Upper Arm] 123/62 135/72 Pulse Oximetry 92 91 88 Oxygen Delivery Me thod Room Air Room Air Room Air 07/22/24 22:26 Temperature Pulse Rate [Pulse Oximeter] Respiratory Rate Blood Pressure [Ri ght Upper Arm] Pulse Oximetry 90 Oxygen Delivery Me thod Course Course ED Course: Patient seen and examined in ER room 3. Discussed our differential including (most likely) COPD exacerbation, also would include COVID, pneumonia, pulmonary edema, acute coronary syndrome, empyema, lung abscess, among others. Discussed that we would typically 1-2 workup with chest x-ray, labs, COVID swab. We will also treat with nebs and steroids. Patient is agreeable to the nebs, steroids, and x-rays, but is not want the rest of the workup. Reevaluation(s) Reevaluation #1: [id number]. Watching TV. Breathing easily but sats are about 90-91%. Feels marginally better after for steroids and 1st DuoNeb. Perhaps slightly better aeration but still quite tight and barely wheezing in the bases. Additional nebs ordered. Reevaluation #2: Recheck-after 2 more DuoNebs lung sounds are somewhat improved. At least able to make a few wheezes in the bases now. Stop coughing more. O2 sats dipped down to 88% while on the neb but now but 93. He still feels short of breath. We attempted ambulation trial. He got very winded when trying to walk up the sq aue on the nurse's station and sats dipped to about 88% at the completion of ambulation. Vital Signs Vital signs: Initial Vital Signs Respiratory Effort Labored, Short of Breath, Pursed Lip 07/22/24 19:45 Respiratory Depth Shallow 07/22/24 19:45 Respiratory Pattern Tachypnea 07/22/24 19:45 Vital Signs Temperature 98.4 F 07/22/24 19:47 Pulse Rate 95 07/22/24 19:47 Respiratory Rate 16 07/22/24 19:47 Blood Pressure 123/62 07/22/24 19:47 Pulse Oximetry 92 07/22/24 19:47 Oxygen Delivery Method Room Air 07/22/24 19:47 Temperature 98.4 F 07/22/24 19:47 Pulse Rate 96 07/22/24 22:05 Respiratory Rate 20 07/22/24 21:43 Blood Pressure 135/72 07/22/24 21:43 Pulse Oximetry 90 07/22/24 22:26 Oxygen Delivery Method Room Air 07/22/24 22:05 Medications Administered Medications: Discontinued Medications Generic Name Dose Route Start Last Admin Trade Name Cata PRN Reason Stop Dose Admin Albuterol 5 mg 07/22/24 21:45 07/22/24 21:50 Albuterol Sulfate 2.5 Mg/3 Ml Vial.Neb [facility] 07/22/24 21:46 5 mg ONCE ONE Administration Albuterol/Ipratropium 1 neb 07/22/24 20:18 07/22/24 20:22 Iprat-Albut 0.5-2.5 Mg/3 Ml Neb 07/22/24 20:19 1 neb ONCE ONE Administration Prednisone 60 mg 07/22/24 20:18 07/22/24 20:23 Prednisone 20 Mg Tablet PO 07/22/24 20:19 60 mg ONCE ONE Administration Medical Decision Making [facility] Narrative Medical decision making narrative: This patient presents for evaluation of shortness of breath , nonproductive cough, and wheezing. Signs and symptoms are consistent with asthma exacerbation. A broad differential was considered including COPD, asthma, pneumonia, COVID, bronchitis, pneumothorax, viral induced wheezing, CHF, ACS, allergic phenomena, among others. COVID negative. BMP and CBC normal. EKG nonischemic. Troponin undetectable. At this point clinical exam would indicate COPD exacerbation. Treated with steroids here in the ER. He had been using nebs at home and received 1 more DuoNeb and 2 additional albuterol nebs here in the ER with some improvement in aeration. However he still short of breath especially with ambulation. He does desaturate into the 80s with ambulation. He cannot get up his steps to get home and manage their tonight. Therefore high hospitalization, at least observation overnight, is indicated. Discussed with hospitalist, Dr. Barrientos. He who agrees to admit. Lab Data Labs: Lab Results 07/22/24 07/22/24 07/22/24 Range/Units 22:07 22:17 22:22 WBC 9.26 (4.50-11.00) K/uL RBC 3.95 L (4.30-5.90) m/uL Hgb 12.0 L (13.5-17.5) gm/dL Hct 36.9 L (37.0-53.0) % MCV 93 (80-100) fL MCH 30 (26-34) pg MCHC 33 (32-36) gm/dL RDW Coeff of Mandeep 13.5 (11.5-15.5) % Plt Count 314 (140-440) K/uL Neut % (Auto) 64.0 (42.0-72.0) % Lymph % (Auto) 13.4 L (20-44) % [place] % (Auto) 8.0 (0.0-11.0) % Eos % (Auto) 13.2 H (0.0-7.0) % Baso % (Auto) 0.5 (0.0-3.0) % Neut # (Auto) 5.93 (1.7-7.0) K/uL Lymph # (Auto) 1.20 (0.90-2.90) K/uL [place] # (Auto) 0.70 (0.00-0.90) K/UL Eos # (Auto) 1.20 H (0.00-0.50) K/uL Baso # (Auto) 0.05 (0.00-0.30) K/uL Abs Immat Gran (auto) 0.08 (0.00-0.30) K/uL Imm/Tot Granulo (auto) 0.9 % Sodium 136 (135-149) mmol/L Potassium 4.0 (3.6-5.1) mmol/L Chloride 102 (96-114) mmol/L Carbon Dioxide 25 (20-32) mmol/L Anion Gap 9 (7-15) mEq/L BUN 8 (7-30) mg/dL Creatinine 1.0 (0.5-1.5) mg/dL Estimated GFR 84 ml/min Glucose 117 H (60-115) mg/dL Calcium 9.5 (8.4-10.6) mg/dL SARS-CoV-2 (PCR) Negative SARS-CoV-2 (Negative) Influenza Type A (PCR) Negative PCR FLU A (Negative) Influenza Type B (PCR) Negative PCR FLU B (Negative) RSV (PCR) Negative PCR RSV (Negative) POC Troponin I 0.00 L (0.01-0.04) ng/ml Imaging Data Chest x-ray: Attestation: I have reviewed the pertinent imaging results. My impression: Stable appearing scar or stable opacity in the right upper lobe. Otherwise no acute infiltrate-Dr. Trimble Radiologist's impression: IMPRESSION: 1. No new acute cardiopulmonary findings. 2. Stable bilateral areas of parenchymal scarring. ECG Data Attestation: I personally reviewed and interpreted this ECG as follows: Interpretation: Normal sinus rhythm Rate: MT: 90 QRS axis: 158 ST segment/T wave: No ST segment elevation or depression QTc: 428 Discharge Plan Discharge Clinical Impression: COPD exacerbation Patient Disposition: Admitted As Observation
--- NOTE | 2024-07-22 20:19 | CRLHL7_ITS ---
For Patients: As a result of the Century Cures Act, medical imaging exams and procedure reports are released immediately into your electronic medical record. You may view this report before your referring provider. If you have questions, please contact your health care provider. INDICATION: Cough, shortness of breath, wheezing. TECHNIQUE: Chest 2 view. COMPARISON: Chest radiograph 06/24/2024. CT chest 07/28/2023. FINDINGS: Right upper lung ill-defined airspace opacity and left perihilar linear opacities are similar to prior exams compatible with scarring. Chronic blunting of the right lateral costophrenic angle. Chronic right apical pleural thickening. No new focal consolidation or pleural effusion. No pneumothorax. Normal heart size and pulmonary vascularity. Degenerative changes of the spine. IMPRESSION: 1. No new acute cardiopulmonary findings. 2. Stable bilateral areas of parenchymal scarring. Dictated by Eloina Chi MD @ 07/22/2024 9:35:38 PM (Electronically Signed)
[2024-07-22] MEDS: IPRAT-ALBUT 0.5-2.5 MG/3 ML NEB 1 NEB IH (20:22)
[2024-07-22] MEDS: predniSONE 20 MG TABLET 60 MG PO (20:23)
--- NOTE | 2024-07-22 21:00 | PC.NURSE ---
Pt to radiology via w/w
[2024-07-22 21:43] VITALS: BP 135/72; PULSE 76; RESP 20; O2SAT 91
[2024-07-22] MEDS: ALBUTEROL SULFATE 2.5 MG/3 ML VIAL.NEB 5 MG NEB (21:50)
[2024-07-22 22:05] VITALS: PULSE 96; O2SAT 88
[2024-07-22 22:26] VITALS: O2SAT 90
[2024-07-22 22:28] LABS: Basophils Absolute Auto 0.05 K/uL (0.00-0.30); Basophils Percent Auto 0.5 % (0.0-3.0); Eosinophils Percent Auto 13.2 % (0.0-7.0); Hematocrit 36.9 % (37.0-53.0); Immature Granulocytes Abs Auto 0.08 K/uL (0.00-0.30); Immature Granulocytes Pct Auto 0.9 %; Lymphocytes Percent Auto 13.4 % (20-44); Mean Corpuscular HGB Conc 33 gm/dL (32-36); Mean Corpuscular Hemoglobin 30 pg (26-34); Mean Corpuscular Volume 93 fL (80-100); Neutrophils Absolute Auto 5.93 K/uL (1.7-7.0); Platelet Count* 314 K/uL (140-440); RDW Coefficient of Variation % 13.5 % (11.5-15.5); Red Blood Count 3.95 m/uL (4.30-5.90); White Blood Count* 9.26 K/uL (4.50-11.00)
[2024-07-22 22:31] LABS: Slide Review Reflex No
[2024-07-22 22:40] LABS: Chloride* 102 mmol/L (96-114)
[2024-07-22 22:41] LABS: Sodium* 136 mmol/L (135-149)
[2024-07-22 22:43] LABS: Estimated Glomerular Filt Rate 84 ml/min
[2024-07-22 22:44] LABS: Anion Gap 9 mEq/L (7-15); Blood Urea Nitrogen* 8 mg/dL (7-30); Calcium* 9.5 mg/dL (8.4-10.6); Carbon Dioxide* 25 mmol/L (20-32); Glucose* 117 mg/dL (60-115)
[2024-07-22 23:00] VITALS: BP 131/77; PULSE 87; RESP 18; O2SAT 91
[2024-07-22 23:05] LABS: PCR FLU A Negative PCR FLU A (Negative); PCR FLU B Negative PCR FLU B (Negative); PCR RSV Negative PCR RSV (Negative); SARS PCR* Negative SARS-CoV-2 (Negative)
[2024-07-22 23:35] VITALS: BP 149/70; PULSE 84; RESP 18; TEMP 36.8; O2SAT 91; BMI 31.9
--- NOTE | 2024-07-22 23:39 | P.IMHP_ITS ---
Hospitalist- H&P: HPI History of Present Illness Date Seen: 07/22/24 Chief complaint: Short of breath, cough Narrative: Marco Cormier is a 63 year old male with severe COPD presents with a 1 week history of worsening dyspnea. Patient reports that for the last year he has been in and out of hospitals for COPD exacerbations. He is routinely treated with antibiotics and oral steroids. In the past few months he notes that he gets short of breath a few days after stopping the steroids. He was hospitalized here in March, at [facility] in [place] in April, [facility] in May. He was seen in our emergency room at the beginning of June and given a course of steroids which was done on July 13. Couple days after that he began feeling more short of breath. He has not had significant other respiratory symptoms including fever, cough, purulent sputum. COPD is secondary to smoking. He quit smoking about 12 years ago. 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 He reports he did not do much of the standing of the drywall. He is not aware of any heart disease. Review of Systems Narrative: Recently been bothered by is left hip. No injury. Bothers him with activity and certain positions. [facility] Medical History Nocturia more than twice per night ?R35.1 - Nocturia (ICD-10) Lung nodule ?R91.1 - Solitary pulmonary nodule (ICD-10) Iron deficiency anemia ?D50.9 - Iron deficiency anemia, unspecified (ICD-10) Myocardial strain ?I51.9 - Heart disease, unspecified (ICD-10) Abscess of lung ?J85.2 - Abscess of lung without pneumonia (ICD-10) Family History Father COPD (chronic obstructive pulmonary disease) Coronary artery disease Family/Other Stroke Social History (Updated 07/22/24 @ 23:47 by Cornelio Barrientos MD) Narrative: Alcohol use- beer drinker, stopped drinking 2 months ago Former smoker- quit age 52; smoked 1.5 packs/day; approx 60 pack year history 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 . 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 Has 3 daughters. He does not need is all 3 healthcare power of claim attorney. Code status is full What is your current living situation?: I presently have a place to live Problems where you live: no known problems Problems where you live details: too many stairs. In the past 12 months, utilities in danger of being shut off: no In past 12 months, lack of transportation kept you from medical appts, meetings, work, or getting things needed for daily living: no In the past 12 mos, have been you worried that your food would run out before you had money to buy more?: never true In the past 12 mos, the food you bought just didn't last and you didn't have money to buy more?: never true Highest level of school completed/degree received: high school graduate Smoking Status: Former smoker What tobacco products do you use: cigarettes Smoking quit date/years: <= 15 years ago Do you use any of these nicotine containing products: None Second hand tobacco smoke exposure: No How often do you have a drink containing alcohol: monthly or less Alcohol type: beer How many standard drinks containing alcohol do you have on a typical day: 3 or 4 How often do you have six or more drinks on one occasion: Never AUDIT-C Alcohol total score: 2 Non-prescribed substance use: denies use Caffeine: Yes How often does anyone, including family, friends and others, physically hurt you : never How often does anyone, including family, friends and others, insult or talk down to you: never How often does anyone, including family, friends and others, threaten you with harm: never How often does anyone, including family, friends and others, scream or curse at you: never Little interest or pleasure in doing things: several days Feeling down, depressed, or hopeless: not at all service: No Meds Home Medications and Allergies Home Medications ?Medication ?Instructions ?Recorded ?Confirmed ?Type ferrous fumarate 325 mg (106 mg 325 mg PO QDAY 06/11/22 05/31/24 History iron) tablet cromolyn 4 % eye drops 1 drp ophthalmic (eye) QID 07/02/23 05/31/24 History fluticasone propionate 50 1 spray intranasal BID 07/02/23 06/24/24 History mcg/actuation nasal spray,suspension loratadine 10 mg tablet 10 mg PO DAILY 07/22/24 07/22/24 History tiotropium bromide 2.5 2 puff inhalation DAILY 07/22/24 07/22/24 History mcg/actuation mist for inhalation (Spiriva Respimat) Allergies Allergy/AdvReac Type Severity Reaction Status Date / Time shellfish derived Allergy Severe Vomiting Verified 06/24/24 17:44 Exam Narrative: Exam Narrative: He is alert and appears in no obvious distress. O2 sat at 90% at rest on room air. Desaturates into the 80s with any activity. Oropharynx is normal. Neck is supple without mass or adenopathy. No jugular venous distension. Respirations with marked decreased breath sounds. Diffuse expiratory wheezing. No consolidation. Cardiovascular: S1, S2, regular rate and rhythm. Abdomen: Abdomen is somewhat protuberant. Bowel sounds are active. No significant tenderness. Extremities with trace edema bilaterally. Intact pedal pulses. Palpation around his left hip is without significant tenderness. Const: Vital Signs, click to edit/add: Vital Signs - 24 hr 07/22/24 19:47 07/22/24 21:43 07/22/24 22:05 Temperature 98.4 F Pulse Rate [Pulse Oximeter] 95 76 96 Respiratory Rate 16 20 Blood Pressure [Ri ght Upper Arm] 123/62 135/72 Pulse Oximetry 92 91 88 Oxygen Delivery Me thod Room Air Room Air Room Air 07/22/24 22:26 07/22/24 23:00 Temperature Pulse Rate [Pulse Oximeter] 87 Respiratory Rate 18 Blood Pressure [Ri ght Upper Arm] 131/77 Pulse Oximetry 90 91 Oxygen Delivery Me thod Room Air Documenting provider has reviewed patient's vital signs: yes Hospitalist - H&P: Result Labs Labs: Short CBC 07/22/24 Range/Units 22:17 WBC 9.26 (4.50-11.00) K/uL Hgb 12.0 L (13.5-17.5) gm/dL Hct 36.9 L (37.0-53.0) % Plt Count 314 (140-440) K/uL BMP 07/22/24 22:17 Sodium 136 Potassium 4.0 Chloride 102 Carbon Dioxide 25 BUN 8 Creatinine 1.0 Glucose 117 H Calcium 9.5 ECG Attestation: I personally reviewed and interpreted this ECG as follows: (Normal sinus rhythm. No ST-T changes) Imaging Chest x-ray: Radiologist's impression: INDICATION: Cough, shortness of breath, wheezing. TECHNIQUE: Chest 2 view. COMPARISON: Chest radiograph 06/24/2024. CT chest 07/28/2023. FINDINGS: Right upper lung ill-defined airspace opacity and left perihilar linear opacities are similar to prior exams compatible with scarring. Chronic blunting of the right lateral costophrenic angle. Chronic right apical pleural thickening. No new focal consolidation or pleural effusion. No pneumothorax. Normal heart size and pulmonary vascularity. Degenerative changes of the spine. IMPRESSION: 1. No new acute cardiopulmonary findings. 2. Stable bilateral areas of parenchymal scarring. Assessment and Plan Assessment and plan (1) COPD exacerbation: Problem comment: Acute on chronic dyspnea and hypoxia with any activity. Will treat with oral prednisone and doxycycline. Assess for ongoing oxygen need. Has oxygen at home already. Status: Acute (2) Chronic obstructive pulmonary disease: Problem comment: Followed by Dr Sandoval, pulmonology, and his PCP. Has chest CT on July [address] Sandoval on August 01, 2020 for Former smoker, quit 12 years. With frequent recurrent hospitalizations would benefit from review of his COPD management plan. Status: Acute (3) Alcohol use disorder: Problem comment: Beer drinker. Stopped drinking 2 months ago Status: Acute Plan Patient is admitted to the hospital for monitoring of respiratory status and initiation of treatment for COPD exacerbation. Total Time Spent Total Time Spent: Total time spent today is 65 minutes
[2024-07-23] MEDS: DOXYCYCLINE HYCLATE 100 MG PO ×3 (01:15→20:53)
[2024-07-23 02:36] VITALS: BP 131/58; PULSE 85; RESP 18; TEMP 36.6; O2SAT 91
[2024-07-23] MEDS: IPRAT-ALBUT 0.5-2.5 MG/3 ML NEB 1 NEB IH ×3 (05:05→18:27)
--- NOTE | 2024-07-23 05:37 | PC.NURSE ---
Shift note: Pt complained SOB and cough on admission to the unit from ED. Verbalized feeling better compared to when he arrived at the ED. Alert and oriented. Pt received 4x of nebulization at ED before condition stabilized. Alert and oriented.Vitally stable. O2>90% on RA. Pt complained of SOB at 0520, Ipratropium neb given. Pt had hard time falling asleep but refused Melatonin.
[2024-07-23 06:35] LABS: HCO3 VBG 26 mmol/L (21-28); PCO2 VBG 40 mmHG (40-50); PO2 VBG 62.5 mmHG (25-47); pH VBG 7.425 (7.32-7.43)
[2024-07-23 06:40] LABS: Basophils Percent Auto 0.2 % (0.0-3.0); Eosinophils Percent Auto 0.2 % (0.0-7.0); Hematocrit 35.5 % (37.0-53.0); Hemoglobin* 11.8 gm/dL (13.5-17.5); Immature Granulocytes Pct Auto 1.5 %; Mean Corpuscular HGB Conc 33 gm/dL (32-36); Mean Corpuscular Hemoglobin 31 pg (26-34); Mean Corpuscular Volume 93 fL (80-100); Monocytes Percent Auto 2.9 % (0.0-11.0); Neutrophils Percent Auto 80.2 % (42.0-72.0); Platelet Count* 340 K/uL (140-440); RDW Coefficient of Variation % 13.6 % (11.5-15.5); White Blood Count* 4.08 K/uL (4.50-11.00)
[2024-07-23 06:44] LABS: Slide Review Reflex No
[2024-07-23 07:15] LABS: Chloride* 102 mmol/L (96-114); Potassium* 4.8 mmol/L (3.6-5.1); Sodium* 136 mmol/L (135-149)
[2024-07-23 07:18] LABS: Anion Gap 9 mEq/L (7-15); Carbon Dioxide* 25 mmol/L (20-32); Creatinine* 0.8 mg/dL (0.5-1.5); Est. Creatinine Clearance* 71.25; Estimated Glomerular Filt Rate 98 ml/min
[2024-07-23 07:19] LABS: Blood Urea Nitrogen* 7 mg/dL (7-30); Calcium* 9.4 mg/dL (8.4-10.6); Glucose* 220 mg/dL (60-115)
[2024-07-23] MEDS: predniSONE 20 MG TABLET 60 MG PO (07:51)
[2024-07-23 07:55] VITALS: BP 128/83; BP 144/71; BP 184/87; PULSE 79; PULSE 85; PULSE 94; RESP 22; TEMP 37.1; O2SAT 95
[2024-07-23] MEDS: Budesonide-Formoterol 160-4.5 mcg/actuation HFA aerosol inhaler IH ×2 (09:22→20:55)
[2024-07-23] MEDS: LORATADINE 10 MG TABLET PO (09:23)
[2024-07-23] MEDS: SODIUM CHLORIDE 0.9 % (FLUSH) 10 ML SYRINGE 5 ML IVF ×2 (09:25→20:55)
[2024-07-23 11:32] VITALS: BP 160/87; PULSE 89; RESP 20; TEMP 37.3; O2SAT 96
--- NOTE | 2024-07-23 11:49 | RESP.RT ---
Pt seen for consult. PT had just returned from bathroom. No oxygen in use. SPO2 92%, however pt looked and sounded short of breath, with heavy huffing. This quickly resolved within 15 seconds. SPO2 increased to 95%. BBS with scattered expiratory Rhonchi and occasional light wheeze. Poor overall aeration. He does have oxygen at home. He states he does not wear it much. Has an appointment with senior ecologist next week, as well as some diagnostic testing this week. Talked about many stressors in his life. Talked about the possibility of assisted living. Also talked about the possibility of a steroid regimen. Told him to prepare questions for pulmonology appointment. Pt does not want to be kicked out today. Suspect he will be better tomorrow.
--- NOTE | 2024-07-23 14:37 | P.IMPN_ITS ---
Progress Note: A&P Assessment and plan (1) COPD exacerbation: Problem details: Acute on chronic dyspnea and hypoxia with any activity yesterday. Treating with oral prednisone and doxycycline. Has oxygen at home already. Not requiring oxygen at this time. Remains PATEL with minimal exertion. Patient hesitant to go home yet. Will continue to treat overnight and anticipate discharge tomorrow. Status: Acute (2) Chronic obstructive pulmonary disease: Problem details: Followed by Dr Sandoval, pulmonology, and his PCP. Has chest CT on July [address] Sandoval on August 01, 2020 for Former smoker, quit 12 years. With frequent recurrent hospitalizations would benefit from review of his COPD management plan. Status: Chronic Subjective Time Seen by Provider: : Date Seen: 07/23/24 Interval history: Marco is feeling a bit better today, but notes that he still has PATEL with minimal activity of getting to the bathroom and back. Exam Narrative: Exam Narrative: General: No acute distress. Awake, alert, oriented. Cardiovascular: Regular rate and rhythm. No murmurs, gallops, or rubs. Respiratory: Expiratory wheezing in the left upper lung field, no crackles. Abdomen: Bowel sounds present. Soft, nondistended, nontender. Extremities: No pedal edema. Const: Vital Signs, click to edit/add: Vital Signs - 24 hr 07/22/24 19:47 07/22/24 21:43 07/22/24 22:05 Temperature 98.4 F Pulse Rate [Left P ulse Oximeter] Pulse Rate [Pulse Oximeter] 95 76 96 Pulse Rate [orthos tatic lying] Pulse Rate [orthos tatic sitting] Pulse Rate [orthos tatic standing] Respiratory Rate 16 20 Blood Pressure [Ri ght Arm] Blood Pressure [Ri ght Upper Arm] 123/62 135/72 Blood Pressure [or thostatic lying] Blood Pressure [or thostatic sitting] Blood Pressure [or thostatic standing ] Pulse Oximetry 92 91 88 Oxygen Delivery Me thod Room Air Room Air Room Air 07/22/24 22:26 07/22/24 23:00 07/22/24 23:35 Temperature 98.3 F Pulse Rate [Left P ulse Oximeter] 84 Pulse Rate [Pulse Oximeter] 87 Pulse Rate [orthos tatic lying] Pulse Rate [orthos tatic sitting] Pulse Rate [orthos tatic standing] Respiratory Rate 18 18 Blood Pressure [Ri ght Arm] 149/70 H Blood Pressure [Ri ght Upper Arm] 131/77 Blood Pressure [or thostatic lying] Blood Pressure [or thostatic sitting] Blood Pressure [or thostatic standing ] Pulse Oximetry 90 91 91 Oxygen Delivery Hi thod Room Air Room Air 07/22/24 23:35 07/23/24 02:36 07/23/24 07:55 Temperature 97.8 F 98.8 F Pulse Rate [Left P ulse Oximeter] 85 79 Pulse Rate [Pulse Oximeter] Pulse Rate [orthos tatic lying] Pulse Rate [orthos tatic sitting] Pulse Rate [orthos tatic standing] Respiratory Rate 18 18 22 Blood Pressure [Ri ght Arm] 131/58 L 128/83 Blood Pressure [Ri ght Upper Arm] Blood Pressure [or thostatic lying] Blood Pressure [or thostatic sitting] Blood Pressure [or thostatic standing ] Pulse Oximetry 91 91 95 Oxygen Delivery Hi thod Room Air Room Air Room Air 07/23/24 07:55 07/23/24 07:55 07/23/24 07:55 Temperature Pulse Rate [Left P ulse Oximeter] 79 Pulse Rate [Pulse Oximeter] Pulse Rate [orthos tatic lying] 94 Pulse Rate [orthos tatic sitting] 79 Pulse Rate [orthos tatic standing] 85 Respiratory Rate 22 22 Blood Pressure [Ri ght Arm] Blood Pressure [Ri ght Upper Arm] Blood Pressure [or thostatic lying] 184/87 H Blood Pressure [or thostatic sitting] 128/83 Blood Pressure [or thostatic standing ] 144/71 H Pulse Oximetry 95 Oxygen Delivery Hi thod Room Air 07/23/24 07:55 07/23/24 11:32 Temperature 99.2 F Pulse Rate [Left P ulse Oximeter] 89 Pulse Rate [Pulse Oximeter] Pulse Rate [orthos tatic lying] 94 Pulse Rate [orthos tatic sitting] 79 Pulse Rate [orthos tatic standing] 85 Respiratory Rate 20 Blood Pressure [Ri ght Arm] 160/87 H Blood Pressure [Ri ght Upper Arm] Blood Pressure [or thostatic lying] 184/87 H Blood Pressure [or thostatic sitting] 128/83 Blood Pressure [or thostatic standing ] 144/71 H Pulse Oximetry 96 Oxygen Delivery Hi thod Room Air Labs Labs: Laboratory Results - last 24 hr 07/22/24 07/22/24 07/22/24 22:07 22:17 22:22 WBC 9.26 RBC 3.95 L Hgb 12.0 L Hct 36.9 L MCV 93 MCH 30 MCHC 33 RDW Coeff of Mandeep 13.5 Plt Count 314 Neut % (Auto) 64.0 Lymph % (Auto) 13.4 L [place] % (Auto) 8.0 Eos % (Auto) 13.2 H Baso % (Auto) 0.5 Neut # (Auto) 5.93 Lymph # (Auto) 1.20 [place] # (Auto) 0.70 Eos # (Auto) 1.20 H Baso # (Auto) 0.05 Abs Immat Gran (auto) 0.08 Imm/Tot Granulo (auto) 0.9 VBG pH VBG pCO2 VBG pO2 VBG HCO3 Sodium 136 Potassium 4.0 Chloride 102 Carbon Dioxide 25 Anion Gap 9 BUN 8 Creatinine 1.0 Estimated Creat Clear Estimated GFR 84 Glucose 117 H Calcium 9.5 SARS-CoV-2 (PCR) Negative SARS-CoV-2 Influenza Type A (PCR) Negative PCR FLU A Influenza Type B (PCR) Negative PCR FLU B RSV (PCR) Negative PCR RSV POC Troponin I 0.00 L 07/23/24 06:05 WBC 4.08 L RBC 3.80 L Hgb 11.8 L Hct 35.5 L MCV 93 MCH 31 MCHC 33 RDW Coeff of Mandeep 13.6 Plt Count 340 Neut % (Auto) 80.2 H Lymph % (Auto) 15.0 L [place] % (Auto) 2.9 Eos % (Auto) 0.2 Baso % (Auto) 0.2 Neut # (Auto) 3.30 Lymph # (Auto) 0.60 L [place] # (Auto) 0.10 Eos # (Auto) 0.00 Baso # (Auto) 0.00 Abs Immat Gran (auto) 0.10 Imm/Tot Granulo (auto) 1.5 VBG pH 7.425 VBG pCO2 40 VBG pO2 62.5 H VBG HCO3 26 Sodium 136 Potassium 4.8 Chloride 102 Carbon Dioxide 25 Anion Gap 9 BUN 7 Creatinine 0.8 Estimated Creat Clear 71.25 Estimated GFR 98 Glucose 220 H Calcium 9.4 SARS-CoV-2 (PCR) Influenza Type A (PCR) Influenza Type B (PCR) RSV (PCR) POC Troponin I
[2024-07-23 15:08] VITALS: BP 168/87; PULSE 95; RESP 16; TEMP 37.1; O2SAT 94
[2024-07-23] MEDS: MONTELUKAST 10 MG TABLET PO (18:24)
[2024-07-23] MEDS: OMEPRAZOLE 20 MG CAPSULE DR 40 MG PO (18:27)
[2024-07-23 19:00] VITALS: BP 152/77; PULSE 94; RESP 18; TEMP 36.6; O2SAT 94
--- NOTE | 2024-07-23 19:11 | PC.NURSE ---
End of Shift: Patient pleasant and cooperative. Patient hypertensive, but vitally stable, lungs diminished with expiratory wheezes, BS WNL, IV SL and intact. Patient independent in room and denies pain. Patient on room are in mid 90s. Patient SOB with activity more so in the morning compared to end of shift. Patient tolerating regular diet, urinating, and with loose stools. Duo neb given x2 today and prn omeprazole given.
[2024-07-23] MEDS: guaiFENesin 600 MG TAB.ER.12H PO (21:33)
[2024-07-23 23:00] VITALS: BP 138/69; PULSE 86; PULSE 94; RESP 16; RESP 18; TEMP 36.5; O2SAT 95
[2024-07-24 03:10] VITALS: BP 122/58; PULSE 83; RESP 16; TEMP 36.8; O2SAT 94
--- NOTE | 2024-07-24 06:19 | PC.NURSE ---
End of shift note : Pt alert & oriented x 4 and able to make needs known. VSS and pt has been afebrile. He reports intermittent cough at times though this has been unwitnessed by staff. Pt transfers/ambulates independently and remains continent of bowel & bladder with no loose stool noted or reported this shift. He has been denying pain throughout the shift. IV to L forearm patent and SL. ?
[2024-07-24 07:14] VITALS: BP 150/65; PULSE 83; RESP 16; TEMP 37.4; O2SAT 96
[2024-07-24] MEDS: predniSONE 20 MG TABLET 60 MG PO (07:30)
[2024-07-24] MEDS: IPRAT-ALBUT 0.5-2.5 MG/3 ML NEB 1 NEB IH ×2 (07:30→11:23)
[2024-07-24] MEDS: DOXYCYCLINE HYCLATE 100 MG PO (08:40)
[2024-07-24] MEDS: LORATADINE 10 MG TABLET PO (08:40)
[2024-07-24] MEDS: Budesonide-Formoterol 160-4.5 mcg/actuation HFA aerosol inhaler IH (08:40)
[2024-07-24] MEDS: SODIUM CHLORIDE 0.9 % (FLUSH) 10 ML SYRINGE 5 ML IVF (08:41)
[2024-07-24 11:15] VITALS: BP 148/78; PULSE 71; RESP 16; TEMP 36.6; O2SAT 96
--- NOTE | 2024-07-24 11:54 | PM.DS1 ---
DS: Providers Provider Time Seen by Provider: 08:21 Date Seen: 07/24/24 Date of admission: 07/22/24 23:21 Primary care physician: Lillie Farley MD Admitting Clinician: Cornelio Barrientos MD Consults: 07/22/24 23:36 Consult to Respiratory Therapy [CONS] Routine Comment: Reason(s) for RT Consult:: Consult Attending Physician on discharge: Kathy Mckenna MD Date of Discharge: 07/24/24 DS: Diagnosis Discharge Diagnosis (1) COPD exacerbation: Status: Acute Problem details: Acute on chronic dyspnea and hypoxia with any activity, improving. Treating with oral prednisone and doxycycline. Has oxygen at home already. Not requiring oxygen at this time. PATEL improving. D/c home with doxycycline several week prednisone taper and f/u with Dr. Sandoval as scheduled for Aug 01. (2) Chronic obstructive pulmonary disease: Status: Chronic Problem details: Followed by Dr Sandoval, pulmonology, and his PCP. Has chest CT on July [address] Sandoval on August 01, 2020 for Former smoker, quit 12 years. With frequent recurrent hospitalizations would benefit from review of his COPD management plan. (3) Hypertension: Status: Chronic Problem details: - Continue home meds (4) History of smoking 25-50 pack years: Status: Chronic (5) Alcohol use disorder: Status: Chronic Problem details: Beer drinker. Stopped drinking 2 months ago DS: Summary Hospital Course Hospital Course: Verses a 63-year-old male with history of severe COPD for which he has had several hospitalizations in the past year during which he is routinely treated with antibiotics and steroids. In the past few months he has noticed return of shortness of breath and dyspnea on exertion whenever he stops the steroids. He had a chest CT on July 29. He has an appointment with his javascript ui developer on August 01. He came in for 1 week of worsening dyspnea. He has not had any fever, cough, or purulent sputum. He has home oxygen to use on an as-needed basis, but has not been using it. He also has a history of alcohol use and stopped drinking completely 2 months ago. He is no longer smoking having quit 12 years ago. He was admitted for treatment of COPD exacerbation with steroids and doxycycline. Over the next 2 days he improved and did not require any oxygen. He is discharged home today in improved condition on a slower prednisone taper and 10 days total of doxycycline. He will follow-up with Dr. Steiner on July as previously scheduled. I have asked him to see his primary care provider in a few weeks as well. Time Spent with Patient Time attestation: Total time spent providing and/or coordinating discharge services: Exam Narrative: Exam Narrative: General: No acute distress. Awake, alert, oriented. Cardiovascular: Regular rate and rhythm. No murmurs, gallops, or rubs. Respiratory: Coarse throughout, no wheezes, no crackles. Abdomen: Bowel sounds present. Soft, nondistended, nontender. Extremities: No pedal edema. Const: Vital Signs, click to edit/add: Vital Signs - 24 hr 07/23/24 15:08 07/23/24 15:08 07/23/24 15:08 Temperature 98.7 F Pulse Rate [Left P ulse Oximeter] 95 95 Respiratory Rate 16 16 16 Blood Pressure [Le ft Arm] 168/87 H Blood Pressure [Ri ght Arm] Pulse Oximetry 94 94 Oxygen Delivery Az thod Room Air Room Air 07/23/24 19:00 07/23/24 23:00 07/23/24 23:00 Temperature 97.9 F Pulse Rate [Left P ulse Oximeter] 94 94 Respiratory Rate 18 18 16 Blood Pressure [Le ft Arm] Blood Pressure [Ri ght Arm] 152/77 H Pulse Oximetry 94 95 Oxygen Delivery Az thod Room Air Room Air 07/23/24 23:00 07/24/24 03:10 07/24/24 07:14 Temperature 97.7 F 98.3 F 99.4 F Pulse Rate [Left P ulse Oximeter] 86 83 83 Respiratory Rate 16 16 16 Blood Pressure [Le ft Arm] 138/69 122/58 L 150/65 H Blood Pressure [Ri ght Arm] Pulse Oximetry 95 94 96 Oxygen Delivery Az thod Room Air Room Air Room Air 07/24/24 07:14 07/24/24 07:14 07/24/24 11:15 Temperature 98 F Pulse Rate [Left P ulse Oximeter] 83 71 Respiratory Rate 16 16 16 Blood Pressure [Le ft Arm] Blood Pressure [Ri ght Arm] 148/78 H Pulse Oximetry 96 96 Oxygen Delivery Az thod Room Air DS: Data Data Completed and Pending Completed studies during hospitalization: 07/22/2024 EKG: Normal sinus rhythm, 90 beats per minute, normal EKG. Ordering Physician: Henry Trimble M.D. Date of Service: 07/22/24 Procedure(s): XR chest 2V Accession Number(s): [id number] cc: Henry Trimble M.D.; Lillie Farley M.D.~ For Patients: As a result of the Cures Act, medical imaging exams and procedure reports are released immediately into your electronic medical record. You may view this report before your referring provider. If you have questions, please contact your health care provider. INDICATION: Cough, shortness of breath, wheezing. TECHNIQUE: Chest 2 view. COMPARISON: Chest radiograph 06/24/2024. CT chest 07/28/2023. FINDINGS: Right upper lung ill-defined airspace opacity and left perihilar linear opacities are similar to prior exams compatible with scarring. Chronic blunting of the right lateral costophrenic angle. Chronic right apical pleural thickening. No new focal consolidation or pleural effusion. No pneumothorax. Normal heart size and pulmonary vascularity. Degenerative changes of the spine. IMPRESSION: 1. No new acute cardiopulmonary findings. 2. Stable bilateral areas of parenchymal scarring. Dictated by Eloina Chi MD @ 07/22/2024 9:35:38 PM (Electronically Signed) Discharge Plan Discharge Disposition: Home, Self-Care Date of Admission: 07/22/24 23:21 Attending Provider on Discharge: Kathy Mckenna Primary Care Provider: Lillie Farley Condition: Improved Anticipated Discharge Date/Time: 07/24/24 11:59 Discharge Medications: New doxycycline hyclate 100 mg Tablet 100 mg PO BID 8 Days Qty: 16 0RF prednisone 20 mg Tablet See Rx Instructions .ROUTE .COMPLEX Qty: 28 0RF Rx Instructions: 60 mg for one day, then 40 mg for 7 days, then 20 mg for 7 days, then 10 mg for 7 days, then stop. Continued fluticasone propionate 50 mcg/actuation spray,suspension 1 spray intranasal BID albuterol sulfate 2.5 mg /3 mL (0.083 %) solution for nebulization 2.5 mg continuous nebulization Q4H PRN (Reason: bronchospasm) Qty: 180 3RF budesonide-formoterol 160-4.5 mcg/actuation HFA aerosol inhaler 2 puff inhalation BID Qty: 10.2 3RF guaifenesin [Mucinex] 600 mg tablet extended release 12hr 600 mg PO BID PRN (Reason: congestion) Qty: 180 3RF montelukast 10 mg tablet 10 mg PO QPM Qty: 90 4RF omeprazole 20 mg capsule,delayed release(DR/EC) 40 mg .ROUTE QDAY Qty: 180 3RF Rx Instructions: 40 mg every day; tamsulosin 0.4 mg capsule 0.4 mg PO DAILY Qty: 90 3RF sodium chloride 3 % solution for nebulization 4 ml inhalation Q4H PRN (Reason: secretions) Qty: 120 1RF loratadine 10 mg tablet 10 mg PO DAILY Spiriva Respimat 2.5 mcg/actuation mist 2 puff inhalation DAILY albuterol sulfate 90 mcg/actuation HFA aerosol inhaler 2 puff INHALATION Q4-6H PRN Vitron-C 65 mg iron- 125 mg tablet,delayed release (DR/EC) 1 tab PO Q OTHER DAY ipratropium-albuterol 0.5 mg-3 mg(2.5 mg base)/3 mL solution for nebulization 3 ml inhalation QID PRN (Reason: shortness of breath or wheezing) Qty: 180 1RF Rx Instructions: Use at first sign of shortness of breath; Discontinued prednisone 20 mg tablet 20 mg PO .UD Patient Comments: PLEASE SEE ATTACHED FOR DETAILED DIRECTIONS Discharge Orders: Discharge Order (Routine); Ordered 07/24/24 Ordered By: Kathy Mckenna Patient Education: Doxycycline (By mouth), Prednisone (By mouth) Additional Instructions: f/u pulm (Dr. Sandoval) as scheduled Aug 01. Activity Level: Activity as Tolerated Discharge Diet: Regular Follow Up Appointments: Ibrahima Etienne PA-C [Physician Customer Service Coordinator] - 08/11/24 1:00 pm ([facility] for follow up. PCP wasn't available during desired time frame) Lillie Farley MD [Primary Care Provider] - () Forms: [employer] Info Instructions
--- NOTE | 2024-07-24 13:59 | PC.NURSE ---
Discharge: Patient pleasant and cooperative. Patient vitally stable, lungs course with expiratory wheezes, BS WNL, IV removed, catheter intact. Patient on room air sating in the mid 90s. Patient denies pain and independent in room. Patient experiences some SOB with activity, patient requested two nebs today. Patient tolerating regular diet and urinating well. Lower extremities with +1 pitting edema. Patient signed belongings sheet and discharge form with no further questions regarding discharge. Patient left the floor to home by wheelchair at 1343.
--- NOTE | 2024-07-26 11:22 | RESP.RT ---
Chart review for follow up DC call today.
== END 2024-07-24 13:43 | disposition home or self-care (01) ==
LOC: ED 22:16 → MEDSURG 23:23
PROVIDERS: Admitting Provider Family Medicine; Emergency Provider Emergency Medicine; PCP Family Medicine; Visit Provider Family Medicine
DX: I10 Essential (primary) hypertension (principal)
CPT/HCPCS: 36415; 71046; 80048; 82803; 84484; 85025; 87631; 93005; 94640; 94761; 99284; 99285; A9270; G0378; J7512

== ENCOUNTER 2024-07-29 14:42 | Outpatient (CLI) | payer OTHER, SELFPAY ==
--- OUTSIDE RECORDS SUMMARY | 2024-07-29 14:44 | XMS_ITS | Encounter Summary ---
Author Organization [facility] [employer] [facility] Address [address] [place] [phone] Phone Care Team Providers Care Hospital Nursing Assistant Name Role Phone Unavailable Primary Care Provider Unavailabl e Encounter Details Date Type Department Care Team (Latest Contact Info) Description 05/02/2024 Travel Social History Tobacco Use Types Packs/Day Years Used Date Smoking Tobacco: Former Cigarettes Q uit: 2011 Alcohol Use Standard Drinks/Week Comments Defer 0 (1 standard drink = 0.6 oz pur e alcohol) [facility] Utilities Answer Date Recorded In the past [...] any time in the past 12 m [facility], were you homeless or living in a [facility] (including now)? No 05/02/2024 IP Custom IPV [...]
--- OUTSIDE RECORDS SUMMARY | 2024-07-29 14:44 | XMS_ITS | Clinical Summary ---
Author Organization [facility] Address [address] [address] Phone Care Team Providers Care Electrical Contacts Adjuster Name Role Phone Unavailable Primary Care Provider [...] CDT - 05/03/2024 11:54 AM CDT Emergency [facility] 15 MED SURG [address] [place] [id number] Carson Kelsey MD Aas, MD Lucille Lira, [...] drink = 0.6 oz pur e alcohol) [facility] Utilities Answer Date Recorded In the past 12 months has th e [employer], gas, oil, or water [employer] threatened to shut off services in your [...] any time in the past 12 m [facility], were you homeless or living in a fpc (including now)? No 05/02/2024 EH IP Custom [...] 4. Moderate hiatal hernia. Scattered right predominant rajhschhghfulfh-iu-zbn opacities. This may be seen in atypical [...] 0.25 <0.50 ng/mL 05/02/2024 8:43 AM CDT [facility] Blood BLOOD SPECIMEN / Unknown Venous Device, Nurse Blood Collect / Unknown 05/02/2024 7:21 AM CDT 05/02/2024 7:24 AM CDT Narrative [facility] - 05/02/2024 8:43 AM CDT [...] MD EC LAB SEND OUT TANIA MONTANEZ [facility] Organization Address City/State/ZIP Co de Phone Number [facility] [address] [place] [id number] * HOLD LI HEPARIN (05/02/2024 7:21 AM CDT) Blood BLOOD SPECIMEN / Unknown Venous Device, Nurse Blood Collect / Unknown 05/02/2024 7:21 AM CDT 05/02/2024 7:24 AM CDT Carson eKlsey MD EC CHEMISTRY ORDERAB LES Performing Organization Address [facility] de Phone Number [facility] [address] [place] [address] * HOLD NA CITRATE (05/02/2024 7:21 AM CDT) Blood BLOOD SPECIMEN / Unknown Venous Device, Nurse Blood Collect / Unknown 05/02/2024 7:21 AM CDT 05/02/2024 7:24 AM CDT Carson Kelsey MD EC HEMATOLOGY ORDERA BLES Performing Organization Address [facility] de Phone Number [facility] [address] [place] [address] * HOLD PURPLE TUBE (05/02/2024 7:21 AM CDT) Blood BLOOD SPECIMEN / Unknown Venous Device, Nurse Blood Collect / Unknown 05/02/2024 7:21 AM CDT 05/02/2024 7:24 AM CDT Carson Kelsey MD EC HEMATOLOGY ORDERA BLES Performing Organization Address [facility] de Phone Number [facility] [address] [place] [address] * HOLD SERUM TUBE (05/02/2024 7:21 AM CDT) Blood BLOOD SPECIMEN / Unknown Venous Device, Nurse Blood Collect / Unknown 05/02/2024 7:21 AM CDT 05/02/2024 7:24 AM CDT Carson Kelsey MD EC CHEMISTRY ORDERAB LES Performing Organization Address [facility] Co de Phone Number [facility] [address] [place] [address] * (ABNORMAL) BASIC METABOLIC PANEL (05/02/2024 7:21 AM CDT) Sodium 133(L) 134 - 143 mEq/L 05/02/2024 8:21 AM CDT [facility] Potassium 3.8 3.4 - 5.1 mEq/L 05/02/2024 8:21 AM CDT [facility] Chloride 100 99 - 110 mEq/L 05/02/2024 8:21 AM CDT [facility] Carbon Dioxide 23 19 - 29 mEq/L 05/02/2024 8:21 AM CDT [facility] Anion Gap 10.0 3.0 - 15.0 mEq/L 05/02/2024 8:21 AM CDT [facility] Blood Urea Nitrogen 18 5 - 24 mg/dL 05/02/2024 8:21 AM CDT [facility] Creatinine 0.91 0.70 - 1.20 mg/dL 05/02/2024 8:21 AM CDT [facility] Glomerular Filtration Rate 94 >60 mL/min/1. 73 m*2 05/02/2024 8:21 AM CDT [facility] Comment:Risk of cardiovascul ar disease increases when GFR is abnormal; persistently reduced GFR values are a specific indication of CKD. This calculation uses CKD- EPI 2020 equation without adjustment for race; it has not been validated in women. Calcium 9.2 8.4 - 10.5 mg/dL 05/02/2024 8:21 AM CDT [facility] Glucose 113(H) 70 - 99 mg/dL 05/02/2024 8:21 AM CDT [facility] Blood BLOOD SPECIMEN / Unknown Venous Device, Nurse Blood Collect / Unknown 05/02/2024 7:21 AM CDT 05/02/2024 7:24 AM CDT Narrative [facility] - 05/02/2024 8:21 AM CDT Current ADA criteria for Glucose: ?Normal: 70-99 mg/dL ?Impaired Fasting Glucose: 100-125 mg/dL ?Diabetes Mellitus: at or above 126 mg/dL The diagnosis of diabetes must be confirmed on a subsequent day by measuring Fasting Plasma Glucose, 2-hr PG or random plasma glucose (if symptoms are present). Carson Kelsey MD EC CHEMISTRY ORDERAB LES [facility] [address] [place] [id number], [facility] * (ABNORMAL) HEMOGRAM/DIFFERENTIAL (05/02/2024 7:21 AM CDT) [facility] WBC 13.5(H) 3.2 - 11.0 10*9/L 05/02/2024 7:30 AM [facility] RBC 4.39 4.14 - 5.76 10*12/L 05/02/2024 7:30 AM [facility] HGB 13.2 12.9 - 16.9 g/dL 05/02/2024 7:30 AM CDT [facility] HCT 41.2 38.4 - 49.7 % 05/02/2024 7:30 AM [facility] MCV 93.8 81.4 - 99.0 fL 05/02/2024 7:30 AM [facility] MCH 30.1 26.7 - 33.1 pg 05/02/2024 7:30 AM [facility] MCHC 32.0 31.6 - 35.5 g/dL 05/02/2024 7:30 AM [facility] RDW 13.9 11.3 - 14.6 % 05/02/2024 7:30 AM [facility] PLT 292 130 - 375 10*9/L 05/02/2024 7:30 AM [facility] Neutrophils % 87.9 % 05/02/2024 7:30 AM [facility] Lymphocytes % 2.2 % 05/02/2024 7:30 AM [facility] Monocytes % 7.3 % 05/02/2024 7:30 AM [facility] Eosinophils % 1.8 % 05/02/2024 7:30 AM [facility] Basophils % 0.1 % 05/02/2024 7:30 AM [facility] Immature Granulocytes % 0.7 % 05/02/2024 7:30 AM [facility] Neutrophils Absolute 11.9(H) 1.5 - 7.6 10*9/L 05/02/2024 7:30 AM [facility] Lymphocytes Absolute 0.3(L) 0.8 - 3.3 10*9/L 05/02/2024 7:30 AM [facility] Monocytes Absolute 1.0(H) 0.2 - 0.9 10*9/L 05/02/2024 7:30 AM CDT [facility] Eosinophils Absolute 0.2 0.0 - 0.4 10*9/L 05/02/2024 7:30 AM CDT [facility] Basophils Absolute 0.0 0.0 - 0.1 10*9/L 05/02/2024 7:30 AM CDT [facility] Immature Granulocytes Absolute 0.09(H) 0.00 - 0.06 10*9/L 05/02/2024 7:30 AM CDT [facility] Blood BLOOD SPECIMEN / Unknown Venous Device, Nurse Blood Collect / Unknown 05/02/2024 7:21 AM CDT 05/02/2024 7:24 AM CDT Carson Kelsey MD EC HEMATOLOGY ORDERA BLES Performing Organization Address [facility] Co de Phone Number [facility] [address] [place] [address] * LACTIC ACID, VENOUS (05/02/2024 7:21 AM CDT) [facility] Lactic Acid, Venous 0.7 0.5 - 2.0 mmol/L 05/02/2024 7:41 AM CDT [facility] Blood BLOOD SPECIMEN / Unknown Venous Device, Nurse Blood Collect / Unknown 05/02/2024 7:21 AM CDT 05/02/2024 7:24 AM CDT Carson Kelsey MD EC CHEMISTRY ORDERAB LES Performing Organization Address [facility] Co de Phone Number [facility] [address] [place] [address] from Last 3 Months Advance Directives For more information, please contact: [phone] * DNAR/BUSINESS CONTINUITY CONSULTANT (Latest Code Status on File) Date Activated [...]
--- OUTSIDE RECORDS SUMMARY | 2024-07-29 14:44 | XMS_ITS | Encounter Summary ---
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 Name Role Phone Unavailable Primary Care Provider Unavailabl e Reason for Referral * Medication Prior Authorization - Closed Specialty Diagnoses / Procedures Referred By Contac t Referred To Contact Diagnoses COPD with acute exacerbation (HCC) Brock Adkins MD [address] [place] [address] Referral ID Status Reason Start Date Expiration Date Visits Re quested Visits Authorized [id number] Closed 1 1 Reason for Visit * Reason Comments Shortness of Breath * Auth/Cert (Routine) Specialty Diagnoses / Procedures Referred By Contac t Referred To Contact Diagnoses COPD with acute exacerbation (HCC) Pankaj Arguelles MD [address] [place] [address] Referral ID Status Reason Start Date Expiration Date Visits Re quested Visits Authorized [id number] 1 1 Encounter Details Date Type Department Care Team (Late st Contact Info) Description 05/02/2024 6:21 AM CDT - 05/03/2024 11:54 AM CDT Emergency [facility] 15 MED SURG [address] [place] [id number] Carson Kelsey MD [address] [place] [address] Pankaj Arguelles MD [address] [place] [address] Brock Adkins MD [address] [place] [address] COPD with acute exacerbation (HCC) (Primary Dx) Discharge Disposition: Home and/or Self Care Social History Tobacco Use Types Packs/Day Years Used Date Smoking Tobacco: Former Cigarettes Q uit: 2012 Tobacco Cessation:Counseling Given: Not Answered Alcohol Use Standard Drinks/Week Comments Defer 0 (1 standard drink = 0.6 oz pur e alcohol) [facility] Utilities Answer Date Recorded In the past 12 months has th e electric, gas, oil, or water [employer] threatened to shut off services in your [...] any time in the past 12 m [facility], were you homeless or living in a skilled nursing (including now)? No 05/02/2024 IP Custom IPV [...] home inhalers. He was recently evaluated in [place], [place] ED for COPD exacerbation two weeks [...] lymphadenopathy and has been following with his Boatswain Mate for these concerns. Disposition and Discharge Plan [...] Care Provider. Disposition: Marco was discharged from [facility] Nursing 15 Med Surg to home. 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 Take the azithromycin prescribed today in addition to your Augmentin. Follow-up as planned with your grain operations manager and have the CT scan done as [...] time a day. predniSONE (Deltasone) 20 MG tabletIndications:PATIENT ACCOUNT SPECIALIST D with acute exacerbation (HCC) Take 2 [...] Means Destination Comment s Home and/or Self Detention documented in this encounter Progress Notes * Krystyna Bailon RN - 05/03/2024 11:54 AM CDT Nurse Discharge Note Situation Marco will be discharged today. Background Marco is discharged from [address] [place] [address] at 1154 . Assessment Discharge instructions were [...] up, they are 30 minutes outside of [place] Comments: Marco will discharge home today. He will call his family to pick him up. He has oxygen at home supplied by [facility]; however, he rarely uses it. MARIAN offered to call [facility] to deliver a portable oxygen tank prior to discharge to have on hand in case he needs it; Marco declined. He shares if he has similar episode, he will go to the hospital sooner rather than later. Marco will discharge to [place] and from there will return to his home in [place]. Marco provided SW with his insurance cards; copies made. Insurance verified with patient. No discharge needs identified. * Katelynn Delacruz RN - 05/02/2024 6:07 PM CDT Assumed Care: [id number] A&O. Denies pain besides burning to his [...] 1:04 PM CDT ADMISSION HISTORY AND PHYSICAL [place] [facility] Department Marco Cormier [address] [facility] [address] 63 year old male 05/02/2024 6:21 AM Code Status: No Order Primary Care Provider No primary care provider on file. Chief Complaint: shortness of breath HPI: Marco Cormier is a 63 year old male with COPD, has oxygen prescribed but does not use it much, prior lung abscess 2021, hiatal hernia, former smoker, quit in 2014. [facility] [place] [facility]. He reports he [facility] [...] to have been present in 2021 at [facility] (unable to see scan but by report [...] Single Social Determinants of Health Received from [facility] Financial Resource Strain Received from [facility] Social Connections Intimate Partner Violence: Not At [...] 05/02/2024 11:54 AM CDT Ambulated pt in fowelr 25 ft on 2l nc pt had [...] dose of Augmentin as recommended by his grain operations manager. Visiting he denies any history of significant heart disease noting that he had a Cardiolite stress test recently. Allergies Allergen Reactions Shellfish-Derived Products Anaphylaxis Prior to Admission Medication List Med List Status: Update Pending Set By: Mary Keen RN at 05/02/2024 6:31 AM No Medications Reported Past Medical History: COPD Social History: Non-smoker, from [facility]. Exam: Initial Vitals Most Recent Vitals [...] - 05/02/2024 6:22 AM CDT Presents with [facility] for shortness of breath. Pt here visiting from [place], [place]. Was recently hospitalized for COPD exacerbation. Has been using albuterol and duo-nebs without improvement. Finished steroids yesterday. Has standing orders from his grain operations manager for prednisone and augmentin if symptoms worsen. Took 40mg of prednisone and Augmentin 875 this AM. Upon EMS arrival pt's O2 sats 80's, after albuterol nebulizer en route O2 sats 97% on 4lpm. Pt uses 2lpm at baseline. * Naomie Escobedo RN - 05/02/2024 6:21 AM CDT Bed: 308 Expected date: Expected time: Means of arrival: Comments: [facility] documented in this encounter Miscellaneous Notes * [...] known. VSS on RA. Up ad tamara. 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 Labored breathing, dyspnea at rest [...] Capps 05/02/2024 10:39 AM Procedure Note Brock Cpaps MD - 05/02/2024 This document is currently [...] 4. Moderate hiatal hernia. Scattered right predominant ceartqsduffzmcj-im-hqi opacities. This may be seen in atypical [...] 0.25 <0.50 ng/mL 05/02/2024 8:43 AM CDT [facility] Blood BLOOD SPECIMEN / Unknown Venous Device, Nurse Blood Collect / Unknown 05/02/2024 7:21 AM CDT 05/02/2024 7:24 AM CDT Narrative [facility] - 05/02/2024 8:43 [...] SEND OUT ORDE TARIK Performing Organization Address [facility] de Phone Number [facility] [address] * LACTIC ACID, VENOUS (05/02/2024 7:21 AM CDT) Lactic Acid, Venous 0.7 0.5 - 2.0 mmol/L 05/02/2024 7:41 AM CDT [facility] Blood BLOOD SPECIMEN / Unknown Venous Device, Nurse Blood Collect / Unknown 05/02/2024 7:21 AM CDT 05/02/2024 7:24 AM CDT Carson Kelsey MD EC CHEMISTRY ORDERAB LES Performing Organization Address [facility] Co de Phone Number [facility] [address] [place], [place] [address] * (ABNORMAL) HEMOGRAM/DIFFERENTIAL (05/02/2024 7:21 AM CDT) WBC 13.5(H) 3.2 - 11.0 10*9/L 05/02/2024 7:30 AM CDT [facility] RBC 4.39 4.14 - 5.76 10*12/L 05/02/2024 7:30 AM CDT [facility] HGB 13.2 12.9 - 16.9 g/dL 05/02/2024 7:30 AM CDT [facility] HCT 41.2 38.4 - 49.7 % 05/02/2024 7:30 AM CDT [facility] MCV 93.8 81.4 - 99.0 fL 05/02/2024 7:30 AM CDT [facility] MCH 30.1 26.7 - 33.1 pg 05/02/2024 7:30 AM CDT [facility] MCHC 32.0 31.6 - 35.5 g/dL 05/02/2024 7:30 AM CDT [facility] RDW 13.9 11.3 - 14.6 % 05/02/2024 7:30 AM CDT [facility] PLT 292 130 - 375 10*9/L 05/02/2024 7:30 AM CDT [facility] Neutrophils % 87.9 % 05/02/2024 7:30 AM CDT [facility] Lymphocytes % 2.2 % 05/02/2024 7:30 AM CDT [facility] Monocytes % 7.3 % 05/02/2024 7:30 AM CDT [facility] Eosinophils % 1.8 % 05/02/2024 7:30 AM CDT [facility] Basophils % 0.1 % 05/02/2024 7:30 AM CDT [facility] Immature Granulocytes % 0.7 % 05/02/2024 7:30 AM CDT [facility] Neutrophils Absolute 11.9(H) 1.5 - 7.6 10*9/L 05/02/2024 7:30 AM CDT [facility] Lymphocytes Absolute 0.3(L) 0.8 - 3.3 10*9/L 05/02/2024 7:30 AM CDT [facility] Monocytes Absolute 1.0(H) 0.2 - 0.9 10*9/L 05/02/2024 7:30 AM CDT [facility] Eosinophils Absolute 0.2 0.0 - 0.4 10*9/L 05/02/2024 7:30 AM CDT [facility] Basophils Absolute 0.0 0.0 - 0.1 10*9/L 05/02/2024 7:30 AM CDT [facility] Immature Granulocytes Absolute 0.09(H) 0.00 - 0.06 10*9/L 05/02/2024 7:30 AM CDT [facility] Blood BLOOD SPECIMEN / Unknown Venous Device, Nurse Blood Collect / Unknown 05/02/2024 7:21 AM CDT 05/02/2024 7:24 AM CDT Carson Kelsey MD EC HEMATOLOGY ORDERA BLES [facility] [address] [place] [address] * (ABNORMAL) BASIC METABOLIC PANEL (05/02/2024 7:21 AM CDT) Sodium 133(L) 134 - 143 mEq/L 05/02/2024 8:21 AM CDT [facility] Potassium 3.8 3.4 - 5.1 mEq/L 05/02/2024 8:21 AM CDT [facility] Chloride 100 99 - 110 mEq/L 05/02/2024 8:21 AM CDT [facility] Carbon Dioxide 23 19 - 29 mEq/L 05/02/2024 8:21 AM CDT [facility] Anion Gap 10.0 3.0 - 15.0 mEq/L 05/02/2024 8:21 AM CDT [facility] Blood Urea Nitrogen 18 5 - 24 mg/dL 05/02/2024 8:21 AM CDT [facility] Creatinine 0.91 0.70 - 1.20 mg/dL 05/02/2024 8:21 AM CDT [facility] Glomerular Filtration Rate 94 >60 mL/min/1. 73 m*2 05/02/2024 8:21 AM CDT [facility] Comment:Risk of cardiovascul ar disease increases when GFR is abnormal; persistently reduced GFR values are a specific indication of CKD. This calculation uses CKD- EPI 2020 equation without adjustment for race; it has not been validated in women. Calcium 9.2 8.4 - 10.5 mg/dL 05/02/2024 8:21 AM CDT [facility] Glucose 113(H) 70 - 99 mg/dL 05/02/2024 8:21 AM CDT [facility] Blood BLOOD SPECIMEN / Unknown Venous Device, Nurse Blood Collect / Unknown 05/02/2024 7:21 AM CDT 05/02/2024 7:24 AM CDT Narrative [facility] - 05/02/2024 8:21 [...] EC CHEMISTRY ORDERAB LES Performing Organization Address [facility] Co de Phone Number [facility] [address] [place] [address] * HOLD SERUM TUBE (05/02/2024 7:21 AM CDT) Blood BLOOD SPECIMEN / Unknown Venous Device, Nurse Blood Collect / Unknown 05/02/2024 7:21 AM CDT 05/02/2024 7:24 AM CDT Carson Kelsey MD EC CHEMISTRY ORDERAB LES Performing Organization Address City/[facility] Co de Phone Number [facility] [address] [place], [place] [address] * HOLD NA CITRATE (05/02/2024 7:21 AM CDT) Blood BLOOD SPECIMEN / Unknown Venous Device, Nurse Blood Collect / Unknown 05/02/2024 7:21 AM CDT 05/02/2024 7:24 AM CDT Carson MORENO HEMATOLOGY ORDERA BLES Performing Organization Address [facility] de Phone Number [facility] [address] [place] [address] * HOLD PURPLE TUBE (05/02/2024 7:21 AM CDT) Blood BLOOD SPECIMEN / Unknown Venous Device, Nurse Blood Collect / Unknown 05/02/2024 7:21 AM CDT 05/02/2024 7:24 AM CDT Carson MORENO HEMATOLOGY ORDERA BLES Performing Organization Address [facility] de Phone Number [facility] [address] [place] [address] * HOLD LI HEPARIN (05/02/2024 7:21 AM CDT) Blood BLOOD SPECIMEN / Unknown Venous Device, Nurse Blood Collect / Unknown 05/02/2024 7:21 AM CDT 05/02/2024 7:24 AM CDT Carson MORENO CHEMISTRY ORDERAB LES Performing Organization Address [facility] Phone Number [facility] [address] [place] [address] documented in this encounter Visit Diagnoses Diagnosis [...] at [id number] (New Bag - Provider: Compa Angelo, MARINO)[id number] (Stopped - Provider: Lisa Onofre [...]
--- OUTSIDE RECORDS SUMMARY | 2024-07-29 14:45 | XMS_ITS | Clinical Summary ---
Author Organization [facility] Address [place], [place] [address] Care Team Providers Care Scoop Operator Name Role Phone [facility], [facility] Primary Care Pr ovider Allergies Active Allergy Reactions Criticality Noted Date [...] mg by mouth two times daily. Active albuterol-ipratropium (DUONEB) (2.5-0.5 mg) in 3 mL NEBULIZATION solution Inhale 1 Neb via a nebulizer every 6 hours if needed. Active cholecalciferol, vitamin D3, (VITAMIN D3 ORAL) Take 1 Tablet by mouth once every other day. Unknown dose Active iron,carbonyl/ascorbic acid (VITRON-C ORAL) Take 1 Tablet by mouth once every other day. Active omeprazole 20 mg tablet Take 20 mg by mouth 2 times daily if needed for GI Upset. Active fluticasone (50 mcg per actuation) nasal solution (FLONASE) Inhale 1 [place] into affected nostril(s) once daily if needed for Rhinitis. Active cyanocobalamin (VITAMIN B12) as half tablet Take 5,000 mcg by mouth once every other day. Active sodium chloride 3% nebulization 3 % nebulizer solutionIndications:CO PD exacerbation (HC) Inhale 4 mL via a nebulizer 3 times daily if needed for Wheezing. 15 mL 05/26/2024 Active Active Problems Problem Noted Date Diagnosed [...] Encounters Date Type Department Care Team Description 07/19/2024 Refill [facility] [place] [address] [facility] [address] [place] [phone] Estrella Sandoval MD Refill Request (Albuterol) 05/27/2024 Patient Outreach [facility] [address] [place] [address] Allie Diaz, RN Primary RN Care Management (Lace 70); Hospital F/U 05/25/2024 1:23 AM CDT - 05/26/2024 2:47 PM CDT Hospital Encounter [facility] [address] [place] [address] Grey Joseph MD [facility], [facility] Hospitalists Of [place], MD Wili Castillo, MD [...] Description 08/01/2024 4:20 PM CDT Office Visit [facility] [place] [address] [place] [address] [place] [phone] Estrella Sandoval MD [address] [place] [address] [place] [id number] Health Maintenance Due Date Last Done Comments [...] of 2) 08/26/20 08 COVID-19 vaccine series (2022- season) Influenza for age 65+ 07/24/2024 Procedures Procedure [...] (ABNORMAL) WBC AM (05/26/2024 5:45 AM CDT) WHITE BLOOD COUNT 12.3(H) 4.5 - 11.0 thou/cu mm 05/26/2024 6:20 AM CDT [facility] NRBC 0.0 % 05/26/2024 6:20 AM CDT [facility] ABS NRBC 0.0 thou /cu mm 05/26/2024 6:20 AM CDT [facility] Blood BLOOD SPECIMEN / Unknown Venipuncture / Unknown 05/26/2024 5:45 AM CDT 05/26/2024 6:13 AM CDT Malik Murry MD HEMATOLOGY Performing Organization Address [facility] Co de Phone Number [facility] [address] [place] [address], [place] * (ABNORMAL) Hemoglobin AM (05/26/2024 5:45 AM CDT) HEMOGLOBIN 11.3(L) 13.5 - 17.5 g/dL 05/26/2024 6:20 AM CDT [facility] MCV 93 80 - 100 fL 05/26/2024 6:20 AM CDT [facility] Blood BLOOD SPECIMEN / Unknown Venipuncture / Unknown 05/26/2024 5:45 AM CDT 05/26/2024 6:13 AM CDT Malik Murry MD HEMATOLOGY Performing Organization Address [facility] Co de Phone Number [facility] [address] [place], [place] [id number], [place] * Electrolyte panel AM (05/26/2024 5:45 AM CDT) SODIUM 139 136 - 145 mmol/L 05/26/2024 6:42 AM CDT [facility] POTASSIUM 3.9 3.5 - 5.1 mmol/L 05/26/2024 6:42 AM CDT [facility] CHLORIDE 102 98 - 107 mmol/L 05/26/2024 6:42 AM CDT [facility] CO2,TOTAL 24 22 - 29 mmol/L 05/26/2024 6:42 AM CDT [facility] ANION GAP 13 5 - 18 05/26/2024 6:42 AM CDT [facility] Blood BLOOD SPECIMEN / Unknown Venipuncture / Unknown 05/26/2024 5:45 AM CDT 05/26/2024 6:13 AM CDT Malik Murry MD CHEMISTRY Performing Organization Address [facility] Co de Phone Number [facility] [address] [place], [place] [id number], [place] * Sputum culture (05/25/2024 2:15 PM CDT) CULTURE Usual gia 05/27/2024 9:04 AM CDT [facility] GRAM STAIN No PMNs 05/27/2024 9:04 AM CDT [facility] GRAM STAIN No RBCs 05/27/2024 9:04 AM CDT [facility] GRAM STAIN 1+ Epithelial cells 05/27/2024 9:04 AM CDT [facility] GRAM STAIN 3+ Gram Positive Cocci 05/27/2024 9:04 AM CDT [facility] GRAM STAIN 2+ Gram Negative Bacilli 05/27/2024 9:04 AM CDT [facility] Sputum SPUTUM SPECIMEN / Unknown Non-Blood / Unknown 05/25/2024 2:15 PM CDT 05/25/2024 2:30 PM CDT Malik Murry MD MICROBIOLOGY Performing Organization Address City/[facility]/ZIP Co de Phone Number [facility] [address] [place] [address], [place] * (ABNORMAL) TROPONIN T (HS) ONE TIME (05/25/2024 6:35 AM CDT) Only the most recent of2 resultswithin the time period is included. Pathologist [facility] TROPONIN T HS 16(H) 6-15 ng/L ng/L 05/25/2024 7:39 AM CDT [facility] Blood BLOOD SPECIMEN / Unknown Venipuncture / Unknown 05/25/2024 6:35 AM CDT 05/25/2024 7:15 AM CDT Grey Joseph MD CHEMISTRY Performing Organization Address City/[facility]/ZIP Co de Phone Number [facility] [address] [place] [address], [place] * FERRITIN (05/25/2024 6:35 AM CDT) Pathologist [facility] FERRITIN 123.0 30.0 - 400.0 ng/mL 05/25/2024 3:14 PM CDT [facility] Blood BLOOD SPECIMEN / Unknown Venipuncture / Unknown 05/25/2024 6:35 AM CDT 05/25/2024 7:15 AM CDT Malik Murry MD CHEMISTRY [facility] [address] [place] [address], * CT CHEST PE STUDY (05/25/2024 2:58 [...] Dictated by Willian Camacho DO @ May ??3 2023 ??2:42AM (Electronically Signed) [email or web address] Narrative 05/25/2024 2:42 AM CDT For Patients: [...] @ May 25 2024 2:42AM (Electronically Signed) [email or web address] Grey Joseph MD GENERAL IMAGIN G * (ABNORMAL) ISTAT EC8 (05/25/2024 1:57 AM CDT) GLUCOSE, POCT 97 70 - 99 mg/dL 05/25/2024 1:59 AM CDT [facility] BUN, POCT 6(L) 8 - 25 mg/dL 05/25/2024 1:59 AM CDT [facility] SODIUM, POCT 138 135 - 145 mmol/L 05/25/2024 1:59 AM CDT [facility] POTASSIUM, POCT 3.4(L) 3.5 - 5.0 mmol/L 05/25/2024 1:59 AM CDT [facility] CHLORIDE, POCT 102 98 - 107 mmol/L 05/25/2024 1:59 AM CDT [facility] CO2,TOTAL, POCT 28 21 - 31 mmol/L 05/25/2024 1:59 AM CDT [facility] ANION GAP, POCT 14 5 - 18 05/25/2024 1:59 AM CDT [facility] PH, VENOUS, POCT 7.34 7.32 - 7.42 05/25/2024 1:59 AM CDT [facility] PCO2, VENOUS, POCT 50 41 - 51 mmHg 05/25/2024 1:59 AM CDT [facility] HCO3, VENOUS, POCT 27 22 - 30 mmol/L 05/25/2024 1:59 AM CDT [facility] BASE EXCESS, VENOUS, POCT 1.0 -2.0 - 3.0 05/25/2024 1:59 AM CDT [facility] HEMATOCRIT, POCT 36.0(L) 37.0 - 53.0 % 05/25/2024 1:59 AM CDT [facility] HEMOGLOBIN, POCT 12.2(L) 13.5 - 17.5 g/dL 05/25/2024 1:59 AM CDT [facility] Blood BLOOD SPECIMEN / Unknown 05/25/2024 1:57 AM CDT 05/25/2024 1:59 AM CDT Grey Joseph MD [facility]STRY [facility] [address] [address], * (ABNORMAL) CREATININE,ISTAT (05/25/2024 1:52 AM CDT) CREATININE, POCT 1.10 0.57 - 1.11 mg/dL 05/25/2024 1:54 AM CDT [facility] Comment:Caution: Patients ta cleve Hydroxyurea have falsely increased iStat Creatinine results. Verify creatinine results ordering a Creatinine (77258.2) eGFR 74(L) >90 mL/min/1.7 3m2 05/25/2024 1:54 AM CDT [facility] Comment:As of 2022, eG FR is calculated by the CKD-EPI creatinine equation without race adjustment. eGFR can be influenced by muscle mass, exercise, and diet. The reported eGFR is an estimation only and is only applicable if the renal function is stable. Blood BLOOD SPECIMEN / Unknown 05/25/2024 1:52 AM CDT 05/25/2024 1:54 AM CDT Grey Joseph MD CHEMISTRY [facility] [address] [place] [address], * (ABNORMAL) CBC WITH AUTO DIFFERENTIAL (05/25/2024 1:47 AM CDT) WHITE BLOOD COUNT 7.5 4.5 - 11.0 thou/cu mm 05/25/2024 2:35 AM CDT [facility] RED BLOOD COUNT 3.82(L) 4.30 - 5.90 mil/cu mm 05/25/2024 2:35 AM CDT [facility] HEMOGLOBIN 11.7(L) 13.5 - 17.5 g/dL 05/25/2024 2:35 AM CDT [facility] HEMATOCRIT 36.1(L) 37.0 - 53.0 % 05/25/2024 2:35 AM CDT [facility] MCV 95 80 - 100 fL 05/25/2024 2:35 AM CDT [facility] MCH 30.6 26.0 - 34.0 pg 05/25/2024 2:35 AM CDT [facility] MCHC 32.4 32.0 - 36.0 g/dL 05/25/2024 2:35 AM CDT [facility] RDW 13.7 11.5 - 15.5 % 05/25/2024 2:35 AM CDT [facility] PLATELET COUNT 298 140 - 440 thou/cu mm 05/25/2024 2:35 AM CDT [facility] MPV 8.7 6.5 - 11.0 fL 05/25/2024 2:35 AM CDT [facility] NRBC 0.0 % 05/25/2024 2:35 AM CDT [facility] ABS NRBC 0.0 thou /cu mm 05/25/2024 2:35 AM CDT [facility] Blood BLOOD SPECIMEN / Unknown Venipuncture / Unknown 05/25/2024 1:47 AM CDT 05/25/2024 1:56 AM CDT Grey Joseph MD HEMATOLOGY Performing Organization Address [facility] Co de Phone Number [facility] [address] [place] [address], [place] * (ABNORMAL) RED CELL MORPHOLOGY (05/25/2024 1:47 AM CDT) Pathologist [facility] POLYCHROMASIA Slight 05/25/2024 2:35 AM CDT [facility] RBC COMMENT Present(A) RBC morphology appears normal, RBC morphology within normal limits for newborns. 05/25/2024 2:35 AM CDT [facility] Blood BLOOD SPECIMEN / Unknown Venipuncture / Unknown 05/25/2024 1:47 AM CDT 05/25/2024 1:56 AM CDT Grey Joseph MD HEMATOLOGY Performing Organization Address [facility] de Phone Number [facility] [address] [place] [address], [place] * PLATELET ESTIMATE (05/25/2024 1:47 AM CDT) Pathologist [facility] PLATELET ESTIMATE Adequate Adequate, No estimate 05/25/2024 2:35 AM CDT [facility] Blood BLOOD SPECIMEN / Unknown Venipuncture / Unknown 05/25/2024 1:47 AM CDT 05/25/2024 1:56 AM CDT Grey Joseph MD HEMATOLOGY Performing Organization Address [facility] Co de Phone Number [facility] [address] [place] [address], [place] * (ABNORMAL) MANUAL DIFFERENTIAL (05/25/2024 1:47 AM CDT) Pathologist [facility] % NEUTROPHILS 61.0 % 05/25/2024 2:35 AM CDT [facility] % LYMPHOCYTES 17.0 % 05/25/2024 2:35 AM CDT [facility] % MONOCYTES 12.0 % 05/25/2024 2:35 AM CDT [facility] % EOSINOPHILS 8.0 % 05/25/2024 2:35 AM CDT [facility] % BASOPHILS 2.0 % 05/25/2024 2:35 AM CDT [facility] NEUTROPHILS ABSOLUTE 4.6 1.7 - 7.0 thou/cu mm 05/25/2024 2:35 AM CDT [facility] LYMPHOCYTES ABSOLUTE 1.3 0.9 - 2.9 thou/cu mm 05/25/2024 2:35 AM CDT [facility] MONOCYTES ABSOLUTE 0.9(H) <0.9 thou/cu mm 05/25/2024 2:35 AM CDT [facility] EOSINOPHILS ABSOLUTE 0.6(H) <0.5 thou/cu mm 05/25/2024 2:35 AM CDT [facility] BASOPHILS ABSOLUTE 0.2 <0.3 thou/cu mm 05/25/2024 2:35 AM CDT [facility] Blood BLOOD SPECIMEN / Unknown Venipuncture / Unknown 05/25/2024 1:47 AM CDT 05/25/2024 1:56 AM CDT Grey Joseph MD H[facility]ATOLOGY [facility] [address] [place] [address], * (ABNORMAL) TROPONIN T (HS) ACUTE W/2HR REFLEX (05/25/2024 1:46 AM CDT) TROPONIN T HS 22(H) 6-15 ng/L ng/L 05/25/2024 2:28 AM CDT [facility] Blood BLOOD SPECIMEN / Unknown Venipuncture / Unknown 05/25/2024 1:46 AM CDT 05/25/2024 1:56 AM CDT Narrative [facility] - 05/25/2024 2:28 AM CDT hs-cTnT [...] department patient population. Grey Joseph MD CHEMISTRY [facility] [address] [place] [address], * (ABNORMAL) D-DIMER,QUANTITATIVE (05/25/2024 1:46 AM CDT) D-DIMER,QUANTI TATIVE 1.10 See comment FEU mcg/mL 05/25/2024 2:11 AM CDT [facility] D-DIMER INTERP Abnormal( A) 05/25/2024 2:11 AM CDT [facility] Blood BLOOD SPECIMEN / Unknown Venipuncture / Unknown 05/25/2024 1:46 AM CDT 05/25/2024 1:56 AM CDT Narrative [facility] - 05/25/2024 2:11 AM CDT The cut off value for exclusion of Deep Vein Thrombosis and / or Pulmonary Embolism is 0.50 FEU mcg/mL For patients greater than 50 years of age the upper limit is age dependent and was calculated with the formula: ?? (PATIENT AGE x 0.01) FEU mcg/mL = Upper limit of normal range Grey Joseph MD HEMATOLOGY [facility] [address] [place] [address], * (ABNORMAL) PRO-BNP (05/25/2024 1:46 AM CDT) [facility] Signature PRO-BNP 279(H) <125 pg/mL 05/25/2024 2:32 AM CDT [facility] Blood BLOOD SPECIMEN / Unknown Venipuncture / Unknown 05/25/2024 1:46 AM CDT 05/25/2024 1:56 AM CDT Narrative [facility] - 05/25/2024 2:32 AM CDT The [...] failure. ? Grey Joseph MD SEND OUTS [facility] [address] [place] [address], * (ABNORMAL) BASIC METABOLIC PANEL (05/25/2024 1:46 AM CDT) SODIUM 142 136 - 145 mmol/L 05/25/2024 5:06 AM CDT [facility] POTASSIUM 3.5 3.5 - 5.1 mmol/L 05/25/2024 5:06 AM CDT [facility] CHLORIDE 103 98 - 107 mmol/L 05/25/2024 5:06 AM CDT [facility] CO2,TOTAL 23 22 - 29 mmol/L 05/25/2024 5:06 AM T [facility] ANION GAP 16 5 - 18 05/25/2024 5:06 AM CDT [facility] GLUCOSE 93 70 - 99 mg/dL 05/25/2024 5:06 AM CDT [facility] CALCIUM 9.2 8.8 - 10.2 mg/dL 05/25/2024 5:06 AM CDT [facility] BUN 7(L) 8 - 23 mg/dL 05/25/2024 5:06 AM CDT [facility] CREATININE 0.97 0.70 - 1.20 mg/dL 05/25/2024 5:06 AM T [facility] BUN/CREAT RATIO 7(L) 10 - 20 5:06 AM CDT [facility] eGFR 87(L) >90 mL/min/1.7 3m2 05/25/2024 5:06 AM CDT [facility] Comment:As of 2022, eG FR is [...] Kwasi Cade MD CHEMISTRY Performing Organization Address [facility] Co de Phone Number [facility] [address] [place] [address], * EKG 12 LEAD (05/25/2024 1:29 AM CDT) Interpretation Normal sinus rhythm Normal ECG No significant change BEYOND NOW Ventricular Rate 99 BPM BEYOND NOW Atrial Rate 99 BPM BEYOND NOW P-R Interval 140 ms BEYOND NOW QRS Duration 76 ms BEYOND NOW QT 356 ms BEYOND NOW QTc 456 ms BEYOND NOW P Dora 87 degrees BEYOND NOW R Dora 52 degrees BEYOND NOW T Dora 39 degrees BEYOND NOW 05/25/2024 1:29 AM CDT 05/25/2024 12:22 PM CDT Grey Joseph MD EKG ORD Performing Organization Address [facility] Co de Phone Number [place], [place] * SCAN-CARDIAC STRIP (05/25/2024 12:00 AM [...] Code Status Discussion: Reviewed Preferences Care Teams Scoop Operator Relationship Specialty Start Date End Date Clinic, [facility] [address] [place] [address] PCP - General 02/21/22
--- NOTE | 2024-07-29 15:00 | CRLHL7_ITS ---
For Patients: As a result of the Century Cures Act, medical imaging exams and procedure reports are released immediately into your electronic medical record. You may view this report before your referring provider. If you have questions, please contact your health care provider. INDICATION: Lung cancer screening. Significant smoking history. TECHNIQUE: Low-dose volumetric helical scanning of the thorax was performed without IV contrast material. Coronal and sagittal reconstructions were obtained. COMPARISON: Chest CT of 07/28/2023 FINDINGS: No new/suspicious pulmonary nodule is evident. A noncalcified 3 mm left upper lobe nodule is again demonstrated on image 47 of series 3. A few tiny calcified granulomas are again noted. Emphysema is again demonstrated along with scarring in both lungs, most significant right lower lobe superior segment. No obvious acute infiltrate is demonstrated. Mild bronchial wall thickening in the mid and lower lungs is again noted. No pleural effusion is demonstrated. There is no mediastinal or hilar lymph adenopathy. A hiatal hernia of moderate size is noted once again. The heart size is normal. Calcified coronary arterial plaque is again demonstrated. Images of the upper abdomen are unremarkable. IMPRESSION: 1. Negative for the purpose of lung cancer screening. Lung-RADS CATEGORY 2: BENIGN APPEARANCE OR BEHAVIOR: Continue annual screening with low-dose chest CT in 12 months. 2. Scarring in both lungs, most significant in the right lower lobe superior segment, and mild bronchial wall thickening in the mid to lower lungs. 3. Coronary artery disease. 4. Hiatal hernia of moderate size. Please note that all CT scans at this facility use dose modulation, iterative reconstruction, and/or weight-based dosing when appropriate to reduce radiation dose to as low as reasonably achievable. Dictated by Cornelio Armando MD @ 07/30/2024 4:41:49 AM (Electronically Signed)
== END 2024-07-29 14:43 | disposition home or self-care (01) ==
LOC: CT 14:42
PROVIDERS: PCP Family Medicine; Visit Provider Internal Medicine Pulmonary Disease
DX: Z12.2 Encounter for screening for malignant neoplasm of respiratory organs (principal); I25.10 Atherosclerotic heart disease of native coronary artery without angina pectoris; K44.9 Diaphragmatic hernia without obstruction or gangrene; F17.200 Nicotine dependence, unspecified, uncomplicated
CPT/HCPCS: 71271

== ENCOUNTER 2024-08-16 14:33 | Outpatient (CLI) | payer OTHER, SELFPAY ==
--- OUTSIDE RECORDS SUMMARY | 2024-08-16 14:35 | XMS_ITS | Clinical Summary ---
Author Organization [facility] Address [address] [address] Phone Care Team Providers Care Burner Technician Name Role Phone Unavailable Primary Care Provider [...] Acute on chronic hypoxic respiratory failure 08/2024 Social History Tobacco Use Types Packs/Day Years Used Date Smoking Tobacco: Former Cigarettes Q uit: 2011 Tobacco Cessation:Counseling Given: Not Answered Alcohol Use Standard Drinks/Week Comments Defer 0 (1 standard drink = 0.6 oz pur e alcohol) [facility] Utilities Answer Date Recorded In the past 12 months has th e [employer], gas, oil, or water company threatened to [...] any time in the past 12 m the rehabilitation institute, were you homeless or living in a assisted (including now)? No 05/02/2024 EH IP Custom [...] vaccine (Standing Order) (1 of 2) 2008 Abdominal Aortic Aneurysm (A AA) Screening 2023 WELCOME TO MEDICARE 2023 COVID-19 Vaccine ( - 2022-2 4 season) 2024 Influenza Vaccine Seasonal (Standing Order) (#1) 2024 HPV Vaccine (Standing Order) Aged Out No longer eligible based on patient's age to complete this topic Hepatitis B Vaccine (Standin g Order) Aged Out No longer eligible b ased on patient's age to complete this topic Advance Directives For more information, please contact: [phone] * DNAR/PLATER PRINTED CIRCUIT BOARD PANELS (Latest Code Status on File) Date Activated [...]
--- OUTSIDE RECORDS SUMMARY | 2024-08-16 14:36 | XMS_ITS | Clinical Summary ---
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 4 Active cholecalciferol, vitamin D3, (VITAMIN D3 ORAL) Take 1 Tablet by mouth once every other day. Unknown dose Active iron,carbonyl/as corbic acid (VITRON-C ORAL) Take 1 Tablet by mouth once every other day. Active omeprazole 20 mg tablet Take 20 mg by mouth 2 times daily if needed for GI Upset. Active cyanocobalamin (VITAMIN B12) as half tablet Take 5,000 mcg by mouth once every other day. Active sodium chloride 3% nebulization 3 % nebulizer solutionIndicati ons:COPD exacerbation (HC) Inhale 4 mL via a nebulizer 3 times daily if needed for Wheezing. 15 mL 4 Active Symbicort 160-4.5 mcg/actuation (160-4.5 mcg each actuation) inhalerIndicatio ns:Centrilobular emphysema (HC),Bronchiecta sis without complication (HC),Cryptogenic organizing pneumonia (HC) Inhale 2 Puffs by mouth two times daily. 30.6 g 3 4 Active albuterol HFA (PRO-AIR; VENTOLIN; PROVENTIL) 90 mcg/actuation inhalerIndicatio ns:Centrilobular emphysema (HC),Bronchiecta sis without complication (HC) Inhale 2 Puffs by mouth 4 times daily if needed for Shortness of Breath 1st choice or Wheezing 1st choice. 3 Each 3 4 Active albuterol 0.083% (2.5 mg/3 mL) neb solutionIndicati ons:Chronic obstructive pulmonary disease, unspecified COPD type (HC) Inhale 3 mL (2.5 mg) via a nebulizer every 4 hours if needed for Shortness Of Breath, Wheezing or Cough 2nd choice. 225 mL 4 Active albuterol-ipratr opium (DUONEB) (2.5-0.5 mg) in 3 mL NEBULIZATION solutionIndicati ons:Centrilobula r emphysema (HC),Bronchiecta sis without complication (HC) Inhale 3 mL via a nebulizer every 6 hours if needed for Shortness Of Breath or Wheezing. 120 mL 3 4 Active fluticasone (50 mcg per actuation) nasal solution (FLONASE)Indicat ions:Non-seasona l allergic rhinitis due to pollen Inhale 1 [place] into affected nostril(s) once daily if needed for Rhinitis. 16 g 4 Active guaiFENesin (Mucinex) 600 mg Extended-Release tabletIndication s:Centrilobular emphysema (HC),Bronchiecta sis without complication (HC),Chronic pansinusitis Take 1 Tablet (600 mg) by mouth two times daily. 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 90 Tablet 3 4 Active Spiriva Respimat 2.5 mcg/actuation mist for inhalationIndica tions:Centrilobu lar emphysema (HC) Inhale 2 Puffs by mouth once daily. 3 Each 3 4 Active predniSONE (DELTASONE) 10 mg tabletIndication s:Cryptogenic organizing pneumonia (HC) Take 1 Tablet (10 mg) by mouth once daily with a meal. Take 60 mg po qd with meal in am for 3 days then reduce by 10 mg every 3-5 days until down to 10 mg per day; after 1 week at 10 mg per day reduce to every other day for 2 weeks. Then stop. 60 Tablet 3 4 Active trimethoprim-sul famethoxazole 160-800 mg tabIndications:c ruptogenic organizing pneumonia. Take 1 Tablet by mouth every Thursday, Thursday and Thursday. Stop once prednisone dose is less than 20mg per day. 30 Tablet 2 4 Active Symbicort 160-4.5 mcg/actuation (160-4.5 mcg each actuation) inhaler 2 Puffs 2 times daily. 1 08/01/20 24 Discontinued(Re order (E-cancel not sent)) montelukast (SINGULAIR) 10 mg tablet Take 10 mg by mouth at bedtime. 08/01/20 24 Discontinued(Re order (E-cancel not sent)) albuterol HFA (PRO-AIR; VENTOLIN; PROVENTIL) 90 mcg/actuation inhaler Inhale 2 Puffs by mouth 4 times daily if needed. 08/01/20 24 Discontinued(Re order (E-cancel not sent)) albuterol (PROVENTIL) 0.083 % neb solution Inhale 2.5 mg via a nebulizer every 4 hours if needed. 08/01/20 24 Discontinued Spiriva Respimat 2.5 mcg/actuation mist for inhalation Inhale 2 Puffs by mouth once daily. 4 08/01/20 24 Discontinued(Re order (E-cancel not sent)) guaiFENesin (Mucinex) 600 mg Extended-Release tablet Take 600 mg by mouth two times daily. 08/01/20 24 Discontinued(Re order (E-cancel not sent)) albuterol-ipratr opium (DUONEB) (2.5-0.5 mg) in 3 mL NEBULIZATION solution Inhale 1 Neb via a nebulizer every 6 hours if needed. 08/01/20 24 Discontinued(Re order (E-cancel not sent)) fluticasone (50 mcg per actuation) nasal solution (FLONASE) Inhale 1 [place] into affected nostril(s) once daily if needed for Rhinitis. 08/01/20 24 Discontinued(Re order (E-cancel not sent)) albuterol 0.083% (2.5 mg/3 mL) neb solutionIndicati ons:Chronic obstructive pulmonary disease, unspecified COPD type (HC) INHALE 1 NEB BY NEBULIZATION EVERY 4 HOURS NEEDED FOR SHORTNESS OF BREATH. TAKE UP TO 4 TIMES A DAY 225 mL 08/01/20 24 Discontinued(Re order (E-cancel not sent)) Active Problems Problem Noted Date Diagnosed Date Dyspnea 08/01/2024 Cryptogenic organizing pneumonia 08/01/2024 Bronchiectasis without complication 08/01/2024 Acute exacerbation of chroni c obstructive pulmonary [...] Encounters Date Type Department Care Team Description 08/01/2024 4:20 PM CDT Office Visit [facility] [place] [address] [place] [phone] Estrella Sandoval MD Follow Up 08/01/2024 Refill [facility] [place] [address] [phone] Estrella Sandoval MD Refill Request (Fluticasone (50 Mcg Per Actuation) Nasal) 08/01/2024 Travel 07/19/2024 Refill [facility] [place] [address] [place] [phone] Estrella Sandoval MD Refill Request (Albuterol) 05/27/2024 Patient Outreach [address] [address] Allie Diaz, RN Primary RN Care Management (Lace 70); Hospital F/U 05/25/2024 1:23 AM CDT - 05/26/2024 2:47 PM CDT Hospital Encounter [facility] [address] [place] [address] Grey Joseph MD [facility], [facility], MD Wili Castillo, [...] Sign Reading Time Taken Comments Blood Pressure 150/48 08/01/2024 4:15 PM CDT Pulse 107 08/01/2024 4:15 PM CDT Temperature 36.4 ??C (97.5 ??F) 05/26/2024 8:07 AM CD T Respiratory Rate 16 05/26/2024 8:07 AM CDT Oxygen Saturation 93% 08/01/2024 4:15 PM CDT Inhaled Oxygen Concentration - - Weight 95.3 kg (210 lb) 08/01/2024 4:15 PM CDT Height 172.7 cm (5' 8) 08/01/2024 4:15 PM CDT Body Mass Index 31.93 08/01/2024 4:15 PM CDT Plan of Treatment Upcoming Encounters Date Type Department Care Team (Late st Contact Info) Description 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 Office 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 [facility] [place] [address] [phone] Estrella Sandoval MD [address] [place] [address] Health Maintenance Due Date Last Done Comments Pneumococcal series for age 65+ (1 of 2 - PCV) 964 Tdap 1969 Depression screening for age 12+ 1970 HIV for age 15-65 1973 Hepatitis C screening for age 18-79 1976 Tetanus booster 1978 Colonoscopy through age 75 2003 Lipids for age 45-75 2003 Zoster (shingles) series for age 50+ (1 of 2) 08/26/20 08 AAA screening age 65-74 2023 COVID-19 vaccine series (2023- season) Influenza for age 65+ 07/24/2024 BMI (ht and wt on same day) for age 18+ 08/01/2025 0 08/01/2024 Procedures Procedure Name Priority Date/Time Associated Diagnosis Comments SPIROMETRY (LAB) Routine 08/01/2024 4:34 PM CDT Centrilobular emphysema (HC) Bronchiectasis without complication (HC) ELECTROLYTE PANEL Early AM 05/26/2024 5:4 5 [...] 11.0 thou/cu mm 05/26/2024 6:20 AM CDT [facility] NRBC 0.0 % 05/26/2024 6:20 AM CDT [facility] ABS NRBC 0.0 thou /cu mm 05/26/2024 6:20 AM CDT [facility] Blood BLOOD SPECIMEN / Unknown Venipuncture / Unknown 05/26/2024 5:45 AM CDT 05/26/2024 6:13 AM CDT Malik Murry MD HEMATOLOGY Performing Organization Address City/[facility]/ZIP Co de Phone Number [facility] [address] [place] [address], * (ABNORMAL) Hemoglobin AM (05/26/2024 5:45 AM CDT) HEMOGLOBIN 11.3(L) 13.5 - 17.5 g/dL 05/26/2024 6:20 AM CDT [facility] MCV 93 80 - 100 fL 05/26/2024 6:20 AM CDT [facility] Blood BLOOD SPECIMEN / Unknown Venipuncture / Unknown 05/26/2024 5:45 AM CDT 05/26/2024 6:13 AM CDT Malik Murry MD HEMATOLOGY Performing Organization Address City/[facility]/ZIP Co de Phone Number [facility] [address] [place] [address], * Electrolyte panel AM (05/26/2024 5:45 AM CDT) SODIUM 139 136 - 145 mmol/L 05/26/2024 6:42 AM CDT [facility] POTASSIUM 3.9 3.5 - 5.1 mmol/L 05/26/2024 6:42 AM CDT [facility] CHLORIDE 102 98 - 107 mmol/L 05/26/2024 6:42 AM CDT [facility] CO2,TOTAL 24 22 - 29 mmol/L 05/26/2024 6:42 AM CDT [facility] ANION GAP 13 5 - 18 05/26/2024 6:42 AM CDT [facility] Blood BLOOD SPECIMEN / Unknown Venipuncture / Unknown 05/26/2024 5:45 AM CDT 05/26/2024 6:13 AM CDT Malik Murry MD CHEMISTRY Performing Organization Address City/[facility]/ZIP Co de Phone Number [facility] [address] [place] [address], * Sputum culture (05/25/2024 2:15 PM CDT) CULTURE Usual gia 05/27/2024 9:04 AM CDT [facility] GRAM STAIN No PMNs 05/27/2024 9:04 AM CDT [facility] GRAM STAIN No RBCs 05/27/2024 9:04 AM CDT [facility] GRAM STAIN 1+ Epithelial cells 05/27/2024 9:04 AM CDT [facility] GRAM STAIN 3+ Gram Positive Cocci 05/27/2024 9:04 AM CDT [facility] GRAM STAIN 2+ Gram Negative Bacilli 05/27/2024 9:04 AM CDT [facility] Sputum SPUTUM SPECIMEN / Unknown Non-Blood / Unknown 05/25/2024 2:15 PM CDT 05/25/2024 2:30 PM CDT Malik Murry MD MICROBIOLOGY Performing Organization Address City/[facility]/ZIP Co de Phone Number [facility] [address] [place] [address], * (ABNORMAL) TROPONIN T (HS) ONE TIME (05/25/2024 6:35 AM CDT) Only the most recent of2 resultswithin the time period is included. TROPONIN T HS 16(H) 6-15 ng/L ng/L 05/25/2024 7:39 AM CDT [facility] Blood BLOOD SPECIMEN / Unknown Venipuncture / Unknown 05/25/2024 6:35 AM CDT 05/25/2024 7:15 AM CDT Grey Joseph MD CHEMISTRY [facility] [address] [place] [address], * FERRITIN (05/25/2024 6:35 AM CDT) FERRITIN 123.0 30.0 - 400.0 ng/mL 05/25/2024 3:14 PM CDT [facility] Blood BLOOD SPECIMEN / Unknown Venipuncture / Unknown 05/25/2024 6:35 AM CDT 05/25/2024 7:15 AM CDT Malik Murry MD CHEMISTRY Performing Organization Address [facility] Co de Phone Number [facility] [address] [place] [address], [place] * CT CHEST PE STUDY (05/25/2024 [...] For Patients: As a result of the 21st Century Cures Act, medical imagingexams and procedure [...] Camacho, @ May ??2023 ??2:42AM (Electronically Signed) [email or web address] Narrative 05/25/2024 2:42 AM CDT For Patients: [...] @ May 25 2024 2:42AM (Electronically Signed) [email or web address] Grey Joseph MD GENERAL IMAGIN G * (ABNORMAL) ISTAT EC8 (05/25/2024 1:57 AM CDT) GLUCOSE, POCT 97 70 - 99 mg/dL 05/25/2024 1:59 AM CDT [facility] BUN, POCT 6(L) 8 - 25 mg/dL 05/25/2024 1:59 AM CDT [facility] SODIUM, POCT 138 135 - 145 mmol/L 05/25/2024 1:59 AM CDT [facility] POTASSIUM, POCT 3.4(L) 3.5 - 5.0 mmol/L 05/25/2024 1:59 AM CDT [facility] CHLORIDE, POCT 102 98 - 107 mmol/L 05/25/2024 1:59 AM CDT [facility] CO2,TOTAL, POCT 28 21 - 31 mmol/L 05/25/2024 1:59 AM CDT [facility] ANION GAP, POCT 14 5 - 18 05/25/2024 1:59 AM CDT [facility] PH, VENOUS, POCT 7.34 7.32 - 7.42 05/25/2024 1:59 AM CDT [facility] PCO2, VENOUS, POCT 50 41 - 51 mmHg 05/25/2024 1:59 AM CDT [facility] HCO3, VENOUS, POCT 27 22 - 30 mmol/L 05/25/2024 1:59 AM CDT [facility] BASE EXCESS, VENOUS, POCT 1.0 -2.0 - 3.0 05/25/2024 1:59 AM CDT [facility] HEMATOCRIT, POCT 36.0(L) 37.0 - 53.0 % 05/25/2024 1:59 AM CDT [facility] HEMOGLOBIN, POCT 12.2(L) 13.5 - 17.5 g/dL 05/25/2024 1:59 AM CDT [facility] Blood BLOOD SPECIMEN / Unknown 05/25/2024 1:57 AM CDT 05/25/2024 1:59 AM CDT Grey Joseph MD CHEMISTRY [facility] [address] [place] [address], * (ABNORMAL) CREATININE,ISTAT (05/25/2024 1:52 AM CDT) CREATININE, POCT 1.10 0.57 - 1.11 mg/dL 05/25/2024 1:54 AM CDT [facility] Comment:Caution: Patients ta cleve Hydroxyurea have falsely increased iStat Creatinine results. Verify creatinine results ordering a Creatinine (92425.2) eGFR 74(L) >90 mL/min/1.7 3m2 05/25/2024 1:54 AM CDT [facility] Comment:As of 2022, eG FR is calculated by the CKD-EPI creatinine equation without race adjustment. eGFR can be influenced by muscle mass, exercise, and diet. The reported eGFR is an estimation only and is only applicable if the renal function is stable. Blood BLOOD SPECIMEN / Unknown 05/25/2024 1:52 AM CDT 05/25/2024 1:54 AM CDT Grey Joseph MD CHEMISTRY [facility] [address] [place] [address], * (ABNORMAL) CBC WITH AUTO DIFFERENTIAL (05/25/2024 1:47 AM CDT) WHITE BLOOD COUNT 7.5 4.5 - 11.0 thou/cu mm 05/25/2024 2:35 AM CDT [facility] RED BLOOD COUNT 3.82(L) 4.30 - 5.90 mil/cu mm 05/25/2024 2:35 AM CDT [facility] HEMOGLOBIN 11.7(L) 13.5 - 17.5 g/dL 05/25/2024 2:35 AM T [facility] HEMATOCRIT 36.1(L) 37.0 - 53.0 % 05/25/2024 2:35 AM T [facility] MCV 95 80 - 100 fL 05/25/2024 2:35 AM CDT [facility] MCH 30.6 26.0 - 34.0 pg 05/25/2024 2:35 AM CDT [facility] MCHC 32.4 32.0 - 36.0 g/dL 05/25/2024 2:35 AM CDT [facility] RDW 13.7 11.5 - 15.5 % 05/25/2024 2:35 AM CDT [facility] PLATELET COUNT 298 140 - 440 thou/cu mm 05/25/2024 2:35 AM CDT [facility] MPV 8.7 6.5 - 11.0 fL 05/25/2024 2:35 AM CDT [facility] NRBC 0.0 % 05/25/2024 2:35 AM CDT [facility] ABS NRBC 0.0 thou /cu mm 05/25/2024 2:35 AM CDT [facility] Blood BLOOD SPECIMEN / Unknown Venipuncture / Unknown 05/25/2024 1:47 AM CDT 05/25/2024 1:56 AM CDT Grey Joseph MD HEMATOLOGY Performing Organization Address City/[facility]/ZIP Co de Phone Number [facility] [address] [place] [address], [place] * (ABNORMAL) RED CELL MORPHOLOGY (05/25/2024 1:47 AM CDT) POLYCHROMASIA Slight 05/25/2024 2:35 AM CDT [facility] RBC COMMENT Present(A) RBC morphology appears normal, RBC morphology within normal limits for newborns. 05/25/2024 2:35 AM CDT [facility] Blood BLOOD SPECIMEN / Unknown Venipuncture / Unknown 05/25/2024 1:47 AM CDT 05/25/2024 1:56 AM CDT Grey Joseph MD HEMATOLOGY [facility] [address] [place], [place] [id number], [place] * PLATELET ESTIMATE (05/25/2024 1:47 AM CDT) PLATELET ESTIMATE Adequate Adequate, No estimate 05/25/2024 2:35 AM CDT [facility] Blood BLOOD SPECIMEN / Unknown Venipuncture / Unknown 05/25/2024 1:47 AM CDT 05/25/2024 1:56 AM CDT Grey Joseph MD HEMATOLOGY [facility] [address] [place] [address], [place] * (ABNORMAL) MANUAL DIFFERENTIAL (05/25/2024 1:47 AM CDT) % NEUTROPHILS 61.0 % 05/25/2024 2:35 AM CDT [facility] % LYMPHOCYTES 17.0 % 05/25/2024 2:35 AM CDT [facility] % MONOCYTES 12.0 % 05/25/2024 2:35 AM CDT [facility] % EOSINOPHILS 8.0 % 05/25/2024 2:35 AM CDT [facility] % BASOPHILS 2.0 % 05/25/2024 2:35 AM CDT [facility] NEUTROPHILS ABSOLUTE 4.6 1.7 - 7.0 thou/cu mm 05/25/2024 2:35 AM CDT [facility] LYMPHOCYTES ABSOLUTE 1.3 0.9 - 2.9 thou/cu mm 05/25/2024 2:35 AM CDT [facility] MONOCYTES ABSOLUTE 0.9(H) <0.9 thou/cu mm 05/25/2024 2:35 AM CDT [facility] EOSINOPHILS ABSOLUTE 0.6(H) <0.5 thou/cu mm 05/25/2024 2:35 AM CDT [facility] BASOPHILS ABSOLUTE 0.2 <0.3 thou/cu mm 05/25/2024 2:35 AM CDT [facility] Blood BLOOD SPECIMEN / Unknown Venipuncture / Unknown 05/25/2024 1:47 AM CDT 05/25/2024 1:56 AM CDT Grey Joseph MD HEMATOLOGY [facility] [address] [place] [address], [place] * (ABNORMAL) TROPONIN T (HS) ACUTE W/2HR REFLEX (05/25/2024 1:46 AM CDT) TROPONIN T HS 22(H) 6-15 ng/L ng/L 05/25/2024 2:28 AM CDT [facility] Blood BLOOD SPECIMEN / Unknown Venipuncture / Unknown 05/25/2024 1:46 AM CDT 05/25/2024 1:56 AM CDT Narrative [facility] - 05/25/2024 2:28 AM CDT hs-cTnT [...] Grey Joseph MD CHEMISTRY Performing Organization Address [facility] Co de Phone Number [facility] [address] [place] [address], * (ABNORMAL) D-DIMER,QUANTITATIVE (05/25/2024 1:46 AM CDT) D-DIMER,QUANTI TATIVE 1.10 See comment FEU mcg/mL 05/25/2024 2:11 AM CDT [facility] D-DIMER INTERP Abnormal( A) 05/25/2024 2:11 AM CDT [facility] Blood BLOOD SPECIMEN / Unknown Venipuncture / Unknown 05/25/2024 1:46 AM CDT 05/25/2024 1:56 AM CDT [facility] - 05/25/2024 2:11 AM CDT The [...] MD HEMATOLOGY Performing Organization Address [facility] Co de Phone Number [facility] [address] [place] [address], * (ABNORMAL) PRO-BNP (05/25/2024 1:46 AM CDT) PRO-BNP 279(H) <125 pg/mL 05/25/2024 2:32 AM CDT [facility] Blood BLOOD SPECIMEN / Unknown Venipuncture / Unknown 05/25/2024 1:46 AM CDT 05/25/2024 1:56 AM CDT [facility] - 05/25/2024 2:32 AM CDT The [...] failure. ? Grey Joseph MD SEND OUTS [facility] [address] [place] [address], * (ABNORMAL) BASIC METABOLIC PANEL (05/25/2024 1:46 AM CDT) SODIUM 142 136 - 145 mmol/L 05/25/2024 5:06 AM CDT [facility] POTASSIUM 3.5 3.5 - 5.1 mmol/L 05/25/2024 5:06 AM CDT [facility] CHLORIDE 103 98 - 107 mmol/L 05/25/2024 5:06 AM CDT [facility] CO2,TOTAL 23 22 - 29 mmol/L 05/25/2024 5:06 AM CDT [facility] ANION GAP 16 5 - 18 05/25/2024 5:06 AM CDT [facility] GLUCOSE 93 70 - 99 mg/dL 05/25/2024 5:06 AM CDT [facility] CALCIUM 9.2 8.8 - 10.2 mg/dL 05/25/2024 5:06 AM CDT [facility] BUN 7(L) 8 - 23 mg/dL 05/25/2024 5:06 AM CDT [facility] CREATININE 0.97 0.70 - 1.20 mg/dL 05/25/2024 5:06 AM CDT [facility] BUN/CREAT RATIO 7(L) 10 - 20 5:06 AM CDT [facility] eGFR 87(L) >90 mL/min/1.7 3m2 05/25/2024 5:06 AM CDT [facility] Comment:As of 2022, eG [...] Kwasi Cade MD CHEMISTRY Performing Organization Address City/[facility]/ZIP Co de Phone Number [facility] [address] [place] [address], * EKG 12 LEAD (05/25/2024 1:29 AM CDT) Interpretation Normal sinus rhythm Normal ECG No significant change BEYOND NOW Ventricular Rate 99 BPM BEYOND NOW Atrial Rate 99 BPM BEYOND NOW P-R Interval 140 ms BEYOND NOW QRS Duration 76 ms BEYOND NOW QT 356 ms BEYOND NOW QTc 456 ms BEYOND NOW P Chase 87 degrees BEYOND NOW R Chase 52 degrees BEYOND NOW T Chase 39 degrees BEYOND NOW 05/25/2024 1:29 AM CDT 05/25/2024 12:22 PM CDT Grey Joseph MD EKG ORD Performing Organization Address City/[facility]/ZIP Co de Phone Number BEYOND NOW [place], [place] * SCAN-CARDIAC STRIP (05/25/2024 12:00 AM [...] Code Status Discussion: Reviewed Preferences Care Teams 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
--- NOTE | 2024-08-16 15:00 | CRLHL7_ITS ---
For Patients: As a result of the Century Cures Act, medical imaging exams and procedure reports are released immediately into your electronic medical record. You may view this report before your referring provider. If you have questions, please contact your health care provider. BILATERAL CAROTID ULTRASOUND INDICATION: Dizziness and giddiness. TECHNIQUE: The carotid circulations and the vertebral arteries in the neck were examined with kay-scale ultrasound, color-flow and Doppler spectral analysis. Degrees of stenosis were determined using SRU 2002 Consensus Panel Criteria. FINDINGS: Echogenic plaque in both carotid bulbs. Normal velocities in both internal carotid arteries. Left ICA velocity is upper limits of normal at 124 cm/second. However, ICA:CCA ratio is normal at 1.3. Both vertebral arteries are patent with antegrade flow. Multiphasic waveforms in the subclavian arteries. PEAK SYSTOLIC VELOCITY RIGHT: (cm per second) SUBCLAVIAN A: 192 CCA DISTAL: 108 CCA MID: 110 ICA PROXIMAL: 80 ICA MID: 8200 ICA DISTAL: 90 Vertebral: Antegrade 100 ICA/CCA ratio: 0.8 LEFT: (cm per second) SUBCLAVIAN A: 233 CCA DISTAL: 93 CCA MID: 119 ICA PROXIMAL: 124 ICA Mid: 82 ICA DISTAL: 119 Vertebral: Antegrade 71 ICA/CCA ratio: 1.3 IMPRESSION: Less than 50 percent bilateral ICA stenosis. GONZALO BISWAS M.D. [email or web address] bM/Dictated by: Gonzalo Biswas MD @ 08/17/2024 3:48:00 PM (Electronically Signed)
== END 2024-08-16 14:34 | disposition home or self-care (01) ==
LOC: US 14:34
PROVIDERS: PCP Physician Assistant Medical; Visit Provider Physician Assistant Medical
DX: R42 Dizziness and giddiness (principal); I65.23 Occlusion and stenosis of bilateral carotid arteries
CPT/HCPCS: 93880

== ENCOUNTER 2025-05-17 10:37 | Outpatient (CLI) | payer OTHER, SELFPAY ==
--- NOTE | 2025-05-17 11:15 | CRLHL7_ITS ---
For Patients: As a result of the Century Cures Act, medical imaging exams and procedure reports are released immediately into your electronic medical record. You may view this report before your referring provider. If you have questions, please contact your health care provider. Indication: Left hip osteoarthritis Comparison: 04/25/2025 Procedure : Informed consent was obtained. The site was marked. Time-out was performed. The skin of the left hip was cleansed with ChloraPrep. A sterile drape was placed. 8 cc of 1 percent lidocaine was administered for superficial anesthesia. Subsequently a 22 gauge spinal needle was introduced into the left hip joint under intermittent fluoroscopic guidance. Injection of 2 cc nonionic Omnipaque 240 contrast confirmed intra-articular location. Subsequently 7 cc 1 percent lidocaine and 2 cc 40 milligram/cc injected into the left hip joint. The needle was removed and hemostasis achieved with direct pressure. A dressing was placed. The patient tolerated the procedure well without immediate complication and was immediately sent to MRI for imaging. Total fluoroscopy time 48 seconds. Impression: Successful fluoroscopically guided left hip injection with 80 milligrams of Depo-Medrol. Dictated by Carson Kerns MD @ 05/17/2025 2:37:32 PM (Electronically Signed)
--- OUTSIDE RECORDS SUMMARY | 2025-05-18 00:30 | XMS_ITS | Clinical Summary ---
Author Organization 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 Active albuterol HFA (Proair HFA, Ventolin HFA) 108 (90 Base) MCG/ACT inhalation aerosol Inhale 2 Puffs into the lungs four times a day as needed. Active budesonide-formo terol (Symbicort) 160-4.5 MCG/ACT aerosol inhaler 2 Puffs [...] Encounters Date Type Department Care Team Description 02/27/2025 Telephone [facility] EMERGENCY DEPARTMENT [facility] [place] [address] Maddy Suarez, PAPER GRADER, EXAMINATION GRADER Results (Positive blood culture ) 02/25/2025 6:56 PM CDT - 02/25/2025 11:20 PM CDT Emergency [facility] EMERGENCY DEPARTMENT [address] [place] [address] Jessica Crowder APRN, CNP Tonsillar abscess (Primary Dx) Discharge Disposition: Home and/or Self Care 02/25/2025 Travel from Last 3 Months Social History Tobacco Use Types Packs/Day Years Used Date Smoking Tobacco: Former Cigarettes Q uit: 2012 Tobacco Cessation:Counseling Given: Not Answered Alcohol Use Standard Drinks/Week Comments Defer 0 (1 standard drink = 0.6 oz pur e alcohol) [facility] Utilities Answer Date Recorded In the past [...] any time in the past 12 m [facility], were you homeless or living in a [facility] (including now)? No 05/02/2024 IP Custom IPV Answer Date Recorded Do you feel UNSAFE in any of your personal relationships with your family members or any other acquaintances? No 2024 Sex and Gender Information Value Date Recorded Sex Assigned at Not on file Legal Sex Male 6:20 AM CDT Gender Identity Not on file Sexual Orientation Not on file Obstetrics History Last Filed Vital Signs Vital Sign Reading Time Taken Comments Blood Pressure 156/73 02/25/2025 11:01 PM CDT Pulse 97 02/25/2025 11:01 PM CDT Temperature 36.9 C (98.5 F) 02/25/2025 7:04 PM CDT Respiratory Rate 24 02/25/2025 9:25 PM CDT Oxygen Saturation 93% 02/25/2025 11:01 PM CDT Inhaled Oxygen Concentration - - Weight 96.2 kg (212 lb) 02/25/2025 7:04 PM CDT Height 167.6 cm (5' 6) 02/25/2025 7:04 PM CDT Body Mass Index 34.22 02/25/2025 7:04 PM CDT Plan of Treatment Health Maintenance Due Date Last Done Comments CT Colonography 1958 Cologuard 1958 Colonoscopy 1958 Colorectal Cancer Screening 1958 FIT/FOBT 1958 MEDICARE AWV 1958 Sigmoidoscopy 1958 PERTUSSIS (Standing Order) 1977 Pneumococcal Vaccine: 50+ yr s (Standing Order) (1 of 2 - PCV) 1977 TETANUS (Standing Order) 1977 Shingrix (Zoster recombinant ) vaccine (Standing Order) (1 of 2) 2008 RSV Vaccination (60+ yrs) (Abrysvo/Arexvy) (1 - Risk 60-74 years 1-dose series) 2018 Abdominal Aortic Aneurysm (A AA) Screening 2023 COVID-19 Vaccine ( - 2023-2 5 season) 2024 HPV Vaccine (Standing Order) Aged Out No longer eligible based on patient's age to complete this topic Hepatitis B Vaccine (Standin g Order) Aged Out No longer eligible b ased on patient's age to complete this topic Procedures Procedure Name Priority Date/Time Associated Diagnosis Comments CT NECK SOFT TISSUE W IV CONTRAST STAT 02/25/2025 9:00 PM CDT Tonsillar abscess BLOOD CULTURE ID PANEL Routine 8:09 PM CDT CULTURE, BLOOD BACTERIAL STAT 02/25/2025 8:09 PM CDT DIFFERENTIAL, MANUAL Routine 02/25/2025 8:09 PM CDT HOLD NA CITRATE STAT 02/25/2025 8:09 PM CDT HOLD SERUM TUBE STAT 02/25/2025 8:09 PM CDT LACTIC ACID, VENOUS STAT 02/25/2025 8 :09 PM CDT C REACTIVE PROTEIN STAT 02/25/2025 8 :09 PM CDT PROCALCITONIN, BLOOD STAT 02/25/2025 8:09 PM CDT COMPREHENSIVE METABOLIC PANEL STAT 02/25/2025 8:09 PM CDT HEMOGRAM/DIFF STAT 02/25/2025 8:09 PM CDT SARS-COV-2/INFLUENZA A AND B/RESPIRATORY SYNCYTIAL VIRUS, MOLECULAR DETECTION STAT 02/25/2025 7:36 PM CDT STREP A, MOLECULAR DETECTION STAT 02/25/2025 7:36 PM CDT from Last 3 Months Results * CT NECK SOFT TISSUE W IV CONTRAST (02/25/2025 9:00 PM CDT) Anatomical Region Laterality Modality Neck Computed Tomogra phy 02/25/2025 9:00 PM CDT Narrative 02/25/2025 9:43 PM CDT This document is currently in Final Status Exam CT NECK SOFT TISSUE W IV CONTRAST, 02/25/2025 9:00 PM REASON FOR EXAM: Soft tissue swelling, infection suspected, neck xray done. COMPARISON: Chest x-ray from 05/02/2024. FINDINGS: Right apical scarring is similar to comparison. Pulmonary emphysema is similar to prior. Mild aortic arch atherosclerosis. Symmetric thyroid gland. No cervical lymphadenopathy is seen. Symmetric submandibular and parotid glands. Low-attenuation peripherally enhancing 10 mm likely left tonsillar abscess with adjacent stranding and inflammation. Airway is patent. Limited views of the intracranial contents are unremarkable. Cervical degenerative change. IMPRESSION: 1. Small left tonsillar abscess measuring 1 cm. 2. Numerous chronic findings. 3. Chronic changes in the partially visualized right upper lung. Dictated By: Dr. Jeremy Schneider 02/25/2025 9:05 PM Edited By: DADA 02/25/2025 9:25 PM Electronically Signed: Dr. Jeremy Schneider 02/25/2025 9:43 PM Procedure Note Jeremy Schneider MD - 02/25/2025 This document is currently in Final Status Exam CT NECK SOFT TISSUE W IV CONTRAST, 02/25/2025 9:00 PM REASON FOR EXAM: Soft tissue swelling, infection suspected, neck xraydone. COMPARISON: Chest x-ray from 05/02/2024. FINDINGS: Right apical scarring is similar to comparison. Pulmonaryemphysema is similar to prior. Mild aortic arch atherosclerosis. Symmetricthyroid gland. No cervical lymphadenopathy is seen. Symmetricsubmandibular and parotid glands. Low-attenuation peripherally [id number] mm likely left tonsillar abscess with adjacent stranding andinflammation. Airway is patent. Limited views of the intracranial contentsare unremarkable. Cervical degenerative change. IMPRESSION: 1. Small left tonsillar abscess measuring 1 cm. 2. Numerous chronic findings. 3. Chronic changes in the partially visualized right upper lung. Dictated By: Dr. Jeremy Schneider 02/25/2025 9:05 PM Edited By: DADA 02/25/2025 9:25 PM Electronically Signed: Dr. Jeremy Schneider 02/25/2025 9:43 PM Jessica Crowder PAPER GRADER, EXAMINATION GRADER EC CT ORDERABLES Fi nal Result * (ABNORMAL) BLOOD CULTURE ID PANEL (02/25/2025 8:09 PM CDT) Staphylococcus species Detected( AA) Not Detected 02/27/2025 12:44 PM CDT [facility] Blood BLOOD SPECIMEN / Unknown Venous Device, Nurse Blood Collect / Unknown 02/25/2025 8:09 PM CDT 02/25/2025 8:13 PM CDT Narrative [facility] - 02/27/2025 12:44 PM CDT Test detects target nucleic acid by multiplex polymerase chain reaction (PCR) on the [employer] System. us Jessica Crowder APRN, EXAMINATION GRADER EC MICROBIOLOGY - G ENERAL ORDERABLES Final Result [facility] [address] * (ABNORMAL) DIFFERENTIAL, MANUAL (02/25/2025 8:09 PM CDT) Ne % 75 % 02/25/2025 8:21 PM CDT [facility] Lymphs % 14 % 02/25/2025 8:21 PM CDT [facility] Monos % 11 % 02/25/2025 8:21 PM CDT [facility] Neutrophils Absolute 10.9(H) 1.5 - 7.6 10*9/L 02/25/2025 8:21 PM CDT [facility] Lymphocytes Absolute 2.0 0.8 - 3.3 10*9/L 02/25/2025 8:21 PM CDT [facility] Monocytes Absolute 1.6(H) 0.2 - 0.9 10*9/L 02/25/2025 8:21 PM CDT [facility] RBC Appearance Normocyti c/Normoch romic 02/25/2025 8:21 PM CDT [facility] Blood BLOOD SPECIMEN / Unknown Venous Device, Nurse Blood Collect / Unknown 02/25/2025 8:09 PM CDT 02/25/2025 8:13 PM CDT us Jessica Crowder APRN, EXAMINATION GRADER EC LAB SEND OUT ORD ERABLES Final Result [facility] [address] [place], [place] [address] * PROCALCITONIN, BLOOD (02/25/2025 8:09 PM CDT) Procalcitonin 0.05 <0.50 ng/mL 02/25/2025 8:52 PM CDT [facility] Blood BLOOD SPECIMEN / Unknown Venous Device, Nurse Blood Collect / Unknown 02/25/2025 8:09 PM CDT 02/25/2025 8:13 PM CDT Narrative [facility] - 02/25/2025 8:52 PM CDT Procalcitonin Interpretation Guidelines: Diagnosis of systemic [...] the total clinical status of the patient. Jessica Crowder APRN, LEIGH EC LAB SEND OUT ORD ERABLES Final Result [facility] [place] [address], [facility] * HOLD NA CITRATE (02/25/2025 8:09 PM CDT) Blood BLOOD SPECIMEN / Unknown Venous Device, Nurse Blood Collect / Unknown 02/25/2025 8:09 PM CDT 02/25/2025 8:13 PM CDT Jessica Crowder APRN, EXAMINATION GRADER EC HEMATOLOGY ORDER ROLANDO Final Result Performing Organization Address City/[facility]/ZIP Co de Phone Number [facility] [address] [place], [place] [address] * HOLD SERUM TUBE (02/25/2025 8:09 PM CDT) Blood BLOOD SPECIMEN / Unknown Venous Device, Nurse Blood Collect / Unknown 02/25/2025 8:09 PM CDT 02/25/2025 8:13 PM CDT us Jessica Crowder APRN, EXAMINATION GRADER EC CHEMISTRY ORDERA BLES Final Result Performing Organization Address [facility] de Phone Number [facility] [address] [place], [place] [address] * (ABNORMAL) CULTURE, BLOOD BACTERIAL (02/25/2025 8:09 PM CDT) Blood Culture Staphylococcus hominis(A) 03/04/2025 7:07 PM CDT [facility] Comment:Single culture posit orestes, probable contaminant Gram Stain Gram positive cocci(A) 03/04/2025 7:07 PM CDT [facility] Comment:This is an appended report. These results have been appended to a previously preliminary verified report. Blood BLOOD SPECIMEN / Unknown Venous Device, Nurse Blood Collect / Unknown 02/25/2025 8:09 PM CDT 02/25/2025 8:13 PM CDT us Jessica Crowder APRN, EXAMINATION GRADER EC CHEMISTRY ORDERA BLES Final Result Performing Organization Address [facility]/ZIP Co de Phone Number [facility] [address] * (ABNORMAL) C-REACTIVE PROTEIN (02/25/2025 8:09 PM CDT) C-Reactive Protein 5.1(H) <=0.8 mg/dL 02/25/2025 8:31 PM CDT [facility] Blood BLOOD SPECIMEN / Unknown Venous Device, Nurse Blood Collect / Unknown 02/25/2025 8:09 PM CDT 02/25/2025 8:13 PM CDT us Jessica Crowder PAPER GRADER, EXAMINATION GRADER EC CHEMISTRY ORDERA BLES Final Result [facility] * COMPREHENSIVE METABOLIC PANEL (02/25/2025 8:09 PM CDT) Pathologist [facility] Sodium 138 134 - 143 mEq/L 02/25/2025 8:31 PM CDT [facility] Potassium 3.9 3.4 - 5.1 mEq/L 02/25/2025 8:31 PM CDT [facility] Chloride 104 99 - 110 mEq/L 02/25/2025 8:31 PM CDT [facility] Carbon Dioxide 23 19 - 29 mEq/L 02/25/2025 8:31 PM CDT [facility] Anion Gap 11.0 3.0 - 15.0 mEq/L 02/25/2025 8:31 PM CDT [facility] Blood Urea Nitrogen 11 5 - 24 mg/dL 02/25/2025 8:31 PM CDT [facility] Creatinine 0.89 0.70 - 1.20 mg/dL 02/25/2025 8:31 PM CDT [facility] Glomerular Filtration Rate 95 >60 mL/min/1. 73 m*2 02/25/2025 8:31 PM CDT [facility] Comment:Risk of cardiovascul ar disease increases when GFR is abnormal; persistently reduced GFR values are a specific indication of CKD. This calculation uses CKD- EPI 2020 equation without adjustment for race; it has not been validated in women. Calcium 9.0 8.4 - 10.5 mg/dL 02/25/2025 8:31 PM CDT [facility] Glucose 88 70 - 99 mg/dL 02/25/2025 8:31 PM CDT [facility] Protein, Total 7.4 6.0 - 8.0 g/dL 02/25/2025 8:31 PM CDT [facility] Albumin 3.5 3.5 - 5.0 g/dL 02/25/2025 8:31 PM CDT [facility] Alkaline Phosphatase 47 40 - 150 IU/L 02/25/2025 8:31 PM CDT [facility] Aspartate Aminotransferase 24 16 - 40 IU/L 02/25/2025 8:31 PM CDT [facility] Alanine Aminotransferase 16 10 - 48 IU/L 02/25/2025 8:31 PM CDT [facility] Bilirubin, Total 0.7 0.2 - 1.2 mg/dL 02/25/2025 8:31 PM CDT [facility] Blood BLOOD SPECIMEN / Unknown Venous Device, Nurse Blood Collect / Unknown 02/25/2025 8:09 PM CDT 02/25/2025 8:13 PM CDT [facility] - 02/25/2025 8:31 PM CDT Current ADA criteria for Glucose: Normal: 70-99 mg/dL Impaired Fasting Glucose: 100-125 mg/dL Diabetes Mellitus: at or above 126 mg/dL The diagnosis of diabetes must be confirmed on a subsequent day by measuring Fasting Plasma Glucose, 2-hr PG or random plasma glucose (if symptoms are present). us Jessica Crowder APRN, EXAMINATION GRADER EC CHEMISTRY ORDERA BLES Final Result [facility] [place] [address], [facility] * (ABNORMAL) HEMOGRAM/DIFFERENTIAL (02/25/2025 8:09 PM CDT) WBC 14.5(H) 3.2 - 11.0 10*9/L 02/25/2025 8:21 PM CDT [facility] RBC 3.97(L) 4.14 - 5.76 10*12/L 02/25/2025 8:21 PM CDT [facility] HGB 11.8(L) 12.9 - 16.9 g/dL 02/25/2025 8:21 PM CDT [facility] HCT 37.9(L) 38.4 - 49.7 % 02/25/2025 8:21 PM CDT [facility] MCV 95.5 81.4 - 99.0 fL 02/25/2025 8:21 PM CDT [facility] MCH 29.7 26.7 - 33.1 pg 02/25/2025 8:21 PM CDT [facility] MCHC 31.1(L) 31.6 - 35.5 g/dL 02/25/2025 8:21 PM CDT [facility] RDW 13.5 11.3 - 14.6 % 02/25/2025 8:21 PM CDT [facility] PLT 349 130 - 375 10*9/L 02/25/2025 8:21 PM CDT [facility] Platelet Slide Review Adequate 02/25/2025 8:21 PM CDT [facility] Blood BLOOD SPECIMEN / Unknown Venous Device, Nurse Blood Collect / Unknown 02/25/2025 8:09 PM CDT 02/25/2025 8:13 PM CDT us Jessica Crowder PAPER GRADER, EXAMINATION GRADER EC HEMATOLOGY ORDER ROLANDO Final Result [facility] [place], [place] [address] * LACTIC ACID, VENOUS (02/25/2025 8:09 PM CDT) [facility] Lactic Acid, Venous 1.1 0.4 - 2.0 mmol/L 02/25/2025 8:30 PM CDT [facility] Blood BLOOD SPECIMEN / Unknown Venous Device, Nurse Blood Collect / Unknown 02/25/2025 8:09 PM CDT 02/25/2025 8:13 PM CDT Jessica Crowder PAPER GRADER, EXAMINATION GRADER EC CHEMISTRY ORDERA BLES Final Result [facility] [address] [place] [id number] * SARS-COV-2/INFLUENZA A AND B/RESPIRATORY SYNCYTIAL VIRUS, MOLECULAR DETECTION (02/25/2025 7:36 PM CDT) [facility] Influenza A Negative Negative 02/25/2025 8:15 PM CDT [facility] Influenza B Negative Negative 02/25/2025 8:15 PM CDT [facility] Respiratory Syncytial Virus Negative Negative 02/25/2025 8:15 PM CDT [facility] SARS-CoV-2 RNA (COVID-19) Negative Negative/Not Detected 02/25/2025 8:15 PM CDT [facility] Swab NASAL / Unknown Non-blood collection / Unknown 02/25/2025 7:36 PM CDT 02/25/2025 7:36 PM CDT Narrative [facility] - 02/25/2025 8:15 PM CDT Test results should be used in combination with clinical observations, patient history and epidemiological information. Method Information This test uses the Cepheid Xpert Xpress CoV-2/Flu/RSV plus assay to detect and differentiate RNA targets from SARS-CoV-2, influenza A, influenza B, and/or RSV by real-time polymerase chain reaction (PCR) on the [employer] GeneXpert Instrument System. It has received Emergency Use Authorization (EUA) by the U.S. Food and Drug Administration; performance characteristics have been verified by in a manner consistent with CLIA requirements. Jessica Crowder APRN, CNP EC MICROBIOLOGY - G ENERAL ORDERABLES Final Result Performing Organization Address [facility]/ZIP Co de Phone Number [facility] [address] [place] [address] * STREP A, MOLECULAR DETECTION (02/25/2025 7:36 PM CDT) [facility] Streptococcus pyogenes (Group A Strep) Not Detected Not Detected 02/25/2025 8:03 PM CDT [facility] Swab STRUCTURE OF THROAT / Unknown Non-blood collection / Unknown 02/25/2025 7:36 PM CDT 02/25/2025 7:36 PM CDT Narrative [facility] - 02/25/2025 8:03 PM CDT Test results must be interpreted within the context of all relevant clinical and laboratory findings. Method Information This test uses the [employer] Xpert Xpress Strep A assay to detect Streptococcus pyogenes (Group A Beta-Hemolytic Streptococcus) DNA by real-time polymerase chain reaction (PCR) on the [employer] GeneXpert Instrument System. us Jessica Crowder APRN, CNP EC MICROBIOLOGY - G ENERAL ORDERABLES Final Result Performing Organization Address [facility] Co de Phone Number [facility] [address] [place] [address] from Last 3 Months Insurance [employer] + MEDICARE Advance Directives For more information, please contact: [phone] * DNAR/BRIDGE REPAIRER (Latest Code Status on File) Date Activated [...]
--- OUTSIDE RECORDS SUMMARY | 2025-05-18 00:31 | XMS_ITS | Clinical Summary ---
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 02/16/20 24 Active cholecalciferol , vitamin D3, (VITAMIN D3 ORAL) Take 1 Tablet by mouth once every other day. Unknown dose Active iron,carbonyl/a scorbic acid (VITRON-C ORAL) Take 1 Tablet by mouth once every other day. Active omeprazole 20 mg tablet Take 20 mg by mouth 2 times daily if needed for GI Upset. Active cyanocobalamin (VITAMIN B12) as half tablet Take 5,000 mcg by mouth once every other day. Active oxygen-air delivery systems (HOME OXYGEN)Indicati ons:Centrilobul ar emphysema (HC),Bronchiect asis without complication (HC),Cryptogeni c organizing pneumonia (HC) Oxygen 2 L/min. Frequency of use: With activity; Length of need: 99 Months. 1 Each 12/12/19 25 Active guaiFENesin (Mucinex) 600 mg Extended-Releas e tabletIndicatio ns:Centrilobula r emphysema (HC),Bronchiect asis without complication (HC),Chronic pansinusitis Take 1 Tablet (600 mg) by mouth two times daily. 180 Tablet 3 12/12/19 25 Active montelukast (SINGULAIR) 10 mg tabletIndicatio ns:Chronic pansinusitis,Se asonal allergic rhinitis due to pollen Take 1 Tablet (10 mg) by mouth at bedtime. 90 Tablet 12/12/19 25 Active predniSONE (DELTASONE) 10 mg tabletIndicatio ns:Cryptogenic organizing pneumonia (HC) Take 60 mg po qd with meal in am for 3 days then reduce by 10 mg every 3-5 days until down to 10 mg per day; after 1 week at 10 mg per day reduce to every other day for 2 weeks. Then stop. 74 Tablet 2 12/12/19 25 Active Spiriva Respimat 2.5 mcg/actuation mist for inhalationIndic ations:Centrilo bular emphysema (HC) Inhale 2 Puffs by mouth once daily. 3 Each 12/12/19 25 Active trimethoprim-shelley lfamethoxazole 160-800 mg tabIndications: cruptogenic organizing pneumonia. Take 1 Tablet by mouth every Thursday, Thursday and Thursday. Stop once prednisone dose is less than 20mg per day. 30 Tablet 1 12/12/19 25 Active budesonide-form oteroL (SYMBICORT) 160-4.5 mcg/actuation (160-4.5 mcg each actuation) inhalerIndicati ons:Centrilobul ar emphysema (HC),Bronchiect asis without complication (HC),Cryptogeni c organizing pneumonia (HC) TAKE 2 PUFFS BY MOUTH TWICE A DAY IN THE MORNING AND IN THE EVENING 30.6 Each 01/10/20 25 Active albuterol HFA 90 mcg/actuation inhalerIndicati ons:Bronchiecta sis without complication (HC),Centrilobu lar emphysema (HC) Inhale 2 Puffs by mouth 4 times daily if needed for Shortness of Breath 1st choice or Wheezing 1st choice. 3 Each 04/27/20 25 Active albuterol 0.083% (2.5 mg/3 mL) neb solutionIndicat ions:chronic obstructive pulmonary disease Inhale 3 mL (2.5 mg) via a nebulizer every 4 hours if needed for Shortness Of Breath, Wheezing or Cough 2nd choice. Do not exceed 4 doses per 24 h. 360 mL 04/27/20 25 Active fluticasone (50 mcg per actuation) nasal solution (FLONASE)Indica tions:Non-seaso nal allergic rhinitis due to pollen INHALE 1 SPRAY INTO AFFECTED NOSTRIL(S) ONCE DAILY IF NEEDED FOR RHINITIS 16 g 05/02/20 25 Active albuterol HFA (PRO-AIR; VENTOLIN; PROVENTIL) 90 mcg/actuation inhalerIndicati ons:Centrilobul ar emphysema (HC),Bronchiect asis without complication (HC) Inhale 2 Puffs by mouth 4 times daily if needed for Shortness of Breath 1st choice or Wheezing 1st choice. 3 Each 3 12/12/19 25 025 Discontinued(* Medication adjustment) albuterol 0.083% (2.5 mg/3 mL) neb solutionIndicat ions:chronic obstructive pulmonary disease Inhale 3 mL (2.5 mg) via a nebulizer every 4 hours if needed for Shortness Of Breath, Wheezing or Cough 2nd choice. Do not exceed 4 doses per 24 h. 360 mL 3 12/12/19 25 025 Discontinued(* Medication adjustment) fluticasone (50 mcg per actuation) nasal solution (FLONASE)Indica tions:Non-seaso nal allergic rhinitis due to pollen Inhale 1 [place] into affected nostril(s) once daily if needed for Rhinitis. 16 g 12/12/19 25 025 Discontinued azithromycin (Zithromax) 250 mg tabletIndicatio ns:Bronchiectas is without complication (HC) Take 500 mg (2 tabs) by mouth on day 1, then 250 mg (1 tab) daily for days 2-5. 6 Tablet 05/12/20 25 025 Active Problems Problem Noted Date Diagnosed Date Lung nodule seen on imaging study 12/12/[address] of the chest 10/03/2024 Mediastinal adenopathy 10/03/2024 Pulmonary infiltrate on radiologic exam 10/03/20 Bronchitis, mucopurulent recurrent 09/15/2024 Dyspnea 08/01/2024 Cryptogenic organizing pneumonia 08/01/2024 Bronchiectasis without complication 08/01/2024 Acute exacerbation of chroni c obstructive pulmonary disease (COPD) 05/25/2024 Hypertension 05/25/2024 COPD (chronic obstructive pulmonary disease) 11/2021 Scoliosis 02/21/2022 Anemia 02/21/2022 Hiatal hernia 02/21/2022 History of alcohol use disorder 02/21/2022 Lung nodule 02/21/2022 Resolved Problems Problem Noted Date Diagnosed Date Resolved Date Acute on chronic hypoxic respiratory failure 05/25/2024 Lung abscess 02/22/2022 05/25/2024 Empyema 02/21/2022 02/22/2022 Encounters Date Type Department Care Team Description 05/12/2025 2:40 PM CDT Office Visit [facility] [place] [address] [place] [phone] Estrella Sandoval MD Follow Up (pulmonary/copd) 05/12/2025 Travel 05/07/2025 Travel 05/01/[address] [facility] [place] [address] [place] [phone] Estrella Sandoval MD Refill Request (Fluticasone (50 Mcg Per Actuation) Nasal) 04/26/[address] [facility] [place] [address] [place] [phone] Estrella Sandoval MD Refill Request (Albuterol solution ) 04/25/2025 11:30 AM CDT Ancillary Procedure [facility] [address] [place] [address] 04/25/2025 Travel 04/22/2025 Travel 04/10/[address] [facility] Centralized Nurse Triage Pcp, No Shortness Of Breath 04/10/[address] [facility] [place] [address] [place] [phone] Estrella Sandoval MD Medication Management from Last 3 Months Family History Medical History Relation Name Comments COPD Father Relation Name Status Comments Father Social History Tobacco Use Types Packs/Day Years Used Date Smoking Tobacco: Former Cigarettes Q uit: 2015 Smokeless Tobacco: Never Tobacco Cessation:Counseling Given: Not Answered Alcohol Use Standard Drinks/Week Comments Yes 0 (1 standard drink = 0.6 oz pur e alcohol) ocasional beer Social Connections Answer Date Recorded Frequency of Communication with Friends and Fami ly Not on file 11/23/2021 Financial Resource Strain Answer Date R ecorded Difficulty of Paying Living Expenses Not on file 11/23/2021 Difficulty of Paying Living Expenses Not on file 11/23/2021 Interpersonal Safety Answer Date Record ed Are you being hit, kicked, p ushed or yelled at (see row info)? No 05/25/2024 Interpersonal Safety Abuse 12 - 18 Not on file 05/25/2024 Interpersonal Safety Ambulatory Vulnerability No t on file 05/25/2024 Sex and Gender Information Value Date Recorded Sex Assigned at Not on file Legal Sex Male 8:09 PM CDT Gender Identity Not on file Sexual Orientation Not on file Obstetrics History Last Filed Vital Signs Vital Sign Reading Time Taken Comments Blood Pressure 140/66 05/12/2025 2:34 PM CDT Pulse 92 05/12/2025 2:34 PM CDT Temperature 36.4 C (97.5 F) 05/26/2024 8:07 AM CDT Respiratory Rate 16 05/26/2024 8:07 AM CDT Oxygen Saturation 92% 05/12/2025 2:34 PM CDT Inhaled Oxygen Concentration - - Weight 96.6 kg (213 lb) 05/12/2025 2:34 PM CDT Height 172.7 cm (5' 8) 05/12/2025 2:34 PM CDT Body Mass Index 32.39 05/12/2025 2:34 PM CDT Plan of Treatment Health Maintenance Due Date Last Done Comments Tdap 1969 Depression screening for age 12+ 1970 Hepatitis C screening for ag e 18-79 1976 Pneumococcal series for age 50+ (1 of 2 - PCV) 1977 Tetanus booster 1978 Colonoscopy through age 75 2003 Lipids for age 45-75 2003 Zoster (shingles) series for age 50+ (1 of 2) 2008 RSV vaccine for adults or (1 - Risk 60-74 years 1-dose series) 2018 AAA screening age 65-74 2023 Medicare Wellness for age 65+ 2023 COVID-19 vaccine series ( - season) 2024 Influenza Vaccine (Season Ended) 2025 BMI (ht and wt on same day) for age 18+ 05/12/2026 05/12/2025, 12/12/2024, 08/01/2024 Hepatitis B series for 19+ Aged Out N o longer eligible based on patient's age to complete this topic Procedures Procedure Name Priority Date/Time Associated Diagnosis Comments SCAN-PULMONARY FUNCTION TEST 05/12/2025 12:[address] CHEST WO Routine 04/25/2025 11:49 AM CDT Abnormal chest CT Lung nodule Cryptogenic organizing pneumonia (HC) from Last 3 Months Results * SCAN-PULMONARY FUNCTION TEST (05/12/2025 12:00 AM CDT) us Scanner OTHER Final Result * CT CHEST WO (04/25/2025 11:49 AM CDT) Anatomical Region Laterality Modality CHEST, THORAX, HEART Computed To mography 04/27/2025 8:29 AM CDT Impressions 04/27/2025 8:29 AM CDT 1. Interval resolution of 1.3 cm sub solid irregular nodule seen within the left lower lobe on the previous exam. 2. Otherwise stable examination. Please note that all CT scans at this facility use dose modulation, iterative reconstruction, and/or weight-based dosing when appropriate to reduce radiation dose to as low as reasonably achievable. Dictated by Hood Scott MD @ 04/27/2025 8:29:58 AM (Electronically Signed) Narrative 04/27/2025 8:29 AM CDT For Patients: As a result of the Century Cures Act, medical imaging exams and procedure reports are released immediately into your electronic medical record. You may view this report before your referring provider. If you have questions, please contact your health care provider. INDICATION: Hemoptysis. Lung nodule. 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 TECHNIQUE: CT chest without contrast. COMPARISON: Chest CT 12/05/2024. FINDINGS: CHEST: Lower neck and chest wall: Unremarkable thyroid. No chest wall mass or axillary lymphadenopathy. Mediastinum and fermin: No mediastinal or hilar lymphadenopathy. Small/moderate gastric hiatus hernia, unchanged. Heart and vasculature: Moderate coronary artery calcification. No cardiomegaly. Unremarkable thoracic aorta and central pulmonary arteries. Lungs: Interval resolution of the 1.3 cm sub solid irregular nodule seen within the left lower lobe on the previous exam. Scattered linear scar, multifocal patchy opacities and focal consolidations (most severe in the right lower lobe), unchanged. No new pulmonary mass or new consolidation. Centrilobular emphysema. Scattered bronchial thickening. Pleura: Normal. No pleural mass, pleural effusion or pneumothorax. Upper abdomen: Unremarkable. Bones: Unremarkable for patient s age. No acute fracture or suspicious bone lesion. Procedure Note Hood Scott MD - 04/27/2025 For Patients: As a result of the Cures Act, medical imagingexams and procedure reports are released immediately into your electronicmedical record. You may view this report before your referring provider.If you have questions, please contact your health care provider. INDICATION: Hemoptysis. Lung nodule. 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 TECHNIQUE: CT chest without contrast. COMPARISON: Chest CT 12/05/2024. FINDINGS: CHEST: Lower neck and chest wall: Unremarkable thyroid. No chest wall mass oraxillary lymphadenopathy. Mediastinum and fermin: No mediastinal or hilar lymphadenopathy.Small/moderate gastric hiatus hernia, unchanged. Heart and vasculature: Moderate coronary artery calcification. Nocardiomegaly. Unremarkable thoracic aorta and central pulmonaryarteries. Lungs: Interval resolution of the 1.3 cm sub solid irregular nodule seenwithin the left lower lobe on the previous exam. Scattered linear scar,multifocal patchy opacities and focal consolidations (most severe in theright lower lobe), unchanged. No new pulmonary mass or new consolidation.Centrilobular emphysema. Scattered bronchial thickening. Pleura: Normal. No pleural mass, pleural effusion or pneumothorax. Upper abdomen: Unremarkable. Bones: Unremarkable for patient s age. No acute fracture or suspiciousbone lesion. IMPRESSION: 1. Interval resolution of 1.3 cm sub solid irregular nodule seen withinthe left lower lobe on the previous exam. 2. Otherwise stable examination. Please note that all CT scans at this facility use dose modulation,iterative reconstruction, and/or weight-based dosing when appropriate toreduce radiation dose to as low as reasonably achievable. 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 PCP - General 11/28/24
== END 2025-05-17 10:38 | disposition home or self-care (01) ==
LOC: RAD 10:38
PROVIDERS: PCP Physician Assistant Medical; Visit Provider Physician Assistant Surgical
DX: M16.12 Unilateral primary osteoarthritis, left hip (principal); M70.62 Trochanteric bursitis, left hip
CPT/HCPCS: 20610; 77002; Q9966

== ENCOUNTER 2025-06-15 14:05 | Outpatient (CLI) | payer OTHER, SELFPAY | END 2025-06-15 14:06 | disposition home or self-care (01) | LOC: NFLDREF 06-16 07:55 | PROVIDERS: PCP Physician Assistant Medical; Referring Provider Physician Assistant Medical; Visit Provider Physician Assistant Medical | DX: I10 Essential (primary) hypertension (principal); R73.03 Prediabetes; N40.1 Benign prostatic hyperplasia with lower urinary tract symptoms; R35.0 Frequency of micturition; Z12.5 Encounter for screening for malignant neoplasm of prostate | CPT/HCPCS: 80053; 80061; 84439; 84443; G0103 ==

== ENCOUNTER 2025-06-20 16:28 | Emergency (ER) | payer OTHER, SELFPAY ==
--- OUTSIDE RECORDS SUMMARY | 2025-06-20 16:30 | XMS_ITS | Clinical Summary ---
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 4 Active cholecalciferol, vitamin D3, (VITAMIN D3 ORAL) Take 1 Tablet by mouth once every other day. Unknown dose Active iron,carbonyl/asc orbic acid (VITRON-C ORAL) Take 1 Tablet by mouth once every other day. Active omeprazole 20 mg tablet Take 20 mg by mouth 2 times daily if needed for GI Upset. Active cyanocobalamin (VITAMIN B12) as half tablet Take 5,000 mcg by mouth once every other day. Active oxygen-air delivery systems (HOME OXYGEN)Indication s:Centrilobular emphysema (HC),Bronchiectas is without complication (HC),Cryptogenic organizing pneumonia (HC) Oxygen 2 L/min. Frequency of use: With activity; Length of need: 99 Months. 1 Each 5 Active guaiFENesin (Mucinex) 600 mg Extended-Release tabletIndications :Centrilobular emphysema (HC),Bronchiectas is without complication (HC),Chronic pansinusitis Take 1 Tablet (600 mg) by mouth two times daily. 180 Tablet 3 5 Active montelukast (SINGULAIR) 10 mg tabletIndications :Chronic pansinusitis,Seas onal allergic rhinitis due to pollen Take 1 Tablet (10 mg) by mouth at bedtime. 90 Tablet 3 5 Active predniSONE (DELTASONE) 10 mg tabletIndications :Cryptogenic organizing pneumonia (HC) Take 60 mg po qd with meal in am for 3 days then reduce by 10 mg every 3-5 days until down to 10 mg per day; after 1 week at 10 mg per day reduce to every other day for 2 weeks. Then stop. 74 Tablet 2 5 Active Spiriva Respimat 2.5 mcg/actuation mist for inhalationIndicat ions:Centrilobula r emphysema (HC) Inhale 2 Puffs by mouth once daily. 3 Each 3 5 Active trimethoprim-sulf amethoxazole 160-800 mg tabIndications:cr uptogenic organizing pneumonia. Take 1 Tablet by mouth every Thursday, Thursday and Thursday. Stop once prednisone dose is less than 20mg per day. 30 Tablet 1 5 Active budesonide-formot Keturah (SYMBICORT) 160-4.5 mcg/actuation (160-4.5 mcg each actuation) inhalerIndication s:Centrilobular emphysema (HC),Bronchiectas is without complication (HC),Cryptogenic organizing pneumonia (HC) TAKE 2 PUFFS BY MOUTH TWICE A DAY IN THE MORNING AND IN THE EVENING 30.6 Each 3 5 Active albuterol HFA 90 mcg/actuation inhalerIndication s:Bronchiectasis without complication (HC),Centrilobula r emphysema (HC) Inhale 2 Puffs by mouth 4 times daily if needed for Shortness of Breath 1st choice or Wheezing 1st choice. 3 Each 3 5 Active albuterol 0.083% (2.5 mg/3 mL) neb solutionIndicatio ns:chronic obstructive pulmonary disease Inhale 3 mL (2.5 mg) via a nebulizer every 4 hours if needed for Shortness Of Breath, Wheezing or Cough 2nd choice. Do not exceed 4 doses per 24 h. 360 mL 3 5 Active fluticasone (50 mcg per actuation) nasal solution (FLONASE)Indicati ons:Non-seasonal allergic rhinitis due to pollen INHALE 1 SPRAY INTO AFFECTED NOSTRIL(S) ONCE DAILY IF NEEDED FOR RHINITIS 16 g Active Active Problems Problem Noted Date Diagnosed [...] Encounters Date Type Department Care Team Description 06/20/2025 Telephone [facility] [place] [address] [place] [address] [phone] Estrella Sandoval MD Medication Management; Appointment (schedule with Dr. Sandoval for 10/2025 or 11/2025); Procedure (Requesting order for CT scan prior to seeing Dr. Sandoval) 06/12/2025 2:45 PM CDT Orders Only [facility] [address] [place] [address] [address] [address] [place], [place] <No scans attached> 06/12/2025 1:00 PM CDT Ancillary Procedure [facility] [address] [place] [address] 06/12/2025 Travel 06/09/2025 Travel 06/06/2025 Transcribe Orders Customer Experience [facility] [phone] Isidra Etienne MD 05/12/2025 2:40 PM CDT Office Visit [facility] [place] [address] [place] [address] [place] [phone] Estrella Sandoval MD Follow Up (pulmonary/copd) 05/12/2025 Travel 05/07/2025 Travel 05/01/2025 Refill [facility] [place] [address] [place] [phone] Estrella Sandoval MD Refill Request (Fluticasone (50 Mcg Per Actuation) Nasal) 04/26/2025 Telephone [facility] [place] [address] [phone] Estrella Sandoval MD Refill Request (Albuterol solution ) 04/25/2025 11:30 AM CDT Ancillary Procedure [facility] [address] [facility] [place] [address] 04/25/2025 Travel 04/22/2025 Travel 04/10/2025 Nurse Triage [facility] Centralized Nurse Triage Pcp, No Shortness Of Breath 04/10/2025 Telephone [facility] [place] [address] [place] [phone] Estrella Sandoval MD Medication Management from Last [...] Health Maintenance Due Date Last Done Comments Tetanus booster 1969 Depression screening for age 12+ 1970 Hepatitis C screening for ag e 18-79 1976 Pneumococcal series for age 50+ (1 of 2 - PCV) 1977 Colonoscopy through age 75 2003 Lipids for age 45-75 2003 Zoster (shingles) series for age 50+ (1 of 2) 2008 RSV vaccine for adults or (1 - Risk 60-74 years 1-dose series) 2018 AAA screening age 65-74 2023 Medicare Wellness for age 65+ 2023 COVID-19 vaccine series ( - season) 2024 Influenza Vaccine (#1) 2025 BMI (ht and wt on same day) for age 18+ 05/12/2026 05/12/2025, 12/12/2024, 08/01/2024 Hepatitis B series for 19+ Aged Out N o longer eligible based on patient's age to complete this topic Procedures Procedure Name Priority Date/Time Associated Diagnosis Comments CT NECK SOFT TISSUE W Routine 06/12/2025 1:16 PM CDT Chronic cough CREATININE,ISTAT Routine 06/12/2025 12:5 3 PM CDT Chronic cough SCAN-PULMONARY FUNCTION TEST 05/12/2025 12:[address] CHEST WO Routine 04/25/2025 11:49 AM CDT Ab[address] chest CT Lung nodule Cryptogenic organizing pneumonia (HC) from Last 3 Months Results * CT NECK SOFT TISSUE W (06/12/2025 1:16 PM CDT) Anatomical Region Laterality Modality NECK Computed Tomogra phy 06/13/2025 9:57 AM CDT Impressions 06/13/2025 9:57 AM CDT 1. No suspicious enhancement or neck mass. 2. No evidence of acute inflammation. 3. No cervical lymphadenopathy. 4. Stable centrilobular emphysema and regions of consolidation and scarring in the right lung. Please note that all CT scans at this facility use dose modulation, iterative reconstruction, and/or weight-based dosing when appropriate to reduce radiation dose to as low as reasonably achievable. Dictated by Carson Merritt MD @ 06/13/2025 9:57:00 AM (Electronically Signed) Narrative 06/13/2025 9:57 AM CDT For Patients: As a result of the Century Cures Act, medical imaging exams and procedure reports are released immediately into your electronic medical record. You may view this report before your referring provider. If you have questions, please contact your health care provider. INDICATION: Chronic cough. TECHNIQUE: CT of the neck with 100 mL Omnipaque 300 iodinated contrast agent IV. Coronal and sagittal reconstructions are included. COMPARISON: CT chest 04/25/2025 FINDINGS: There is no mass or other lesion within the soft tissues of the suprahyoid or infrahyoid neck. There is a 0.8 cm nodular density in the right neck subcutaneous fat that likely represents inclusion cyst. No lymphadenopathy. The oral cavity, nasopharyngeal, oropharyngeal and hypopharyngeal mucosal spaces are normal. No periapical dental disease. The supraglottic, glottic and infraglottic larynx are normal. The airway including the trachea is normal and is patent. The parotid glands, submandibular and sublingual glands are normal in appearance. The thyroid gland is normal in appearance. The vascular structures opacify normally with contrast material. No suspicious lytic or blastic osseous lesions. Cerumen in the left external ear canal. Moderate mucosal thickening in the right maxillary sinus and mild mucosal thickening left maxillary sinus. Moderate opacification of the partially visualized right ethmoid air cells. Visualized paranasal sinuses and mastoid air cells are clear. Visualized orbital and intracranial contents are normal. Supraclavicular regions, mediastinum and soft tissues of the imaged chest wall are normal. Stable regions of consolidation in the posterior right upper lobe, anterior right upper lobe with scarring, and in the superior aspect of the right lower lobe. Centrilobular emphysema is unchanged. Procedure Note Carson Merritt MD - 06/13/2025 For Patients: As a result of the Cures Act, medical imagingexams and procedure reports are released immediately into your electronicmedical record. You may view this report before your referring provider.If you have questions, please contact your health care provider. INDICATION: Chronic cough. TECHNIQUE: CT of the neck with 100 mL Omnipaque 300 iodinated contrast agent IV.Coronal and sagittal reconstructions are included. COMPARISON: CT chest 04/25/2025 FINDINGS: There is no mass or other lesion within the soft tissues of the suprahyoidor infrahyoid neck. There is a 0.8 cm nodular density in the right necksubcutaneous fat that likely represents inclusion cyst. No lymphadenopathy. The oral cavity, nasopharyngeal, oropharyngeal and hypopharyngeal mucosalspaces are normal. No periapical dental disease. The supraglottic, glottic and infraglottic larynx are normal. The airway including the trachea is normal and is patent. The parotid glands, submandibular and sublingual glands are normal inappearance. The thyroid gland is normal in appearance. The vascular structures opacify normally with contrast material. No suspicious lytic or blastic osseous lesions. Cerumen in the leftexternal ear canal. Moderate mucosal thickening in the right maxillarysinus and mild mucosal thickening left maxillary sinus. Moderateopacification of the partially visualized right ethmoid air cells. Visualized paranasal sinuses and mastoid air cells are clear. Visualized orbital and intracranial contents are normal. Supraclavicular regions, mediastinum and soft tissues of the imaged chestwall are normal. Stable regions of consolidation in the posterior right upper lobe,anterior right upper lobe with scarring, and in the superior aspect of theright lower lobe. Centrilobular emphysema is unchanged. IMPRESSION: 1. No suspicious enhancement or neck mass. 2. No evidence of acute inflammation. 3. No cervical lymphadenopathy. 4. Stable centrilobular emphysema and regions of consolidation andscarring in the right lung. Please note that all CT scans at this facility use dose modulation,iterative reconstruction, and/or weight-based dosing when appropriate toreduce radiation dose to as low as reasonably achievable. Dictated by Carson Merritt MD @ 06/13/2025 9:57:00 AM (Electronically Signed) us Isidra Etienne MD CT Final Res ult * POCT Creatinine (06/12/2025 12:53 PM CDT) POCT,CREATININ E, ISTAT 1.1 0.6 - 1.3 mg/dL [facility] Blood BLOOD SPECIMEN / Unknown 06/12/2025 12:53 PM CDT 06/12/2025 12:54 PM CDT Nakia ARORA CHEMISTRY Final R esult [facility] [address] [place] [address], [place] [phone] [facility] [address] [place] [address] * SCAN-PULMONARY FUNCTION TEST (05/12/2025 12:00 AM [...] health care provider. INDICATION: Hemoptysis. Lung nodule. 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 INDICATION: Hemoptysis. Lung nodule. 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 PCP - General 11/28/24
--- OUTSIDE RECORDS SUMMARY | 2025-06-20 16:30 | XMS_ITS | Clinical Summary ---
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 No 05/02/2024 EH IP Custom [...] Aneurysm (A AA) Screening 2023 COVID-19 Vaccine (2023-2 5 season) 2024 HPV Vaccine (Standing Order) Aged Out No longer eligible based on patient's age to complete this topic Hepatitis B Vaccine (Standin g Order) Aged Out No longer eligible b ased on patient's age to complete this topic Insurance [facility] MEDICARE Advance Directives For more information, please contact: [phone] * DNAR/VP (Latest Code Status on File) Date Activated [...]
[2025-06-20 16:40] VITALS: BP 126/68; PULSE 68; RESP 16; TEMP 37; O2SAT 94; BMI 31.4
--- NOTE | 2025-06-20 16:59 | ED.GENADULT ---
HPI - General Adult General Chief complaint: Extremity Pain/Injury, Lower Stated complaint: left ankle swollen/possible blood clot Time Seen by Provider: 06/20/25 16:29 History of Present Illness HPI narrative: pt. presents to the ED today worried about a blood clot. pt. states he has a swollen left ankle and numb right knee . pt had an hip injection and cortisone shot in the left hip recently, pt. worried that the swelling might be correlated. pt ,. unsure when the knee started to hurt but has been worse this last week. pt. endorses hx. of COPD 64-year-old man presenting to the emergency department concern of possible blood clot. Recalls striking his outer right knee as 1 point rather remotely and it hurt terribly. Did not have evaluated at that time. 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 Now at rest the outer right knee indicates the fibular head area is numb. But he has been having increased pain when he flexes the knee. 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 He recalls striking his outer right knee area on scaffolding 1 point very hard. Left foot and ankle have been swollen lately - maybe over the last week or week and a half. No fever. No new trauma. No new shortness of breath. Related Data Home Medications ?Medication ?Instructions ?Recorded ?Confirmed fluticasone propionate 50 1 spray intranasal BID 07/02/23 06/20/25 mcg/actuation nasal spray,suspension loratadine 10 mg tablet 10 mg PO DAILY 07/22/24 06/20/25 tiotropium bromide 2.5 2 puff inhalation DAILY 07/22/24 06/20/25 mcg/actuation mist for inhalation (Spiriva Respimat) albuterol sulfate 90 mcg/actuation 2 puff inhalation Q4-6H PRN 07/23/24 06/20/25 aerosol inhaler iron,carbonyl 65 mg-vitamin C 125 1 tab PO Q OTHER DAY 07/23/24 06/15/25 mg tablet,delayed release (Vitron-C) prednisone 10 mg tablet mg PO 08/11/24 06/15/25 sulfamethoxazole 800 tab PO 08/11/24 06/15/25 mg-trimethoprim 160 mg tablet Previous Rx's ?Medication ?Instructions ?Recorded budesonide-formoterol HFA 160 2 puff inhalation BID #10.2 grams 11/09/23 mcg-4.5 mcg/actuation aerosol inhaler montelukast 10 mg tablet 10 mg PO QPM #90 tabs 11/09/23 sodium chloride 3 % for 4 ml inhalation Q4H PRN secretions 05/31/24 nebulization #120 mL ipratropium 0.5 mg-albuterol 3 mg 3 ml inhalation QID PRN shortness 10/21/24 (2.5 mg base)/3 mL nebulization of breath or wheezing #180 mL soln omeprazole 20 mg capsule,delayed 40 mg (2 x 20 mg) .Route QDAY #180 12/29/24 release caps guaifenesin 600 mg tablet, 600 mg PO BID PRN congestion #180 02/28/25 extended release 12 hr (Mucinex) tabs albuterol sulfate 2.5 mg/3 mL 2.5 mg (3 mL) continuous 04/27/25 (0.083 %) solution for nebulization nebulization Q4H PRN bronchospasm #180 mL finasteride 5 mg tablet 5 mg PO QDAY #30 tabs 06/20/25 Allergies Allergy/AdvReac Type Severity Reaction Status Date / Time shellfish derived Allergy Severe Vomiting Verified 06/20/25 16:46 Review of Systems Status of ROS: Reports: 6 or more systems reviewed and unremarkable except as noted in History and below [facility] Medical History Dizziness ?R42 - Dizziness and giddiness (ICD-10) COPD exacerbation ?J44.1 - Chronic obstructive pulmonary disease with (acute) exacerbation (ICD-10) Nocturia more than twice per night ?R35.1 - Nocturia (ICD-10) Lung nodule ?R91.1 - Solitary pulmonary nodule (ICD-10) Iron deficiency anemia ?D50.9 - Iron deficiency anemia, unspecified (ICD-10) Myocardial strain ?I51.9 - Heart disease, unspecified (ICD-10) Abscess of lung ?J85.2 - Abscess of lung without pneumonia (ICD-10) Family History Father COPD (chronic obstructive pulmonary disease) Coronary artery disease Family/Other Stroke Social History Narrative: Alcohol use- beer drinker, stopped drinking 2 months ago Former smoker- quit age 52; smoked 1.5 packs/day; approx 60 pack year history 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 . 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 Has 3 daughters. He does not need is all 3 healthcare power of bankruptcy attorney. Code status is full What is your current living situation?: I presently have a place to live Problems where you live: no known problems Problems where you live details: too many stairs. In the past 12 months, utilities in danger of being shut off: yes In past 12 months, lack of transportation kept you from medical appts, meetings, work, or getting things needed for daily living: no In the past 12 mos, have been you worried that your food would run out before you had money to buy more?: sometimes true In the past 12 mos, the food you bought just didn't last and you didn't have money to buy more?: sometimes true Highest level of school completed/degree received: high school graduate Smoking Status: Former smoker What tobacco products do you use: cigarettes Smoking quit date/years: <= 15 years ago Do you use any of these nicotine containing products: None Second hand tobacco smoke exposure: No How often do you have a drink containing alcohol: never How often do you have six or more drinks on one occasion: Never AUDIT-C Alcohol total score: 0 Non-prescribed substance use: denies use Caffeine: Yes How often does anyone, including family, friends and others, physically hurt you: never How often does anyone, including family, friends and others, insult or talk down to you: rarely How often does anyone, including family, friends and others, threaten you with harm: never How often does anyone, including family, friends and others, scream or curse at you: rarely service: No Health Related Social Needs: food insecurity (Z59.41) and Other personal risk factors, not elsewhere classified (Z91.89) Exam Narrative: Exam Narrative: Pleasant. NAD. Breathing easily. Lungs appear to be clear. Heart in regular rate and rhythm. No pain to palpation about the left hip or IT area. There is tenderness to palpation, manipulation, about the right fibular head. I do not appreciate joint swelling or erythema. No instability appreciated to the knee. Primary concern in question is the left leg. There is no Homans but there is marked soft swelling over the ankle and foot. No evidence of trauma or erythema to suggest infection. Const: Vital Signs, click to edit/add: Vital Signs - 24 hr 06/20/25 16:40 06/20/25 18:10 Temperature 98.6 F 98.5 F Pulse Rate [Pulse Oximeter] 68 65 Respiratory Rate 16 18 Blood Pressure [Ri ght Upper Arm] 126/68 135/68 Pulse Oximetry 94 96 Oxygen Delivery Me thod Room Air Room Air Documenting provider has reviewed patient's vital signs: yes Course Vital Signs Vital signs: Initial Vital Signs Temperature 98.6 F 06/20/25 16:40 Temperature Source Temporal Artery Scan 06/20/25 16:40 Pulse Rate 68 06/20/25 16:40 Respiratory Rate 16 06/20/25 16:40 Blood Pressure 126/68 06/20/25 16:40 Blood Pressure Mean 87 06/20/25 16:40 Blood Pressure Position Sitting 06/20/25 16:40 Pulse Oximetry 94 06/20/25 16:40 Oxygen Delivery Method Room Air 06/20/25 16:40 Vital Signs Temperature 98.6 F 06/20/25 16:40 Pulse Rate 68 06/20/25 16:40 Respiratory Rate 16 06/20/25 16:40 Blood Pressure 126/68 06/20/25 16:40 Pulse Oximetry 94 06/20/25 16:40 Oxygen Delivery Method Room Air 06/20/25 16:40 Temperature 98.5 F 06/20/25 18:10 Pulse Rate 65 06/20/25 18:10 Respiratory Rate 18 06/20/25 18:10 Blood Pressure 135/68 06/20/25 18:10 Pulse Oximetry 96 06/20/25 18:10 Oxygen Delivery Method Room Air 06/20/25 18:10 Medical Decision Making MDM Narrative Medical decision making narrative: I think it is reasonable that check for blood clot given comorbidities, history. I think this is more likely venous insufficiency related. Reassuring is that it improves overnight. I do not think this is involving the ankle joint. Could begin by imaging also the right knee. May have sustained a fracture in this area years ago prompting persistent pain when stressed. Ultrasound of the left leg as discussed with take up operator is negative for DVT. INDICATION: Left calf/foot swelling and pain. TECHNIQUE: Ultrasound venous duplex lower left extremity. Compression venous exam was performed using kay-scale, color Doppler, and spectral Doppler analysis. COMPARISON: None. FINDINGS: Deep veins: Sonographic imaging demonstrates the left common femoral, deep femoral, superficial femoral, popliteal, posterior tibial, peroneal and the contralateral right common femoral veins to be fully compressible with normal color Doppler blood flow. Superficial veins: Greater saphenous vein is fully compressible. No popliteal cyst. IMPRESSION: No deep venous thrombosis in the evaluated veins of the left lower extremity. Dictated by Henry Shearer MD @ 06/20/2025 6:40:42 PM I did independently review three-view x-rays of the right knee. Do not appreciate any evidence of fracture here. It is possible that it is not visualized yet any need to image the full fibula. I discussed further imaging available but Mr. Cormier intends to defer at this point I did dispense Ludin wraps. See patient discharge plan for further discussion I suppose recommendations of not do anything that hurts makes sense. Over the upper fibula where it hurts, you might try placing lidocaine patches or tiger balm as you asked. Particularly if it swells a little bit from time to time, I would place ice packs here. As discussed, you might want to image a little further down the fibula than what we managed to do here today. As far as your foot and ankle go, this is probably related to venous stasis. Relatively benign lower extremity swelling. Good to stay active to help to mobilize fluids. You could use compression stockings or Ludin wraps when you are up and about and even at rest to push further fluids out. It is a good sign that it seems to improve no overnight. I will write for some compression stockings for you if you like. Medical Records Medical records reviewed: Yes I reviewed the patient's medical records Discharge Plan Discharge Clinical Impression: Swelling of extremity, left, Pain of right fibula, Edema, peripheral Patient Disposition: Home, Self-Care Condition: Stable Additional Instructions: I suppose recommendations of not do anything that hurts makes sense. Over the upper fibula where it hurts, you might try placing lidocaine patches or tiger balm as you asked. Particularly if it swells a little bit from time to time, I would place ice packs here. As discussed, you might want to image a little further down the fibula than what we managed to do here today. As far as your foot and ankle go, this is probably related to venous stasis. Relatively benign lower extremity swelling. Good to stay active to help to mobilize fluids. You could use compression stockings or Ludin wraps when you are up and about and even at rest to push further fluids out. It is a good sign that it seems to improve no overnight. I will write for some compression stockings for you if you like. Prescriptions: No Action fluticasone propionate 50 mcg/actuation spray,suspension 1 spray intranasal BID budesonide-formoterol 160-4.5 mcg/actuation HFA aerosol inhaler 2 puff inhalation BID Qty: 10.2 3RF montelukast 10 mg tablet 10 mg PO QPM Qty: 90 4RF sodium chloride 3 % solution for nebulization 4 ml inhalation Q4H PRN (Reason: secretions) Qty: 120 1RF prednisone 10 mg tablet PO sulfamethoxazole-trimethoprim 800-160 mg tablet PO guaifenesin [Mucinex] 600 mg tablet extended release 12hr 600 mg PO BID PRN (Reason: congestion) Qty: 180 3RF loratadine 10 mg tablet 10 mg PO DAILY Spiriva Respimat 2.5 mcg/actuation mist 2 puff inhalation DAILY albuterol sulfate 90 mcg/actuation HFA aerosol inhaler 2 puff INHALATION Q4-6H PRN Vitron-C 65 mg iron- 125 mg tablet,delayed release (DR/EC) 1 tab PO Q OTHER DAY ipratropium-albuterol 0.5 mg-3 mg(2.5 mg base)/3 mL solution for nebulization 3 ml inhalation QID PRN (Reason: shortness of breath or wheezing) Qty: 180 1RF Rx Instructions: Use at first sign of shortness of breath; omeprazole 20 mg capsule,delayed release(DR/EC) 40 mg .ROUTE QDAY Qty: 180 1RF Rx Instructions: 40 mg every day; albuterol sulfate 2.5 mg /3 mL (0.083 %) solution for nebulization 2.5 mg continuous nebulization Q4H PRN (Reason: bronchospasm) Qty: 180 0RF finasteride 5 mg tablet 5 mg PO QDAY Qty: 30 0RF Follow Up/Referrals: Ibrahima Etienne PA-C [Primary Care Provider, Family Practice] Stand Alone Forms: Anne Fogarty Info Instructions
--- NOTE | 2025-06-20 17:09 | CRLHL7_ITS ---
For Patients: As a result of the Century Cures Act, medical imaging exams and procedure reports are released immediately into your electronic medical record. You may view this report before your referring provider. If you have questions, please contact your health care provider. Indication: Right knee pain. Technique: Three radiographic views of the right knee. Comparison: None. Findings: No acute fractures. No traumatic subluxation. No significant soft tissue swelling or knee joint effusion. Impression: 1. No acute osseous abnormalities. Dictated by Bill Ortega MD @ 06/20/2025 5:59:55 PM (Electronically Signed)
--- NOTE | 2025-06-20 17:09 | CRLHL7_ITS ---
For Patients: As a result of the Century Cures Act, medical imaging exams and procedure reports are released immediately into your electronic medical record. You may view this report before your referring provider. If you have questions, please contact your health care provider. INDICATION: Left calf/foot swelling and pain. TECHNIQUE: Ultrasound venous duplex lower left extremity. Compression venous exam was performed using kay-scale, color Doppler, and spectral Doppler analysis. COMPARISON: None. FINDINGS: Deep veins: Sonographic imaging demonstrates the left common femoral, deep femoral, superficial femoral, popliteal, posterior tibial, peroneal and the contralateral right common femoral veins to be fully compressible with normal color Doppler blood flow. Superficial veins: Greater saphenous vein is fully compressible. No popliteal cyst. IMPRESSION: No deep venous thrombosis in the evaluated veins of the left lower extremity. Dictated by Henry Shearer MD @ 06/20/2025 6:40:42 PM (Electronically Signed)
[2025-06-20 18:10] VITALS: BP 135/68; PULSE 65; RESP 18; TEMP 36.9; O2SAT 96
== END 2025-06-20 18:39 | disposition home or self-care (01) ==
PROVIDERS: Emergency Provider Family Medicine; PCP Physician Assistant Medical
DX: R22.42 Localized swelling, mass and lump, left lower limb (principal); M25.561 Pain in right knee
CPT/HCPCS: 73562; 93971; 99284

== ENCOUNTER 2025-09-15 10:06 | Outpatient (CLI) | payer OTHER, SELFPAY ==
--- NOTE | 2025-09-15 10:15 | CRLHL7_ITS ---
For Patients: As a result of the Century Cures Act, medical imaging exams and procedure reports are released immediately into your electronic medical record. You may view this report before your referring provider. If you have questions, please contact your health care provider. Indication: Left hip pain Comparison: 05/17/2025 Procedure : Informed consent was obtained. The site was marked. Time-out was performed. The skin of the left hip was cleansed with ChloraPrep. A sterile drape was placed. 8 cc of 1 percent lidocaine was administered for superficial anesthesia. Subsequently a 22 gauge spinal needle was introduced into the left hip joint under intermittent fluoroscopic guidance. 7 cc of 1 percent lidocaine and 2 cc of 40 milligram/cc Depo-Medrol then placed into the left hip joint. The needle was removed and hemostasis achieved with direct pressure. A dressing was placed. The patient tolerated the procedure well without immediate complication. Total fluoroscopy time 25 seconds. Impression: Successful fluoroscopically guided left hip injection with 80 milligrams of Depo-Medrol. Dictated by Carson Kerns MD @ 09/15/2025 11:18:23 AM (Electronically Signed)
== END 2025-09-15 10:07 | disposition home or self-care (01) ==
LOC: RAD 10:06
PROVIDERS: PCP Physician Assistant Medical; Visit Provider Physician Assistant Surgical
DX: M70.62 Trochanteric bursitis, left hip (principal); M16.12 Unilateral primary osteoarthritis, left hip; M25.552 Pain in left hip
CPT/HCPCS: 20610; 77002; Q9966

== ENCOUNTER 2025-10-10 14:12 | Outpatient (CLI) | payer OTHER, SELFPAY | END 2025-10-10 14:13 | disposition home or self-care (01) | LOC: NFLDREF 10-14 17:53 | PROVIDERS: PCP Physician Assistant Medical; Referring Provider Physician Assistant Medical; Visit Provider Physician Assistant Medical | DX: E03.8 Other specified hypothyroidism (principal) | CPT/HCPCS: 84439; 84443 ==

== ENCOUNTER 2025-11-20 19:05 | Inpatient (IN) | payer OTHER, SELFPAY ==
--- OUTSIDE RECORDS SUMMARY | 2021-06-04 06:11 | XMS_ITS | Continuity of Care Document ---
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 [address] [facility], [facility] [address], [place], [place], [id number] , [place]. tel:[phone] Family History Family Member Type Diagnosis Age At Onset No Information Immunizations Vaccine Date Status Comments Afluria Qd administered Note: M II bi-directional interface ; Source: Other Registry Afluria Qd administered Note: M IIC bi-directional interface ; Source: Other Registry Payers Payer name Insurance type Covered green party ID Authoriza tion(s) No Information Social History Type Description Quantity Date Captured Comments Sex Male Smoking Status No Information Chief Complaint And Reason For Visit No Information Reason For Referral Reason For Referral No Information History Of Present Illness Encounter Date Complaint History Of Prese nt Illness No Information Functional Status Date Functional Assessmen t No Information Instructions Date Instruction Additional Infor mation No Information Assessments Type Assessment Date No Information Patient Care Teams Name Effective Dates (start - stop) Status Members No Information
[2025-11-20] VITALS (9 sets, daily range): BP systolic 127–150; BP diastolic 64–68; PULSE 88–102; RESP 20–28; TEMP 36.6–37.1; O2SAT 88–98; BMI 31.3
--- OUTSIDE RECORDS SUMMARY | 2025-11-20 19:08 | XMS_ITS | Clinical Summary ---
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 For routine questions regarding patient records, call [phone] during business hours, M-F 8:00 AM - 5:00 PM Central Time. Record requests for emergency care only can be directed to [phone] at any time.[facility] Allergies Active AllergyReactionsCriticalityNoted DateCommentsShellfish DerivedOther (see comments)02/21/2022 Medications MedicationSigDispense QuantityRefillsLast FilledStart DateEnd DateStatus albuterol 2.5 mg /3 mL nebulizer solution Inhale 2.5 mg every 4 (four) hours as needed.5Active albuterol 90 mcg/actuation inhaler Inhale 2 puffs 4 (four) times a day as needed.5Active budesonide-formoteroL (Symbicort) 160-4.5 mcg/actuation inhaler Inhale 2 puffs.1Active cyanocobalamin (Vitamin B-12) 100 mcg tablet Take 5,000 mcg by mouth every other day.Active fluticasone propionate (Flonase) 50 mcg/actuation nasal spray Administer 1 spray into nostril(s) at bedtime as needed.5Active guaiFENesin (Mucinex) 600 mg 12 hr tablet Take 600 mg by mouth.5Active loratadine (Claritin) 10 mg tablet Take 10 mg by mouth daily.4Active montelukast (Singulair) 10 mg tablet Take 10 mg by mouth at bedtime.5Active omeprazole (PriLOSEC OTC) [address] tablet Take 20 mg by mouth 2 (two) times a day as needed.Active predniSONE (Deltasone) 10 mg tablet Take 10 mg by mouth.5Active sulfamethoxazole-trimethoprim (Bactrim DS) 800-160 mg per tablet Take 1 tablet by mouth 3 (three) times a week. TAKE THURSDAY, THURSDAY, Thursday5Active tiotropium (Spiriva Respimat) 2.5 mcg/actuation inhaler Inhale 2 puffs daily.5Active ipratropium-albuteroL (DuoNeb) 0.5-2.5 mg/3 mL nebulizer solution Inhale 3 mL by nebulization as needed for wheezing or shortness of breath.Active DME Oxygen Inhale. DME Order - for details see Order ReportActive CHOLECALCIFEROL, VITAMIN D3, ORAL Take 1 tablet by mouth every other day.Active iron,carbonyl/ascorbic acid (VITRON-C ORAL) Take 1 tablet by mouth every other day.Active DME Oxygen Oxygen 2 L/min. Frequency of use: With activity; Length of need: 99 Months. 5Active Social History Tobacco UseTypesPacks/DayYears UsedDateSmoking Tobacco: FormerCigarettesPassive Smoke Exposure: PastSmokeless Tobacco: Never Tobacco Cessation:Counseling Given: Not Answered Comments:Quit smoking 12 years ago Alcohol UseStandard Drinks/WeekCommentsNot Currently0 (1 standard drink = 0.6 oz pure alcohol)Sex and Gender InformationValueDate RecordedSex Assigned at Not on fileLegal KdhPdwq8105/16/2025 12:45 PM CDTGender IdentityNot on fileSexual OrientationNot on file Last Filed Vital Signs Vital SignReadingTime TakenCommentsBlood Nnkaizrj302/7707 8:06 AM CDT Fetkw769005/31/2025 8:06 AM ZOXNscogtzhalv33.5 ??C (97.7 ??F)05/31/2025 8:06 AM CDTRespiratory Rate--Oxygen Fmllvllnyq67%05/31/2025 8:06 AM CDTInhaled Oxygen Concentration--Ltjmwf05.1 kg (203 lb 0.7 oz)05/31/2025 8:06 AM GNTYbdfbp134.8 cm (5' 8.43)05/31/2025 8:06 AM CDTBody Mass Index30.49005/31/2025 8:06 AM CDT Plan of Treatment Health MaintenanceDue DateLast DoneCommentsAbdominal Aortic Aneurysm (AAA) Sdznrw56 1958CT Tigppxsnzudj01/04/9717Csuglviig1958Colonoscopy 1958Colorectal Cancer Tkzgxupmw88/04/6687AYU30 1958Hepatitis C Veesnzbvy1958DTaP,Tdap,and Td Vaccines (1 - Tdap)1977RSV vaccine - (32-36 weeks) or 50+ years (1 - Risk 50-74 years 1-dose series) 2008Zoster Vaccines (1 of 2)2008Pneumococcal vaccine (50+ years) (2 of 2 - PPSV23, PCV20, or PCV21)/2Depression Screening (Annual PHQ-2)11/23/2024Fall Risk Screen (Annual)5COVID-19 Vaccine ( - 2024- season)2025Influenza Vaccine (#1)512/10/2022, 10/12/2020, 12/09/2018, Additional history existsFasting Glucose for Diabetes Screening , 02/25/2025, 05/25/2024, Additional history existsIPV VaccinesAged OutNo longer eligible based on patient's age to complete this topic Procedures Procedure NamePriorityDate/TimeAssociated DiagnosisCommentsCOMPREHENSIVE METABOLIC PANEL, S/UFuudwux65/09/2025 7:36 AM CDT Chronic Obstructive Pulmonary Disease (HCC) from Last 3 Months or Most Recently Relevant to Health Maintenance Results * (ABNORMAL) Comprehensive Metabolic Panel (05/31/2025 7:36 AM CDT)Component ValueRef RangeTest MethodAnalysis TimePerformed AtPathologist Signature Potassium, S4.03.6 - 5.2 mmol/L05/31/2025 8:28 AM CDTDTLSodium, D039398 - 145 mmol/L05/31/2025 8:28 AM CDTDTLChloride, D90940 - 107 mmol/L05/31/2025 8:28 AM CDTDTLBicarbonate, S2722 - 29 mmol/L05/31/2025 8:28 AM CDTDTLAnion Jrz404 - 15 05/31/2025 8:28 AM CDTDTLBUN (Blood Urea Nitrogen), S7(L)8 - 24 mg/dL 05/31/2025 8:28 AM CDTDTLCreatinine1.090.74 - 1.35 mg/dL05/31/2025 8:28 AM CDT DTLEstimated GFR (eGFR)75>=60 mL/min/BSA05/31/2025 8:28 AM CDTDTLComment: Estimated GFR calculated using the 2020 CKD_EPI creatinine equation. Calcium, Total, S9.78.8 - 10.2 mg/dL05/31/2025 8:28 AM CDTDTLGlucose, S8370 - 140 mg/dL05/31/2025 8:28 AM CDTDTLProtein, Total, S6.96.3 - 7.9 g/dL05/31/2025 8:28 AM CDTDTLAlbumin, S4.23.5 - 5.0 g/dL05/31/2025 8:28 AM CDTDTLAspartate Aminotransferase (AST), S248 - 48 U/L05/31/2025 8:28 AM CDTDTLAlkaline Phosphatase, S5140 - 129 U/L05/31/2025 8:28 AM CDTDTLAlanine Aminotransferase (ALT), S157 - 55 U/L05/31/2025 8:28 AM CDTDTLBilirubin, Total, S0.60.0 - 1.2 mg/dL05/31/2025 8:28 AM CDTDTLSpecimen (Source)Anatomical Location / Laterality Collection Method / VolumeCollection TimeReceived TimeBlood (Blood, Venous) 05/31/2025 7:36 AM CDT05/31/2025 7:55 AM CDT Narrative Authorizing ProviderResult TypeResult StatusIsidra Etienne M.D.LAB BLOOD ADD-ONFinal ResultPerforming OrganizationAddressCity/State/ZIP CodePhone Number [facility] [address] [place] [address], [place] DTL [facility] [address] [place] [address] from Last 3 Months or Most Recently Relevant to Health Maintenance Insurance
--- OUTSIDE RECORDS SUMMARY | 2025-11-20 19:08 | XMS_ITS | Clinical Summary ---
Author Organization [facility] Address [address] [address] Phone Care Team Providers Care Manager Utility Name Role Phone Unavailable Primary Care Provider Unavailabl e Allergies Active AllergyReactionsCriticalityNoted DateCommentsShellfish Protein-Containing Drug TiypzxddNopgatbpedwQbcl01/10/2024 Medications MedicationSigDispense QuantityRefillsLast FilledStart DateEnd DateStatus albuterol (Proventil, Ventolin) (2.5 MG/3ML) 0.083% nebulizer solution Inhale 2.5 mg into the lungs every four hours as needed.Active albuterol HFA (Proair HFA, Ventolin HFA) 108 (90 Base) MCG/ACT inhalation aerosol Inhale 2 Puffs into the lungs four times a day as needed.Active budesonide-formoterol (Symbicort) 160-4.5 MCG/ACT aerosol inhaler 2 Puffs two times a day.11/12/2021ctive montelukast (Singulair) 10 MG tablet Take 10 mg by mouth at bedtime.Active omeprazole (PriLOSEC) 20 MG delayed-release capsule Take 20 mg by mouth one time a day.Active tiotropium (Spiriva) 18 MCG inhalation capsule Inhale 18 mcg into the lungs one time a day.Active Active Problems ProblemNoted DateDiagnosed DateAcute on chronic hypoxic respiratory failure 05/02/2024 Resolved Problems ProblemNoted DateDiagnosed DateResolved DateCOPD vunnucddagmx61/10/2024 10/25/2025 Social History Tobacco UseTypesPacks/DayYears UsedDateSmoking Tobacco: VqqlseGverwbifbn0Lwbi: 2012 Tobacco Cessation:Counseling Given: Not Answered Alcohol UseStandard Drinks/WeekCommentsDefer0 (1 standard drink = 0.6 oz pure alcohol)[facility] UtilitiesAnswerDate RecordedIn the past 12 months has the electric, gas, oil, or water company threatened to shut off services in your home?No 05/02/2024Hunger Vital SignAnswerDate RecordedWithin the past 12 months, you worried that your food would run out before you got the money to buymore.Never true05/02/2024Within the past 12 months, the food you bought just didn't last and you didn't have money to get more.Never true05/02/2024RAPARE - TransportationAnswerDate RecordedIn the past 12 months, has lack of transportation kept you from medical appointments or from getting medications?No 05/02/2024In the past 12 months, has lack of transportation kept you from meetings, work, or from getting things needed for daily living?No05/02/2024 Housing Stability Vital SignAnswerDate RecordedIn the last 12 months, was there a time when you were not able to pay the mortgage or rent on time?No05/02/2024In the past 12 months, how many times have you moved where you were living?0 05/02/2024t any time in the past 12 months, were you homeless or living in a care home (including now)?No05/02/2024EH IP Custom IPVAnswerDate RecordedDo you feel UNSAFE in any of your personal relationships with your family members or any other acquaintances?02/25/2025Sex and Gender InformationValueDate Recorded Sex Assigned at BirthNot on fileLegal ZcfIpmd2005/02/2024 6:20 AM CDTGender IdentityNot on fileSexual OrientationNot on file Last Filed Vital Signs Vital SignReadingTime TakenCommentsBlood Xcrxqelh871/7302/25/2025 11:01 PM CDT Bbyvg101902/25/2025 11:01 PM CNNBfhplbyzrse51.9 ??C (98.5 ??F)02/25/2025 7:04 PM CDTRespiratory Kywz054102/25/2025 9:25 PM CDTOxygen Devyrsocyo96%02/25/2025 11:01 PM CDTInhaled Oxygen Concentration--Utigqe98.2 kg (212 lb)02/25/2025 7:04 PM CDT Ulmoou997.6 cm (5' 6)02/25/2025 7:04 PM CDTBody Mass Index34.22002/25/2025 7:04 PM CDT Plan of Treatment Health MaintenanceDue DateLast DoneCommentsCT Xvlgalhgolvy1958Cologuard 1958 9249Vspefyeqwtr1958Colorectal Cancer Screening (consider Cologuard where access is limited)1958FIT/FOBT1958MEDICARE AWV1 Ldubzjrkstzxe1958PERTUSSIS (Standing Order)1977TETANUS (Standing Order)1977Pneumococcal Vaccine: 50+ yrs (Standing Order) (1 of 1 - PCV) 2008Shingrix (Zoster recombinant) vaccine (Standing Order) (1 of 2) 2008bdominal Aortic Aneurysm (AAA) Gnllqctyk11/04/2023OVID-19 Vaccine (1 - 2024- season)2025Influenza Vaccine Seasonal (Standing Order) (#1) 2025RSV Vaccination (60+ yrs) (Abrysvo/Arexvy) (1 - 1-dose 75+ series) 2033HPV Vaccine (Standing Order) (No Doses Required)CompletedHepatitis B Vaccine (Standing Order)Aged OutNo longer eligible based on patient's age to complete this topic Insurance Advance Directives For more information, please contact: [phone] * DNAR/COMMUNITY ENGAGEMENT COORDINATOR (Latest Code Status on File) Date ActivatedDate InactivatedComments05/02/2024 1:57 PM05/03/2024 3:59 PMNo CPR or shocks but ok with elective intubationQuestionAnswerCommentsSee below for Life Sustaining Treatment Orders IF pulse and breathing are present:* See below Intubation for respiratory deterioration?* Yes BiPAP for respiratory deterioration?* Yes Vasopressors for hypotension?* Yes Electrocardioversion for unstable rhythm?* Yes Pharmacologic cardioversion for unstable rhythm?* Yes
--- OUTSIDE RECORDS SUMMARY | 2025-11-20 19:08 | XMS_ITS | Clinical Summary ---
Author Organization [facility] Address [address] [place] [address] Care Team Providers Care Fuel Cell Builder Name Role Phone Pcp, No Primary Care Provider Unavailabl e Allergies Active AllergyReactionsCriticalityNoted DateCommentsShellfish Derived*Unknown 02/21/2022 Medications MedicationSigDispense QuantityRefillsLast FilledStart DateEnd DateStatus loratadine (CLARITIN) 10 mg tablet Take 10 mg by mouth once daily.4Active cholecalciferol, vitamin D3, (VITAMIN D3 ORAL) Take 1 Tablet by mouth once every other day. Unknown doseActive iron,carbonyl/ascorbic acid (VITRON-C ORAL) Take 1 Tablet by mouth once every other day.Active omeprazole 20 mg tablet Take 20 mg by mouth 2 times daily if needed for GI Upset.Active cyanocobalamin (VITAMIN B12) as half tablet Take 5,000 mcg by mouth once every other day.Active guaiFENesin (Mucinex) 600 mg Extended-Release tablet Indications:Centrilobular emphysema (HC),Bronchiectasis without complication (HC),Chronic pansinusitisTake 1 Tablet (600 mg) by mouth two times daily. 180 Tablet 5Active montelukast (SINGULAIR) 10 mg tablet Indications:Chronic pansinusitis,Seasonal allergic rhinitis due to pollenTake 1 Tablet (10 mg) by mouth at bedtime. 90 Tablet 5Active Spiriva Respimat 2.5 mcg/actuation mist for inhalation Indications:Centrilobular emphysema (HC)Inhale 2 Puffs by mouth once daily. 3 Each 5Active budesonide-formoteroL (SYMBICORT) 160-4.5 mcg/actuation (160-4.5 mcg each actuation) inhaler Indications:Centrilobular emphysema (HC),Bronchiectasis without complication (HC),Cryptogenic organizing pneumonia (HC)TAKE 2 PUFFS BY MOUTH TWICE A DAY IN THE MORNING AND IN THE EVENING 30.6 Each 5Active fluticasone (50 mcg per actuation) nasal solution (FLONASE) Indications:Non-seasonal allergic rhinitis due to pollenInhale 1 [place] into affected nostril(s) once daily if needed for Rhinitis. 48 g 5Active albuterol-ipratropium (DUONEB) (2.5 mg-0.5 mg)/3 mL NEBULIZATION solution PLEASE SEE ATTACHED FOR DETAILED DIRECTIONSActive finasteride (PROSCAR) 5 mg tablet Take 1 Tablet by mouth once daily.5Active azithromycin 250 mg tablet Indications:Chronic obstructive pulmonary disease, unspecified COPD type (HC) Take 1 Tablet (250 mg) by mouth once daily. 30 Tablet 5Active umeclidinium (Incruse Ellipta) 62.5 mcg/actuation inhaler Indications:Chronic obstructive pulmonary disease, unspecified COPD type (HC) Inhale 1 Puff by mouth once daily. 1 Each 5Active albuterol 0.083% (2.5 mg/3 mL) neb solution Indications:chronic obstructive pulmonary diseaseInhale 3 mL (2.5 mg) via a nebulizer every 4 hours if needed for Shortness Of Breath, Wheezing or Cough 2nd choice. Do not exceed 4 doses per 24 h. 360 mL 5Active albuterol HFA (PRO-AIR; VENTOLIN; PROVENTIL) 90 mcg/actuation inhaler Indications:Bronchiectasis without complication (HC),Centrilobular emphysema (HC)Inhale 2 Puffs by mouth 4 times daily if needed for Shortness of Breath 1st choice or Wheezing 1st choice. 3 Each 5Active oxygen-air delivery systems (HOME OXYGEN) Indications:Centrilobular emphysema (HC),Bronchiectasis without complication (HC),Cryptogenic organizing pneumonia (HC)Oxygen 2 L/min. Frequency of use: With activity; Length of need: 99 Months. 1 Each Discontinued(*Med complete/Regimen complete/Level of care change) trimethoprim-sulfamethoxazole 160-800 mg tab Indications:cruptogenic organizing pneumonia.Take 1 Tablet by mouth every Thursday, Thursday and Thursday. Stop once prednisone dose is less than 20mg per day. 30 Tablet Discontinued(*Med complete/Regimen complete/Level of care change) albuterol HFA 90 mcg/actuation inhaler Indications:Bronchiectasis without complication (HC),Centrilobular emphysema (HC)Inhale 2 Puffs by mouth 4 times daily if needed for Shortness of Breath 1st choice or Wheezing 1st choice. 3 Each Discontinued(Reorder (E-cancel not sent)) albuterol 0.083% (2.5 mg/3 mL) neb solution Indications:chronic obstructive pulmonary diseaseInhale 3 mL (2.5 mg) via a nebulizer every 4 hours if needed for Shortness Of Breath, Wheezing or Cough 2nd choice. Do not exceed 4 doses per 24 h. 360 mL Discontinued(Reorder (E-cancel not sent)) levoFLOXacin 750 mg tablet Indications:Acute bronchitis due to other specified organismsTake 1 Tablet (750 mg) by mouth once daily before evening meal. Take at least 2 hours before or 6 hours after antacids, highly buffered drugs, or products containing magnesium, aluminum, calcium, iron or zinc. 5 Tablet Discontinued(*Med complete/Regimen complete/Level of care change) Active Problems ProblemNoted DateDiagnosed DateAcute bronchitis due to other specified organisms 07/27/2025Lung nodule seen on imaging study12/12/2024bnormal CT of the chest 10/03/2024Mediastinal elkyfxgcmy49/11/2024ulmonary infiltrate on radiologic exam10/03/2024ronchitis, mucopurulent dosbgnxbc62/24/3888Cvkpbeb56/09/2024 Cryptogenic organizing nmhotmjqa97/09/2024ronchiectasis without complication 08/01/2024cute exacerbation of chronic obstructive pulmonary disease (COPD) 05/25/20245379Gbawuzggdjxv37/03/2024OPD (chronic obstructive pulmonary disease) 02/21/20224057Bqznigqjt01/01/4601Hgnpue03/01/2022Hiatal nuxkkq9402/21/2022History of alcohol use xklxkzok33/01/2022Lung undoyu6102/21/2022 Resolved Problems ProblemNoted DateDiagnosed DateResolved DateAcute on chronic hypoxic respiratory uiwsvyu89/01/2024Lung uwgvczr24/01/20243254Mowmoft92/01/2022 02/22/2022 Encounters DateTypeDepartmentCare HjqxRkrlletupgo45/09/2025Telephone [facility] [address] [place] [phone] Jermey Villarreal MD Medication Tfhscdvlul69/08/2025 3:00 PM CSTOffice Visit [facility] [address] [place] [phone] Jeremy Villarreal MD COPD (-Hx Cryptogenic organizing pneumonia, emphysema/-Last couples weeks feels breathing better and more energy/-ABX and prednisone- Finished 09/28/25/-Using Mullein leaf extract tincture/-Also usingsome GLP1 supplement purchased online/- Needs refills including allergy meds, would like abx and prednisone on hand if needed)10/29/20259179Irrisj25/28/2025Nurse Triage [facility] [place] [address] [place] [phone] Estrella Sandoval MD Error-please dulivufiw01/21/2025Telephone [facility] [place] [address] [place] [phone] Estrella Sandoval MD Medication Managementfrom Last 3 Months Family History Medical HistoryRelationNameCommentsCOPDFatherRelationNameStatusCommentsFather Social History Tobacco UseTypesPacks/DayYears UsedDateSmoking Tobacco: FormerCigarettes1.5Quit: 2015Smokeless Tobacco: Never Tobacco Cessation:Counseling Given: Not Answered Alcohol UseStandard Drinks/WeekCommentsYes0 (1 standard drink = 0.6 oz pure alcohol)ocasional beerSocial ConnectionsAnswerDate RecordedFrequency of Communication with Friends and FamilyNot on file11/23/2021Financial Resource StrainAnswerDate RecordedDifficulty of Paying Living ExpensesNot on file 2Difficulty of Paying Living ExpensesNot on file11/23/2021Interpersonal SafetyAnswerDate RecordedAre you being hit, kicked, pushed or yelled at (see row info)?No05/25/2024Interpersonal Safety Abuse 12 - 18Not on file05/25/2024 Interpersonal Safety Ambulatory VulnerabilityNot on file05/25/2024Sex and Gender InformationValueDate RecordedSex Assigned at BirthNot on fileLegal SexMale 02/07/2021 8:09 PM CDTGender IdentityNot on fileSexual OrientationNot on file Last Filed Vital Signs Vital SignReadingTime TakenCommentsBlood Mpuqzvph781/7810/30/2025 3:23 PM HAIR CLIPPER POWER Tpplk589610/30/2025 3:23 PM JFAHjxdurcwfaw55.4 ??C (97.5 ??F)05/26/2024 8:07 AM CDTRespiratory Ufat542205/26/2024 8:07 AM CDTOxygen Vcpakpbcrj89%10/30/2025 3:23 PM CSTInhaled Oxygen Concentration--Mxfywp29.4 kg (206 lb)10/30/2025 3:23 PM HAIR CLIPPER POWER Telzys051.7 cm (5' 8)05/12/2025 2:34 PM CDTBody Mass Index31.32005/12/2025 2:34 PM CDT Plan of Treatment Health MaintenanceDue DateLast DoneCommentsTetanus xitqjgy0708/26/1969Depression screening for age 12+1970Hepatitis C screening for age 18-7908/26/1976 Pneumococcal series for age 50+ (1 of 2 - PCV)1977Colonoscopy through age 7508/26/2003Lipids for age 45-7508/26/2003RSV vaccine for adults or (1 - Risk 50-74 years 1-dose series)2008Zoster (shingles) series for age 50+ (1 of 2)2008AA screening age 65-7408/26/2023Medicare Wellness for age 65+ 2023OVID-19 vaccine series ( - 2024- season)2025Influenza Vaccine (#1)2025MI (ht and wt on same day) for age 18+05/12/2026 05/12/2025, 12/12/2024, 08/01/2024Hepatitis B series for 19+Aged OutNo longer eligible based on patient's age to complete this topic Procedures Procedure NamePriorityDate/TimeAssociated DiagnosisCommentsSCAN-PULMONARY FUNCTION TEST10/30/2025 12:00 AM CSTfrom Last 3 Months Results * SCAN-PULMONARY FUNCTION TEST (10/30/2025 12:00 AM HAIR CLIPPER POWER) Narrative Authorizing ProviderResult TypeResult StatusScannerOTHERFinal Result from Last 3 Months Insurance Advance Directives * Full Code (Latest Code Status on File) Date ActivatedDate InactivatedComments05/25/2024 6:26 AM05/26/2024 4:53 PMQuestion AnswerCommentsCode Status Discussion:* Reviewed Preferences * Full Code Date ActivatedDate InactivatedComments02/22/2022 12:32 AM02/27/2022 7:05 PMQuestion AnswerCommentsCode Status Discussion:* Reviewed Preferences Care Teams Team MemberRelationshipSpecialtyStart DateEnd Date Pcp, Priscila PCP - General11/28/24
--- NOTE | 2025-11-20 19:34 | ED_ITS ---
HPI - General Adult General Time Seen by Provider: 19:34 Date Seen: 11/20/25 Chief complaint: Cough Stated complaint: difficulty breathing Time Seen by Provider: 11/20/25 19:22 Source: patient, EMS, RN notes reviewed and old records reviewed Mode of arrival: EMS Limitations: no limitations History of Present Illness HPI narrative: 65-year-old male with history of COPD who presents today with shortness of breath and cough. Patient reports increased cough and shortness of breath over the last 2 days, fatigue today. Chills yesterday but no fever. No nausea Or vomiting. Does have some runny nose. No chest pain. Using his albuterol nebulizer treatments every couple of hours with minimal improvement. He does not use oxygen at home. Related Data Home Medications ?Medication ?Instructions ?Recorded ?Confirmed fluticasone propionate 50 1 spray intranasal BID 07/0210/10/25 mcg/actuation nasal spray,suspension loratadine 10 mg tablet 10 mg PO DAILY 07/22/2409/23 tiotropium bromide 2.5 2 puff inhalation DAILY 06/2510/10/25 mcg/actuation mist for inhalation (Spiriva Respimat) albuterol sulfate 90 mcg/actuation 2 puff inhalation Q 4-6H PRN 07/23/24 10/10/25 aerosol inhaler iron,carbonyl 65 mg-vitamin C 125 1 tab PO Q OTHER DAY 07/23/24 10/10/25 mg tablet,delayed release (Vitron-C) prednisone 10 mg tablet mg PO 08/11/24 10/10/25 Previous Rx's ?Medication ?Instructions ?Recorded montelukast 10 mg tablet 10 mg PO QPM #90 tabs sodium chloride 3 % for 4 ml inhalation Q4H PRN secr etions 05/31/24 nebulization #120 mL omeprazole 20 mg capsule,delayed 40 mg (2 x 20 mg) .Ro solomon QDAY #180 12/29/24 release caps guaifenesin 600 mg tablet, 600 mg PO BID PRN congestio n #180 02/28/25 extended release 12 hr (Mucinex) tabs albuterol sulfate 2.5 mg/3 mL 2.5 mg (3 mL) continuous 10/10/25 (0.083 %) solution for nebulization nebulization Q4H P RN bronchospasm #180 mL finasteride 5 mg tablet 5 mg PO QDAY #90 tabs ipratropium 0.5 mg-albuterol 3 mg 3 ml inhalation QID PRN shortness 10/10/25 (2.5 mg base)/3 mL nebulization of breath or wheezing #180 mL soln levothyroxine 25 mcg tablet 25 mcg PO QDAY #90 tabs Allergies Allergy/AdvReac Type Severity Reaction Status Date / Time shellfish derived Allergy Severe Vomiting Verified 10/10/25 13:41 [facility] Medical History History of smoking 25-50 pack years ?Z87.891 - Personal history of nicotine dependence (ICD-10) COPD exacerbation ?J44.1 - Chronic obstructive pulmonary disease with (acute) exacerbation (ICD-10) Nocturia more than twice per night ?R35.1 - Nocturia (ICD-10) Lung nodule ?R91.1 - Solitary pulmonary nodule (ICD-10) Iron deficiency anemia ?D50.9 - Iron deficiency anemia, unspecified (ICD-10) Myocardial strain ?I51.9 - Heart disease, unspecified (ICD-10) Abscess of lung ?J85.2 - Abscess of lung without pneumonia (ICD-10) Family History Father COPD (chronic obstructive pulmonary disease) Coronary artery disease Family/Other Stroke Social History Narrative: Alcohol use- beer drinker, stopped drinking 2 months ago Former smoker- quit age 52; smoked 1.5 packs/day; approx 60 pack year history 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 . 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 Has 3 daughters. 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 Code status is full What is your current living situation?: I presently have a place to live Problems where you live: no known problems Problems where you live details: too many stairs. In the past 12 months, utilities in danger of being shut off: yes In past 12 months, lack of transportation kept you from medical appts, meetings, work, or getting things needed for daily living: no In the past 12 mos, have been you worried that your food would run out before you had money to buy more?: sometimes true In the past 12 mos, the food you bought just didn't last and you didn't have money to buy more?: sometimes true Highest level of school completed/degree received: high school graduate Smoking Status: Former smoker What tobacco products do you use: cigarettes Smoking quit date/years: <= 15 years ago Do you use any of these nicotine containing products: None Second hand tobacco smoke exposure: No How often do you have a drink containing alcohol: never How often do you have six or more drinks on one occasion: Never AUDIT-C Alcohol total score: 0 Non-prescribed substance use: denies use Caffeine: Yes How often does anyone, including family, friends and others, physically hurt you : never How often does anyone, including family, friends and others, insult or talk down to you: rarely How often does anyone, including family, friends and others, threaten you with harm: never How often does anyone, including family, friends and others, scream or curse at you: rarely service: No Health Related Social Needs: food insecurity (Z59.41) and Other personal risk factors, not elsewhere classified (Z91.89) Exam Narrative: Exam Narrative: General: Well-developed and well-nourished, no acute distress Head: Atraumatic and normocephalic Eyes: Pupils are equal reactive, extraocular motions intact, conjunctiva clear ENT: External nose and ears are normal, posterior pharynx without erythema or exudate Neck: No midline cervical tenderness, full spontaneous range of motion the neck, trachea midline, no adenopathy Heart: tachycardic but regular Lungs: poor air movement throughout with trace expiratory wheeze on the right Abdomen: Soft, nontender, nondistended with active bowel sounds Musculoskeletal: No tenderness, deformity, or edema Neurologic: Awake, alert, and oriented x3, no gross focal neurologic deficits, cranial nerves intact as tested Psych: Mood and affect are appropriate Skin: No rashes Const: Vital Signs, click to edit/add: Vital Signs - 24 hr 11/20/25 19:16 11/20/25 20:24 Temperature 97.9 F Pulse Rate [Right Pulse Oximeter] 102 H Respiratory Rate 28 H 20 Blood Pressure [Ri ght Upper Arm] 149/68 H Pulse Oximetry 90 92 Oxygen Delivery Me thod Room Air Nasal Cannula Oxygen Flow Rate 1 Course Course ED Course: Additional records reviewed: Primary care visit from October 10 which was follow-up for hypertension, COPD, at that time was concerned about difficulty coughing up sputum, sounds like he has an appointment with his fx artist upcoming, on DuoNeb and albuterol. Additional history from: EMS Care impacted by: COPD, hypertension Testing considered but not performed: See ED course Disposition: Patient with history of COPD who presents today with increased cough and shortness of breath over the last couple of days. Some chills but no fever. Increased frequency of albuterol nebulizer use. On exam here, oxygen saturation 90% on room air, no increased work of breathing, diminished breath sounds throughout with trace expiratory wheeze on the right. Suspect COPD exacerbation, likely related to viral upper respiratory infection including possible influenza which is rampant in the community currently. Labs and chest x-ray ordered along with Solu-Medrol and DuoNeb. Reevaluation(s) Time of Reevaluation #1: 20:02 Reevaluation #1: Chest x-ray independently interpreted by me, concern for infiltrate versus scarring on the right Time of Reevaluation #2: 20:29 Reevaluation #2: labs independently interpreted by me with positive influenza test, discussed this with patient, plan to start Tamiflu. Time of Reevaluation #3: 21:08 Reevaluation #3: IMPRESSION: Persistent patchy right mid lung and left perihilar infiltrates, likely scarring. Additional Reevaluation(s): 2151- labs independently interpreted by me with normal CBC other than mild anemia which is chronic for the patient, also normal basic panel and normal magnesium. Tamiflu will be started the emergency department. Patient consistently with oxygen saturations below 90% on room air and feels quite short of breath. Will be admitted for COPD exacerbation related to influenza A and hypoxia. Care discussed with Dr. Barrientos, hospitalist Vital Signs Vital signs: Initial Vital Signs Temperature 97.9 F 11/20/25 19:16 Temperature Source Temporal Artery Scan 11/20/25 19:16 Pulse Rate 102 H 11/20/25 19:16 Respiratory Rate 28 H 11/20/25 19:16 Blood Pressure 149/68 H 11/20/25 19:16 Blood Pressure Mean 95 11/20/25 19:16 Blood Pressure Position High-Fowlers 11/20/25 19:16 Pulse Oximetry 90 11/20/25 19:16 Oxygen Delivery Method Room Air 11/20/25 19:16 Vital Signs Temperature 97.9 F 11/20/25 19:16 Pulse Rate 102 H 11/20/25 19:16 Respiratory Rate 28 H 11/20/25 19:16 Blood Pressure 149/68 H 11/20/25 19:16 Pulse Oximetry 90 11/20/25 19:16 Oxygen Delivery Method Room Air 11/20/25 19:16 Temperature 97.9 F 11/20/25 19:16 Pulse Rate 102 H 11/20/25 19:16 Respiratory Rate 20 11/20/25 20:24 Blood Pressure 149/68 H 11/20/25 19:16 Pulse Oximetry 92 11/20/25 20:24 Oxygen Delivery Method Nasal Cannula 11/20/25 20:24 Oxygen Flow Rate 1 11/20/25 20:24 Medications Administered Medications: Discontinued Medications Generic Name Dose Route Start Last Admin Trade Name Freq PRN Reason Stop Dose Admin Albuterol/Ipratropium 1 neb 11/20/25 19:43 11/20/25 19:50 Iprat-Albut 0.5-2.5 Mg/3 Ml Neb IH 11/20/25 19:44 1 neb ONCE ONE Administration Methylprednisolone Sodium Succinate 125 mg 11/20/25 19:43 11/20/25 20:13 Methylprednisolone Sod Succ 62.5 Mg/Ml (125) IVP 11/20/25 19:44 125 mg ONCE ONE Administration Medical Decision Making Lab Data Labs: Lab Results 11/20/25 11/20/25 Range/Units 19:15 21:15 WBC 8.18 (4.50-11.00) K/uL RBC 3.61 L (4.30-5.90) m/uL Hgb 10.6 L (13.5-17.5) gm/dL Hct 33.0 L (37.0-53.0) % MCV 91 (80-100) fL MCH 29 (26-34) pg MCHC 32 (32-36) gm/dL RDW Coeff of Mandeep 14.1 (11.5-15.5) % Plt Count 334 (140-440) K/uL Neut % (Auto) 62.7 (42.0-72.0) % Lymph % (Auto) 12.3 L (20-44) % [place] % (Auto) 13.3 H (0.0-11.0) % Eos % (Auto) 11.4 H (0.0-7.0) % Baso % (Auto) 0.2 (0.0-3.0) % Neut # (Auto) 5.12 (1.7-7.0) K/uL Lymph # (Auto) 1.00 (0.90-2.90) K/uL [place] # (Auto) 1.10 H (0.00-0.90) K/UL Eos # (Auto) 0.90 H (0.00-0.50) K/uL Baso # (Auto) 0.02 (0.00-0.30) K/uL Abs Immat Gran (auto) 0.01 (0.00-0.30) K/uL Imm/Tot Granulo (auto) 0.1 % VBG pH 7.379 (7.32-7.43) VBG pCO2 45 (40-50) mmHG VBG pO2 35.6 (25-47) mmHG VBG HCO3 26 (21-28) mmol/L Sodium 136 (135-149) mmol/L Potassium 3.8 (3.6-5.1) mmol/L Chloride 100 (96-114) mmol/L Carbon Dioxide 25 (20-32) mmol/L Anion Gap 11 (7-15) mEq/L BUN 10 (7-30) mg/dL Creatinine 1.1 (0.5-1.5) mg/dL Estimated Creat Clear 63.05 Estimated GFR 74 ml/min Glucose 94 (60-115) mg/dL Calcium 9.0 (8.4-10.6) mg/dL Magnesium 1.7 (1.5-2.6) mg/dL SARS-CoV-2 (PCR) Negative SARS-CoV-2 (Negative) Influenza Type A (PCR) POSITIVE PCR FLU A A (Negative) Influenza Type B (PCR) Negative PCR FLU B (Negative) RSV (PCR) Negative PCR RSV (Negative) Discharge Plan Discharge Clinical Impression: Acute exacerbation of chronic obstructive pulmonary disease, Influenza A, Hypoxia Patient Disposition: Admitted As Observation Procedures ABG Interpretation ABG Results: 11/20/25 21:15 VBG pH 7.379 VBG pCO2 45 VBG pO2 35.6 VBG HCO3 26
--- NOTE | 2025-11-20 19:43 | CRLHL7_ITS ---
For Patients: As a result of the Cures Act, medical imaging exams and procedure reports are released immediately into your electronic medical record. You may view this report before your referring provider. If you have questions, please contact your health care provider. INDICATION: Dyspnea, cough. TECHNIQUE: Chest 1 views. COMPARISON: July 22, 2024. FINDINGS: Cardiovascular and mediastinum: Heart size and vasculature are normal in caliber and appearance. Lungs and pleural spaces: Persistent patchy right mid lung and left perihilar infiltrates. No sign of pleural effusion. No pneumothorax. Bones and soft tissues: No significant findings. IMPRESSION: Persistent patchy right mid lung and left perihilar infiltrates, likely scarring. Dictated by Leighton Carey MD @ 11/20/2025 8:23:13 PM (Electronically Signed)
[2025-11-20] MEDS: IPRAT-ALBUT 0.5-2.5 MG/3 ML NEB 1 NEB IH (19:50)
[2025-11-20] MEDS: METHYLPREDNISOLONE SOD SUCC 62.5 MG/ML (125) 125 MG IVP (20:13)
[2025-11-20 20:16] LABS: PCR FLU A POSITIVE PCR FLU A (Negative); PCR FLU B Negative PCR FLU B (Negative); PCR RSV Negative PCR RSV (Negative); SARS PCR* Negative SARS-CoV-2 (Negative)
--- NOTE | 2025-11-20 20:29 | RESP.RT ---
Patient seen in ED, Hx of COPD, Home nebulizers, one DuoNeb at 3pm, one partial on EMS ride tto ED. Patient on 1 Lpm NC SaO2 91%, Breathing regular/easy/shallow. RR 20/minutes, BBS, chest rise symmetrical, No use of accessory muscles, or belly breathing. Diminished all barrientos, more diminished LLL, patient stated LLL lung scarring Hx. DuoNeb with on demand nebulizer given. use well, tolerated well, Excellent NPC, patient stated thick green earlier today.
[2025-11-20 21:26] LABS: HCO3 VBG 26 mmol/L (21-28); PCO2 VBG 45 mmHG (40-50); PO2 VBG 35.6 mmHG (25-47); pH VBG 7.379 (7.32-7.43)
[2025-11-20 21:30] LABS: Hematocrit* 33.0 % (37.0-53.0); Hemoglobin* 10.6 gm/dL (13.5-17.5); Immature Granulocytes Abs Auto 0.01 K/uL (0.00-0.30); Immature Granulocytes Pct Auto 0.1 %; Mean Corpuscular HGB Conc 32 gm/dL (32-36); Mean Corpuscular Hemoglobin 29 pg (26-34); Mean Corpuscular Volume 91 fL (80-100); RDW Coefficient of Variation % 14.1 % (11.5-15.5); Red Blood Count* 3.61 m/uL (4.30-5.90); White Blood Count* 8.18 K/uL (4.50-11.00)
[2025-11-20 21:40] LABS: Chloride* 100 mmol/L (96-114)
[2025-11-20 21:41] LABS: Potassium* 3.8 mmol/L (3.6-5.1); Sodium* 136 mmol/L (135-149)
[2025-11-20 21:44] LABS: Anion Gap 11 mEq/L (7-15); Blood Urea Nitrogen* 10 mg/dL (7-30); Calcium* 9.0 mg/dL (8.4-10.6); Carbon Dioxide* 25 mmol/L (20-32); Creatinine* 1.1 mg/dL (0.5-1.5); Est. Creatinine Clearance* 63.05; Estimated Glomerular Filt Rate 74 ml/min; Glucose* 94 mg/dL (60-115); Lymphocytes Absolute Auto 1.00 K/uL (0.90-2.90); Slide Review Reflex No
[2025-11-20] MEDS: ACETAMINOPHEN 500 MG TABLET 1000 MG PO (22:11)
[2025-11-20] MEDS: OSELTAMIVIR PHOSPHATE 75 MG CAPSULE PO (22:11)
--- NOTE | 2025-11-20 22:49 | PM.IMHP1 ---
Assessment and Plan Assessment and plan (1) Hypoxic respiratory failure: Problem comment: Appears primarily due to influenza a and secondarily due to COPD Status: Inactive (2) COPD (chronic obstructive pulmonary disease): Problem comment: Treated for COPD exacerbation the emergency department. Clinically COPD appears to be fairly well managed at this time. Resume home therapies. Follow closely. Systemic steroids if evidence of exacerbation. Status: Inactive (3) Influenza A: Problem comment: Tamiflu an close monitoring for respiratory failure Status: Acute Plan 65-year-old male with COPD admitted to the hospital with hypoxic respiratory failure and influenza a. Admitted for oxygen, monitoring, influenza a treatment and COPD treatment. Anticipate discharge to home when weaning off oxygen Total Time Spent Total Time Spent: Total time spent today is 65 minutes in reviewing outside records, coordination of care and discussing with patient and other providers ongoing management of COPD and influenza a Hospitalist- H&P: HPI History of Present Illness Date Seen: 11/20/25 Chief complaint: difficulty breathing Narrative: Marco Cormier is a 65 year old male with longstanding COPD admitted to the hospital with a 1-2 day history of dyspnea, sore throat, profound fatigue and loss of appetite. He was diagnosed with influenza a in the emergency department. He was exposed to his ill granddaughter's and daughter about 2 days ago. He has not had a fever but he does report some chills. He has been able to drink fluids but has no appetite. He reports severe fatigue and severe exertional dyspnea. He spent the whole day in bed today. He saw his intelligence operations 3 weeks ago. He is on Symbicort, Spiriva, DuoNebs p.r.n., albuterol p.r.n., prednisone p.r.n., a Zithromax 250 mg daily starting 1-2 weeks ago for prophylaxis. He last took prednisone in early September. He has had recurrent hospitalizations for COPD exacerbations. Most recent hospitalization here was June 2024 Review of Systems Narrative: Other than the issues above he reports he has generally been doing well recently Medical Decision Making Medical Decision Making Has patient completed a Health Care Directive: No [facility] Medical History (Updated 11/20/25 @ 22:59 by Cornelio Barrientos MD) Hypoxic respiratory failure ?J96.91 - Respiratory failure, unspecified with hypoxia (ICD-10) History of smoking 25-50 pack years ?Z87.891 - Personal history of nicotine dependence (ICD-10) COPD exacerbation ?J44.1 - Chronic obstructive pulmonary disease with (acute) exacerbation (ICD-10) Nocturia more than twice per night ?R35.1 - Nocturia (ICD-10) Lung nodule ?R91.1 - Solitary pulmonary nodule (ICD-10) Iron deficiency anemia ?D50.9 - Iron deficiency anemia, unspecified (ICD-10) Myocardial strain ?I51.9 - Heart disease, unspecified (ICD-10) Abscess of lung ?J85.2 - Abscess of lung without pneumonia (ICD-10) Family History Father COPD (chronic obstructive pulmonary disease) Coronary artery disease Family/Other Stroke Social History (Updated 11/20/25 @ 22:54 by Cornelio Barrientos MD) Narrative: Alcohol use- beer drinker, stopped drinking early 2023 Former smoker- quit age 52; smoked 1.5 packs/day; approx 60 pack year history 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 . 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 Has 3 daughters. His daughter Maryann who lives in [place] is primary healthcare power of artificial glass eye maker. Code status is full. What is your current living situation?: I presently have a place to live Problems where you live: no known problems Problems where you live details: too many stairs. In the past 12 months, utilities in danger of being shut off: yes In past 12 months, lack of transportation kept you from medical appts, meetings, work, or getting things needed for daily living: no In the past 12 mos, have been you worried that your food would run out before you had money to buy more?: sometimes true In the past 12 mos, the food you bought just didn't last and you didn't have money to buy more?: sometimes true Highest level of school completed/degree received: high school graduate Smoking Status: Former smoker What tobacco products do you use: cigarettes Smoking quit date/years: <= 15 years ago Do you use any of these nicotine containing products: None Second hand tobacco smoke exposure: No How often do you have a drink containing alcohol: never How often do you have six or more drinks on one occasion: Never AUDIT-C Alcohol total score: 0 Non-prescribed substance use: denies use Caffeine: Yes How often does anyone, including family, friends and others, physically hurt you: never How often does anyone, including family, friends and others, insult or talk down to you: rarely How often does anyone, including family, friends and others, threaten you with harm: never How often does anyone, including family, friends and others, scream or curse at you: rarely service: No Health Related Social Needs: food insecurity (Z59.41) and Other personal risk factors, not elsewhere classified (Z91.89) Meds Home Medications and Allergies Home Medications ?Medication ?Instructions ?Recorded ?Confirmed ?Type fluticasone propionate 50 1 spray intranasal BID 07/02/23 11/20/25 History mcg/actuation nasal spray,suspension montelukast 10 mg tablet 10 mg PO QPM #90 tabs 11/09/23 11/20/25 Rx sodium chloride 3 % for 4 ml inhalation Q4H PRN secretions 05/31/24 10/10/25 Rx nebulization #120 mL loratadine 10 mg tablet 10 mg PO DAILY 07/22/24 11/20/25 History tiotropium bromide 2.5 2 puff inhalation DAILY 07/22/24 11/20/25 History mcg/actuation mist for inhalation (Spiriva Respimat) albuterol sulfate 90 mcg/actuation 2 puff inhalation Q4-6H PRN 07/23/24 11/20/25 History aerosol inhaler iron,carbonyl 65 mg-vitamin C 125 1 tab PO Q OTHER DAY 07/23/24 11/20/25 History mg tablet,delayed release (Vitron-C) omeprazole 20 mg capsule,delayed 40 mg (2 x 20 mg) .Route QDAY #180 12/29/24 11/20/25 Rx release caps guaifenesin 600 mg tablet, 600 mg PO BID PRN congestion #180 02/28/25 11/20/25 Rx extended release 12 hr (Mucinex) tabs albuterol sulfate 2.5 mg/3 mL 2.5 mg (3 mL) continuous 10/10/25 11/20/25 Rx (0.083 %) solution for nebulization nebulization Q4H PRN bronchospasm #180 mL finasteride 5 mg tablet 5 mg PO QDAY #90 tabs 10/10/25 11/20/25 Rx ipratropium 0.5 mg-albuterol 3 mg 3 ml inhalation QID PRN shortness 10/10/25 11/20/25 Rx (2.5 mg base)/3 mL nebulization of breath or wheezing #180 mL soln levothyroxine 25 mcg tablet 25 mcg PO QDAY #90 tabs 10/11/25 11/20/25 Rx azithromycin 250 mg tablet 250 mg PO DAILY 11/20/25 11/20/25 History budesonide-formoterol HFA 160 2 puff inhalation BID 11/20/25 11/20/25 History mcg-4.5 mcg/actuation aerosol inhaler Allergies Allergy/AdvReac Type Severity Reaction Status Date / Time shellfish derived Allergy Severe Vomiting Verified 10/10/25 13:41 Exam Narrative: Exam Narrative: He is alert and appears in no obvious distress. Eyes normal. Oropharynx normal. Neck is supple without mass or adenopathy. No stridor. He has hoarseness to his voice. Respirations are relatively clear to auscultation without wheezing rales or rhonchi. Has moderately diminished breath sounds and mild prolongation of expiratory phase. Cardiovascular: S1, S2, regular rate and rhythm. No murmur gallop or rub. Abdomen: Bowel sounds are present. Abdomen is soft without tenderness. He has an umbilical hernia which is soft and nontender. Extremities with trace edema bilaterally. He has intact pedal pulses. No cyanosis. No rash Const: Vital Signs, click to edit/add: Vital Signs - 24 hr 11/20/25 19:16 11/20/25 20:24 11/20/25 20:30 Temperature 36.6 C Pulse Rate [Right Pulse Oximeter] 102 H 96 Respiratory Rate 28 H 20 24 Blood Pressure [Ri ght Upper Arm] 149/68 H Pulse Oximetry 90 92 98 Oxygen Delivery Me thod Room Air Nasal Cannula Nasal Cannula Oxygen Flow Rate 1 2 11/20/25 21:00 11/20/25 21:30 11/20/25 22:00 Temperature Pulse Rate [Right Pulse Oximeter] 94 94 99 Respiratory Rate 24 26 H 24 Blood Pressure [Ri ght Upper Arm] 127/65 Pulse Oximetry 88 89 88 Oxygen Delivery Me thod Room Air Room Air Room Air Oxygen Flow Rate 11/20/25 22:30 11/20/25 22:45 Temperature Pulse Rate [Right Pulse Oximeter] 93 88 Respiratory Rate 26 H Blood Pressure [Ri ght Upper Arm] 136/64 Pulse Oximetry 88 94 Oxygen Delivery Me thod Room Air Nasal Cannula Oxygen Flow Rate 2 Hospitalist - H&P: Result Labs Labs: Short CBC 11/20/25 Range/Units 21:15 WBC 8.18 (4.50-11.00) K/uL Hgb 10.6 L (13.5-17.5) gm/dL Hct 33.0 L (37.0-53.0) % Plt Count 334 (140-440) K/uL BMP 11/20/25 21:15 Sodium 136 Potassium 3.8 Chloride 100 Carbon Dioxide 25 BUN 10 Creatinine 1.1 Glucose 94 Calcium 9.0 Imaging Chest x-ray: Radiologist's impression: INDICATION: Dyspnea, cough. TECHNIQUE: Chest 1 views. COMPARISON: July 22, 2024. FINDINGS: Cardiovascular and mediastinum: Heart size and vasculature are normal in caliber and appearance. Lungs and pleural spaces: Persistent patchy right mid lung and left perihilar infiltrates. No sign of pleural effusion. No pneumothorax. Bones and soft tissues: No significant findings. IMPRESSION: Persistent patchy right mid lung and left perihilar infiltrates, likely scarring.
[2025-11-21] MEDS: IBUPROFEN 400 MG TABLET PO ×2 (00:57→10:43)
[2025-11-21] MEDS: guaiFENesin 600 MG TAB.ER.12H PO (00:58)
[2025-11-21 03:36] VITALS: BP 119/56; PULSE 86; RESP 16; TEMP 36.7; O2SAT 90
[2025-11-21] MEDS: LEVOTHYROXINE 25 MCG TABLET PO (06:10)
[2025-11-21] MEDS: ALBUTEROL SULFATE 2.5 MG/3 ML VIAL.NEB NEB (06:50)
--- NOTE | 2025-11-21 07:35 | PC.NURSE ---
Pt arrived?to?the floor at 2340, alert, oriented and VSS.?Afebrile.?O2?sats remained above 90?on?room air. Lung sounds diminished.?Some SOB with exacerbation noted, though recovers quickly.?Pt?stated?a headache upon arrival, prn?ibuprofen provided. Moist cough with expectorant, guaifenesin provided, pt stated?improvement. Pt independent, tolerated well.?Pt in bed, appears to be resting, call light within reach.??
[2025-11-21 08:54] VITALS: BP 127/69; PULSE 82; RESP 18; TEMP 36.9; O2SAT 92
[2025-11-21] MEDS: OMEPRAZOLE 20 MG CAPSULE DR 40 MG PO (08:57)
[2025-11-21] MEDS: AZITHROMYCIN 250 MG TABLET PO (08:57)
[2025-11-21] MEDS: FINASTERIDE 5 MG TABLET PO (08:57)
[2025-11-21] MEDS: LORATADINE 10 MG TABLET PO (08:57)
[2025-11-21] MEDS: OSELTAMIVIR PHOSPHATE 75 MG CAPSULE PO (08:58)
[2025-11-21] MEDS: BUDESONIDE 0.5 MG/2ML NEB NEB (08:59)
[2025-11-21] MEDS: IPRAT-ALBUT 0.5-2.5 MG/3 ML NEB 1 NEB IH (08:59)
[2025-11-21] MEDS: SODIUM CHLORIDE 0.9 % (FLUSH) 10 ML SYRINGE 5 ML IVF (09:00)
[2025-11-21] MEDS: guaiFENesin 100 MG/ML CUP PO (10:44)
[2025-11-21] MEDS: BENZOCAINE/MENTHOL 1 EACH LOZENGE MUCOUS MEM (10:44)
--- NOTE | 2025-11-21 10:45 | P.DS_ITS ---
DS: Providers Provider Date Seen: 11/21/25 Date of admission: 11/20/25 23:44 Primary care physician: Ibrahima Etienne PA-C Admitting Clinician: Cornelio Barrientos MD Consults: 11/20/25 23:44 Consult to Respiratory Therapy [CONS] Routine Comment: Reason(s) for RT Consult:: Consult 11/21/25 00:52 Consult to Librarian Specialist [CONS] Routine Comment: Reason for Consult:: Social Service Consult Attending Physician on discharge: CAMILLE Loomis PA-C [facility] Hospitalist Date of Discharge: 11/21/25 DS: Diagnosis Discharge Diagnosis (1) Hypoxic respiratory failure: Status: Resolved Problem details: Appears primarily due to influenza a and secondarily due to COPD. Noted to be 88% on room air in ED. Was trialed on nasal cannula, but has remained stable on room air for most of hospital stay. (2) Influenza A: Status: Acute Problem details: Was started on Tamiflu and will complete 5 day course. Home to rest. Stay hydrated. (3) COPD (chronic obstructive pulmonary disease): Status: Inactive Problem details: Treated for COPD exacerbation the emergency department. Clinically COPD appears to be fairly well managed at this time. No hypoxia or hypercapnia. Resumed home therapies on admission. No significant exacerbation so steroids were not continued iso influenza a. Continue with incentive spirometry and usual medications on discharge. DS: Summary Hospital Course Hospital Course: Course of care and details as noted above. Admitted overnight for acute hypoxic respiratory failure in setting of acute influenza a infection and history of COPD. Has maintain saturations > 90% mostly on room air. No evidence of acute COPD exacerbation. Will discharge home with Tamiflu cares and continued COPD home medications. Outpatient follow- up with PCP, return to ED if new or worsening symptoms. Remainder of chronic medical comorbidities were monitored and managed with home medications. Status at Discharge Functional status at discharge: independent ambulation Overall status at discharge: patient is progressing back to baseline Time Spent with Patient Time attestation: Total time spent providing and/or coordinating discharge services: Time spent: Greater than 30 minutes Exam Narrative: Exam Narrative: PHYSICAL EXAM General: Pleasant, conversant, NAD Cardiovascular: RRR Pulmonary: No dyspnea on room air. Breath sounds mildly diminished, no expiratory wheezes or rhonchi. Neurological: Alert, answering questions appropriately Skin: Warm, dry. Const: Vital Signs, click to edit/add: Vital Signs - 24 hr 11/20/25 19:16 11/20/25 20:24 11/20/25 20:30 Temperature 97.9 F Pulse Rate [Pulse Oximeter] Pulse Rate [Right Pulse Oximeter] 102 H 96 Respiratory Rate 28 H 20 24 Blood Pressure [Le ft Arm] Blood Pressure [Ri ght Arm] Blood Pressure [Ri ght Upper Arm] 149/68 H Pulse Oximetry 90 92 98 Oxygen Delivery Me thod Room Air Nasal Cannula Nasal Cannula Oxygen Flow Rate 1 2 11/20/25 21:00 11/20/25 21:30 11/20/25 22:00 Temperature Pulse Rate [Pulse Oximeter] Pulse Rate [Right Pulse Oximeter] 94 94 99 Respiratory Rate 24 26 H 24 Blood Pressure [Le ft Arm] Blood Pressure [Ri ght Arm] Blood Pressure [Ri ght Upper Arm] 127/65 Pulse Oximetry 88 89 88 Oxygen Delivery Me thod Room Air Room Air Room Air Oxygen Flow Rate 11/20/25 22:30 11/20/25 22:45 11/20/25 23:40 Temperature 98.7 F Pulse Rate [Pulse Oximeter] 100 Pulse Rate [Right Pulse Oximeter] 93 88 Respiratory Rate 26 H 20 Blood Pressure [Le ft Arm] Blood Pressure [Ri ght Arm] 150/68 H Blood Pressure [Ri ght Upper Arm] 136/64 Pulse Oximetry 88 94 90 Oxygen Delivery Me thod Room Air Nasal Cannula Room Air Oxygen Flow Rate 2 11/20/25 23:40 11/21/25 03:36 11/21/25 08:54 Temperature 98.0 F 98.5 F Pulse Rate [Pulse Oximeter] 86 82 Pulse Rate [Right Pulse Oximeter] Respiratory Rate 20 16 18 Blood Pressure [Le ft Arm] 127/69 Blood Pressure [Ri ght Arm] 119/56 L Blood Pressure [Ri ght Upper Arm] Pulse Oximetry 90 90 92 Oxygen Delivery Me thod Room Air Room Air Room Air Oxygen Flow Rate 11/21/25 08:54 11/21/25 08:54 Temperature Pulse Rate [Pulse Oximeter] 82 Pulse Rate [Right Pulse Oximeter] Respiratory Rate 18 18 Blood Pressure [Le ft Arm] Blood Pressure [Ri ght Arm] Blood Pressure [Ri ght Upper Arm] Pulse Oximetry 92 Oxygen Delivery Me thod Room Air Oxygen Flow Rate DS: Data Data Completed and Pending Labs on day of discharge: Labs from last 24 hours 11/20/25 11/20/25 21:15 19:15 WBC 8.18 RBC 3.61 L Hgb 10.6 L Hct 33.0 L MCV 91 MCH 29 MCHC 32 RDW Coeff of Mandeep 14.1 Plt Count 334 Neut % (Auto) 62.7 Lymph % (Auto) 12.3 L [place] % (Auto) 13.3 H Eos % (Auto) 11.4 H Baso % (Auto) 0.2 Neut # (Auto) 5.12 Lymph # (Auto) 1.00 [place] # (Auto) 1.10 H Eos # (Auto) 0.90 H Baso # (Auto) 0.02 Abs Immat Gran (auto) 0.01 Imm/Tot Granulo (auto) 0.1 VBG pH 7.379 VBG pCO2 45 VBG pO2 35.6 VBG HCO3 26 Sodium 136 Potassium 3.8 Chloride 100 Carbon Dioxide 25 Anion Gap 11 BUN 10 Creatinine 1.1 Estimated Creat Clear 63.05 Estimated GFR 74 Glucose 94 Calcium 9.0 Magnesium 1.7 SARS-CoV-2 (PCR) Negative SARS-CoV-2 Influenza Type A (PCR) POSITIVE PCR FLU A A Influenza Type B (PCR) Negative PCR FLU B RSV (PCR) Negative PCR RSV Imaging Chest x-ray: Attestation: I have reviewed the pertinent imaging results. Radiologist's impression: Cardiovascular and mediastinum: Heart size and vasculature are normal in caliber and appearance. Lungs and pleural spaces: Persistent patchy right mid lung and left perihilar infiltrates. No sign of pleural effusion. No pneumothorax. Bones and soft tissues: No significant findings. IMPRESSION: Persistent patchy right mid lung and left perihilar infiltrates, likely scarring. Discharge Plan Discharge Disposition: Home, Self-Care Date of Admission: 11/20/25 23:44 Attending Provider on Discharge: Sydnie Morrow Primary Care Provider: Ibrahima Etienne Condition: Improved Anticipated Discharge Date/Time: 11/21/25 10:38 Discharge Medications: New oseltamivir 75 mg Capsule 75 mg PO BID Qty: 9 0RF Continued fluticasone propionate 50 mcg/actuation spray,suspension 1 spray intranasal BID montelukast 10 mg tablet 10 mg PO QPM Qty: 90 4RF finasteride 5 mg tablet 5 mg PO QDAY Qty: 90 3RF ipratropium-albuterol 0.5 mg-3 mg(2.5 mg base)/3 mL solution for nebulization 3 ml inhalation QID PRN (Reason: shortness of breath or wheezing) Qty: 180 1RF Rx Instructions: Use at first sign of shortness of breath; albuterol sulfate 2.5 mg /3 mL (0.083 %) solution for nebulization 2.5 mg continuous nebulization Q4H PRN (Reason: bronchospasm) Qty: 180 1RF sodium chloride 3 % solution for nebulization 4 ml inhalation Q4H PRN (Reason: secretions) Qty: 120 1RF guaifenesin [Mucinex] 600 mg tablet extended release 12hr 600 mg PO BID PRN (Reason: congestion) Qty: 180 3RF loratadine 10 mg tablet 10 mg PO DAILY albuterol sulfate 90 mcg/actuation HFA aerosol inhaler 2 puff INHALATION Q4-6H PRN Vitron-C 65 mg iron- 125 mg tablet,delayed release (DR/EC) 1 tab PO Q OTHER DAY azithromycin 250 mg tablet 250 mg PO DAILY budesonide-formoterol 160-4.5 mcg/actuation HFA aerosol inhaler 2 puff inhalation BID Incruse Ellipta 62.5 mcg/actuation blister with device 1 inh INHALATION DAILY omeprazole 20 mg capsule,delayed release(DR/EC) 40 mg .ROUTE QDAY Qty: 180 1RF Rx Instructions: 40 mg every day; levothyroxine 25 mcg tablet 25 mcg PO QDAY Qty: 90 0RF Discontinued Spiriva Respimat 2.5 mcg/actuation mist 2 puff inhalation DAILY Discharge Orders: Discharge Order (Routine); Ordered 11/21/25 Ordered By: Sydnie Morrow Patient Education: Oseltamivir (By mouth), Influenza (GEN) Additional Instructions: You have been prescribed Tamiflu for Influenza. Continue to use your inhalers and nebs. Use the incentive spirometer. Make sure to take all of your prescription medications as prescribed by your PCP. Outpatient follow up with PCP; sooner if new or worsening symptoms. Activity Level: Activity as Tolerated Discharge Diet: Regular Follow Up Appointments: Ibrahima Etienne PA-C [Primary Care Provider, Family Practice] - 11/28/25 8:30 am Referral Note: [facility] follow-up. Forms: [employer] Info Instructions
--- NOTE | 2025-11-21 12:11 | PC.NURSE ---
Discharge: Patient pleasant and cooperative. Patient vitally stable, lungs with expiratory wheezes and diminished, on RA, BS WNL, IV removed, catheter intact. Patient denies pain but requested ibuprofen, cough medicine, and something for a sore throat (lozenge was given. Patient is independent in room. Patient does not have an appetite but drinks plenty of coffee, and is urinating well. Patient has an intermittent moist cough. Patient signed belongings sheet and discharge paperwork, and had no further questions regarding discharge information. Patient left the floor by wheelchair to home with belongings at 1204.
--- NOTE | 2025-11-21 12:41 | PC.SOCIAL ---
Social work consult: rolled materials worker attempted to meet with the pt and he was in the bathroom. When this worker returned fifteen minutes later the pt had already discharged. Social work to follow-up as needed.
== END 2025-11-21 12:04 | disposition home or self-care (01) | DRG 194 ==
LOC: ED 22:01 → MEDSURG 11-21 00:21
PROVIDERS: Admitting Provider Family Medicine; Emergency Provider Family Medicine; PCP Physician Assistant Medical; Visit Provider Family Medicine
DX: J10.1 Influenza due to other identified influenza virus with other respiratory manifestations (principal); J44.0 Chronic obstructive pulmonary disease with (acute) lower respiratory infection; J44.1 Chronic obstructive pulmonary disease with (acute) exacerbation; Z87.891 Personal history of nicotine dependence; J22 Unspecified acute lower respiratory infection; R91.1 Solitary pulmonary nodule; Z59.41 Food insecurity; Z91.89 Other specified personal risk factors, not elsewhere classified
CPT/HCPCS: 36415; 71045; 80048; 82803; 83735; 85025; 87631; 93005; 94640; 96374; 99285; A9270; J2919